=== PATIENT | male | born 1955 | race Caucasian/White ===

== ENCOUNTER → 2018-09-30 07:40 | Outpatient (CLI) | payer OTHER, SELFPAY ==
--- NOTE | 2018-09-30 08:09 | XR_ITS ---
EXAM: XR lumbar spine min 4V HISTORY: ITS.REASON: low back pain ORDERING PHYSICIAN: Byron Steele MD PATIENT AGE: 63 years COMPARISON: None FINDINGS: There are mild degenerative changes at the T12-L1 and L1-L2 levels. There are hypertrophic facet changes at L4-5 and L5-S1 levels. There is slightly accentuated lordotic curvature With increased lumbosacral angle at L5-S1 level. The SI joints appear normal. IMPRESSION: Slightly accentuated lumbar lordosis at the lumbosacral level along with mild hypertrophic facet changes lower lumbar spine.
[2018-09-30 09:03] LABS: Basophils % 0.6 % (0.1-2.0); Eosinophils # 0.3 K/mm3 (0.0-0.4); Eosinophils % 3.5 % (0.1-12.0); Hematocrit 49.8 % (42.0-52.0); Hemoglobin 16.1 g/dL (14.1-18.0); Lymphocytes # 1.8 K/mm3 (0.7-4.5); Lymphocytes % 24.4 % (10-50); Mean Corpuscular HGB Conc 32.3 g/dL (31.8-35.4); Mean Corpuscular Hemoglobin 30.4 pg (27.0-31.2); Mean Platelet Volume 7.7 fl (7.4-10.4); Monocytes # 0.4 K/mm3 (0.1-1.0); Monocytes % 5.7 % (1.7-9.3); Neutrophils # 4.9 K/mm3 (1.8-7.8); Neutrophils % 65.8 % (37.0-80.0); Platelet Count 197 K/mm3 (142-424); White Blood Count 7.4 K/mm3 (4.8-10.8)
[2018-09-30 11:25] LABS: Erythrocyte Sedimentation Rate 6 mm/hr (0-20)
[2018-09-30 13:24] LABS: Hemoglobin A1C 5.9 % (0.0-7.0)
[2018-09-30 14:16] LABS: Alanine Aminotransferase 29 U/L (12-78); Albumin Level 4.1 gm/dL (3.4-5.0); Albumin/Globulin Ratio 1.3 (1.1-1.8); Alkaline Phosphatase 75 U/L (46-116); Anion Gap 14.5 mEq/L (5-15); Aspartate Amino Transferase 10 U/L (15-37); Bilirubin,Total 0.4 mg/dL (0.2-1.0); Blood Urea Nitrogen 19 mg/dL (7-18); Calcium 9.7 mg/dL (8.5-10.1); Carbon Dioxide 27 mmol/L (21.0-32.0); Chloride 103 mmol/L (98-107); Chol/HDL Ratio 3.3 (1-3.5); Cholesterol 173 mg/dL (140-200); Creatinine,Serum 1.12 mg/dL (0.70-1.30); Estimated Glomerular Filt Rate 66 ml/min (>60); GFR (African American) 80 ML/MIN (>60); Globulin 3.2 gm/dl (1.3-3.2); Glucose 106 mg/dL (74-106); HDL Cholesterol 52 mg/dL (27-67); LDL Cholesterol 112 mg/dL (0-130); Potassium 4.5 mmoL/L (3.5-5.1); Prostate Specific Ag Screen 0.7 ng/mL (0.0-4.0); Sodium 140 mmol/L (136-145); Thyroid Stimulating Hormone 3.72 uIU/ml (0.358-3.740); Total Protein,Serum 7.3 gm/dL (6.4-8.2); Triglycerides 47 mg/dL (30-200); Uric Acid 6.1 mg/dL (2.6-7.2); VLDL Cholesterol 9 mg/dL (0-40)
[2018-10-02 08:39] LABS: RA Latex Turbid. <10.0 IU/mL (0.0-13.9)
[2018-10-03 07:21] LABS: Antinuclear Antibodies, IFA Negative (.)
== END ==
PROVIDERS: PCP Family Medicine; Visit Provider Family Medicine
DX: M54.5 Low back pain (principal); R73.9 Hyperglycemia, unspecified; Z12.5 Encounter for screening for malignant neoplasm of prostate
CPT/HCPCS: 36415; 72110; 80053; 80061; 83036; 84443; 84550; 85025; 85651; 86038; 86431; G0103

== ENCOUNTER → 2018-12-05 15:55 | Outpatient (CLI) | payer OTHER, SELFPAY ==
--- NOTE | 2018-12-05 16:01 | MR_ITS ---
MR lumbar spine wo con, MR 3-d myelogram/MRCP HISTORY: Low back pain, left-sided low back pain ITS.REASON: LOW BACK PAIN, LUMBAR DDD, LUMBAR FACET ARTHROPATHY ORDERING PHYSICIAN: Byron Steele MD PATIENT AGE: 63 years Comparison: 09/30/2018 TECHNIQUE: Standard multiplanar multiecho sequences are performed without contrast. 3-D MIP and myelographic images are also rendered and reviewed FINDINGS: There is normal alignment. The spinal cord ends at the L1-L2 level. T11-T12: Unremarkable. T12-L1: Mild degenerative disc disease with mild disc desiccation and a small Schmorl's node along the inferior endplate of T12 posteriorly. L1-L2: Degenerative disc disease with endplate irregularity along the inferior aspect of L1 with small Schmorl's nodes. There is some bone marrow edema within the lower one half of the L1 vertebral body which could be discogenic in nature. There is minimal bulging disc with mild facet and ligamentum flavum hypertrophy. There is mild bilateral foraminal narrowing slightly greater on the left. The endplate irregularity as developed since the radiograph of 09/30/2018 L2-L3: Minimal bulging disc. L3-L4: Minimal bulging disc with mild facet and ligamentous hypertrophy L4-L5: There is a broad-based bulging disc which is eccentric centrally and toward the left along with moderate facet and ligamentum flavum hypertrophy. This is causing canal stenosis and moderate to severe bilateral lateral recess and foraminal narrowing greater on the left. L5-S1: There is mild degenerative disc disease with mild bulging disc with mild bilateral foraminal narrowing from facet hypertrophic change. Schmorl's node is present along the superior endplate of S1 anteriorly IMPRESSION: 1. Mild multilevel lumbar spondylosis with mild degenerative disc disease and bulging disc along with facet and ligamentum hypertrophy with bilateral lateral recess and foraminal narrowing. See above for detailed description at each level. 2. Degenerative disc disease at L1-L2 with endplate irregularity along the inferior aspect of L1 with small Schmorl's nodes. There is some bone marrow edema within the lower one half of the L1 vertebral body which could be discogenic in nature. There is minimal bulging disc with mild facet and ligamentum flavum hypertrophy. There is mild bilateral foraminal narrowing slightly greater on the left. The endplate irregularity as developed since the radiograph of 09/30/2018 3. There is a broad-based bulging disc at L4-5 which is eccentric centrally and toward the left along with moderate facet and ligamentum flavum hypertrophy. This is causing canal stenosis and moderate to severe bilateral lateral recess and foraminal narrowing greater on the left
== END ==
PROVIDERS: PCP Family Medicine; Visit Provider Family Medicine
DX: M54.5 Low back pain (principal); M51.36 Other intervertebral disc degeneration, lumbar region; M47.816 Spondylosis without myelopathy or radiculopathy, lumbar region
CPT/HCPCS: 72148; 76376

== ENCOUNTER → 2018-12-18 10:19 | Outpatient (POV) | payer OTHER, SELFPAY ==
[2018-12-18 10:32] VITALS: BP 162/98; PULSE 78; RESP 18; O2SAT 98
--- NOTE | 2018-12-18 11:36 | HMH.PMCON ---
Assessment and Plan (1) Degenerative disc disease, lumbar Current visit: Yes Status: Chronic Category: Medical Code(s): M51.36 - Other intervertebral disc degeneration, lumbar region (2) Lumbar radiculopathy Current visit: Yes Status: Chronic Category: Medical Code(s): M54.16 - Radiculopathy, lumbar region - Assessment and plan all Dx Assessment and Plan for all problems:: We will schedule an L4-L5 lumbar epidural steroid injection for the patient I do believe it would be beneficial given his symptomology. Patient is failed conservative therapies. I will follow-up with the patient after his injection and reassess his symptoms at that time. He is been instructed to call the office if he has any issues prior to his next appointment. Dr. Chen has reviewed this note and agrees with this plan of care. This note was dictated using voice recognition software and may contain errors or omissions HPI - Data of Consult Consult date: 12/18/18 Requesting Physician: Yaneth Aquino APRN Primary Care Provider: Byron Steele MD Family Provider: Byron Steele MD - Consult Narrative Reason for consult: Back pain History of present illness: Mr. Harman is a 63 year old male who presents today to discuss his low back pain. Patient has had back pain for many years. Patient states all activity increases it while rest and lying flat decreases it. Patient is now having some left leg involvement. He rates his pain a 5 out of 10. He states that throughout the day it gets worse. He does have an abnormal MRI. Patient denied discussed injective therapy. He is interested in this he is continuing a home stretching program. He is not on any anticoagulation therapy. He has failed over 6 months of conservative therapy including anti-inflammatories and home stretching programs. CC: Yaneth Aquino APRN [facility] History I have reviewed the patient's past medical history: Yes Medical History: Denies:: Diabetes Mellitus Type 1, Diabetes Mellitus Type 2, Internal Pacemaker, Lung Disease, Seizures Other Surgeries: Yes: Colonoscopy. No: Pacemaker - *Social History Smoking Status: Never smoker Alcohol Intake: never *Occupational Status:: employed Housing: house Household Members: spouse *Travel in the last 8 weeks: None - Psychiatric History Expresses thoughts of harming self/others: None Suicide Plan Description: No Plan Family Hx:: No significant family history Review of Systems - Review of Systems ROS General: no recent weight change, no fever, no sleep disturbances Respiratory: no cough, no shortness of air, no recurring pulmonary infections Cardiovascular/Peripheral Vascular: No chest pain, No palpitations, no edema, no shortness of breath. Gastrointestinal: no incontinence, normal bowel movements reported Genitourinary: no incontinence Musculoskeletal: Back pain, left leg pain Psychiatric: normal mood/ affect Neurological: [denies weakness in extremities], [denies balance issues] Meds Home Medications Medication Instructions Recorded Confirmed Type No Known Home Medications 10/30/18 10/30/18 History Allergies Allergy/AdvReac Type Severity Reaction Status Date / Time No Known Allergies Allergy Verified 10/30/18 10:20 Objective Vital signs: Pulse Resp BP Pulse Ox 78 18 162/98 H 98 12/18/18 10:32 12/18/18 10:32 12/18/18 10:32 12/18/18 10:32 Narrative: Physical Exam General: Alert and oriented x3, no acute distress, pleasant and cooperative, [on room air] Lungs: Resps E/U, Symmetrical chest expansion, Eyes: PERRL Musculoskeletal: Flexion and extension of lumbar spine somewhat guarded secondary to pain, deep tendon reflexes normal, strength in upper and lower extremities [5/5], slightly antalgic gait noted, straight leg raise test positive at 30 degrees on the left side Neurological: speech clear, 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
--- NOTE | 2018-12-18 11:39 | P.CONS_ITS ---
Assessment and Plan (1) Degenerative disc disease, lumbar Current visit: Yes Status: Chronic Category: Medical Code(s): M51.36 - Other intervertebral disc degeneration, lumbar region (2) Lumbar radiculopathy Current visit: Yes Status: Chronic Category: Medical Code(s): M54.16 - Radiculopathy, lumbar region - Assessment and plan all Dx Assessment and Plan for all problems:: We will schedule an L4-L5 lumbar epidural steroid injection for the patient I do believe it would be beneficial given his symptomology. Patient is failed conservative therapies. I will follow-up with the patient after his injection and reassess his symptoms at that time. He is been instructed to call the o ffice if he has any issues prior to his next appointment. Dr. Chen has reviewed this note and agrees with this plan of care. This note was dictated using voice recognition software and may contain errors or omissions HPI - Data of Consult Consult date: 12/18/18 Requesting Physician: Yaneth Aquino APRN Primary Care Provider: Byron Steele MD Family Provider: Byron Steele MD - Consult Narrative Reason for consult: Back pain History of present illness: Mr. Harman is a 63 year old male who presents today to discuss his low back pain. Patient has had back pain for many years. Patient states all activity increases it while rest and lying flat decreases it. Patient is now having some left leg involvement. He rates his pain a 5 out of 10. He states that throughout the day it gets worse. He does have an abnormal MRI. Patient denied discussed injective therapy. He is interested in this he is continuing a home stretching program. He is not on any anticoagulation therapy. He has failed over 6 months of conservative therapy including anti-inflammatories and home stretching programs. CC: Yaneth Aquino APRN [facility] History I have reviewed the patient's past medical history: Yes Medical History: Denies:: Diabetes Mellitus Type 1, Diabetes Mellitus Type 2, Internal Pacemaker, Lung Disease, Seizures Other Surgeries: Yes: Colonoscopy. No: Pacemaker - *Social History Smoking Status: Never smoker Alcohol Intake: never *Occupational Status:: employed Housing: house Household Members: spouse *Travel in the last 8 weeks: None - Psychiatric History Expresses thoughts of harming self/others: None Suicide Plan Description: No Plan Family Hx:: No significant family history Review of Systems - Review of Systems ROS General: no recent weight change, no fever, no sleep disturbances Respiratory: no cough, no shortness of air, no recurring pulmonary infections Cardiovascular/Peripheral Vascular: No chest pain, No palpitations, no edema, no shortness of breath. Gastrointestinal: no incontinence, normal bowel movements reported Genitourinary: no incontinence Musculoskeletal: Back pain, left leg pain Psychiatric: normal mood/ affect Neurological: [denies weakness in extremities], [denies balance issues] Meds Home Medications Medication Instructions Recorded Confirmed Type No Known Home Medications 10/30/18 10/30/18 History Allergies Allergy/AdvReac Type Severity Reaction Status Date / Time No Known Allergies Allergy Verified 10/30/18 10:20 Objective Vital signs: Pulse Resp BP Pulse Ox
== END ==
PROVIDERS: PCP Family Medicine; Visit Provider Clinical Nurse Specialist Family Health
DX: M51.16 Intervertebral disc disorders with radiculopathy, lumbar region (principal)
CPT/HCPCS: 99202

== ENCOUNTER → 2019-01-09 09:14 | Outpatient (POV) | payer OTHER, SELFPAY ==
[2019-01-09 09:26] VITALS: BP 149/95; PULSE 66; RESP 18; O2SAT 98; BMI 25.7
--- NOTE | 2019-01-16 12:58 | HMH.PAINSOAP ---
[facility] Pain Management SOAP Note Subjective:: Patient is a pleasant 63-year-old white male who presents today for follow-up after epidural steroid injection. Patient did not get any real relief with this injection. Patient states most of his pain is when he standing. Patient finds himself having to sit and lean forward. Patient does have an MRI showing L4-L5 spinal stenosis. Patient and I discussed potentially a mild or vertiflex procedure. I will have Dr. Chen review his MRI. ROS General: no recent weight change, no fever, no sleep disturbances Respiratory: no cough, no shortness of air, no recurring pulmonary infections Cardiovascular/Peripheral Vascular: No chest pain, No palpitations, no edema, no shortness of breath. Gastrointestinal: no incontinence, normal bowel movements reported Genitourinary: no incontinence Musculoskeletal: Back pain, leg pain Psychiatric: normal mood/ affect, [denies depression], [denies anxiety] Neurological: [denies weakness in extremities], [denies balance issues] Objective:: Physical Exam General: Alert and oriented x3, no acute distress, pleasant and cooperative, [on room air] Lungs: Resps E/U, Symmetrical chest expansion, Eyes: PERRL Musculoskeletal: Flexion and extension of lumbar spine somewhat guarded secondary to pain, deep tendon reflexes normal, strength in upper and lower extremities [5/5], normal gait noted Neurological: speech clear, delivery rn equal, no gross sensory deficits Assessment:: Degenerative disc disease lumbar spine with lumbar spinal stenosis with neurogenic claudication Plan:: I will have Dr. Chen review his MRI we will have him follow-up for discussion in regards to what procedure we will move forward with. Dr. Chen has reviewed this note and agrees with this plan of care. This note was dictated using voice recognition software and may contain errors or omissions
== END ==
PROVIDERS: PCP Family Medicine; Visit Provider Clinical Nurse Specialist Family Health
DX: M48.062 Spinal stenosis, lumbar region with neurogenic claudication (principal)
CPT/HCPCS: 99212

== ENCOUNTER → 2019-01-16 15:06 | Outpatient (POV) | payer OTHER, SELFPAY ==
[2019-01-16 15:31] VITALS: BP 125/79; PULSE 84; RESP 18; O2SAT 94; BMI 26.4
--- NOTE | 2019-01-16 16:13 | P.CONS_ITS ---
[facility] Pain Management SOAP Note Subjective:: Patient is a pleasant 63-year-old white male who presents today to discuss plan of care. Patient had an epidural injection with not much relief. Patient does have L4-L5 spinal stenosis with foraminal narrowing. Patient and I discussed a vertiflex procedure. Patient is going to consider this. Patient has pain when standing which is alleviated by leaning forward. Patient has pain down his legs during that time significantly worse in the left side. He rates his pain today a 5 out of 10. ROS General: no recent weight change, no fever, no sleep disturbances Respiratory: no cough, no shortness of air, no recurring pulmonary infections Cardiovascular/Peripheral Vascular: No chest pain, No palpitations, no edema, no shortness of breath. Gastrointestinal: no incontinence, normal bowel movements reported Genitourinary: no incontinence Musculoskeletal: Back pain, leg pain Psychiatric: normal mood/ affect, Neurological: [denies weakness in extremities], [denies balance issues] Objective:: Physical Exam General: Alert and oriented x3, no acute distress, pleasant and cooperative, [on room air] Lungs: Resps E/U, Symmetrical chest expansion, Eyes: PERRL Musculoskeletal: Flexion and extension of lumbar spine somewhat guarded secondary to pain, deep tendon reflexes normal, strength in upper and lower extremities [5/5], normal gait noted Neurological: speech clear, supervisor laboratory 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 Patient has had epidurals with no relief. Patient is tried and failed anti-inflammatories. Patient continues a home stretching program. He is not on any anticoagulation. Dr. Chen has reviewed this note and agrees with this plan of care. This note was dictated using voice recognition software and may contain errors or omissions
== END ==
PROVIDERS: PCP Family Medicine; Visit Provider Clinical Nurse Specialist Family Health
DX: M48.062 Spinal stenosis, lumbar region with neurogenic claudication (principal); M51.16 Intervertebral disc disorders with radiculopathy, lumbar region
CPT/HCPCS: 99212

== ENCOUNTER → 2019-05-08 08:38 | Outpatient (POV) | payer OTHER, SELFPAY ==
[2019-05-08 08:50] VITALS: BP 155/104; PULSE 82; RESP 18; O2SAT 98; BMI 26.4
--- NOTE | 2019-05-08 09:38 | HMH.PAINSOAP ---
[facility] Pain Management SOAP Note Subjective:: Patient is a pleasant 63-year-old white male who presents today for follow-up. Patient had epidural injections with no relief. Patient has pain especially on with standing for extended periods of time. He finds himself leaning forward to alleviate pressure. He has L4-L5 spinal stenosis with foraminal narrowing. We discussed the vertical flex procedure is interested in this. Patient rates pain a 2 out of 10 when he is sitting. Patient has pain down his legs during times of standing significantly worse on the left side. He is not on any anticoagulation therapy. He is continuing a home stretching routine. ROS General: no recent weight change, no fever, no sleep disturbances Respiratory: no cough, no shortness of air, no recurring pulmonary infections Cardiovascular/Peripheral Vascular: No chest pain, No palpitations, no edema, no shortness of breath. Gastrointestinal: no incontinence, normal bowel movements reported Genitourinary: no incontinence Musculoskeletal: Lumbar back pain, leg pain Psychiatric: normal mood/ affect Neurological: [denies weakness in extremities], [denies balance issues] Objective:: Physical Exam General: Alert and oriented x3, no acute distress, pleasant and cooperative, [on room air] Lungs: Resps E/U, Symmetrical chest expansion, Eyes: PERRL Musculoskeletal: Flexion and extension of lumbar spine somewhat guarded secondary to pain, deep tendon reflexes normal, strength in upper and lower extremities [5/5], [abnormal gait noted] Neurological: speech clear, 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 Plan:: We will send the patient for flexion and extension x-rays to see if he is avert a flex candidate. We will plan on L3-L4 L4-L5 for to flex implant. Follow-up with the patient after reassess his symptoms at that time. He has been instructed to call the office if he has any issues prior to his next appointment. Dr. Chen has reviewed this note and agrees with this plan of care. This note was dictated using voice recognition software and may contain errors or omissions [facility] History I have reviewed the patient's past medical history: Yes Medical History: Denies:: Cancer, Diabetes Mellitus Type 1, Diabetes Mellitus Type 2, Internal Pacemaker, Lung Disease, MRSA, Seizures *Have you ever received a pneumonia vaccine?: No *Have you received a flu vaccine this season?: No Other Medical History: Denies: Blood Transfusion Reaction Other Surgeries: Yes: Colonoscopy. No: Pacemaker Amputation: No - *Social History Smoking Status: Light tobacco smoker Tobacco Type: cigars # Packs/Day (cigarettes): 1 Alcohol Intake: never *Occupational Status:: other Housing: house Household Members: spouse *Travel in the last 8 weeks: None Family Hx:: No significant family history
--- NOTE | 2019-05-08 09:43 | P.CONS_ITS ---
[facility] Pain Management SOAP Note Subjective:: Patient is a pleasant 63-year-old white male who presents today for follow-up. Patient had epidural injections with no relief. Patient has pain especially on with standing for extended periods of time. He finds himself leaning forward to alleviate pressure. He has L4-L5 spinal stenosis with foraminal narrowing. We discussed the vertical flex procedure is interested in this. Patient rates pain a 2 out of 10 when he is sitting. Patient has pain down his legs during times of standing significantly worse on the left side. He is not on any anticoagulation therapy. He is continuing a home stretching routine. ROS General: no recent weight change, no fever, no sleep disturbances Respiratory: no cough, no shortness of air, no recurring pulmonary infections Cardiovascular/Peripheral Vascular: No chest pain, No palpitations, no edema, no shortness of breath. Gastrointestinal: no incontinence, normal bowel movements reported Genitourinary: no incontinence Musculoskeletal: Lumbar back pain, leg pain Psychiatric: normal mood/ affect Neurological: [denies weakness in extremities], [denies balance issues] Objective:: Physical Exam General: Alert and oriented x3, no acute distress, pleasant and cooperative, [on room air] Lungs: Resps E/U, Symmetrical chest expansion, Eyes: PERRL Musculoskeletal: Flexion and extension of lumbar spine somewhat guarded secondary to pain, deep tendon reflexes normal, strength in upper and lower extremities [5/5], [abnormal gait noted] Neurological: speech clear, release engineer 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 Plan:: We will send the patient for flexion and extension x-rays to see if he is avert a flex candidate. We will plan on L3-L4 L4-L5 for to flex implant. Follow-up with the patient after reassess his symptoms at that time. He has been instructed to call the office if he has any issues prior to his next appointment. Dr. Chen has reviewed this note and agrees with this plan of care. This note was dictated using voice recognition software and may contain errors or omissions [facility] History I have reviewed the patient's past medical history: Yes Medical History: Denies:: Cancer, Diabetes Mellitus Type 1, Diabetes Mellitus Type 2, Internal Pacemaker, Lung Disease, MRSA, Seizures *Have you ever received a pneumonia vaccine?: No *Have you received a flu vaccine this season?: No Other Medical History: Denies: Blood Transfusion Reaction Other Surgeries: Yes: Colonoscopy. No: Pacemaker Amputation: No - *Social History Smoking Status: Light tobacco smoker Tobacco Type: cigars # Packs/Day (cigarettes): 1 Alcohol Intake: never *Occupational Status:: other Housing: house Household Members: spouse *Travel in the last 8 weeks: None Family Hx:: No significant family history
== END ==
PROVIDERS: PCP Family Medicine; Visit Provider Clinical Nurse Specialist Family Health
DX: M48.062 Spinal stenosis, lumbar region with neurogenic claudication (principal)
CPT/HCPCS: 99212

== ENCOUNTER → 2019-05-19 08:17 | Outpatient (CLI) | payer OTHER, SELFPAY ==
--- NOTE | 2019-05-19 08:30 | XR_ITS ---
PROCEDURE: XR ANKLE LT MIN 3V CLINICAL INDICATION: ACUTE LEFT ANKLE PAIN Left ankle pain and swelling COMPARISON: None FINDINGS: There is mild soft tissue swelling overlying the medial malleolar region. There are several small areas of calcification overlying the medial malleolus and 1 at the tip of the medial malleolus. These may reflect sequela from prior trauma. No acute fracture or dislocation. No lytic changes apparent. IMPRESSION: Soft tissue swelling with calcification at the medial malleolar region and at the tip of the medial malleolus which may be due to prior trauma. Dictated by: Roberto Carlos Mclaughlin MD 05/19/2019 09:48 Electronically signed by Roberto Carlos Mclaughlin MD in [place] 05/19/2019 09:48
--- NOTE | 2019-05-19 08:30 | XR_ITS ---
PROCEDURE: XR LUMBAR SPINE BENDING ONLY CLINICAL INDICATION: back pain , seated flexion and extension COMPARISON: [id number] XR lumbar spine min 4V from 09/30/2018 FINDINGS: Flexion and extension views are obtained. There is approximately 2 mm anterolisthesis of L4 on L5 which does not significantly changed.. In the extension position, and there is 3 mm retrolisthesis of L3 on L4 and 5 mm retrolisthesis of L1 on L2. Degenerative disc disease is present at T12-L1 and L1-L2. No fracture or dislocation. IMPRESSION: Mild retrolisthesis of L3 on L4 of 3 mm and L1-L2 5 mm with extension Dictated by: Roberto Carlos Mclaughlin MD 05/19/2019 10:16 Electronically signed by Roberto Carlos Mclaughlin MD in [place] 05/19/2019 10:16
[2019-05-19 09:09] LABS: Basophils # 0.1 K/mm3 (0-0.2); Basophils % 0.6 % (0.1-2.0); Eosinophils # 0.4 K/mm3 (0.0-0.4); Eosinophils % 4.8 % (0.1-12.0); Hematocrit 50.3 % (42.0-52.0); Hemoglobin 15.6 g/dL (14.1-18.0); Lymphocytes # 1.6 K/mm3 (0.7-4.5); Lymphocytes % 20.3 % (10-50); Mean Corpuscular Hemoglobin 30.1 pg (27.0-31.2); Mean Corpuscular Volume 97.2 fl (80-94); Mean Platelet Volume 8.3 fl (7.4-10.4); Monocytes # 0.5 K/mm3 (0.1-1.0); Monocytes % 6.3 % (1.7-9.3); Neutrophils # 5.5 K/mm3 (1.8-7.8); Platelet Count 252 K/mm3 (142-424); Red Blood Count 5.18 M/mm3 (4.60-6.20); Red Cell Distribution Width 13.3 % (11.5-17.5); White Blood Count 8.1 K/mm3 (4.8-10.8)
[2019-05-19 10:59] LABS: Hemoglobin A1C 5.9 % (0.0-7.0)
[2019-05-19 11:03] LABS: Alanine Aminotransferase 23 U/L (12-78); Albumin Level 4.3 gm/dL (3.4-5.0); Albumin/Globulin Ratio 1.2 (1.1-1.8); Alkaline Phosphatase 69 U/L (46-116); Anion Gap 13.1 mEq/L (5-15); Aspartate Amino Transferase 16 U/L (15-37); Bilirubin,Total 0.7 mg/dL (0.2-1.0); Blood Urea Nitrogen 15 mg/dL (7-18); Calcium 9.5 mg/dL (8.5-10.1); Carbon Dioxide 29 mmol/L (21.0-32.0); Chloride 103 mmol/L (98-107); Cholesterol 187 mg/dL (140-200); Creatinine,Serum 1.09 mg/dL (0.70-1.30); Estimated Glomerular Filt Rate 68 ml/min (>60); GFR (African American) 83 ML/MIN (>60); Globulin 3.5 gm/dl (1.3-3.2); Glucose 106 mg/dL (74-106); HDL Cholesterol 62 mg/dL (27-67); LDL Cholesterol 112 mg/dL (0-130); Potassium 4.1 mmoL/L (3.5-5.1); Sodium 141 mmol/L (136-145); Total Protein,Serum 7.8 gm/dL (6.4-8.2); Triglycerides 67 mg/dL (30-200); VLDL Cholesterol 13 mg/dL (0-40)
[2019-05-19 11:11] LABS: C-Reactive Protein < 0.2 mg/dL (0.0-0.9)
[2019-05-19 11:31] LABS: Erythrocyte Sedimentation Rate 7 mm/hr (0-20)
[2019-05-22 07:08] LABS: RA Latex Turbid. <10.0 IU/mL (0.0-13.9)
[2019-05-24 06:09] LABS: Antinuclear Antibodies, IFA Negative (.)
== END ==
PROVIDERS: PCP Family Medicine; Referring Provider Clinical Nurse Specialist Family Health; Visit Provider Family Medicine
DX: M25.572 Pain in left ankle and joints of left foot (principal); M54.5 Low back pain; R73.9 Hyperglycemia, unspecified; R25.1 Tremor, unspecified
CPT/HCPCS: 36415; 72120; 73610; 80053; 80061; 83036; 84443; 84550; 85025; 85651; 86038; 86140; 86431

== ENCOUNTER → 2019-10-25 16:00 | Outpatient (CLI) | payer OTHER, SELFPAY ==
--- NOTE | 2019-10-25 16:03 | MR_ITS ---
PROCEDURE: MR LUMBAR SPINE WO CON CLINICAL INDICATION: LUMBAGO WITH SCIATICA Low back pain with sciatica, left-sided low back pain radiating into the leg with left leg numbness COMPARISON: SPLUMBWO MR lumbar spine wo con from 12/05/2018 TECHNIQUE: Standard multiplanar multiecho sequences are performed without contrast. 3-D MIP and myelographic images are also rendered and reviewed FINDINGS: Spinal cord ends at the L1 level. T12-L1: Degenerate disc disease. L1-L2: Degenerate disc disease with endplate irregularity involving the inferior endplate L1. Minimal bulging disc along with mild facet ligamentum hypertrophy. L2-L3: Mild concentric bulging disc. T1 and T2 hyperintensity is noted involving the L2 vertebral body laterally unchanged consistent with a small lipoma or hemangioma. There is facet ligamentum hypertrophy at this level with bilateral lateral recess and foraminal narrowing. L3-L4: Mild concentric bulging disc along with facet ligamentum hypertrophy with mild bilateral foraminal narrowing. L4-5: Degenerate disc disease with bulging disc which is eccentric toward the left with moderate facet ligamentum hypertrophy with moderate to severe canal stenosis, severe bilateral lateral recess narrowing, and moderate bilateral foraminal narrowing. L5-S1: Bulging disc with facet ligamentum hypertrophy No extruded herniated disc is evident and there has been no significant change compared to the previous exam. IMPRESSION: Multilevel lumbar spondylosis with degenerative disc disease with bulging disc along with facet ligamentum hypertrophy with varying levels of lateral recess and foraminal narrowing. There is moderate to severe canal stenosis at L4-5. Overall no significant change compared to the previous exam. No extruded herniated disc is evident. Please see above for detailed description at each level Dictated by: Roberto Carlos Mclaughlin MD 10/26/2019 11:03 Electronically signed by Roberto Carlos Mclaughlin MD in [place] 10/26/2019 11:03
== END ==
PROVIDERS: PCP Family Medicine; Visit Provider Family Medicine
DX: M54.42 Lumbago with sciatica, left side (principal); M48.061 Spinal stenosis, lumbar region without neurogenic claudication; M51.26 Other intervertebral disc displacement, lumbar region; M51.36 Other intervertebral disc degeneration, lumbar region; M47.816 Spondylosis without myelopathy or radiculopathy, lumbar region
CPT/HCPCS: 72148; 76376

== ENCOUNTER → 2020-03-05 15:55 | Outpatient (POV) | payer OTHER, SELFPAY | PROVIDERS: PCP Family Medicine | DX: Z00.00 Encounter for general adult medical examination without abnormal findings (principal) ==

== ENCOUNTER 2020-05-08 08:00 | Outpatient (RCR) | payer OTHER, SELFPAY ==
--- NOTE | 2020-01-30 08:54 | HMH.PTOPEV ---
PT Outpatient Evaluation Rehab PT Outpatient Evaluation Start: 01/30/20 08:04 Freq: Status: Active Protocol: Document 01/30/20 08:40 LENY (Rec: 01/30/20 08:54 PHORNE [id number]) Electronically Signed By Armin Mayfield, PT 01/30/20 08:40 Outpatient Therapy Subjective History Subjective History Pt is 64 yowm who presents with ~ 1 yr hx of generalized weakness, gait difficulty, and worsening balance. He reports being diagnosed with Parkinson's disease ~ 2 mos ago. He reports initially having frequent severe pain and was being worked up for lumbar spine pathology, but since he began medication for his Parkinson's disease the pain has subsided. He reports difficulty with initiating movements and ambulation. He reports mild tremors mostly in his legs and feels all of his symptoms are worse later in the day. PMH: none significant . Chief Complaint Stiff,Weakness,Decreased Coordination Symptoms Relieved By Prescription Meds Symptoms Aggravated By Physical Activity Prior Functional Limitations None Current Functional Limitations Recreation Activity,Walking, Balance Symptom Description Intermittent Level of pain today (0-10) 0 Balance Eval Gait/Posture Asssessment General Gait Observation Wide Based Gait,Shuffling Step Assistive Devices None / NA Hip Observation in Gait Stance Inadequate Extension Ankle/Foot Observation in Gait Swing Decreased Foot Clearance Ankle/Foot Observation in Gait Stance Early Heel Off Timed Up and Go Test 3. Is the Timed Up and Go Test result < yes 12 seconds? Rhomberg Feet Together/Eyes open/Stable Surface pass Feet Together/Eyes Closed/Stable Surface pass Feet Together/Eyes open/Unstable Surface pass Feet Together/Eyes Closed/Unstable fail Surface Dynamic Gait Index Test Protocol Gait Level Surface Normal Query Text: Instructions: Walk at your normal speed from here to the next leoncoi (20'). Grading: Leoncio the lowest category that applies. Change in Gait Speed Mild Impairment Query Text: Instructions: Begin walking at your normal pace (for 5'), when I tell you go
--- NOTE | 2020-03-03 10:47 | HMH.RHREAS ---
Rehab Reassessment Rehab OP Re-assessment Start: 03/03/20 10:41 Freq: Status: Active Protocol: Document 03/03/20 10:43 LENY (Rec: 03/03/20 10:47 LENY [id number]) Electronically Signed By Armin Mayfield, PT 03/03/20 10:43 Rehab Re-assessment Subjective Subjective Pt reports he feels he is walking better, but notices tremors more when he is tired. Objective Objective Notes Gait: less shuffling step with decreased stride width. increased toe off during late stance phase bilateral. Assessment Progress Assessment Progressing as Expected Assessment Notes Pt improving gait pattern well , endurance remains lower than normal. balance also improving. Patient goals met ST,2,3,4,5,6 Goals Not Met LT,2,3,4,5,6 Revised Goals none Plan Plan Continue per initial POC. Frequency of Therapy 2 x/wk Duration of therapy 8 wks Time and Billing Re-Eval Time 15 Re-Eval Billing Units 1 PHYSICIAN CERTIFICATION: I certify the specified therapy services for Leoncio Harman are required, authorized, and reviewed every 30 days.
--- NOTE | 2020-04-07 15:52 | HMH.RHREAS ---
Rehab Reassessment Rehab OP Re-assessment Start: 03/03/20 10:41 Freq: Status: Active Protocol: Document 04/07/20 15:50 LENY (Rec: 04/07/20 15:52 LENY [id number]) Electronically Signed By Armin Mayfield, PT 04/07/20 15:50 Rehab Re-assessment Subjective Subjective Pt reports he feels much better overall, but some things are still problematic. Objective Objective Notes DIALLO balance score: 49/56 Gait pattern improved with increased stride length B. Assessment Progress Assessment Progressing as Expected Assessment Notes Continues to improve with ambulation and endurance to all activity, upper/lower trunk dissociation needs to improve. Patient goals met ST,2,3,4,5,6 Goals Not Met LT,2,3,4,5,6 Revised Goals none Plan Plan Continue per initial POC. Frequency of Therapy 2 x/wk Duration of therapy 8 wks Time and Billing Re-Eval Time 15 Re-Eval Billing Units 1 PHYSICIAN CERTIFICATION: I certify the specified therapy services for Leoncio Wisam Harman are required, authorized, and reviewed every 30 days.
== END 2020-05-08 08:05 | disposition home or self-care (01) ==
LOC: PT 08:00
PROVIDERS: PCP Family Medicine; Visit Provider Family Medicine
DX: G20 Parkinson's disease (principal)
CPT/HCPCS: 97110; 97112; 97163; 97164; 97530

== ENCOUNTER 2020-08-01 08:30 | Outpatient (RCR) | payer OTHER, SELFPAY ==
--- NOTE | 2020-06-20 09:19 | HMH.PTOPEV ---
PT Outpatient Evaluation Rehab PT Outpatient Evaluation Start: 06/20/20 09:05 Freq: Status: Active Protocol: Document 06/20/20 09:06 LENY (Rec: 06/20/20 09:18 PHOMOUSTAPHA [id number]) Electronically Signed By Armin Mayfield, PT 06/20/20 09:06 Outpatient Therapy Subjective History Subjective History Pt is 64 yowm who presents with hx of Parkinson's disease with feelsings of general weakness and poor gait. Pt states, I feel like I stumble more and I shuffle my feet when I walk. Pt reports no c/ o pain, but does express feeling of generally decreased endurance to activity. He reports no significant PMH. He does reports increased L LE tremors recently. Chief Complaint Gives out/Unstable,Weakness Symptom Type Other Symptoms Relieved By Rest/Positioning Symptoms Aggravated By Physical Activity Prior Functional Limitations None Current Functional Limitations Recreation Activity,Walking, Balance Symptom Description Constant but Variable Level of pain today (0-10) 0 Pain scale - at its worst (0-10) 0 Balance Eval Subjective Hx of Complaint Comment HKS= mild impairment, FNF= mild impairment Current Functional Limitations Comment LEFS score 57/80 = 71.3%/100% LE function. Gait/Posture Asssessment General Gait Observation Shuffling Step Assistive Devices None / NA Level of Transfer Assist Independent Ankle/Foot Observation in Gait Swing Decreased Foot Clearance Body Alignment Posture Rigid Dynamic Gait Index Test Protocol Gait Level Surface Normal Query Text: Instructions: Walk at your normal speed from here to the next yoli (20'). Grading: Yoli the lowest category that applies. Change in Gait Speed Normal Query Text: Instructions: Begin walking at your normal pace (for 5'), when I tell you go , walk as fast as you can (for 5'). When I tell you slow , walk as slowly as you can (for 5'). Grading: Yoli the lowest category that applies. Gait with Horizontal Head Turns Mild Impairment Query Text: Instructions: Begin walking at your normal pace. When I tell you to look right , keep walking straight, but turn you head to the right. Keep looking to the right
== END 2020-08-01 08:35 | disposition home or self-care (01) ==
LOC: PT 08:30
PROVIDERS: PCP Family Medicine; Visit Provider Family Medicine
DX: G20 Parkinson's disease; G24.9 Dystonia, unspecified; R26.89 Other abnormalities of gait and mobility
CPT/HCPCS: 97110; 97112; 97163; 97530

== ENCOUNTER → 2021-03-11 14:22 | Outpatient (POV) | payer MEDICARE, SELFPAY | DX: Z00.00 Encounter for general adult medical examination without abnormal findings (principal) ==

== ENCOUNTER → 2021-11-21 07:55 | Outpatient (CLI) | payer MEDICARE, SELFPAY ==
--- NOTE | 2021-11-21 08:14 | XR_ITS ---
PROCEDURE INFORMATION: Exam: XR Right Hip Exam date and time: 11/21/2021 8:15 AM Age: 66 years old Clinical indication: Hip pain; Right hip; Additional info: Right hip pain TECHNIQUE: Imaging protocol: XR Right hip. Views: 2 or 3 views hip with pelvis when performed. COMPARISON: MR LUMBAR SPINE WO CON 10/25/2019 4:16 PM FINDINGS: Bones/joints: Unremarkable. No acute fracture or dislocation. Soft tissues: Unremarkable. IMPRESSION: No acute findings.
== END ==
PROVIDERS: PCP Family Medicine; Visit Provider Family Medicine
DX: M25.551 Pain in right hip (principal)
CPT/HCPCS: 73502

== ENCOUNTER → 2022-07-19 08:02 | Outpatient (CLI) | payer MEDICARE, SELFPAY ==
--- NOTE | 2022-07-19 08:16 | XR_ITS ---
FINAL REPORT CLINICAL HISTORY: COUGH x 2 weeks FINDINGS: 2 views of the chest were obtained . The heart is normal in size. The mediastinum is within normal limits. There are coarse linear densities at the lung bases bilaterally consistent with atelectasis and probable resolving pneumonia. There is no effusion or pneumothorax. Osseous structures are unremarkable. IMPRESSION: Coarse linear densities at the lung bases consistent with atelectasis and probable resolving pneumonia. Reviewed, Interpreted and Dictated by Zari Daniels MD Transcribed by Nicole Cazares Authenticated and [facility]
== END ==
PROVIDERS: PCP Family Medicine; Visit Provider Family Medicine
DX: R05.9 Cough, unspecified (principal)
CPT/HCPCS: 71046

== ENCOUNTER → 2023-03-15 08:43 | Outpatient (CLI) | payer MEDICARE, SELFPAY ==
--- NOTE | 2023-03-15 08:49 | CA_ITS ---
APPROVED REPORT EXAM: Comprehensive 2D, Doppler, and color-flow Echocardiogram Building Pressure Washer: Renata Suggs RT(R) Ht: 6 ft 1 in Wt: 240lbs BSA: 2.33 BP: 106/79 mmHg Indications: Parkinson's disease, edema, smoker, SOB 2D Dimensions LVOT 2.08 cm (M/F) 1.5-2.5 LVEF (Estrada's) 57.80 % M: 52 - 72 LV Volume 118.00 mL M: 62 - 150 LV Volume Index 50.64 mL/m2 M: 34 - 74 LA Volume 38.20 mL LA Volume Index 16.39 mL/m2 (M/F) 16-34 M-Mode Dimensions RVDd 2.93 cm (0.9-2.6) LA Diam 4.36 cm (1.9-4.0) LVDd 5.26 cm (3.5-5.7) Ao Diam 2.95 cm (2.0-3.7) LVDs 3.53 cm (3.5-5.7) IVSd 0.80 cm (0.6-1.1) PWd 0.72 cm (0.6-1.1) EF (Teich) 61.00% FS 32.90% EDV (Teich) 133.00 mL ESV (Teich) 51.90 mL LV Diastology E Decel Time 187.00 (160-240 msec) E/A Ratio 0.8 MED E' 6.60 (< 7 cm/sec) E'/MED E' Ratio 10.21 (>14) LAT E' 9.60 (<10 cm/sec) E/LAT E' Ratio 7.02 (>14) Mitral Valve MV E Max Brian. 67.00 (40-130 cm/s) MV A Velocity 86.00 (40-130 cm/s) E/A Ratio 0.78 MV Decel. Time 187.00 (160-240 ms) MV PHT 55.00 ms Left Ventricle The left ventricle is normal size. There is normal left ventricular systolic function. LVEF is 55% There is normal left ventricular wall thickness. The left ventricular diastolic function is normal. Right Ventricle The right ventricle is normal size and function There is mild increase in RV wall thickness Atria The left atrium size is normal. The right atrium size is normal. There is no Doppler evidence of atrial septal defect Aortic Valve The aortic valve opens well. The aortic valve is normal in structure. Aortic valve is trileaflet. No aortic regurgitation is present. Mitral Valve The mitral valve is normal in structure. There is no mitral valve regurgitation noted. Tricuspid Valve The tricuspid valve is normal in structure. Trace tricuspid regurgitation. RVSP is normal. Pulmonic Valve The pulmonary valve is normal in structure. Trace pulmonic regurgitation is present. Great Vessels The aortic root is normal in size. The ascending aorta is normal in size. Pericardium There is no pericardial effusion. Other Information Study Quality: Adequate Conclusion Normal biventricular systolic function. No significant valvular disease. No prior study to compare. Electronically signed by : Sadaf Hartman, 03/15/2023 12:22:43
== END ==
LOC: RT 08:45
PROVIDERS: PCP Family Medicine; Visit Provider Family Medicine
DX: R06.02 Shortness of breath; R60.0 Localized edema
CPT/HCPCS: 93306

== ENCOUNTER 2023-04-28 08:00 | Outpatient (RCR) | payer MEDICARE, SELFPAY ==
--- NOTE | 2022-11-10 14:57 | HMH.PTOPWND ---
Rehab Outpt Wound Evaluation Rehab OP Wound Evaluation Start: 11/10/22 14:31 Freq: Status: Active Protocol: Document 11/10/22 14:31 LENY (Rec: 11/10/22 14:57 PHORDERREK [id number]) E-signed By Armin Mayfield, PT Subjective/History History History This is the initial PT eval for Leoncio Harman 67 yowm who presents with c/o B LE edema increased x ~ 3-6 mos. He reports edema is significantly increased throughout the day with dependent positioning, but he has difficulty propping his legs due to stiffness related to his parkinson's disease. He reports any time he lays for very long his low back becomes painful and his general stiffness is increased . He reports this is especially bad first thing in the morning. He has hx of B LE laser vein ablation in the past. Subjective Subjective Pt reports pain is 8/10 at worst, especially first thing in the morning. He reports increased walking and moving during the day relieve his pain and stiffness. Currently 1+ pitting edema noted to B lower legs, especially at the ankle. He has no c/o palpation tenderness at this time. Lymphedema Eval Classification of Lymphedema Secondary Lymphedema Yes Stemmer's sign Stemmer's Sign yes Stage of Lymphedema Lymphedema stages Stage I (Pitting edema, reduces w/ elevation, no fibrosis) Skin Changes Dry Skin Yes Redness Yes Brittle Uneven Nails Yes Other Changes Yes Pain Scale Pain Scale (0-10) 8 Affected Extremities Areas Affected by Lymphedema/Edema Right Lower Extremity,Left Lower Extremity Manual Lymphatic Drainage Treatment Area MLD Treatment Area Right Lower Extremity,Left Lower Extremity Wound Problems/Impairments Impairments Problems/Impairmments Impaired Endurance,Impaired Gait Pattern,Impaired Walking,
--- NOTE | 2022-12-08 16:28 | HMH.RHREAS ---
Rehab Reassessment Rehab OP Re-assessment Start: 12/08/22 16:23 Freq: Status: Active Protocol: Document 12/08/22 16:23 LENY (Rec: 12/08/22 16:28 PHORDERREK [id number]) E-signed By Armin Mayfield, PT Rehab Re-assessment Subjective Subjective Pt reports pain 12/29 this date . Unfortunately while on vacation ~2 wks ago he contracted cellulitis of his R LE and has significant wound area remaining on the medial R ankle. Objective Objective Notes R ankle wound: L= 9.3 cm, W= 5 .8 cm, D= 0.1 cm. Dry, flaky skin and minimal slough remain in the wound bed at this time . Edema: 1+ pitting edema noted to B lower legs. Assessment Progress Assessment Slower Than Expected Assessment Notes Pt has shown improvement in LE pain. However, he has shown little decrease in his pitting edema at this point and new onset wound to the R LE as noted above. He continues to require skilled intervention to return to prior level of function. Patient goals met ST,3,[address] LT,2,3,4,5,6 Revised Goals none Plan Plan Continue per initial POC. Frequency of Therapy 2 x/wk Duration of therapy 4 wks Time and Billing Re-Eval Time 16 Re-Eval Billing Units 1 PHYSICIAN CERTIFICATION: I certify the specified therapy services for Leoncio Harman are required, authorized, and reviewed every 30 days.
--- NOTE | 2023-01-10 11:59 | HMH.RHREAS ---
Rehab Reassessment Rehab OP Re-assessment Start: 12/08/22 16:23 Freq: Status: Active Protocol: Document 01/10/23 11:55 RENETTAVenusDERREK (Rec: 01/10/23 11:59 LENY [id number]) E-signed By Armin Mayfield, PT Rehab Re-assessment Subjective Subjective Pt reports he feels much closer to baseline now. It doesn't hurt aat all, but it is still kind of itchy. Objective Objective Notes R ankle wound: L= 1.2 cm, W= 2 .1 cm, D= 0.1 cm. Wound bed very healthy, full granulation tissue with increased epithelialization. Edema: 1+ pitting edema noted to R lower leg. Circumferential measurements: R LE 252.9 cm total. Assessment Progress Assessment Progressing as Expected Assessment Notes Pt has shown significant overall improvement in R ankle wound total area. He continues to have increased difficulty with ambulation due to increased swelling and feelings of heaviness in the legs when he walks. He contnues to need skilled intervention to return to prior level of function with all ADLs. Patient goals met ST,2,3,4 Goals Not Met LT,2,3,4,5,6 Revised Goals none Plan Plan Continue per initial POC. Frequency of Therapy 1 x/wk Duration of therapy 4 wks Time and Billing Re-Eval Time 14 Re-Eval Billing Units 0 PHYSICIAN CERTIFICATION: I certify the specified therapy services for Leoncio Harman are required, authorized, and reviewed every 30 days.
--- NOTE | 2023-03-29 11:31 | HMH.RHREAS ---
Rehab Reassessment Rehab OP Re-assessment Start: 12/08/22 16:23 Freq: Status: Active Protocol: Document 03/29/23 11:24 RENETTAVenusDERREK (Rec: 03/29/23 11:31 PHORDERREK [id number]) E-signed By Armin Mayfield, PT Rehab Re-assessment Subjective Subjective Pt reports, My leg feels a whole lot better than it did when we started. Objective Objective Notes R ankle wound: Fully epithelialized at this time. Edema: 1+ pitting edema noted to R lower leg. Circumferential measurements: R LE 258.9 cm total which is + 16.9 cm total since initial eval. Assessment Progress Assessment Slower Than Expected Assessment Notes Pt has shown increased R LE edema progressiveley since his intial evaluation, but there could be some medication side- effects that worsen this condition. He does continue to improve his functional ambulation ability with less feelings of heaviness in the R LE and his previous wound appears to be fuilly healed at this time. He continues to need skilled intervention to return to prior level of function. Patient goals met ST,2,3,4 Goals Not Met LT,2,3,4,5,6 Revised Goals none Plan Plan Continue per initial POC. Frequency of Therapy 1 x/wk Duration of therapy 4 wks Time and Billing Re-Eval Time 13 Re-Eval Billing Units 1 PHYSICIAN CERTIFICATION: I certify the specified therapy services for Leoncio Harman are required, authorized, and reviewed every 30 days.
== END 2023-04-28 08:05 | disposition home or self-care (01) ==
LOC: PT 08:00
PROVIDERS: PCP Family Medicine; Visit Provider Family Medicine
DX: R60.0 Localized edema (principal)
CPT/HCPCS: 97140; 97163; 97164; 97760

== ENCOUNTER → 2023-06-10 10:30 | Outpatient (CLI) | payer MEDICARE, SELFPAY ==
--- NOTE | 2023-06-10 10:35 | XR_ITS ---
FINAL REPORT CLINICAL HISTORY: LT ANKLE PAIN, NO KNOWN INJURY, SWELLING FINDINGS: Left ankle Three views were obtained. There is no acute fracture or dislocation. There are mild degenerative changes. There is chronic calcification inferior to the medial malleolus. Small plantar calcaneal spur is identified. There is soft tissue swelling. IMPRESSION: Degenerative and chronic appearing findings Reviewed, Interpreted and Dictated by Jayson Castaneda III, MD Transcribed by Angie Spear Authenticated and [facility]
== END ==
PROVIDERS: PCP Family Medicine; Visit Provider Family Medicine
DX: M25.572 Pain in left ankle and joints of left foot (principal)
CPT/HCPCS: 73610

== ENCOUNTER 2023-08-09 19:01 | Emergency (ER) | payer MEDICARE, SELFPAY ==
--- OUTSIDE RECORDS SUMMARY | 2023-08-09 19:09 | XMS_ITS ---
Author Name Unknown Address [address] [place] [address] Phone Organization [facility] Address [address] [place] [address] Phone Care Team Providers Care Admissions Assistant Name Role Phone Brenna GONZALEZ, Jayson Booth [ ] Conditions or Problems Problem Name Problem Code Onset Date Status Entry Date Provider Comment Standard Description Annotate Leukocytosis 111661055 (SNOMED CT) 12/02 Inactive 12/02 Jayson Ceja MD Leukocytosis Venous stasis 13209848 (SNOMED CT) 12/02 Inactive 12/02 Jayson Ceja MD Venous stasis Medications Medication Instructions Start Date Stop Date Generic Name NDC Provider MUCINEX MAXIMUM STRENGTH 1200 MG [id number] qd guaifenesin 10050097006 [facility] PREGABALIN 75 MG CAPS three times daily pregabalin [id number] [facility] PRAMIPEXOLE DIHYDROCHLORIDE 1 MG TABS three times daily pramipexole [id number] [facility] ESOMEPRAZOLE MAGNESIUM 40 MG CPDR qd esomeprazole magnesium [id number] [facility] Medications Administered No information available. Allergies, Adverse Reactions, Alerts No information available. Results Date Name Value Unit
--- OUTSIDE RECORDS SUMMARY | 2023-08-09 19:09 | XMS_ITS | Clinical Summary ---
Author Name Unknown Address [address] [place] [address] Phone Organization [facility] Address [address] [place] [id number] Phone Care Team Providers Care Location Manager Name Role Phone Jayson Ceja MD [ ] Conditions or Problems Problem Name Problem Code Onset Date Status Entry Date Provider Comment Standard Description Annotate Strep pyogenes infection B95.4 (ICD-10-CM ) 12/01 Active 12/01 Yari L Other streptococcus as the cause of diseases classified elsewhere Chronic venous stasis disease 02038084 (SNOMED CT) 12/02 Active 12/02 Yari L Stasis dermatitis Neutrophilic leukemoid reaction D72.823 (ICD-10-CM ) 12/02 Active 12/02 Yari L Leukemoid reaction Smoking cessation counseling 403055530 (SNOMED CT) 12/07 Active 12/07 Carolee Cari Procedure carried out on subject Other obesity due to excess calories 089180373 (SNOMED CT) 12/07 Active 12/07
--- OUTSIDE RECORDS SUMMARY | 2023-08-09 19:09 | XMS_ITS ---
Author Name Unknown Address [address] [place] [address] [address] [place] [address] Phone Organization [facility] Address [address] [place] [address] Phone Care Team Providers Care Sampler Radioactive Waste Name Role Phone Brenna GONZALEZ, Jayson Granados Unavailable [ ] Conditions or Problems No information available. Medications Medication Instructions Start Date Stop Date Generic Name [facility] Provider HIBICLENS 4 % LIQD Apply 1 as directed to skin once a day 8 chlorhexidine gluconate [id number] Jayson Ceja MD MUPIROCIN 2 % OINT Apply 1 as directed to affected area twice a day Apply to each nostril twice a day. Once in the morning and once in the evening for 5 days 8 mupirocin [id number] Jayson Ceja MD Medications Administered No information available. Allergies, Adverse Reactions, Alerts No information available. Results Date Name Value Unit Range Flag Description Office Visit: Office Visit:r wayne 7 SMOK STATUS Light tobacco smoker Tobacco smoking status MEDS REVIEW Done Documenta tion of current medications (procedure) Plan of Care No information available. Procedures No information available. Vital Signs Date Name Value Unit Description BMI (Body Mass Index) 33.31 kg/m2 Bod y Mass Index (Ratio) Body Temperature 97.4 [degF] temperat ure E&M BP Diastolic 90 mm[Hg] blood pressu re, diastolic
--- OUTSIDE RECORDS SUMMARY | 2023-08-09 19:09 | XMS_ITS ---
Author Name Unknown Address [address] [place] [address] Phone Organization [facility] Address [address] [place] [address] Phone Care Team Providers Care Hosiery Bagger Name Role Phone Brenna GONZALEZ, Jayson Granados Unavailable [phone] [ ] Conditions or Problems No information available. Medications No information available. Medications Administered No information available. Allergies, Adverse Reactions, Alerts No information available. Results Date Name Value Unit Range Flag Description Office Visit: 7 MEDS REVIEW Done Documenta tion of current medications (procedure) SMOK STATUS Light tobacco smoker Tobacco smoking status Plan of Care Type Date Detail Pending order Continue IV anti biotics Pending order PIV/Butterfly Procedures No information available. Vital Signs Date Name Value Unit Description BMI (Body Mass Index) 32.55 kg/m2 Bod y Mass Index (Ratio) Body Temperature 97.3 [degF] temperat ure E&M BP Diastolic 70 mm[Hg] blood pressu re, diastolic BP Systolic 125 mm[Hg] blood pressur e, systolic Heart Rate 76 /min pulse rate Height 72 [in_us] height E&M Respiratory Rate 16 /min respirat ory rate E&M Weight Measured 240 [lb_av] weight E& M Immunizations No information available. Advance Directives No information available.
--- OUTSIDE RECORDS SUMMARY | 2023-08-09 19:09 | XMS_ITS ---
Author Name Unknown Address [address] [place] [address] Phone Organization [facility] Address [address] [place] [address] Phone Care Team Providers Care Superintendent Construction Name Role Phone Brenna GONZALEZ, Jayson Granados Unavailable [ ] Conditions or Problems No information available. Medications No information available. Medications Administered No information available. Allergies, Adverse Reactions, Alerts No information available. Results Date Name Value Unit Range Flag Description Office Visit: 8 MEDS REVIEW Done Documenta tion of current medications (procedure) SMOK STATUS Light tobacco smoker Tobacco smoking status Plan of Care No information available. Procedures No information available. Vital Signs Date Name Value Unit Description BMI (Body Mass Index) 32.82 kg/m2 Bod y Mass Index (Ratio) Body Temperature 95.6 [degF] temperat ure E&M BP Diastolic 74 mm[Hg] blood pressu re, diastolic BP Systolic 118 mm[Hg] blood pressur e, systolic Heart Rate 88 /min pulse rate Height 72 [in_us] height E&M Respiratory Rate 16 /min respirat ory rate E&M Weight Measured 242.0 [lb_av] weight E& M Immunizations No information available. Advance Directives No information available.
--- OUTSIDE RECORDS SUMMARY | 2023-08-09 19:09 | XMS_ITS ---
Author Name Unknown Address [address] [place] [address] [address] [place] [address] Phone Organization [facility] Address [address] [place] [address] Phone Care Team Providers Care Office Correspondent Name Role Phone Brenna GONZALEZ, Jayson Granados Unavailable [ ] Conditions or Problems No information available. Medications No information available. Medications Administered No information available. Allergies, Adverse Reactions, Alerts No information available. Results Date Name Value Unit Range Flag Description Office Visit: Office Visit:r wayne 12 SMOK STATUS Light tobacco smoker Tobacco smoking status MEDS REVIEW Done Documenta tion of current medications (procedure) Plan of Care Type Date Detail Pending order Discontinue IV a ntibiotics Pending order New Oral Antibio tic Procedures No information available. Vital Signs Date Name Value Unit Description BMI (Body Mass Index) 33.52 kg/m2 Bod y Mass Index (Ratio) Body Temperature 97.8 [degF] temperat ure E&M BP Diastolic 88 mm[Hg] blood pressu re, diastolic BP Systolic 145 mm[Hg] blood pressur e, systolic Heart Rate 84 /min pulse rate Respiratory Rate 16 /min respirat ory rate E&M Weight Measured 247.2 [lb_av] weight E& M Immunizations No information available. Advance Directives No information available.
--- OUTSIDE RECORDS SUMMARY | 2023-08-09 19:09 | XMS_ITS ---
Author Name Unknown Address [address] [place] [address] Phone Organization [facility] Address [address] [place] [address] Phone Care Team Providers Care Syruper Name Role Phone Brenna GONZALEZ, Jayson Booth [phone] [ ] Conditions or Problems No information available. Medications Medication Instructions Start Date Stop Date Generic Name NDC Provider CEPHALEXIN 500 MG CAPS by mouth every eight hours cephalexin [id number] Jayson Ceja MD CEPHALEXIN 500 MG CAPS Take 1 capsule by mouth four times a day 0 cephalexin [id number] Jayson Ceja MD Medications Administered No information available. Allergies, Adverse Reactions, Alerts No information available. Results Date Name Value Unit Range Flag Description Office Visit: rm 9 MEDS REVIEW Done Documenta tion of current medications (procedure) SMOK STATUS Light tobacco smoker Tobacco smoking status Plan of Care Type Date Detail Pending order Discontinue IV a ntibiotics Pending order New Oral Antibio tic Procedures No information available. Vital Signs Date Name Value Unit Description BMI (Body Mass Index) 32.41 kg/m2 Bod y Mass Index (Ratio) Body Temperature 97.5 [degF] temperat ure E&M BP Diastolic 78 mm
--- OUTSIDE RECORDS SUMMARY | 2023-08-09 19:09 | XMS_ITS ---
Author Name Unknown Address [address] [place] [address] Phone Organization [facility] Address [address] [place] [address] Phone Care Team Providers Care Table Worker Name Role Phone Brenna GONZALEZ, Jayson Granados Unavailable [ ] Conditions or Problems No information available. Medications No information available. Medications Administered No information available. Allergies, Adverse Reactions, Alerts No information available. Results Date Name Value Unit Range Flag Description Office Visit: rm 6 SMOK STATUS Light tobacco smoker Tobacco smoking status MEDS REVIEW Done Documenta tion of current medications (procedure) Plan of Care No information available. Procedures No information available. Vital Signs Date Name Value Unit Description BMI (Body Mass Index) 32.87 kg/m2 Bod y Mass Index (Ratio) Body Temperature 97.6 [degF] temperat ure E&M BP Diastolic 72 mm[Hg] blood pressu re, diastolic BP Systolic 104 mm[Hg] blood pressur e, systolic Heart Rate 90 /min pulse rate Height 72 [in_us] height E&M Respiratory Rate 16 /min respirat ory rate E&M Weight Measured 242.4 [lb_av] weight E& M Immunizations No information available. Advance Directives No information available.
[2023-08-09 19:30] VITALS: BP 138/85; PULSE 84; RESP 18; O2SAT 96; BMI 33.2
--- NOTE | 2023-08-09 20:23 | EXP.UTC ---
Discharge Plan Disposition Patient Disposition: Home, Self-Care Condition: Good Prescriptions Prescriptions: New bacitracin zinc-polymyxin B [Poly Bacitracin (zinc)] 500-10,000 unit/gram ointment 1 applic topical Q12H Qty: 14.2 0RF No Action pramipexole 1 mg tablet 1 mg PO TID methocarbamol 750 mg tablet 750 mg PO QID carbidopa-levodopa 25-100 mg tablet 1 tab PO DAILY meloxicam 15 mg tablet 15 mg PO DAILY esomeprazole magnesium 40 mg capsule,delayed release(DR/EC) 40 mg PO DAILY dexamethasone 4 mg tablet 4 mg PO DAILY cyclobenzaprine 5 mg tablet 5 mg PO DAILY apomorphine [APOKYN] 10 mg/mL cartridge 30 ml SQ MONTHLY Referrals Follow up/Referrals: Byron Steele MD [Primary Care Provider] - See instructions Clinical Impressions Clinical Impression: Laceration of left foot Qualifiers: Encounter type: initial encounter Qualified Code(s): S91.312A - Laceration without foreign body, left foot, initial encounter Instructions Patient Instructions: How to Care for a Laceration After Repair, DI for Laceration Repair -- Simple Discharge ED Provider: Yari Plaza [facility] General Stated complaint: AO08/09@1800 Lt foot lac Mode of Arrival: Ambulatory Source of Information: Patient Limitations: No Limitations Time Seen by Provider: 08/09/23 19:36 Description of Symptoms (Recalled from Triage Doc. by RN): laceration on top of left foot HEENT Symptoms (Recalled from RN notes): No Resp Symptoms (Recalled from RN notes): No Skin Symptoms (Recalled from RN notes): Yes MS Symptoms (Recalled from RN notes): No Functional Status (Recalled from RN notes): n/a History of Present Illness Provider Complaint: pt reports that he put his foot under a shelf and cut the top of his left foot. Related Data Home Medications Medication Instructions Recorded Confirmed pramipexole 1 mg tablet 1 mg PO TID 07/08/20 08/09/23 apomorphine 10 mg/mL subcutaneous 30 ml SQ MONTHLY 08/09/23 08/09/23 cartridge (APOKYN) carbidopa 25 mg-levodopa 100 mg 1 tab PO DAILY 08/09/23 08/09/23 tablet cyclobenzaprine 5 mg tablet 5 mg PO DAILY 08/09/23 08/09/23 dexamethasone 4 mg tablet 4 mg PO DAILY 08/09/23 08/09/23 esomeprazole magnesium 40 mg 40 mg PO DAILY 08/09/23 08/09/23 capsule,delayed release meloxicam 15 mg tablet 15 mg PO DAILY 08/09/23 08/09/23 methocarbamol 750 mg tablet 750 mg PO QID 08/09/23 08/09/23 Previous Rx's Medication Instructions Recorded bacitracin zinc 500 unit-polymyxin 1 applic topical Q12H #14.2 grams 08/09/23 B 10,000 unit/gram topical ointment (Poly Bacitracin (zinc)) Allergies Allergy/AdvReac Type Severity Reaction Status Date / Time No Known Allergies Allergy Verified 08/09/23 20:22 Worker's Comp Is this a Worker's Comp case?: No [facility] Disclaimer: The information contained in this section may have been updated after the patient was seen, as this information can be updated by other users. Social History Smoking Status: Current some day smoker tobacco type: cigars second hand exposure: No alcohol intake: never current occupational status: employed and other Travel in the last 8 weeks: None household members: spouse housing: house current occupation: [employer] current occupational exposures/hazards: No caffeine: Yes ROS Obtained: Yes All systems reviewed & no additional complaints except as documented Constitutional Constitutional: Reports system reviewed and no additional complaints, except as documented Eyes Eyes: Reports system reviewed and no additional complaints, except as documented ENT Ears, Nose, Mouth, and Throat: Reports system reviewed and no additional complaints, except as documented Cardiovascular Cardiovascular: Reports system reviewed and no additional complaints, except as documented Respiratory Respiratory: Reports system review
[2023-08-09 20:40] VITALS: BP 138/85; PULSE 84; RESP 18; TEMP 36.9; O2SAT 96
== END 2023-08-09 20:40 | disposition home or self-care (01) ==
PROVIDERS: Emergency Provider Nurse Practitioner Family; PCP Family Medicine
DX: S91.312A Laceration without foreign body, left foot, initial encounter (principal); F17.290 Nicotine dependence, other tobacco product, uncomplicated; W26.8XXA Contact with other sharp object(s), not elsewhere classified, initial encounter
CPT/HCPCS: 12001; 90471; 90715; 99204; 99213; G0463

== ENCOUNTER 2024-01-05 08:00 | Outpatient (RCR) | payer MEDICARE, SELFPAY | END 2024-01-05 09:15 | disposition home or self-care (01) | LOC: PT 08:00 | PROVIDERS: PCP Family Medicine; Visit Provider Physician Assistant | DX: M54.16 Radiculopathy, lumbar region (principal); M53.86 Other specified dorsopathies, lumbar region; M48.062 Spinal stenosis, lumbar region with neurogenic claudication | CPT/HCPCS: 97010; 97012; 97014; 97110; 97112; 97163; 97164; 97530; G0283 ==

== ENCOUNTER 2024-06-21 08:00 | Outpatient (RCR) | payer MEDICARE, SELFPAY | END 2024-06-21 23:59 | disposition home or self-care (01) | LOC: PT 08:00 | PROVIDERS: Visit Provider Physician Assistant | DX: M54.16 Radiculopathy, lumbar region (principal) | CPT/HCPCS: 97110; 97112; 97163; 97164; 97530 ==

== ENCOUNTER 2024-08-09 08:00 | Outpatient (RCR) | payer MEDICARE, SELFPAY ==
--- NOTE | 2024-06-26 09:16 | HMH.PTOPEV ---
PT Outpatient Evaluation Rehab PT Outpatient Evaluation Start: 06/26/24 08:50 Freq: Status: Active Protocol: Document 06/26/24 08:51 LAINA (Rec: 06/26/24 09:16 LAINA [id number]) E-signed By Lucas Boucher, PT Outpatient Therapy Subjective History Subjective History Patient is a 68 year old male presenting to outpatient PT with reports of chronic poor balance, BLE weakness and decreased endurance. Symptoms secondary to Parkinson's Disease. Patient diagnosed approx 4 years ago. Most recently patient was being seen in PT S/P LS fusion sx approx 3 months ago. Patient continues to experience intermittent LS radicular symptoms. No other comorbidities to report. New diagnosis of cancer in past 12 No months? Chief Complaint Pain,Stiff,Gives out/Unstable, Paresthesia,Weakness Symptom Type Ache Symptoms Relieved By Rest/Positioning Symptoms Aggravated By Standing,Physical Activity, Walking Prior Functional Limitations Lifting,Housework,Standing, Squatting,Recreation Activity, Walking,Balance Current Functional Limitations Lifting,Housework,Standing, Squatting,Recreation Activity, Walking,Balance Symptom Description Constant but Variable Level of pain today (0-10) 2 Pain scale - at its best (0-10) 6 Pain scale - at its worst (0-10) 1 Balance Eval Subjective Hx of Complaint Comment Difficulty with standing, ambulation and balance. Prior Functional Limitations Prior Functional Placer Level Difficulty with standing, ambulation and balance. Current Functional Limitations Comment Difficulty with standing, ambulation and balance. Hx of Falls Hx Falls Yes Number in last 6 months 10 Gait/Posture Asssessment General Gait Observation Shuffling Step Assistive Devices None / NA Level of Transfer Assist Independent [facility] Feet Together/Eyes open/Stable Surface pass Feet Together/Eyes Closed/Stable Surface pass Feet Together/Eyes open/Unstable Surface fail Feet Together/Eyes Closed/Unstable fail Surface Dynamic Gait Index Test Protocol Gait Level Surface Moderate Impairement Query Text: Instructions: Walk at your normal speed from here to the next yoli (20'). Grading: Yoli the lowest category that applies. Change in Gait Speed Moderate Impairment Query Text: Instructions: Begin walking at your normal pace (for 5'), when I tell you go , walk as fast as you can (for 5'). When I tell you slow , walk as slowly as you can (for 5'). Grading: Yoli the lowest category that applies. Gait with Horizontal Head Turns Mild Impairment Query Text: Instructions: Begin walking at your normal pace. When I tell you to look right , keep walking straight, but turn you head to the right. Keep looking to the right unit I tell you look left , then keep walking straight and turn your head to the left. Keep your head to the left until I tell you look straight , then keep walking straight, but return you head to the center. Grading: Yoli the lowest category that applies. Gait with Vertical Head Turns Moderate Impairment Query Text: Instructions: Begin walking at your normal pace. When I tell you to look up , keep walking staight, but tip your head up. Keep looking up until I tell you to look down , then keep walking straight and tip your head down. Keep your head down until I tell you look straight , then keep walking straight, but return your head to the center. Grading: Yoli the lowest category that applies. Gait and Pivot Turn Mild Impairment Query Text: Instructions: Begin walking at your normal pace. When I tell you turn and stop , turn as quickly as you can to face the opposite direction and stop. Grading: Yoli the lowest category that applies. Step Over Obstacle Moderate Impairment Query Text: Instructions: Begin walking at your normal speed. When you come to the shoebox, step over it, not around it and keep walking. Grading: Yoli the lowest category that applies. Step Around Obstacles Mild Impairment Query Text: Instructions: Begin walking at normal speed. When you come to the first cone (about 6' away), walk around the right side of it. When you come to the second cone (6' past first cone), walk around it to the left. Grading: Yoli the lowest category that applies. Steps Mild Impairment Query Text: Instructions: Walk up these stairs as you would at home. At the top, turn around and walk down. Grading: Yoli the lowest category that applies. 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 Number of Weeks 4-6 Increase Ability to Walk Yes: 45 min without difficulty Increase Ability to Stand Yes: Improve Ability For Household Care Yes Increase DGI Score Yes: <10 Decrease Subjective C/O Pain Yes: 08/31 Outpatient Therapy Plan of Care Treatment Plan May Include Therapeutic Exercise Including Home Yes Exercise Program Manual Therapy Techniques Yes Neuromuscular Re-education Yes Therapeutic Activities to Return to Yes Previous Functional/Work Level Gait Training Yes ADL/Self Care Education Yes Dry Needling Yes Thermal Modalities Yes Electrical Stimulation Yes Ultrasound/Phonophoresis Yes Iontophoresis Yes Massage Yes Eval/Re-Eval Yes Frequency Times per week 2-3 Duration Number of Weeks 4-6 Addendums This patient is a candidate for social No or vocational rehab? Patient/Guardian verbally acknowledges Yes understanding of treatment program and consents to further treatment? Patient/Guardian verbally acknowledges Yes understanding of diagnosis, prognosis and goals for treatment? Eval Complexity PT Charges 72481 - Moderate Complexity Shoulder/Elbow Eval Shoulder Objective Measurements Elbow Objective Measurements PHYSICIAN CERTIFICATION: I certify the specified therapy services for Yoli Harman are required, authorized, and reviewed every 30 days.
--- NOTE | 2024-07-24 08:56 | HMH.RHREAS ---
Rehab Reassessment Rehab OP Re-assessment Start: 06/26/24 08:50 Freq: Status: Active Protocol: Document 07/24/24 08:05 LAINA (Rec: 07/24/24 08:56 LAINA [id number]) E-signed By Lucas Boucher, PT Dynamic Gait Index Test Protocol Gait Level Surface Normal Query Text: Instructions: Walk at your normal speed from here to the next yoli (20'). Grading: Yoli the lowest category that applies. Change in Gait Speed Mild Impairment Query Text: Instructions: Begin walking at your normal pace (for 5'), when I tell you go , walk as fast as you can (for 5'). When I tell you slow , walk as slowly as you can (for 5'). Grading: Yoli the lowest category that applies. Gait with Horizontal Head Turns Mild Impairment Query Text: Instructions: Begin walking at your normal pace. When I tell you to look right , keep walking straight, but turn you head to the right. Keep looking to the right unit I tell you look left , then keep walking straight and turn your head to the left. Keep your head to the left until I tell you look straight , then keep walking straight, but return you head to the center. Grading: Yoli the lowest category that applies. Gait with Vertical Head Turns Mild Impairment Query Text: Instructions: Begin walking at your normal pace. When I tell you to look up , keep walking staight, but tip your head up. Keep looking up until I tell you to look down , then keep walking straight and tip your head down. Keep your head down until I tell you look straight , then keep walking straight, but return your head to the center. Grading: Yoli the lowest category that applies. Gait and Pivot Turn Normal Query Text: Instructions: Begin walking at your normal pace. When I tell you turn and stop , turn as quickly as you can to face the opposite direction and stop. Grading: Yoli the lowest category that applies. Step Over Obstacle Mild Impairment Query Text: Instructions: Begin walking at your normal speed. When you come to the shoebox, step over it, not around it and keep walking. Grading: Yoli the lowest category that applies. Step Around Obstacles Normal Query Text: Instructions: Begin walking at normal speed. When you come to the first cone (about 6' away), walk around the right side of it. When you come to the second cone (6' past first cone), walk around it to the left. Grading: Yoli the lowest category that applies. Steps Mild Impairment Query Text: Instructions: Walk up these stairs as you would at home. At the top, turn around and walk down. Grading: Yoli the lowest category that applies. Scoring Dynamic Gait Index Score 19 Rehab Re-assessment Subjective Subjective Patient reports 20% improvement in balance since start of care for balance. Patient reports 3 falls from tripping and losing balance since start of care for balance. Objective Objective Notes BLE AROM: WNL BLE MMT: WNL Neuro: WNL SLS: R 4 sec; L 2 sec Assessment Progress Assessment Slower Than Expected Assessment Notes Patient continues to be a significant fall risk. He continues to demonstrate Parkinsonian/shuffle step gait . Patient would benefit from continuing with skilled PT interventions in order to address balance issues resulting in increased fall risk. Patient continuing with manual BLE stretching with driver trainer. Patient goals met STG 2 Goals Not Met STG 1, LTG's Revised Goals NA Plan Plan Continue with current POC. Frequency of Therapy 2x/week Duration of therapy 4 weeks Time and Billing Re-Eval Time 14 Re-Eval Billing Units 1 Charge for PT reassessment? Yes PHYSICIAN CERTIFICATION: I certify the specified therapy services for Yoli Harman are required, authorized, and reviewed every 30 days.
== END 2024-08-09 23:59 | disposition home or self-care (01) ==
LOC: PT 08:00
PROVIDERS: Visit Provider Family Medicine
DX: Z74.09 Other reduced mobility (principal)
CPT/HCPCS: 97110; 97112; 97163; 97164; 97530

== ENCOUNTER 2024-09-20 08:00 | Outpatient (RCR) | payer MEDICARE, SELFPAY ==
--- NOTE | 2024-09-04 09:37 | HMH.RHREAS ---
Rehab Reassessment Rehab OP Re-assessment Start: 09/04/24 09:08 Freq: Status: Active Protocol: Document 09/04/24 09:08 LAINA (Rec: 09/04/24 09:36 LAINA [id number]) E-signed By Lucas Boucher, PT Dynamic Gait Index Test Protocol Gait Level Surface Normal Query Text: Instructions: Walk at your normal speed from here to the next yoli (20'). Grading: Yoli the lowest category that applies. Change in Gait Speed Mild Impairment Query Text: Instructions: Begin walking at your normal pace (for 5'), when I tell you go , walk as fast as you can (for 5'). When I tell you slow , walk as slowly as you can (for 5'). Grading: Yoli the lowest category that applies. Gait with Horizontal Head Turns Moderate Impairment Query Text: Instructions: Begin walking at your normal pace. When I tell you to look right , keep walking straight, but turn you head to the right. Keep looking to the right unit I tell you look left , then keep walking straight and turn your head to the left. Keep your head to the left until I tell you look straight , then keep walking straight, but return you head to the center. Grading: Yoli the lowest category that applies. Gait with Vertical Head Turns Mild Impairment Query Text: Instructions: Begin walking at your normal pace. When I tell you to look up , keep walking staight, but tip your head up. Keep looking up until I tell you to look down , then keep walking straight and tip your head down. Keep your head down until I tell you look straight , then keep walking straight, but return your head to the center. Grading: Yoli the lowest category that applies. Gait and Pivot Turn Mild Impairment Query Text: Instructions: Begin walking at your normal pace. When I tell you turn and stop , turn as quickly as you can to face the opposite direction and stop. Grading: Yoli the lowest category that applies. Step Over Obstacle Mild Impairment Query Text: Instructions: Begin walking at your normal speed. When you come to the shoebox, step over it, not around it and keep walking. Grading: Yoli the lowest category that applies. Step Around Obstacles Normal Query Text: Instructions: Begin walking at normal speed. When you come to the first cone (about 6' away), walk around the right side of it. When you come to the second cone (6' past first cone), walk around it to the left. Grading: Yoli the lowest category that applies. Steps Mild Impairment Query Text: Instructions: Walk up these stairs as you would at home. At the top, turn around and walk down. Grading: Yoli the lowest category that applies. Scoring Dynamic Gait Index Score 17 Rehab Re-assessment Subjective Subjective Patient reports 60% improvement since start of care. I still have good and bad days. I've gone from falling 4 times a week to around 1 time a week. Objective Objective Notes BLE MMT: WNL BLE AROM: WNL Neuro: sensation WNL; shuffling step gait noted Pain: BLE/LS 08/31 Assessment Progress Assessment Progressing as Expected Assessment Notes Patient would benefit from continuing with skilled PT interventions in order to improve functional limitations with all standing and ambulatory activities. Discussed possible DC to wellness care. Persistent balance issues noted. Patient continuing with manual stretching by fitness coach. Patient goals met STG's Goals Not Met LTG's Revised Goals NA Plan Plan Continue with current POC. Frequency of Therapy 2x/week Duration of therapy 4 weeks Time and Billing Re-Eval Time 14 Re-Eval Billing Units 1 Charge for PT reassessment? Yes PHYSICIAN CERTIFICATION: I certify the specified therapy services for Yoli Wisam Ghazal are required, authorized, and reviewed every 30 days.
== END 2024-09-20 23:59 | disposition home or self-care (01) ==
LOC: PT 08:00
PROVIDERS: Visit Provider Family Medicine
DX: Z74.09 Other reduced mobility (principal)
CPT/HCPCS: 97112; 97164; 97530; 97535

== ENCOUNTER 2024-10-09 08:00 | Outpatient (RCR) | payer MEDICARE, SELFPAY | END 2024-10-09 23:59 | disposition home or self-care (01) | LOC: PT 08:00 | PROVIDERS: Visit Provider Family Medicine | DX: Z74.09 Other reduced mobility (principal) | CPT/HCPCS: 97110; 97112; 97530 ==

== ENCOUNTER 2025-03-04 08:48 | Outpatient (CLI) | payer MEDICARE, SELFPAY ==
--- OUTSIDE RECORDS SUMMARY | 2024-12-19 20:00 | XMS_ITS | CCD ---
Author Name Sara LIVESTOCK BUYERKatrin Address [address] [facility] [facility] [address] [place] [address] Phone Organization [facility] Phone Care Team Providers Care Utility Lineman Name Role Phone Office, [place] Primary Care Provider Unavaila ble Unavailable Chronic Care Management Unavaila ble Summary Purpose DataExchange Insurance Providers Payer name Policy type / Coverage type Covered libertarian ID Effective Begin Date Effective End Date [employer] [facility] [id number] Unknown Unknown Family History Family History data not found Problems Condition Codes Effective Dates Condition St atus Patient not seen ICD-10: UXZ.01 ICD-9: UXZ.01 12/20/2024 Active Degeneration of lumbar or lumbosacral intervertebral disc ICD-10: M51.379 03/06/2020 Active 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 0 Active Lumbar radiculopathy ICD-10: M54.16 05/30/2023 Activ e Neurogenic claudication ICD-10: R29.818 02/17/2024 A ctive OAB (overactive bladder) ICD-10: N32.81 11/16/2024 A ctive Parkinson disease ICD-10: G20.A1 01/09/2020 Active S/P lumbar fusion ICD-10: Z98.1 05/31/2024 Active 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 4 No Stop Date Active pramipexole (MIRAPEX) 1 MG tablet RxNorm: 708860 Take 1 tablet by mouth 3 (Three) Times a Day. 4 No Stop Date Active carbidopa-levodop a (SINEMET) 25-100 MG per tablet RxNorm: 540815 TAKE 2 TABLETS AT 6AM, 11AM, 4PM, 10PM 4 No Stop Date Active Medication Administered No Medication Administered data Reason For Visit No Reason For Visit data Encounters Encounter Performer Location Location Address Codes Date () No answer/Patient not seen Diagnosis: Patient not seen[ICD10: UXZ.01] Katrin Ruiz [place] Office [address] [place] [address] CPT-4: 75253 12/20/2024 Plan of Care Planned Activity Notes Codes Status Date Patient Education: Patient Medication Summary Completed 12/20/2024 Medical Equipment No Medical Equipment data Advance Directives No Advance Directive data
--- OUTSIDE RECORDS SUMMARY | 2025-01-21 08:48 | XMS_ITS | Encounter Summary ---
Author Organization [facility] Address [facility] [place] [address] Care Team Providers Care Stock Fitter Name Role Phone Unavailable Primary Care Provider Unavailabl e Source Comments This information has been disclosed to you from confidential records protectfrom disclosure by state law. You shall make no further disclosure of thisinformation without the specific, written, and informed release of theindividual to whom it pertains, or as otherwise permitted by law. A generalauthorization for the release of medical or other information is not sufficientfor the purposes of the release of HIV test results or diagnoses. [id number] Health Encounter Details Date Type Department Care Team (Latest Contact Info) Description 01/21/2025 8:48 AM EDT - 01/21/2025 11:59 PM EDT Hospital Encounter [facility] Diagnostic Radiology [address] [place] [address] System, Provider Not In Discharge Disposition: Home or Self Care WITHOUT Home Care Services Social History Tobacco Use Types Packs/Day Years Used Date Smoking Tobacco: Never Assessed Sex and Gender Information Value Date Recorded Sex Assigned at Not on file Legal Sex Male 10:18 AM EDT Gender Identity Not on file Sexual Orientation Not on file documented as of this encounter Plan of Treatment Not on file documented as of this encounter Procedures Procedure Name Priority Date/Time Associated Diagnosis Comments XR COMPARISON IMAGES Routine 01/21/2025 8:48 AM EDT documented in this encounter Results * X-ray Comparison Images (01/21/2025 8:48 AM EDT) Narrative EXTERNAL - 01/21/2025 8:48 AM EDT Images associated with this accession number were presented to us for comparison to an examination performed here. us Provider Not In System IMG DIAGNOSTIC IMAGING OR DERABLES Final Result EXTERNAL documented in this encounter Visit Diagnoses Not on filedocumented in this encounter
--- OUTSIDE RECORDS SUMMARY | 2025-01-21 08:48 | XMS_ITS | Encounter Summary ---
Author Organization [facility] Address [facility] [place] [address] Care Team Providers Care Manager [address] Name Role Phone Unavailable Primary Care Provider [...] release of HIV test results or diagnoses. [id number] Health Encounter Details Date Type Department Care Team (Latest Contact Info) Description 01/21/2025 8:48 AM EDT - 01/21/2025 11:59 PM EDT Hospital Encounter [facility] Diagnostic Radiology [address] [place] [address] System, Provider Not In Discharge [...]
--- OUTSIDE RECORDS SUMMARY | 2025-01-29 13:30 | XMS_ITS | Encounter Summary ---
Author Organization [facility] Address [address] [place] [address] Care Team Providers Care Clinic Manager Name Role Phone Unknown, Attending Provider Primary Care Provide r Unavailable Source Comments This information has been disclosed [...] release of HIV test results or diagnoses. [id number] Reason for Visit * Auth/Cert (Routine) Specialty Diagnoses / Procedures Referred By Nely t Referred To Contact Neurology [facility] Neurology at [address] [place] [address] Phone: tel: fax: Referral ID Status Reason Start Date Expiration Date Visits Re quested Visits Authorized [id number] 1 1 Encounter Details Date Type Department Care Team (Latest Contact Info) Description 01/29/2025 1:30 PM EDT Office Visit [facility] Neurology [address] [facility] [address] [phone] Cody Morton MD [facility] [place] [address] Parkinson's disease with dyskinesia and fluctuating manifestations (CMS-HCC) (Primary Dx) Social History Tobacco Use Types Packs/Day Years Used Date Smoking Tobacco: Never Assessed Sex and Gender Information Value Date Recorded Sex Assigned at Not on file Legal Sex Male 10:18 AM EDT Gender Identity Not on file Sexual Orientation Not on file documented as of this encounter Last Filed Vital Signs Vital Sign Reading Time Taken Comments Blood Pressure 123/69 01/29/2025 12:46 PM EDT Pulse 88 01/29/2025 12:46 PM EDT Temperature - - Respiratory Rate - - Oxygen Saturation 92% 01/29/2025 12:46 PM EDT Inhaled Oxygen Concentration 92% 01/29/2025 1 2:46 PM EDT Weight 99.9 kg (220 lb 4.8 oz) 01/29/2025 12:46 PM EDT Height 210.8 cm (6' 11 ) 01/29/2025 12:46 PM EDT Body Mass Index 22.48 01/29/2025 12:46 PM EDT documented in this encounter Patient Instructions * Patient Instructions* Yanira Browning MD - 01/29/2025 1:30 PM EDT - We will start the process of requesting for Onapgo pump - Increase sinemet 25/100mg from 2 to 3 tablets four times per day - Continue opicapone - Continue pramipexole 1mg TID. It will be discontinued after the start of the pump. - RTC in [address] Morton. He will communicate during this time through Otonomyhart or phone. documented in this encounter Progress Notes * Cody Morton MD - 01/29/2025 1:30 PM EDT Images from the original note were not included. Subjective: Patient ID: Leoncio Harman is a 69 y.o. male. Movement Disorders HPI Patient seen in consultation at the request of: Dr. Steele Handedness: Right Chief Complaint: PD Patient accompanied by and additional history obtained from: (Daniella) Age at onset of symptoms: 62 Duration of symptoms: 7 years He started having having left leg tremors 7 years ago, and then affected his walking. He falls weekly because his torso bends forward and he cannot stop himself and also sometimes his feet get stuck to the floor. He thinks that his memory is ok, however, his thinks that is a bit affected. He has visual hallucinations with a girl in the couch, he is sometimes not aware of them. He denies mood problems although he is on escitalopram. He sleeps very little and wakes up quite often in the middle of the night. He does stretches 2 a week and he runs on the treadmill and the elliptical. He refers anosmia, but denies constipation and dream enactment. He goes to the urologist due to urinary incontinence. He reports he feels lightheadedness when standing. He sees double once in a while. He reports having problems with gambling and when he tried to decrease pramipexole he could not move. He tried to wean him off slowly unsuccessfully. He starts having dyskinesia around 12pm and they get worse in the evening. He says that he has freezing of gait more in the morning. He denies having any more tremor. The sinemet improves the freezing of gait and the dyskinesia a bit as well, although he does not experience much benefit in the evening. The apokyn injection improved his dyskinesia and gait problems. PD Quality Metrics Falls (Review Each Visit): present once a week Depression (Review Annually): present on escitalopram Anxiety (Review Annually): denies Cognitive Impairment (Review Annually): present Insomnia/Sleep Disturbance (Review Annually): present Other Symptoms Urinary Incontinence: present Dream Enactment Behavior: denies Anosmia: present Constipation: denies Hypophonia: present Hypomimia: present Micrographia: present Med Side Effects Lightheadedness: present Fainting: denies Hallucinations: present Impulse Control Disorder: present gambling Imaging MRI Brain With & Without Contrast (03/12/2023 19:03)-Moderate typical age- related changes are noted as above, including mild volume loss, without distinct lobar predilection. There is otherwise no evidence of acute infarct, hemorrhage, mass or abnormal enhancement. MRI Lumbar Spine Without Contrast (03/12/2023 19:01) -Grade 1 anterolisthesis of L4 on L5. Disc base narrowing at L1-L2 and L2-L3. No retroperitoneal mass or adenopathy. The conus medullaris terminates at the L1 vertebral body level. Degenerative endplate changes at L1-L2.. No abnormal enhancement is appreciated. Current medication: C/L 25/100 2 tabs qid (5.30am, 10am, 2pm, 5-6pm) and extra dose of 2 if needed. He goes to bed at 10pm and wakes up at 5am. Mirapex 1mg TID Opicapone 50mg at bedtime Past medication Apokyn PRN it worked very well. Amantadine, it worsened freezing of the gait. Histories: PMH: Parkinson disease, RLS, Acid reflux , Arthritis 2014, Cervical disc disorder 2019, Chronic pain disorder Years ago, Degeneration of lumbar or lumbosacral intervertebral disc 03/06/2020, Erectiledysfunction 2022, Low back pain 2014, Sciatica associated with disorder of lumbar spine 04/19/2023,Spinal stenosis Years ago, Urinary incontinence Aug 2024 PSH: BLEPHAROPLASTY Bilateral, COLONOSCOPY, LUMBAR LAMINECTOMY Right 05/11/2023, LUMBAR LAMINECTOMYWITH FUSION N/A 03/06/2024 Family history: Alzheimer's disease Father, Stroke Mother, Parkinsonism paternal Cousin Social history: finished high school, 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 He has 2 healthy children. Toxin exposure: car toxin exposure Substance history: he smokes 1 cigar per day, and one bourbon per weekend. Social History Socioeconomic History Marital status: Patient Refused Spouse name: Not on file Number of children: Not on file Years of education: Not on file Highest education level: Not on file Occupational History Not on file Tobacco Use Smoking status: Not on file Smokeless tobacco: Not on file Substance and Sexual Activity Alcohol use: Not on file Drug use: Not on file Sexual activity: Not on file Other Topics Concern Not on file Social History Narrative Not on file Social Drivers of Health Financial Resource Strain: Low Risk (03/07/2024) Received from [facility] Overall Financial Resource Strain (CARDIA) Difficulty of Paying Living Expenses: Not hard at all Food Insecurity: No Food Insecurity (03/07/2024) Received from [facility] Hunger Vital Sign Worried About Running Out of Food in the Last Year: Never true Ran Out of Food in the Last Year: Never true Transportation Needs: No Transportation Needs (03/07/2024) Received from [facility] PRAPARE - Transportation In the past 12 months, has lack of transportation kept you from medical appointments or from getting medications?: No In the past 12 months, has lack of transportation kept you from meetings, work, or from getting things needed for daily living?: No Physical Activity: Sufficiently Active (03/07/2024) Received from [facility] Exercise Vital Sign Days of Exercise per Week: 5 days Minutes of Exercise per Session: 30 min Stress: No Stress Concern Present (03/07/2024) Received from [facility] [employer] - Occupational Stress Questionnaire Feeling of Stress : Not at all Social Connections: Not At Risk (03/07/2024) Received from [facility] Family and Community Support If for any reason you need help with day-to-day activities such as bathing, preparing meals, shopping, managing finances, etc., do you get the help you need?: I don't need any help How often do you feel lonely or isolated from those around you?: Never Intimate Partner Violence: Not At Risk (03/07/2024) Received from [facility] Abuse Screen Feels Unsafe at Home or Work/School: no Feels Threatened by Someone: no Does Anyone Try to Keep You From Having Contact with Others or Doing Things Outside Your Home?: no Physical Signs of Abuse Present: no Housing Stability: Not At Risk (03/07/2024) Received from [facility] Housing Stability Current Living Arrangements: home Potentially Unsafe Housing Conditions: none Review of Systems Refer to [facility] for review of systems documentation. See scanned patient data form for additional ROS information. ROS was otherwise non-contributory. Allergies: Patient has no known drug allergies or adverse reactions. Medications: Encounter Medications[1] Objective: Vitals: 01/29/25 1246 BP: 123/69 BP Location: Left upper arm Patient Position: Sitting BP Cuff Size: Regular Pulse: 88 SpO2: 92% Weight: 220 lb 4.8 oz (99.9 kg) Height: 6' 11 (2.108 m) Physical Exam Eyes: General: Lids are normal. Extraocular Movements: EOM normal. No nystagmus. Pupils: Pupils are equal, round, and reactive to light. Neurological: Deep Tendon Reflexes: Reflex Scores: Tricep reflexes are 1+ on the right side and 1+ on the left side. Bicep reflexes are 1+ on the right side and 1+ on the left side. Patellar reflexes are 1+ on the right side and 1+ on the left side. Neurological Exam Mental Status Awake, alert and oriented to person, place and time. Cranial Nerves CN III, IV, : Extraocular movements intact bilaterally. No nystagmus. Normal saccades. Normal smooth pursuit. Normal lids and orbits bilaterally. Pupils equal round and reactive to light bilaterally. CN V: Facial sensation is normal. CN VII: Full and symmetric facial movement. CN VIII: Hearing is normal. CN IX, X: Palate elevates symmetrically. Normal gag reflex. CN XI: Shoulder shrug strength is normal. CN XII: Tongue midline without atrophy or fasciculations. Motor Normal muscle bulk throughout. Strength is 5/5 in all four extremities except as noted. Sensory Light touch abnormality: Decreased touch in the feet. Vibration is normal in upper and lower extremities. Reflexes Right Left Biceps 1+ 1+ Triceps 1+ 1+ Patellar 1+ 1+ Coordination Right: Cvkfdd-qa-bvbn normal.Left: Safvwx-qz-zzro normal. Gait Casual gait: Narrow stance. Reduced stride length. Shuffling gait. Reduced right arm swing. Reducedleft arm swing. Tandem gait abnormality: Abnormal pull test. MDS UPDRS part 3 - Motor Examination General 3.1 Speech: 2 3.2 Facial Expression: 1 Rigidity 3.3a Rigidity- Neck: 1 3.3b Rigidity right upper: 1 3.3c Rigidity left upper: 0 3.3d Rigidity right lower: 0 3.3e Rigidity left lower: 0 Coordination 3.4a Finger tapping, right : 0 3.4b Finger tapping, left: 1 3.5a Hand movement, right: 0 3.5b Hand movement, left: 2 3.6a Pronation-supination of right hand: 0 3.6b Pronation-supination of left hand: 2 3.7a Toe tapping, right : 0 3.7b Toe Tapping, left: 2 3.8a Leg agility, right: 1 3.8b Leg agility, left: 2 Posture and Gait 3.9 Arising from chair : 0 3.10 Gait: 2 3.11 Freezing of gait: 0 3.12 Postural Stability: 2 3.13 Posture: 1 3.14 Body bradykinesia: 1 Tremor 3.15a Postural tremor, right hand: 0 3.15b Postural Tremor, left hand: 0 3.16a Kinetic Tremor of right hand: 0 3.16b Kinetic tremor of left hand: 0 3.17e Lip/jaw rest tremor: 0 3.17a RUE Rest Tremor Amplitude: 0 3.17b LUE Rest Tremor Amplitude: 0 3.17c RLE Rest Tremor Amplitude: 0 3.17d LLE Rest Tremor Amplitude: 0 3.17e Constancy of Rest tremor: 0 DYSKINESIA IMPACT ON PART III RATINGS Were dyskinesias (chorea or dystonia) present during examination?: Yes If yes, did these movements interfere with your ratings?: Yes MDS UPDRS 3 Total: 21 MoCA 01/29/2025: Media Information Assessment: 1. Parkinson's disease with dyskinesia and fluctuating manifestations ([facility]) 7-year progression of asymmetric tremor (L), bradykinesia, and rigidity with levodopa-related diphasic dyskinesia and OFF-related freezing of gait supports the diagnosis of idiopathic Parkinson's disease (PD). There are associated mild cognitive impairment (MoCA, ), hallucinations, and impulsive gambling likely related to pramipexole use. Amantadine worsened gait freezing. He has responded very well to Apokyn as rescue therapy. Plan: - We will start the process of requesting he be tested for apomorphine infusion (Onapgo pump) - Increase sinemet 25/100mg from 2 to 3 tablets four times per day - Discontinue opicapone - Continue pramipexole 1mg TID. It will be discontinued after the start of the pump. - Continue with exercise - Stay hydrated, 8 glasses of water per day - RTC in [address] Morton. He will communicate during this time through Otonomyhart or phone. Yanira Browning Movement Disorder Fellow/ PGY 5 [facility] 01/29/2025 I saw and examined this patient on 01/29/2025. I performed arellano/critical portions of the history and physical examination along with Dr. Horton. The note above has been written by Dr. Horton but edited as needed by me. I discussed with Dr. Horton and with the patient and agree with the findingsand plan as documented in the note. Cody Morton MD, MSc [1] Outpatient Encounter Medications as of 01/29/2025 Medication Sig Dispense Refill carbidopa-levodopa ER (SINEMET CR) 25-100 mg per tablet Take 2 tablets by mouth 4 times a day. escitalopram oxalate (LEXAPRO) 10 MG tablet Take 1 tablet (10 mg total) by mouth daily. esomeprazole (NEXIUM) 40 MG capsule Take 1 capsule (40 mg total) by mouth every morning before breakfast. opicapone (ONGENTYS) 50 mg Cap Take 50 mg by mouth at bedtime. pramipexole (MIRAPEX) 1 MG tablet Take 1 tablet (1 mg total) by mouth 3 times a day. vibegron (GEMTESA) 75 mg Tab Take 1 tablet (75 mg total) by mouth daily. No facility-administered encounter medications on file as of 01/29/2025. documented in this encounter Plan of Treatment Not on file documented as of this encounter Visit Diagnoses Diagnosis Parkinson's disease with dyskinesia and fluctuating manifestations (CMS-HCC)- Primary documented in this encounter Care Teams Clinic Manager Relationship Specialty Start Date End Date Unknown, Attending Provider PCP - General 01/24/25 documented as of this encounter
--- OUTSIDE RECORDS SUMMARY | 2025-02-26 07:30 | XMS_ITS ---
Author Organization [facility] Address [address] [place] [id number] Care Team Providers Care Floor Waxer Name Role Phone Byron Steele Primary Care Provider [phone] Allergies No Known Allergies Results Component Value Reference Range Notes P-Culture Body Fluid (Not ye t reviewed by provider) Interpretation: Performing Lab: Notes/Report: Test performed by [facility] [address] [place], [place] [address] , [address], [place] [address] Felix Schwartz MD, Transmission System Operator CLIA: [id number] Specimen Source Fluid - Olecranon bursa Culture Body Fluid See Below Final Rep ort : No growth P-Culture, Miscellaneous Aer obic w/Gram Stain (Not yet reviewed by provider) Interpretation: Performing Lab: Notes/Report: Test performed by [facility] [address] [place] [address] , [address], [place] [address] Felix Schwartz MD, Transmission System Operator CLIA: [id number] Specimen Source Fluid - Olecranon bursa Gram Stain See Below Few Polymorphonuclear leukocytes No organisms seen Culture, Miscellaneous Aerobic w/Gram Stain See Below Preliminary Report : No growth, reincubate Final Report : No growth P-Cell Count and Differentia l, Body Fluid (Not yet reviewed by provider) Interpretation: Performing Lab: Notes/Report: Test performed by [facility] [address] [place], [place] [address] , [address], [place] [address] Felix Schwartz MD, Transmission System Operator CLIA: [id number] Fluid Type Synovial Fluid Color Dane Fluid Appearance Hazy Fluid Red Blood Cell (RBC) Count 48184 Total Nucleated Cell Count (WBC) 254 Synovial [...] Fluid Synovial Lining Cells 0 Fluid Specific [place] 1.032 Crystals Fluid Not Present Uric Acid, Body Fluid (Not y et reviewed by provider) Interpretation: Performing Lab: Notes/Report: Uric Acid, Body Fluid 6.0 INTERPRETIVE INFORMATION: Uric Acid, Body Fluid For information on body fluid reference ranges and/or interpretive guidance visit [email or web address] ds/ This test was developed and its performance characteristics determined by [employer]. It has not been cleared or approved by the US Food and Drug Administration. This test was performed in a CLIA certified laboratory and is intended for clinical purposes. Performed By: [facility] [address] [place] [address] Transmission System Operator: Dutch Recinos MD, PhD CLIA Number: [id number] INTERPRETIVE INFORMATION: Uric Acid, Body Fluid For information on body fluid reference ranges and/or interpretive guidance visit [email or web address] ds/ This test was developed and its performance characteristics determined by [employer]. It has not been cleared or approved by the US Food and Drug Administration. This test was performed in a CLIA certified laboratory and is intended for clinical purposes. Performed By: [facility] [address] [place] [address] Transmission System Operator: Dutch Recinos MD, PhD CLIA Number: [id number] Uric Acid Fluid Source Joint fluid Olecr anon bursa Uric Acid, Body Fluid 6.0 INTERPRETIVE INFORMATION: Uric Acid, Body Fluid For information on body fluid reference ranges and/or interpretive guidance visit http://[email or web address] ds/ This test was developed and its performance characteristics determined by [employer]. It has not been cleared or approved by the US Food and Drug Administration. This test was performed in a CLIA certified laboratory and is intended for clinical purposes. Performed By: [facility] [address] [place] [address] Transmission System Operator: Dutch Recinos MD, PhD CLIA Number: [id number] INTERPRETIVE INFORMATION: Uric Acid, Body Fluid For information on body fluid reference ranges and/or interpretive guidance visit [email or web address] ds/ This test was developed and its performance characteristics determined by [employer]. It has not been cleared or approved by the US Food and Drug Administration. This test was performed in a CLIA certified laboratory and is intended for clinical purposes. Performed By: [facility] [address] [place] [address] Transmission System Operator: Dutch Recinos MD, PhD CLIA Number: [id number] REASON FOR VISIT elbow Medications Medication SIG [...] 02/26/2025 Encounters Encounter Location Date Provider Diagnosis [facility] [address] [place], [place] [phone] 02/26/2025 Byron Kapaa Olecranon bursitis o f right elbow M70.21 Assessments Encounter Date Diagnosis (ICD Code) Assessment Notes Treatment Notes Treatment Clinical Notes Section Notes 02/26/2025 Olecranon bursitis of right elbow (ICD-10 - M70.21) Plan Of Treatment Pending Test Test Name Order Date P-Culture Body Fluid 02/26/2025 P-Culture, Miscellaneous Aerobic w/Gram Stain 02/26/2025 P-Cell Count and Differential, Body Flui d 02/26/2025 P-Uric Fluid Analysis 02/26/2025 P-Fluid Cell Count 02/26/2025 Uric Acid, Body Fluid 02/26/2025 Next Appt Details Follow Up: via [...] Notes * Leoncio ANDRADEDOB:1955 (69 yo M)Acc No.[id number]:02/26/2025 Progress Notes Patient: Leoncio LIVINGSTON Provider: Helen Steele M.D. :1955 A ge:69 Y S ex:Male Date:02/26/2025 Address:[address] [place] [address] [id number] Subjective: * Chief Complaints: * 1 . [...] Source Fluid - Olecranon bursa - * Procedures: P rocedure-other: Aspiration of Olecranon Bursa C onsent signed, Betadine prep, 1 % lidocaine local anesthesia, bursa aspirated with # 21 guage needle, 9 mL's of clear blood tinged fluid drawn from the bursa, pressure dressing applied, fluid sent for analysis. * Labs: * L ab: P-Cell Count and Differential, Body Fluid (Collection Date & Time - 02/26/2025 11:27 AM) Value Reference Range C rystals Fluid Not Present - * F luid Appearance Hazy - * F luid Color Dane - * F luid Eos 0 - % * F luid Lymphs 61 - % * F luid Mesothelial Cell 0 - % * F luid Monocytes 20 - % * F luid RBC 87791 - cu/mm * F luid Specific [place] 1.032 - * F luid Unidentified Cells 0 - % * F luid Type Synovial - * T otal Nucleated Cell Count (WBC) 254 - cu/mm * F luid Macrophage 0 - % * F luid Neutrophils 19 - % * F luid Synovial Lining Cells 0 - % * [facility], IT support 02/28/2025 10:40:05 : This order was created by the Interface. ?Lab: Uric Acid, Body Fluid (Collection Date & Time - 02/26/2025 11:27 AM)* Value Reference Range U jacqueline Acid, Body Fluid 6.0 - mg/dL * U jacqueline Acid Fluid Source Joint fluid - * [facility], IT support 02/28/2025 10:40:06 : This order was created by the Interface. ?Lab: P-Culture, Miscellaneous Aerobic w/Gram Stain (Collection Date & Time - 02/26/2025 11:27 AM)* Value Reference Range C ulture, Miscellaneous Aerobic w/Gram Stain See Below - * S pecimen Source Fluid - Olecranon bursa - * G shelby Stain See Below - * [facility], IT support 03/03/2025 03:15:05 : This order was created by the Interface. * Procedure Codes: 2 0605 DRAIN/INJECT BURSA,HEEL, WRIST, ELBOW ANKLE, OLECRANON BURSA, G2211 Complex e/m visit add on * Follow Up: v ia phone to report progress and test results * Images: Billing Information: * Visit Code: * Procedure Codes: 09377 DRAIN/INJECT BURSA,HEEL, WRIST, ELBOW ANKLE, OLECRANON BURSA. G2211 Complex e/m visit add on. * Electronic signature of Franci Steele MD on 03/04/2025 at 08:55 AM EDT Sign off status: Pending * Provider: Helen Steele M.D. Date: 02/26/2025 Generated for Zoey singh/Carlota/Raphael on: 03/04/2025 08:55 AM EDT History and Physical Notes * [...]
--- NOTE | 2025-03-04 08:53 | XR_ITS ---
FINAL REPORT CLINICAL HISTORY: right elbow pain COMPARISON: None FINDINGS: RIGHT ELBOW 3 views were obtained. There is no acute fracture or dislocation. There is no joint effusion. The joint spaces are intact. There is significant soft tissue swelling overlying the olecranon most commonly associated with bursitis. IMPRESSION: No acute bony abnormality. Probable bursitis. Reviewed, Interpreted and Dictated by Zari Daniels MD Transcribed by Lynn Baez Authenticated and . [facility]
--- OUTSIDE RECORDS SUMMARY | 2025-03-04 08:55 | XMS_ITS | Clinical Summary ---
Author Organization [facility] Address [facility] [place] [address] Care Team Providers Care Operations Logistics Analyst Name Role Phone Unknown, Attending Provider Primary Care Provide r Unavailable Source Comments This information has been disclosed to you from confidential records protectedfrom disclosure by state law. You shall make no further disclosure of thisinformation without the specific, written, and informed release of theindividual to whom it pertains, or as otherwise permitted by law. A generalauthorization for the release of medical or other information is not sufficientfor the purposes of therelease of HIV test results or diagnoses. [id number] Health Allergies No known active allergies Medications esomeprazole (NEXIUM) 40 MG capsule Take 1 capsule (40 mg total) by mouth every morning before breakfast. Active opicapone (ONGENTYS) 50 mg Cap Take 50 mg by mouth at bedtime. Active vibegron (GEMTESA) 75 mg Tab Take 1 tablet (75 mg total) by mouth daily. Active carbidopa-levod opa ER (SINEMET CR) 25-100 mg per tablet Take 3 tablets by mouth 4 times a day. 1080 tablet 3 01/29/2025 Active escitalopram oxalate (LEXAPRO) 10 MG tablet Take 1 tablet (10 mg total) by mouth daily. 90 tablet 3 01/29/2025 Active pramipexole (MIRAPEX) 1 MG tablet Take 1 tablet (1 mg total) by mouth 3 times a day. 180 tablet 5 01/29/2025 Active Encounters Date Type Department Care Team Description 02/28/2025 Telephone [facility] Neurology at [facility] [place] [address] [facility] [address] [place] [address] Cierra Wang RN 02/19/2025 Telephone [facility] Neurology at [facility] [address] [place] [phone] Cody Morton MD Medical Management (Plan of Care Inquiry/Question ) 02/19/2025 Telephone [facility] Neurology at [facility] [address] [place] [phone] Cody Morton MD 01/29/2025 1:30 PM EDT Office Visit [facility] Neurology at [facility] [address] [place] [phone] Cody Morton MD Parkinson's disease with dyskinesia and fluctuating manifestations ([facility]) (Primary Dx) 01/21/2025 8:48 AM EDT - 01/21/2025 11:59 PM EDT Hospital Encounter [facility] Diagnostic Radiology [address] [place] [phone] System, Provider Not In Discharge Disposition: Home or Self Care WITHOUT Home Care Services 01/21/2025 8:48 AM EDT - 01/21/2025 11:59 PM EDT Hospital Encounter [facility] Diagnostic Radiology [address] [place] [phone] System, Provider Not In Discharge Disposition: Home or Self Care WITHOUT Home Care Services 01/18/2025 Telephone [facility] Neurology at [facility] [address] [facility] [address] [place] [phone] Rina Rocha MA Appointment 12/26/2024 Chart Note [facility] Neurology at [facility] [address] [facility] [address] [place] [phone] Rina Rocha MA from Last 3 Months Social History Tobacco Use Types Packs/Day Years Used Date Smoking Tobacco: Never Assessed Sex and Gender Information Value Date Recorded Sex Assigned at Not on file Legal Sex Male 10:18 AM EDT Gender Identity Not on file Sexual Orientation Not on file Last Filed Vital Signs Vital Sign Reading [...] Mass Index 22.48 01/29/2025 12:46 PM EDT Plan of Treatment Health Maintenance Due Date Last Done Comments Abnormal Colonoscopy Follow Up 1955 Hepatitis C Screening (MyChart) 1955 Alcohol Misuse Screening 1973 Depression Screening 1973 Cologuard (FIT-DNA) 2000 Colonoscopy 2000 Colorectal Cancer Screening (MyChart) 2000 Stool Testing (gFOBT) 2000 Immunization: Zoster (1 of 2) 2005 Immunization: COVID-19 ( season) 2024 08/09/2021, 10/29/2020 Immunization: Influenza (MyC andrews) (#1) 2025 09/02/2023, 06/24/2015, 10/23/2012 Immunization: RSV (Adult) (1 - 1-dose 75+ series) 2030 Immunization: DTaP/Tdap/Td ( 3 - Td or Tdap) 08/09/2033 08/09/2023, 10/23/2012 Immunization: Pneumococcal Completed 09/02/2023 Procedures Procedure Name Priority Date/Time Associated Diagnosis Comments XR COMPARISON IMAGES Routine 01/21/2025 8:48 AM EDT XR COMPARISON IMAGES Routine 01/21/2025 8:48 AM EDT from Last 3 Months Results * X-ray Comparison Images (01/21/2025 8:48 AM EDT) Only the most recent of2 resultswithin the time period is included. Narrative EXTERNAL - 01/21/2025 8:48 AM EDT Images associated with this accession number were presented to us for comparison to an examination performed here. us Provider Not In System IMG DIAGNOSTIC IMAGING OR DERABLES Final Result EXTERNAL from Last 3 Months Insurance [facility] [place] [address] [employer] Care Teams Operations Logistics Analyst Relationship Specialty Start Date End Date Unknown, Attending Provider PCP - General 01/24/25
--- OUTSIDE RECORDS SUMMARY | 2025-03-04 08:55 | XMS_ITS | Encounter Summary ---
Author Organization [facility] Address [facility] [place] [address] Care Team Providers Care Day Haul Or Farm Charter Bus Driver Name Role Phone Unknown, Attending Provider Primary [...] release of HIV test results or diagnoses. [id number] Health Encounter Details Date Type Department Care Team (Late st Contact Info) Description 02/19/2025 Telephone [facility] Neurology at [facility] Neuroscience [place] [address] [facility] [address] [place] [address] Cody Morton MD [address] [facility] [place] [address] Social History Tobacco Use Types Packs/Day Years Used Date Smoking Tobacco: Never Assessed Sex and Gender Information Value Date Recorded Sex Assigned at Not on file Legal Sex Male 10:18 AM EDT Gender Identity Not on file Sexual Orientation Not on file documented as of this encounter Plan of Treatment Not on file documented as of this encounter Visit Diagnoses Not on filedocumented in this encounter Care Teams Day [employer] Charter Bus Driver Relationship Specialty Start Date End Date Unknown, Attending Provider PCP - General 01/24/25 documented as of this encounter
--- OUTSIDE RECORDS SUMMARY | 2025-03-04 08:55 | XMS_ITS | Data Portability ---
Author Organization [facility] Address [address] [facility] [address] [place] [address] Care Team Providers Care Rural Health Consultant Name Role Phone ROXANNE VARGAS Referring Provider [phone] FANI N[place] Bone Char Puller Assessment Encounter Date Assessment Date Assessment LastModified by Organization Details LastModified Time 05/05/2023 05/05/2023 All signs and symptoms of Parkinson's disease, walking is good today, however when he gets anxious or nervous symptoms may get worse. His low back pain is a separate issue, I have agreed with surgery to help improve his chronic low back pain. Usually Parkinson's is not associated with pain. I have recommended considering Appecon injections to see if this may not help with the freezing episodes I have also recommended adding in selegiline for its possible protective effect. Other possibilities would be using entacapone to help prolong the effect of Parkinson's but we are seeing side effects including hallucinations. Patient at this time does not feel that they are a big problem but certainly we will need to watch for this. In the meantime I recommended starting melatonin to see if this helps with REM behavior disorder should this not be beneficial would consider clonazepam at bedtime. Due to my departure patient would like to follow-up with his usual neurologist at [facility]. [email or web address] Not available 05/05/2023 11:04:42 Plan of Treatment Reminders Order Date Submit Date Provider Last Modified By Organization Details Last Modified Time Details Appointments NEW PATIENT 2024 10:30A M JANELLE PAINTER PA-C Not available Not available Not available Lab None recorded. Referral orthopedi c surgeon referral - bursal cyst on the right elbow 2024 025 RALPH Handley MD, [address] [place], [address], 03/01/2025 09:42:22 Procedures None recorded. Surgeries None recorded. Imaging None recorded. Medication Orders mupirocin 2 % topical ointment 2024 025 [facility], [address] [place] [address], [facility] [address], [address], 09/26/2024 12:30:00 APOKYN 10 mg/mL subcutane ous cartridge 2022 023 [facility], [address] [place] [address], [id number], 05/05/2023 11:11:27 selegilin e 5 mg tablet 2022 023 nobryan [facility], [address] [place] [address], [place] [address], [place], [address], 02/28/2025 15:52:12 Patient TargetsNo targets recorded. Patient InstructionsNo instructions recorded. Reason for Referral Orthopedic Surgeon Referral for Cyst of bursa bursal cyst on the right elbow Referring Physician: Fani Nation, Dermatology, Encounter Date: 02/28/2025 Results Created Date Observation Date Name Description Value Unit Range Abnormal Flag Note LastModifiedBy Organization Detail LastModifiedTime 05/05/2003/12/2023 MRI, brain , w/wo contr ast No observ ation record ed. BARCODE Not Available 2022 13:44:38 05/05/20 23 03/12/2023 MRI, lumba r spine , w/o contr ast No observ ation record ed. BARCODE Not Available 2022 13:46:33 05/05/20 23 01/29/2020 MRI, brain , w/wo contr ast No observ ation record ed. BARCODE Not Available 2022 13:47:57 05/05/20 23 01/08/2020 MRI, thora cic spine , w/o contr ast No observ ation record ed. BARCODE Not Available 2022 13:49:06 Result Notes None recorded. Procedures Surgical History Date Name Laterality Status Provider Name and Address Organization Details Recorded Time 5 DAK - Cryo AK completed Alessandra Marcusll [facility] 09/26/2024 09:26:11 3 procedure on eyelid completed Peyton Devine [facility] 05/05/2023 10:11:14 Imaging Results None recorded. Procedure Notes None recorded. Medical Equipment None Reported. Allergies No known drug allergies Medications Name Sig Start Date Stop Date Status Note LastModified by Organization Details LastModified Time pramipexo le 1 mg tablet Take 1 tablet 3 times a day by oral route. active Not Available Not Available No t Available selegilin e 5 mg tablet Take 1 tablet at bedtime, can increase to twice a day as tolerate d 2022 active dc Not Available Not Available Not Avai lable esomepraz ole magnesium 40 mg capsule,d elayed release Take 1 capsule every day by oral route. active Not Available Not Available No t Available mupirocin 2 % topical ointment APPLY A SMALL AMOUNT TO THE AFFECTED AREA BY TOPICAL ROUTE 2 TIMES PER DAY UNTIL HEALED 2024 active Not Available Not Available Not Avai lable carbidopa 25 mg-levodo pa 100 mg tablet Take 2 tablets 4 times a day by oral route. active Not Available Not Available No t Available APOKYN 10 mg/mL subcutane ous cartridge 0.30 ml injectio n 2-4 times a day as needed 2022 active Not Available Not Available Not Avai lable pregabali n 100 mg capsule Take 1 capsule 3 times a day by oral route. active Not Available Not Available No t Available Vitamin C daily active dec Not Available Not Crissy ilable Not Available meloxicam active dc Not Available Not Crissy ilable Not Available oxybutyni n chloride active dc Not Available Not Available Not Available esomepraz ole magnesium active dc Not Available Not Available No t Available levocetir izine active Not Available Not Available Not Available Probiotic daily active dc Not Available Not Crissy ilable Not Available Men 50 Plus Multivita min daily active dc Not Available Not Available Not Available Kynmobi 10 mg sublingua l film Place by sublingu al route for 20 days. 05/18 completed No longer manufact ured Not Available Not Available Not Available red beet-sour will extract daily active dc Not Available Not Available Not Available Vitals Date Recorded Body height Body mass index (BMI) Body weight Heart rate Oxygen saturation Oxygen saturation in Arterial blood by Pulse oximetry Systolic And Diastolic Provider Name and Address Organization Details Last Updated DateTime 182.88 cm 33.4 kg/m2 716966. 12 g 73 /min 97 % 97 % 140/90 mm[Hg] Peyton Nilson [facility] 10:14:30 Social History Question Answer Notes LastModified by Organizat ion Details LastModified Time Tobacco Smoking Status Current Every Day Smoker 1 cigar per day Peyton Devine [facility] 05/05/2023 10:10:49 Sunscreen Use? Yes Informatio n not available 02/28/2025 Tanning Bed Use No Informati on not available 02/28/2025 What Was The Date Of Your Most Recent Tobacco Screening? 02/28/2025 Information not available 02/28/2025 What Is Your Relationship Status? Information not available 05/05/2023 Sex: Male Functional Status Question Answer Note LastModified by Organizat ion Details LastModified Time What is your level of alcohol consumption? Occasional Information not available 02/28/2025 Are you currently employed? No retired Information not available 05/05/2023 Mental Status None recorded. Family History Relationship Description Onset Age of this Age Resolved Age Notes LastModified by Organization Details LastModified Time Unspecified Relation Parkinson's disease stoler1 Not available 2022 10:10:06 Medical History Condition Response Parkinson's Disease Y Past Encounters Encounter ID Performer Location Encounter Start Date Encounter Closed Date Diagnosis/Indication Diagnosis SNOMED-CT Code Diagnosis ICD10 Code Diagnosis Note [id number] ELOISA HIRSCH MD [facility]UR[facility] [address] [place] [address] 05/05/2023 09:53:49 05/06/2023 13:56:45 Parkinson's disease 72404357 G20 Lumbar radiculopathy 128 157880 M54.16 [id number] MARITZA GUNN [address] [address] 10/03/2023 14:43:43 10/03/2023 15:46:15 Multiple benign melanocytic nevi 759681612 D22.5 D18.01 L82.1 L81.4 The benign nature of keratoses and lentigines was discussed with the patient.Norman n protection with SPF 30 broadspect rum sunscreen and protective gear discussed. Look for physical richie sunscreens with at least SPF 30 containing zinc oxide or titanium dioxide as active ingredient .Recommend monthly self examinatio ns and yearly full skin examinatio n with a dermatolog y provider.R ecommend yearly eye exam.Recom mend OTC Vitamin D supplement .Patient instructed to call if any suspicious lesions are noted. Skin tag 496367510 L91.8 Benign.No tx needed at this time. [id number] CHRISSIE MYLES MD [address] [address] 09/26/2024 08:53:19 09/26/2024 10:01:21 Solar lentigo 20969766 L81.4 - Benign appearing, reassuranc e given Multiple b enign melanocytic nevi 532998702 D22.5 - Benign appearing, reassuranc e given - Counseled on importance of daily sun protection and self skin exams/aram toring for ugly duckling lesions Senile angioma 8443295 I 78.1 - Benign appearing, reassuranc e given Seborrheic keratosis 394 722775 L82.1 - Benign appearing, reassuranc e given Lipoma 30267362 D17.0 - Benign appearing, reassuranc e- Continue to monitor- RTC sooner PRN for changes/co ncerns/sym ptomatic etc Actinic keratosis 024606 007 L57.0 -Precancer ous nature discussed -Will TX with LN2 today (see proc note) -FUP if sites persist after TX Abrasion 226188612 T14.8 XXA Patient reports he fell and scraped both knees- Start Mupirocin 2% ointment to BID until healed [id number] MARITZA GUNN [address] [place] [address] 02/28/2025 15:03:26 02/28/2025 16:29:24 Cyst of bursa 206160956 M71.30 The nature of the diagnosis was discussed. This appeared after having a fall.Rec. conservati ve measures while waiting on evaluation with ortho.Rest , ice, compressio n (fold up some gauze and then wrap with merced bandage). Pnt has had drained 2x with PCP. Not aware if fluid drained was tested. Does not appear to be infectious . Most likely due to the trauma from the fall. Referral sent to ortho. Health Concerns Section Related Observation LastModified by Organization Detai ls LastModified Time None Recorded Concern Status LastModified by Organization Details LastModified Time None Recorded Advance Directives Directive None Recorded Payers Insurance Date Sequence Insurance Name Policy Number Policy Vasquez Covered Member ID Vasquez Member ID Guarantor Name 02/28/2025 2 [place]UAN ANTON[place] (MEDICARE SUPPLEMENT) [id number] Leoncio Harman [id number] Leoncio Harman 02/28/2025 1 [employer] - GOLD PLUS (MEDICARE REPLACEMENT/AD VANTAGE - HMO) Leoncio Harman [id number] Leoncio Harman 02/28/2025 1 [place]: JUAN ANTONIO [place] - MEDIBLUE ACCESS (MEDICARE REPLACEMENT REGIONAL PPO) [id number] Leoncio Harman [id number] Leoncio Harman Notes Date Note Type Note Provider Name and Address Organization Details Recorded Time 05/05/2023 text/html 67-year-old gentleman presents today with complaints of Parkinson's disease. He also complains of low back pain with radiation down both legs. Patient has been diagnosed with Parkinson's about 2 years or so ago, he complains of stiffness rigidity and tremor mostly involving his legs. Patient has been on appropriate combination of carbidopa levodopa and Mirapex. Patient feels that his symptoms are under relatively good control but there are some bad days and good days. Some days he feels very well and is able to walk well other days he feels very stiff and feels that there is freezing episodes. Patient also complains of difficulty with halting and doorways or halting in front of patterns on the floor. 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 Patient does have hallucinations, usually relatively benign hallucinations in the evenings. Obligating all this is low back pain, has been diagnosed with significant nerve root involvement at L4-5 bilaterally. ELOISA HIRSCH MD [address] [place], [address], [facility] 05/05/2023 11:11:21 10/03/2023 text/html 1.FBSEannualno hxreports: area of concern2. Per spouse he has a spot on one of his upper legsreports: dark in color MARITZA GUNN [address] [place], [address], [facility] 10/03/2023 20:53:30 09/26/2024 text/html Pt is here for a full body skin exam today.- no hx of skin cancer- Last skin exam was 10/03/2023 with Braye- Spots of concern today: L neck CHRISSIE MYLES MD [address] [place] [address], [address], [facility] 09/26/2024 16:49:15 02/28/2025 text/html spot check location: R elbow duration: 6 weeks report: has had it drained twice and keeps coming back (By PCP) - no hx pt accompanied by MARITZA GUNN [address] [place], [address], [facility] 02/28/2025 17:09:57
--- OUTSIDE RECORDS SUMMARY | 2025-03-04 08:55 | XMS_ITS | Encounter Summary ---
Author Organization [facility] Address [address] [place] [address] Care Team Providers Care Professor Of Architecture Name Role Phone Byron Steele MD Primary Care Provider + [phone] Reason for Visit * Reason Comments Med Refill Encounter Details Date Type Department Care Team ([facility] st Contact Info) Description 07/31/2024 Refill [facility] [address] [facility], [address] [place] [address] Gregory Simpson MD [address] [facility] [address] [place] [address] Social History Tobacco Use Types Packs/Day Years Used Date Smoking Tobacco: Some Days Cigars Smokeless Tobacco: Never Alcohol Use Standard Drinks/Week Comments Never 0 (1 standard drink = 0.6 oz pur e alcohol) Sex and Gender Information Value Date Recorded Sex Assigned at Not on file Legal Sex Male 6:55 PM EDT Gender Identity Not on file Sexual Orientation Not on file documented as of this encounter Miscellaneous Notes * Telephone Encounter - Gregory Simpson MD - 08/01/2024 9:08 AM EST Should have tapered off the drug by now. I have not heard from them since this was discussed in clinic, so I can only assume this to be the case. documented in this encounter Plan of Treatment Not on file documented as of this encounter Visit Diagnoses Not on filedocumented in this encounter Additional Health Concerns Assessment Noted Time A fall risk assessment has been complete d for the patient 03/30/2024 8:04 AM EDT A Body Mass Index follow-up plan has been documented for the patient 03/30/2024 9:32 AM EDT documented as of this encounter Care Teams Professor Of Architecture Relationship Specialty [place] [address] [place] [address] PCP - General 03/30/24 documented as of this encounter
--- OUTSIDE RECORDS SUMMARY | 2025-03-04 08:55 | XMS_ITS | Encounter Summary ---
Author Organization [facility] Address [address] [place] [address] Care Team Providers Care Taproom Attendant Name Role Phone Unknown, Attending Provider Primary [...] release of HIV test results or diagnoses. [id number] Health Encounter Details Date Type Department Care Team (Late st Contact Info) Description 02/28/[address] [facility] Neurology at [facility] [address] [place] [address] [place] [address] Cierra Wang, NISA Social History Tobacco Use Types Packs/Day Years Used Date Smoking Tobacco: Never Assessed Sex and Gender Information Value Date Recorded Sex Assigned at Not on file Legal Sex Male 10:18 AM EDT Gender Identity Not on file Sexual Orientation Not on file documented as of this encounter Miscellaneous Notes * Telephone Encounter - Cierra Wang RN - 02/28/2025 12:33 PM EDT I spoke with patient today to let them know that I spoke to [employer] and they have the approval that I sent them. They are working on the approval. I told them they should be reaching out to him soon. documented in this encounter Plan of Treatment Not on file documented as of this encounter Visit Diagnoses Not on filedocumented in this encounter Care Teams Taproom Attendant Relationship Specialty Start Date End Date Unknown, Attending Provider PCP - General 01/24/25 documented as of this encounter
--- OUTSIDE RECORDS SUMMARY | 2025-03-04 08:55 | XMS_ITS | Encounter Summary ---
Author Organization [facility] Address [address] [place] [address] Care Team Providers Care Rural Route Carrier Name Role Phone Unavailable Primary Care Provider [...] release of HIV test results or diagnoses. [id number] Reason for Visit * Reason Comments Appointment Encounter Details Date Type Department Care Team (Late st Contact Info) Description 01/18/2025 Telephone [facility] Neurology at [address] [place] [address] Rina Rocha MA Appointment Social History Tobacco Use Types Packs/Day Years Used Date Smoking Tobacco: Never Assessed Sex and Gender Information Value Date Recorded Sex Assigned at Not on file Legal Sex Male 10:18 AM EDT Gender Identity Not on file Sexual Orientation Not on file documented as of this encounter Miscellaneous Notes * Telephone Encounter - Rina Rocha MA - 01/18/2025 11:18 AM EDT [facility] will push: MRI Brain with and without contrast 03/12/2023 MRI Brain with and without contrast 01/29/2020 In chart per PACS documented in this encounter Plan of Treatment Not on file documented as of this encounter Visit Diagnoses Not on filedocumented in this encounter
--- OUTSIDE RECORDS SUMMARY | 2025-03-04 08:55 | XMS_ITS | Encounter Summary ---
Author Organization [facility] Address [address] [place] [address] Care Team Providers Care Title Manager Name Role Phone Unknown, Attending Provider [...] release of HIV test results or diagnoses. [id number] Reason for Visit * Reason Comments Medical Management Plan of Care Inquiry /Question Encounter Details Date Type Department Care Team (Late st Contact Info) Description 02/19/2025 Telephone [facility] Neurology at [facility] [address] [facility] [address] [place] [address] Cody Morton MD [address] [facility] [place] [address] Medical Management (Plan of Care Inquiry/Question ) Social History Tobacco Use Types Packs/Day Years Used Date Smoking Tobacco: Never Assessed Sex and Gender Information Value Date Recorded Sex Assigned at Not on file Legal Sex Male 10:18 AM EDT Gender Identity Not on file Sexual Orientation Not on file documented as of this encounter Miscellaneous Notes * Telephone Encounter - Yanira Sehn MD - 02/19/2025 10:54 AM EDT Spoke to Radha. He had peak dose dyskinesia on 3 tab 4 times per day so they decreased it to 2 tab QID. They are still waiting for [employer]ap[employer]. We recommend: - Increase sinemet to 2.5 tab QID - See where the onapgo aproval states right now. - They will take the appointment in August and we will try to work on seeing them when they get the pump. * Telephone Encounter - Kelly Martel MA - 02/19/2025 8:12 AM EDT Pt's Radha is calling to speak with someone about the apomorphine pump the pt was to start. Radha states no one has gotten back to her. Radha states the pt is getting to the point where hecannot walk. Lastly, Radha states the pt is to schedule an appt for August. Pls follow up with Radha. documented in this encounter Plan of Treatment Not on file documented as of this encounter Visit Diagnoses Not on filedocumented in this encounter Care Teams Title Manager Relationship Specialty Start Date End Date Unknown, Attending Provider PCP - General 01/24/25 documented as of this encounter
--- OUTSIDE RECORDS SUMMARY | 2025-03-04 08:56 | XMS_ITS | Patient Health Record ---
Author Organization [facility] Address [address] [facility] [address] [place] [id number] Care Team Providers Care Framing Inspector Name Role Phone Byron Steele Primary Care Provider [phone] Allergies No Known Allergies Results Component Value Reference Range Notes P-Culture Body Fluid (Not ye t reviewed by provider) Interpretation: Performing Lab: Notes/Report: Test performed by [facility] [address] [place], [place] [address] [place] , [address], [place] [address] Felix Schwartz MD, Supervisor [employer] CLIA: [id number] Specimen Source Fluid - Olecranon bursa Culture Body Fluid See Below Final Rep ort : No growth P-Culture, Miscellaneous Aer obic w/Gram Stain (Not yet reviewed by provider) Interpretation: Performing Lab: Notes/Report: Test performed by [facility] [address] [place] [address] , [address], [place] [address] Felix Schwartz MD, Supervisor [employer] CLIA: [id number] Specimen Source Fluid - Olecranon bursa Gram Stain See Below Few Polymorphonuclear leukocytes No organisms seen Culture, Miscellaneous Aerobic w/Gram Stain See Below Preliminary Report : No growth, reincubate Final Report : No growth P-Cell Count and Differentia l, Body Fluid (Not yet reviewed by provider) Interpretation: Performing Lab: Notes/Report: Test performed by [facility] [address] [place], [place] [address] , [address], [place] [address] Felix Schwartz MD, Supervisor [employer] CLIA: [id number] Fluid Type Synovial Fluid Color [place] Fluid Appearance Hazy Fluid Red Blood Cell (RBC) Count 10685 Total Nucleated Cell Count (WBC) 254 Synovial [...] Fluid Synovial Lining Cells 0 Fluid Specific [place] 1.032 Crystals Fluid Not Present Uric Acid, Body Fluid (Not y et reviewed by provider) Interpretation: Performing Lab: Notes/Report: Uric Acid, Body Fluid 6.0 INTERPRETIVE INFORMATION: Uric Acid, Body Fluid For information on body fluid reference ranges and/or interpretive guidance visit [email or web address] [email or web address] [email or web address] This test was developed and its performance characteristics determined by [facility]. It has not been cleared or approved by the [place] Food and Drug Administration. This test was performed in a CLIA certified laboratory and is intended for clinical purposes. Performed By: [facility] [address] [place] [address] Supervisor [employer]: Dutch Recinos MD, PhD CLIA Number: [id number] INTERPRETIVE INFORMATION: Uric Acid, Body Fluid For information on body fluid reference ranges and/or interpretive guidance visit [email or web address] [email or web address] ids/ This test was developed and its performance characteristics determined by [facility]. It has not been cleared or approved by the [place] Food and Drug Administration. This test was performed in a CLIA certified laboratory and is intended for clinical purposes. Performed By: [facility] [address] [place] [address] Supervisor [employer]: Dutch Recinos MD, PhD CLIA Number: [id number] Uric Acid Fluid Source Joint fluid Olecr anon bursa Uric Acid, Body Fluid 6.0 INTERPRETIVE INFORMATION: Uric Acid, Body Fluid For information on body fluid reference ranges and/or interpretive guidance visit [email or web address] ID/bodyflu ids/ This test was developed and its performance characteristics determined by [facility]. It has not been cleared or approved by the US Food and Drug Administration. This test was performed in a CLIA certified laboratory and is intended for clinical purposes. Performed By: [facility] [address] [place] [address] [employer]: Dutch Recinos MD, PhD CLIA Number: [id number] INTERPRETIVE INFORMATION: Uric Acid, Body Fluid For information on body fluid reference ranges and/or interpretive guidance visit [email or web address] ID/bodyflu ids/ This test was developed and its performance characteristics determined by [facility]. It has not been cleared or approved by the US Food and Drug Administration. This test was performed in a CLIA certified laboratory and is intended for clinical purposes. Performed By: [facility] [address] [place] [address] Supervisor [employer]: Dutch Recinos MD, PhD CLIA Number: [id number] P-TSH Reviewed date:09/06/2024 01:39:49 PM Interpretation:Normal Performing Lab: Notes/Report: Test performed by [facility] [address] [place] [address] , [place] [address] Felix Schwartz MD, Supervisor [employer] CLIA: [id number] TSH 3.83 0.43-5.25 mU/L P-Lipid Panel Reviewed date:09/06/2024 01:39:49 PM Interpretation:Normal Performing Lab: Notes/Report: Test performed by [facility] [address] [place] [address] , [place] [address] Felix Schwartz MD, Supervisor [employer] CLIA: [id number] Cholesterol 164 <200 mg/dL Triglycerides 53 <150 [...] Results: 83 Units: mg/dL % Change: - P-T4 Free (thyroxine) Reviewed date:09/06/2024 01:39:49 PM Interpretation:Normal Performing Lab: Notes/Report: Test performed by [facility] [address] [place], [place] [address] , [place] [address] Felix Schwartz MD, Supervisor [employer] CLIA: [id number] Thyroxine Free (free T4) 1.20 0.86-1.76 ng/dL P-Comprehensive Metabolic Pa mike (CMP) Reviewed date:09/06/2024 01:39:49 PM Interpretation:Normal Performing Lab: Notes/Report: Test performed by [facility] [address] [place] [address] , [place] [address] Felix Schwartz MD, Supervisor [employer] CLIA: [id number] Sodium 140 135-145 mmol/L Potassium 4.0 3.5-5.3 [...] 0.3 <0.2-1.2 mg/dL A/G Ratio 1.8 1.1-2.5 CBC Venipuncture (in house) Reviewed date:09/05/2024 03:16:08 [...] - 38 platlet 173 100 - 400 Urinalysis - Inhouse Reviewed date:09/05/2024 03:15:59 PM Interpretation: Performing Lab: Notes/Report: Color/Clarity yellow/clear Leuk Neg Nitrite Pos Urobili 3.2 Protein Neg pH 6.0 Blood Neg Sp. Gr. 1.025 Ketone Trace Bili Neg Gluc Neg Urinalysis - Inhouse Reviewed date:06/13/2024 04:39:19 PM Interpretation:Normal Performing Lab: Notes/Report: Normal Color/Clarity yellow/clear Leuk neg Nitrite neg Urobili 3.2 Protein neg pH 5.5 Blood neg Sp. Gr. 1.025 Ketone trace Bili neg Gluc neg TEN-UTI panel Reviewed date:07/13/2024 04:30:07 PM Interpretation:E. Coli Performing Lab: Notes/Report: E. Coli CBC Fingerstick (in house) Reviewed date:01/11/2025 09:47:41 [...] - 38 plat 167 100 - 400 Urinalysis - Inhouse Reviewed date:07/10/2024 10:31:57 AM Interpretation: Performing Lab: Notes/Report: Color/Clarity yellow/clear Leuk 2+ Nitrite Pos Urobili 3.2 Protein 1+ pH 6.0 Blood Neg Sp. Gr. 1.020 Ketone Trace Bili Neg Gluc Neg Urinalysis - Inhouse Reviewed date:06/04/2024 12:10:51 PM Interpretation: Performing Lab: Notes/Report: Color/Clarity yellow/clear Leuk 1+ Nitrite neg Urobili 3.2 Protein 1+ pH 5.5 Blood neg Sp. Gr. 1.020 Ketone neg Bili neg Gluc neg TEN-UTI panel Reviewed date:06/08/2024 04:08:50 PM Interpretation:sensitive Performing Lab: Notes/Report: sensitive Reason For Referral Reason send to [facility] PT Diagnosis 1 Impaired functional mobility, balance, gait, and endurance (Z74.09) [facility]erring Provider First Name Byron Referring Provider Last Name Cedric Referring Provider [facility] [place] emmanuel Referred Provider Specialty Physical The rapist General Notes Christy Richards 024 10:13:49 AM > faxed to [facility] PT Referral Priority Routine Reason Dr. Morton at [facility], [place] to see visual stylist pnone [phone], [phone] Diagnosis 1 Parkinson's disease with dyskinesia and fluctuating manifestations (G20.B2) [facility] Referring Provider First Name Byron Referring Provider Last Name Cedric Referring Provider [facility] [place] ctrowdy Referred Provider Neurology, . Referred Provider Specialty Neurology General Notes Christy Richards 2024 08:55:21 AM > faxed to [facility] Referral Priority Routine Medications Medication SIG (Take, Route, Frequency, Duration) Notes Start Date End Date Status Esomeprazole Magnesium 40 MG TAKE 1 CAPS ULE BY MOUTH ONCE DAILY Active Wheelchair - 1 large Wheelchair 08/19/2023 Active Triamcinolone Acetonide 0.1 % APPLY TO A FFECTED AREA EVERY 12 HOURS; Duration: 15 Active Tadalafil 20 MG 1 tablet as needed Orally Once a day 03/05/2024 Active oxyBUTYnin Chloride 5 MG 1 tablet Orally Once a day Active Gemtesa 75 MG 1 tablet Orally Once a day Active Pramipexole Dihydrochloride 0.5 MG 1 tab(s) Orally 3 times a day Active Carbidopa-Levodopa 25-100 MG 1 tab(s) or ally 3 times a day; Duration: 30 day(s) Active Rollator Walker - 1 tall Rollator Walk er as directed as directed 08/19/2023 Active Immunizations Vaccine Route Administration Date Status Comme nts xFluzone Intradermal (18-64yrs)-trivalent ID Intradermal 10/23/2012 Administered Tetanus Tdap-Adacel (over 7yrs) IM Intramuscular 10/23/2012 Administered Tetanus Tdap-Adacel (over 7yrs) Unknown 08/09/2023 Administered Prevnar (PCV20) IM Intramuscular 09/02/2023 Administered Fluzone Intradermal Quad private(18-64yrs) ID Intradermal 06/24/2015 Administered Fluzone High Dose (65yr and older) IM Intramuscular 09/02/2023 Administered COVID 19 Moderna Unknown 08/09/2021 Administered COVID 19 Ирина Unknown 10/29/2020 Administered Problems Problem Type SNOMED Code ICD Code Onset Dates Problem Status W/U Status Risk Notes Problem Arthropathy of lumba r facet joint (723850560) Lumbar facet arthropathy (M47.816) Active confirmed Problem Disorder of lumbar disc (960642392) Lumbar disc disease (M51.9) Active confirmed Problem Body mass index 30+ - obesity (821696820) BMI 30.0-30.9,adult (Z68.30) Active confirmed Problem Sciatica (39502571) Lumbago with sciatica, right side (M54.41) Active confirmed Problem Sciatica (38611407) Lumbago with sciatica, left side (M54.42) Active confirmed Problem Degeneration of lumbar intervertebral disc (92955982) Lumbar degenerative disc disease (M51.36) Active confirmed Problem Bronchitis (73013556) Bronchitis (J40) Active c onfirmed Problem Displacement of lumbar intervertebral disc without myelopathy (67778924) Bulging lumbar disc (M51.26) Active confirmed Problem Dermatitis (043261843) Dermatitis (L30.9) Active confirmed Problem Erectile dysfunction (disorder) (390078168) Erectile dysfunction, unspecified erectile dysfunction type (N52.9) Active confirmed Problem Sciatica (97971326) Right sided sciatica (M54.31) Active confirmed Problem Problem with balance (435812829) Balance problems (R26.89) Active confirmed Problem Parkinson's disease (disorder) (49363976) Parkinson disease, symptomatic (G20) Active confirmed Problem Dyskinesia (0771690) Dyskinesia (G24.9) Active confirmed Problem Gastroesophageal reflux disease with esophagitis (disorder) (780247053) Gastroesophageal reflux disease with esophagitis without hemorrhage (K21.00) Active confirmed Problem Swelling of first metatarsophalangeal joint of hallux (794340351) Bunion, left (M21.612) Active confirmed Problem Parkinson's disease with dyskinesia and fluctuating manifestations (G20.B2) Active confirmed Vital Signs Heart Rate 84 /min 02/26/2025 Blood pressure diastolic 70 mm Hg 02/26/2025 Height 71.5 in 02/26/2025 Blood pressure systolic 112 mm Hg 02/26/2025 Weight 216 lbs 02/26/2025 BMI 29.7 kg/m2 02/26/2025 Encounters Encounter Location Date Provider Diagnosis [facility] [address] [place], [place] [id number] 03/05/2024 [place] Right sided sciatica M54.31 ; Lumbar disc disease M51.9 ; Erectile dysfunction, unspecified erectile dysfunction type N52.9 and Bunion, left M21.612 [facility] [address] [place], [place] [id number] 03/28/2024 Byron [place] Chest wall pain R07. 89 [facility] [address] [facility] [address] [place], [place] [id number] 04/02/2024 Byron [place] Actinic keratoses L5 7.0 [facility] [address] [facility] [address] [place] [id number] 06/04/2024 Byron [place] Acute UTI N39.0 [facility] [address] [facility] [address] [place], [place] [id number] 06/11/2024 Byron [place] Urinary frequency R3 5.0 [facility] [address] [facility] [address] [place], [place] [id number] 07/10/2024 Byron [place] Recurrent UTI N39.0 [facility] [address] [place], [place] [id number] 09/05/2024 Byron [place] Urinary frequency R3 5.0 ; Gastroesophageal reflux disease with esophagitis without hemorrhage K21.00 ; Peripheral edema R60.0 ; Elevated TSH R79.89 ; Hyperglycemia R73.9 and Recurrent UTI N39.0 [facility] [address] [facility] [address] [place], [place] [id number] 11/21/2024 Byron [place] Parkinson's disease with dyskinesia and fluctuating manifestations G20.B2 [facility] [address] [facility] [address] [place], [place] [id number] 12/25/2024 Byron [place] Closed dislocation o f left ring finger S63.255A ; Lumbar back pain M54.50 and BMI 30.0-30.9,adult Z68.30 [facility] [address] [facility] [address] [place], [place] [id number] 01/11/2025 Byron [place] Cellulitis of right arm L03.113 and BMI 30.0-30.9,adult Z68.30 [facility] [address] [facility] [address] [place], [place] [id number] 02/12/2025 Byron [place] Olecranon bursitis o f right elbow M70.21 [facility] [address] [facility] [address] [place], [place] [id number] 02/26/2025 Byron [place] Olecranon bursitis o f right elbow M70.21 [facility] [address] [facility] [address] [place], [place] [id number] 06/11/2024 Byron [place] [facility] [address] [facility] [address] [place], [place] [id number] 06/19/2024 Byron [place] Impaired functional mobility, balance, gait, and endurance Z74.09 [facility] [address] [facility] [address] [place], [place] [id number] 08/06/2024 Byron [place] Assessments Encounter Date Diagnosis (ICD Code) Assessment Notes Treatment Notes Treatment Clinical Notes Section Notes 06/11/2024 Urinary frequency (ICD-10 - R35.0) 06/19/2024 Impaired functional mobility, balance, gait, and endurance (ICD-10 - Z74.09) 07/10/2024 Recurrent UTI (ICD-10 - N39.0) 03/05/2024 Right sided sciatica (ICD-10 - M54.31) Patient to have L4-L5 fusion tomorrow, discussed surgery with patient 03/28/2024 Chest wall pain (ICD-10 - R07.89) symptomatic treatment of pain. Return if worsening of pain or developement of new symptoms 04/02/2024 Actinic keratoses (ICD-10 - L57.0) 06/04/2024 Acute UTI (ICD-10 - N39.0) 09/05/2024 Urinary frequency (ICD-10 - R35.0) 09/05/2024 Gastroesophageal reflux disease with esophagitis without hemorrhage (ICD-10 - K21.00) 12/25/2024 Lumbar back pain (ICD-10 - M54.50) 12/25/2024 Closed dislocation of left ring finger (ICD-10 - S63.255A) Patient declines anesthesia, finger dislocation reduced with distal traction. Patient will full ROM and neurovascularly intact after joint dislocation reduced, recommend ice and meliza taping as needed for the next few days. Call with any new symptoms. 01/11/2025 BMI 30.0-30.9,adult (ICD-10 - Z68.30) 01/11/2025 Cellulitis of right arm (ICD-10 - L03.113) 02/12/2025 Olecranon bursitis of right elbow (ICD-10 - M70.21) 02/26/2025 Olecranon bursitis of right elbow (ICD-10 - M70.21) 03/05/2024 Lumbar disc disease (ICD-10 - M51.9) 11/21/2024 Parkinson's disease with dyskinesia and fluctuating manifestations (ICD-10 - G20.B2) Wants to start On[employer] 12/25/2024 BMI 30.0-30.9,adult (ICD-10 - Z68.30) 03/05/2024 Erectile dysfunction, unspecified erectile dysfunction type (ICD-10 - N52.9) 09/05/2024 Peripheral edema (ICD-10 - R60.0) 03/05/2024 Bunion, left (ICD-10 - M21.612) 09/05/2024 Elevated TSH (ICD-10 - R79.89) 09/05/2024 Hyperglycemia (ICD-10 - R73.9) 09/05/2024 Recurrent UTI (ICD-10 - N39.0) Plan Of Treatment Pending Test Test Name Order Date P-Culture Body Fluid 02/26/2025 P-Culture, Miscellaneous Aerobic w/Gram Stain 02/26/2025 P-Cell Count and Differential, Body Flui d 02/26/2025 P-Uric Fluid Analysis 10/05/2022 P-Uric Fluid Analysis 02/26/2025 P-Fluid Cell Count 02/26/2025 Uric Acid, Body Fluid 02/26/2025 Insurance Providers Payer Name Payer Address Payer Phone Subscriber Number Group Number Insured Name Patient Relationship to Insured Coverage Start Date Coverage End Date [employer] [address] [place] [address] [id number] Leoncio Harman Self - patient is the insured Medications Administered Medication Instructions Date of Administration Dosage Notes Depo- Medrol 40 mg/ml 10/30/2018 2 mL Dexamethasone 11/13/2012 4 mg Medical (General) History Medical History History ICD Code Coronary CT angiogram October 2014 Diverticulosis Lumbar Disc Disease, s/p pain management evaluation 2018 Lumbar Facet Arthropathy MRI L-spine, November 2018 Parkinson's Disease, Dx: 2020 Lumbar Spinal Stenosis, s/p laminectomy 2022 Surgical History Surgery Date(Month/Year) Colonoscopy 2006, 10/30/2018 Minimally Invasive Lumbar Laminectomy
--- OUTSIDE RECORDS SUMMARY | 2025-03-04 08:56 | XMS_ITS | Clinical Summary ---
Author Organization [facility] Address [address] [place] [address] Phone Care Team Providers Care Animal Breeder Name Role Phone Day, Nino Unavailable Unavailable Conditions or Problems Problem Name Problem Code Onset Date Status Entry Date Provider Comment Standard Description Annotate Strep pyogenes infection B95.4 (ICD-10-CM ) 12/01 Active 12/01 Yari Ayad Other streptococcus as the cause of diseases classified elsewhere Chronic venous stasis disease 93134501 (SNOMED CT) 12/02 Active 12/02 Yari Ayad Stasis dermatitis Neutrophilic leukemoid reaction D72.823 (ICD-10-CM ) 12/02 Active 12/02 Yari Ayad Leukemoid reaction Smoking cessation counseling 530308561 (SNOMED CT) 12/07 Active 12/07 Carolee Cari Procedure carried out on subject Other obesity due to excess calories 418476946 (SNOMED CT) 12/07 Active 12/07 Carolee Cari Simple obesity Leukocytosis 785154223 (SNOMED CT) 12/02 Inactive 12/02 Jayson Ceja MD Leukocytosis Venous stasis 25982144 (SNOMED CT) 12/02 Inactive 12/02 Jayson Ceja MD Venous stasis Pneumonia 927560810 (SNOMED CT) 12/01 Active 12/01 Shae Edkareen Pneumonia Peripheral venous insufficiency 23488077 (SNOMED CT) 12/01 Active 12/01 Shae Edelen Peripheral venous insufficiency Cellulitis of right lower limb 936957094 (SNOMED CT) 12/01 Active 12/01 Shae Edelen Cellulitis of leg, excluding foot Streptococcus pyogenes infection 943450707 (SNOMED CT) 12/01 Inactive 12/01 Shae Oharakareen Streptococcus pyogenes infection Parkinson's disease 05836513 (SNOMED CT) 12/01 Active 12/01 Shae Oharakareen Parkinson's disease Nicotine dependence 09607787 (SNOMED CT) 12/01 Inactive 12/01 Shae August Nicotine dependence Problem excluded marlys black report: Nicotine dependence 05369134 (SNOMED CT) 12/01 Removed 12/01 Alessandra Christensen Nicotine dependence Medications Medication Instructions Start Date Stop Date Generic Name NDC Provider Hibiclens 4% liquid Apply 1 as directed to skin once a day 05/18 chlorhexidine gluconate 09293409799 Jayson Ceja MD MUPIROCIN 2 % OINT Apply 1 as directed to affected area twice a day Apply to each nostril twice a day. Once in the morning and once in the evening for 5 days mupirocin 93008149652 Jayson Ceja MD CEPHALEXIN 500 MG CAPS Take 1 capsule by mouth four times a day 02/26 cephalexin 99377856442 Jayson Ceja MD CEPHALEXIN 500 MG CAPS 1 capsule by mouth four times a day 5/ cephalexin 53344740328 Jayson Ceja MD rocnuno Rocephin 2G IV Q24hrs / INPAT 12/09 rocnuno Deleon RN CEPHALEXIN 500 MG CAPS by mouth every eight hours 12/09 cephalexin 14905815654 Jayson Ceja MD CEPHALEXIN 500 MG CAPS Take 1 capsule by mouth four times a day 12/16 cephalexin 93031592903 Jayson Ceja MD rocnuno Rocephin 2G IV Q24hrs / INPAT 12/09 rocephin Loar Juanpablo RN MUCINEX MAXIMUM STRENGTH 1200 MG [id number] qd guaifenesin 35275670558 Alessandra Christensen PREGABALIN 75 MG CAPS three times daily pregabalin 36937648821 Alessandra Christensen PRAMIPEXOLE DIHYDROCHLORIDE 1 MG TABS three times daily pramipexole 82025027121 Alessandra Christensen ESOMEPRAZOLE MAGNESIUM 40 MG CPDR qd esomeprazole magnesium 83595844254 Alessandra Christensen Mirapex 1 mg tablet by mouth three times a day pramipexole 90968035442 Tonia Parham CARBIDOPA-LEVODOPA ER 25-100 MG CR-TABS 2 tablet by mouth four times a day carbidopa-levod opa 27151708178 Tonia Parham NEXIUM 40 MG CPDR by mouth once a day esomeprazole magnesium 61701644051 Tonia Parham LYRICA 75 MG CAPS by mouth three times a day pregabalin 33508338738 Tonia Parham LORATADINE 10 MG TABS by mouth once a day loratadine 13369023447 Tonia Parham CEPHALEXIN 500 MG CAPS by mouth every eight hours 12/09 cephalexin 80474794982 Tonia Parham LEVOFLOXACIN 750 MG TABS by mouth once a day levofloxacin 91678498047 Tonia Parham Medications Administered No information available. Allergies, Adverse Reactions, Alerts No information available. Results Date Name Value Unit Range Flag Description Lab Report: CBC WITH AUTO DI FFERENTIAL ZZ-GE-unk 0.0 /100 WBC 0.0-0.2 GE use only - for [employer] import when terms are not otherwise specified IMMATUREGRAN 0.36 10*3/MM3 0.00-0.05 H Immature granulocytes [#/volume] in Blood BASO# 0.08 10*3/mm3 0.00-0.20 Basophils [#/vol ume] in Blood EOS ABSLT 0.25 10*3/uL 0.00-0.40 Eosinophi ls [#/volume] in Blood MONOSCT AUTO 0.54 10*3/uL 0.10-0.90 Monocy julius [#/volume] in Blood by Automated count LYMPHCT AUTO 1.81 10*3/mm3 0.70-3.10 Lymph ocytes [#/volume] in Blood by Automated count ABS NEUTROPH 5.65 10*3/uL 1.70-7.00 Neutro phils [#/volume] in Blood IMM GRANU % 4.1 % 0.0-0.5 H Immature granulocytes/100 leukocytes in Blood % EOS AUTO 2.9 % 0.3-6.2 Eosinophil s/100 leukocytes in Blood by Automated count MONOCYTE % 6.2 % 5.0-12.0 Monocytes /100 leukocytes in Blood by Automated count LYMPHOCY BF 20.8 % 19.6-45.3 lymphoc ytes as percent of body fluid leukocytes NEUTROP BF 65.1 % 42.7-76.0 Neutroph ils/100 leukocytes in Body fluid PLATELETS 282 10*3/mm3 140-450 Platelets [#/volume] in Blood by Automated count RDW_ 16.7 12.3-15.4 H RDW, no uni ts MCHC 31.1 G/DL 31.5-35.7 L MCHC [Mass/ volume] by Automated count MCH 26.2 pg 26.6-33.0 L MCH [Entiti c mass] by Automated count MCV 84.1 fL 79.0-97.0 MCV [Entiti c volume] by Automated count HCT 36.0 % 37.5-51.0 L Hematocrit [Volume Fraction] of Blood by Automated count HGB 11.2 g/dL 13.0-17.7 L Hemoglobin [Mass/volume] in Blood RBC 4.28 10*6/mm3 4.14-5.80 Erythrocyt es [#/volume] in Blood by Automated count WBC 8.69 10*3/mm3 3.40-10.8 0 Leukocytes [#/volume] in Blood by Automated count Lab Report: C-REACTIVE PROTE IN CRP 2.20 mg/dL 0.00-0.50 H C reactive protein [Mass/volume] in Serum or Plasma Lab Report: COMPREHENSIVE ME TABOLIC PANEL ANIONGAP 10.0 mmol/L 5.0-15.0 anion gap, serum BUN/CREAT 15.9 7.0-25.0 Urea nitrogen/Creatinine [Mass Ratio] in Serum or Plasma BILI TOTAL 0.2 mg/dL 0.0-1.2 Bilirubin. total [Mass/volume] in Serum or Plasma ALK PHOS 88 U/L 39-117 Alkaline rosetta sphatase [Enzymatic activity/volume] in Blood SGOT (AST) 16 U/L 1-40 Aspartate aminotransferase [Enzymatic activity/volume] in Serum or Plasma SGPT (ALT) 6 U/L 1-41 Alanine aminotransferase [Enzymatic activity/volume] in Serum or Plasma ALBUMIN 3.5 g/dL 3.5-5.2 Albumin [Mass/volume] in Serum or Plasma PROTEIN, TOT 7.9 g/dL 6.0-8.5 Protein [Mass/volume] in Serum or Plasma CALCIUM 8.7 mg/dL 8.6-10.5 Calcium [Moles/volume] in Serum or Plasma CO2 26.0 mmol/L 22.0-29.0 Carbon diox gerri, total [Moles/volume] in Venous blood CHLORIDE 102 mmol/L 98-107 Chloride [Moles/volume] in Serum or Plasma POTASSIUM 4.3 mmol/L 3.5-5.2 Potassium [Moles/volume] in Serum or Plasma SODIUM 138 mmol/L 136-145 Sodium [Moles/volume] in Serum or Plasma CREATININE 1.07 mg/dL 0.76-1.27 Creatini ne [Mass/volume] in Serum or Plasma BUN 17 mg/dL 8-23 Urea nitrogen [Mass/volume] in Serum or Plasma GLUCOSE SER 100 mg/dL 65-99 H Glucose [Mass/volume] in Serum or Plasma Lab Report: SEDIMENTATION RA TE ESR 95 mm/h 0-20 H Erythrocyte sedimentation rate by Westergren method Lab Report: CBC With Differe ntial/Platelet, Comp. Metabolic Panel (14), ... A/G RATIO 0.8 g/dL Albumin/Lola bulin [Mass Ratio] in Serum or Plasma GLOBULIN 4.4 Globulin [Mass/volume] in Serum BASOPHIL % 0.9 % 0.0-1.5 Basophils/ 100 leukocytes in Blood by Manual count LYMPHS % 20.8 % 19.6-45.3 Lymphocyte s/100 leukocytes in Blood by Automated count PMN % 65.1 % 42.7-76.0 Neutrophils /100 leukocytes in Blood by Automated count RDW 16.7 % 12.3-15.4 H Erythrocyte distribution width [Ratio] by Automated count Office Visit: Office Visit:corrina Land SMOK STATUS Light tobacco smoker Tobacco smoking status MEDS REVIEW Done Documenta tion of current medications (procedure) Plan of Care Type Date Detail Pending order Discontinue IV a ntibiotics Pending order New Oral Antibio tic Pending order New IV antibioti c Pending order PIV/Butterfly Pending order Discontinue IV a ntibiotics Pending order New Oral Antibio tic Pending order Continue IV anti biotics Pending order PIV/Butterfly Pending order Stat Weekly Labs Pending order New IV antibioti c Pending order CMP Pending order CBC w/o Differen tial Procedures Code Procedure Name Date Entry Date CPT- stat weekly Stat Weekly Labs CPT-david New IV antibiotic CPT-96647 CMP CPT-56931 CBC w/o Differential Vital Signs Date Name Value Unit Description BMI (Body Mass Index) 33.31 kg/m2 Bod y Mass Index (Ratio) Body Temperature 97.4 [degF] temperat ure E&M BP Diastolic 90 mm[Hg] blood pressu re, diastolic BP Systolic 142 mm[Hg] blood pressur e, systolic Heart Rate 64 /min pulse rate Height 72 [in_us] height E&M Respiratory Rate 16 /min respirat ory rate E&M Weight Measured 245.6 [lb_av] weight E& M Weight Measured 245.6 [lb_av] weight E& M Immunizations No information available. Advance Directives Directive Description Start Date NO ADVANCED MEDICAL DIRECTIVES 3
--- OUTSIDE RECORDS SUMMARY | 2025-03-04 08:56 | XMS_ITS | Encounter Summary ---
Author Organization [facility] Address [address] [place] [address] Care Team Providers Care Corporate Affairs Manager Name Role Phone Byron Steele MD Primary Care Provider [phone] Reason for Referral * Consultation (Routine) - Closed Specialty Diagnoses / Procedures Referred By Nely van Referred To Contact Neurology Diagnoses Parkinson's disease without fluctuating manifestations, unspecified whether dyskinesia present (CMS/HCC) Coy Munguia APRN [address] [place] [address] Phone: tel: fax: Referral ID Status Reason Start Date Expiration Date V isits Requested Visits Authorized [id number] Closed Specialty Services Required 08/12/2023 02/10/2025 1 1 Encounter Details Date Type Department Care Team (Late st Contact Info) Description 08/12/2023 [facility] [address] [place] [address] Coy Munguia APRN [address] [place] [address] Parkinson's disease without fluctuating manifestations, unspecified whether dyskinesia present (CMS/HCC) (Primary Dx) Social History Tobacco Use Types Packs/Day Years Used Date Smoking Tobacco: Never Assessed Sex and Gender Information Value Date Recorded Sex Assigned at Not on file Legal Sex Male 6:55 PM EDT Gender Identity Not on file Sexual Orientation Not on file documented as of this encounter Plan of Treatment Scheduled Referrals Name Type Priority Associated Diagnoses Orde r Schedule Ambulatory referral to Neurology Outpatient Referral Routine Parkinson's disease without fluctuating manifestations, unspecified whether dyskinesia present (CMS/HCC) Expected: 08/12/2023 (Approximate), Expires: 02/10/2025 documented as of this encounter Visit Diagnoses Diagnosis Parkinson's disease without fluctuating manifestations, unspecified whether dyskinesia present (CMS/[facility])- Primary documented in this encounter Care Teams Corporate Affairs Manager Relationship Specialty Start Date End Date Byron Steele MD [address] [place] [address] PCP - General 03/30/24 documented as of this encounter
--- OUTSIDE RECORDS SUMMARY | 2025-03-04 08:56 | XMS_ITS | Continuity of Care Document ---
Author Organization [facility] CAROLE Miller COCOA Address [address] [place] [address] Care Team Providers Care Financial Services Director Name Role Phone SAMRXOANNE Referring Provider FANI NATION Window Installer Assessment No assessment recorded. Plan of Treatment Reminders Order Date Submit Date Provider Last Modified By Organization Details Last Modified Time Details Appointments NEW PATIENT 2024 10:30A M JANELLE PAINTER PA-C Not available Not available Not available Lab None recorded. Referral orthopedi c surgeon referral - bursal cyst on the right elbow 2024 07 025 RALPH Handley MD, [address] [place], [address], 03/01/2025 09:42:22 Procedures None recorded. Surgeries None recorded. Imaging None recorded. Medication Orders None recorded. Patient TargetsNo targets recorded. Patient InstructionsNo instructions recorded. Reason for Referral Orthopedic Surgeon Referral for Cyst of bursa bursal cyst on the right elbow Referring Physician: Fani Nation, Dermatology, Encounter Date: 02/28/2025 Procedures Surgical History Date Name Laterality Status Provider Name and Address Organization Details Recorded Time 5 DAK - Cryo AK completed Alessandra Jimenez [facility] 09/26/2024 09:26:11 3 procedure on eyelid completed Peyton Devine [facility] 05/05/2023 10:11:14 Imaging Results None recorded. [...] Not Available Not Available Not Available Vitals None Recorded Social History Question Answer Notes LastModified by Organizat ion Details LastModified Time Tobacco Smoking Status Current Every Day Smoker 1 cigar per day LUIS Johnson [facility] 05/05/2023 10:10:49 Sunscreen Use? Yes Informatio [...] SNOMED-CT Code Diagnosis ICD10 Code Diagnosis Note [id number] MARITZA GUNN [address] [address] 02/28/2025 15:03:26 02/28/2025 16:29:24 Cyst of bursa 346853056 M71.30 The nature of the diagnosis was [...] by Organization Details LastModified Time None Recorded Payers Encounter Date Sequence Insurance Name Policy Number Policy Vasquez Covered Member ID Vasquez Member ID Guarantor Name 02/28/2025 1 CATARINO-LUIS: JUAN ANTONIO TORIBIO OF [facility] MEDIWISTER ACCESS (MEDICARE REPLACEMENT [facility]) [id number] Leoncio Harman [id number] Leoncio Harman Notes Date Note Type Note Provider Name and Address Organization Details Recorded Time 02/28/2025 text/html spot check location: R elbow duration: 6 weeks report: has had it drained twice and keeps coming back (By PCP) - no hx pt accompanied by CHRISTO Helen NATION, MARITZA [address] [place], [address], [facility] 02/28/2025 17:09:57
--- OUTSIDE RECORDS SUMMARY | 2025-03-04 08:56 | XMS_ITS | Clinical Summary ---
Author Organization [facility] Address [address] [place] [address] Care Team Providers Care Rock Crusher Operator Name Role Phone Byron Steele MD Primary Care Provider [phone] Allergies No known active allergies Medications esomeprazole (NexIUM) [address] capsule Take 1 capsule (40 mg) by mouth 1 (one) time each day before breakfast. 06/27/2023 Active rOPINIRole (Requip) 2 MG tablet Take 1 tablet (2 mg) by mouth 1 (one) time each day. 03/19/2024 Active oxybutynin XL (Ditropan-XL) 5 MG 24 hr tablet Take 1 tablet (5 mg) by mouth 1 (one) time each day. 02/14/2024 Active escitalopram (Lexapro) 10 MG tablet Take 1 tablet (10 mg) by mouth 1 (one) time each day. 08/12/2023 Active cetirizine (ZyrTEC) 10 MG tablet Take 1 tablet (10 mg) by mouth 1 (one) time each day. Active carbidopa-levod opa (Sinemet) 25-100 MG tablet Take 2.5 tablets by mouth 4 (four) times a day. 900 tablet 3 03/30/2024 Active pramipexole (Mirapex) 1 MG tablet Take 1 tablet (1 mg) by mouth 3 (three) times a day. 270 tablet 1 08/07/2024 Active Encounters Date Type Department Care Team Description 12/13/2024 Orders Only [place] [facility] [address] [place] [id number] Radha Landaverde PA from Last 3 Months Immunizations Immunization Administration Dates Next Due Moderna COVID-19 Vaccine (Gasket Notcher) 12+ years Pneumococcal 20-noy Conj Vaccine 09/02/2023 Tdap 08/09/2023 Family History Medical History Relation Name Comments Dementia Father Parkinson Disease Other Relation Name Status Comments Father Other Social History Tobacco Use Types Packs/Day Years Used Date Smoking Tobacco: Some Days Cigars Smokeless Tobacco: Never Tobacco Cessation:Ready to Q uit: Not Asked; Counseling Given: Not Answered Alcohol Use Standard Drinks/Week Comments Never 0 (1 standard drink = 0.6 oz pur e alcohol) Sex and Gender Information Value Date Recorded Sex Assigned at Not on file Legal Sex Male 6:55 PM EDT Gender Identity Not on file Sexual Orientation Not on file Last Filed Vital Signs Vital Sign Reading Time Taken Comments Blood Pressure 113/76 03/30/2024 8:04 AM EDT Pulse 83 03/30/2024 8:04 AM EDT Temperature - - Respiratory Rate - - Oxygen Saturation 95% 03/30/2024 8:04 AM EDT Inhaled Oxygen Concentration - - Weight 97.8 kg (215 lb 9.8 oz) 03/30/2024 8:04 A M EDT Height 182.9 cm (6') 03/30/2024 8:04 AM EDT Body Mass Index 29.24 03/30/2024 8:04 AM EDT Plan of Treatment Health Maintenance Due Date Last Done Comments [facility]-Depression Screening 1955 [facility]-Infant/Child/Adol SDOH Screenings 1955 [facility]- SDOH Screenings 1973 [facility]-Adult SDOH Screenings 1973 CT Colonography 2000 Colonoscopy 2000 FIT-DNA 2000 FIT 2000 FOBT 2000 Sigmoidoscopy 2000 [facility]-Colorectal Cancer Screening 2000 [facility]-Zoster Vaccines (1 of 2) 2005 [facility]-Abdominal Aortic Aneurys m (AAA) Screening 2020 IVV-ULELA-13 Vaccine ( season) 2024 08/09/2021, 10/29/2020 [facility]-Influenza Vaccine (#1) 2025 [facility]-RSV Vaccine: 60+ Years o r (1 - 1-dose 75+ series) 2030 [facility]-DTaP,Tdap,and Td Vaccine s (2 - Td or Tdap) 08/09/2033 08/09/2023 [facility]-Pneumococcal Vaccine: 50 + Years Completed 09/02/2023 [facility]-Diabetes: Hemoglobin A1C Discontinued 03/01/2024 [facility]-Obesity Intervention Completed 03/30/2024 HPV Vaccines Aged Out No longer eligi ble based on patient's age to complete this topic [facility]-HIB Vaccines Aged Out No longer e ligible based on patient's age to complete this topic [facility]-Hepatitis A Vaccines Aged Out No longer eligible based on patient's age to complete this topic [facility]-IPV Vaccines Aged Out No longer e ligible based on patient's age to complete this topic [facility]-Rotavirus Vaccines Aged Out No lo nger eligible based on patient's age to complete this topic Insurance ANTHEM MEDICARE Care Teams Rock Crusher Operator Relationship Specialty Start Date End Date Byron Steele MD [address] [employer] [employer] [address] [place] [address] PCP - General 03/30/24
--- OUTSIDE RECORDS SUMMARY | 2025-03-04 09:55 | XMS_ITS | CCD ---
Author Name Sara [facility] DELIVERY DRIVERKatrin Address [address] [facility] [facility] [address] [place] [address] Phone Organization [facility] Phone Care Team Providers Care Engine Lathe Set Up Operator Name Role Phone Office, Warrior Primary Care Provider Unavaila ble Unavailable Chronic Care Management Unavaila ble Summary Purpose DataExchange Insurance Providers Payer name Policy type / Coverage type Covered democrat ID Effective Begin Date Effective End Date [employer] [facility] [id number] Unknown Unknown Family History Family History data [...] Instructions esomeprazole (nexIUM) 40 MG capsule RxNorm: 524466 Take 1 Capsule(s) Oral every morning Before Breakfast . 4 No Stop Date Active pramipexole (MIRAPEX) 1 MG tablet RxNorm: 182145 Take 1 tablet by mouth 3 (Three) Times a Day. 4 No Stop Date Active carbidopa-levodop a (SINEMET) 25-100 MG per tablet RxNorm: 566892 TAKE 2 TABLETS AT 6AM, 11AM, 4PM, 10PM No Stop Date Active Medication Administered No Medication Administered data Reason For Visit No Reason For Visit data Encounters Encounter Performer Location Location Address Codes Date () No answer/Patient not seen Diagnosis: Patient not seen[ICD10: UXZ.01] Katrin Ruiz [facility] [address] [place] [address] CPT-4: 42324 12/20/2024 Plan of Care Planned Activity Notes Codes Status Date Appointment: Katrin Ruiz WPtel: [address] [place], [place] [id number] 12/20/2024 Patient Education: Patient Medication Summary Completed 12/20/2024 Medical Equipment No Medical Equipment data Advance Directives No Advance Directive data
== END 2025-03-04 23:59 | disposition home or self-care (01) ==
LOC: RAD 08:49
PROVIDERS: PCP Family Medicine; Visit Provider Physician Assistant
DX: M25.521 Pain in right elbow (principal); M79.89 Other specified soft tissue disorders
CPT/HCPCS: 73080

== ENCOUNTER 2025-03-19 09:39 | Outpatient (CLI) | payer MEDICARE, SELFPAY ==
--- OUTSIDE RECORDS SUMMARY | 2025-01-11 04:45 | XMS_ITS ---
Author Organization [facility] Address [address] [place] [phone] Care Team Providers Care Agile Coach Name Role Phone Byron Steele Primary Care Provider [phone] Allergies No Known Allergies Results Component Value [...] day; Duration: 30 day(s) Active Vital Signs Weight 218.6 lbs 01/11/2025 Blood pressure systolic 110 mm Hg 01/12/20 25 Blood pressure diastolic 66 mm Hg 025 Heart Rate 89 /min 01/11/2025 Height 71.5 in 01/11/2025 BMI 30.06 kg/m2 01/11/2025 Encounters Encounter Location Date Provider Diagnosis [facility] [address] [place] [phone] 01/11/2025 Byron Steele Cellulitis of right arm [...] Notes * Leoncio ANDRADEDOB:1955 (69 yo M)Acc No.[id number]:01/11/2025 Progress Notes Patient: Leoncio LIVINGSTON Provider: Helen Steele M.D. :1955 A ge:69 Y S ex:Male Date:01/11/2025 Address:[address] [place] [address] [address] [id number] Subjective: * Chief Complaints: * 1 . [...] arm - L03.113 (Primary) 2 . B MS 30.0-30.9,adult - Z68.30 Plan: * Treatment: Value [...] G 2211 Complex e/[place], [address] CAPILLARY BLOOD DRAW, 48985 CBC WITH AUTO DIFF, G8752 MOST RECENT SYSTOLIC BP < 140MM HG, G8754 MOST RECENT DIASTOLIC BP < 90MM HG, G8783 BP SCR PRFRM RCMDD DEFIND SCR INTVL * Follow Up: v ia phone to report progress * Images: Billing Information: * Visit Code: 25348 Office Visit, Est Pt., Level 3. * Procedure Codes: G2211 Complex e/[place]. [address] CAPILLARY BLOOD DRAW. 77687 CBC WITH AUTO DIFF. G8752 MOST RECENT SYSTOLIC BP < 140MM HG. G8754 MOST RECENT DIASTOLIC BP < 90MM HG. G8783 BP SCR PRFRM RCMDD DEFIND SCR INTVL. * Electronic signature of Franci Steele MD on 03/19/2025 at 09:43 AM EDT Sign off status: Pending * Provider: Helen Steele M.D. Date: 0 01/11/2025 Generated for Zoey singh/Carlota/Clementitting on: 0 03/19/2025 09:43 AM EDT History and Physical Notes * HPI (History [...]
--- OUTSIDE RECORDS SUMMARY | 2025-01-21 08:48 | XMS_ITS | Encounter Summary ---
Author Organization [facility] Address [facility] [place] [address] Care Team Providers Care Learning Officer Name Role Phone Unavailable Primary Care Provider [...] release of HIV test results or diagnoses. [id number] Health Encounter Details Date Type Department Care Team (Latest Contact Info) Description 01/21/2025 8:48 AM EDT - 01/21/2025 11:59 PM EDT Hospital Encounter [facility] Diagnostic Radiology [address] [place] [address] System, Provider Not In Discharge [...]
--- OUTSIDE RECORDS SUMMARY | 2025-01-21 08:48 | XMS_ITS | Encounter Summary ---
Author Organization [facility] Address [facility] [place] [address] Care Team Providers Care Toy Designer Name Role Phone Unavailable Primary Care Provider [...] release of HIV test results or diagnoses. [id number] Health Encounter Details Date Type Department Care Team (Latest Contact Info) Description 01/21/2025 8:48 AM EDT - 01/21/2025 11:59 PM EDT Hospital Encounter [facility] Diagnostic Radiology [address] [place] [address] System, Provider Not In Discharge [...]
--- OUTSIDE RECORDS SUMMARY | 2025-01-29 13:30 | XMS_ITS | Encounter Summary ---
Author Organization [facility] Address [address] [place] [address] Care Team Providers Care Financial Planning Assistant Name Role Phone Unknown, Attending Provider Primary [...] release of HIV test results or diagnoses. [id number] Reason for Visit * Auth/Cert (Routine) Specialty Diagnoses / Procedures Referred By Nely t Referred To Contact Neurology [facility] Neurology at [address] [place] [address] Phone: tel: fax: Referral ID Status Reason Start Date Expiration Date Visits Re quested Visits Authorized [id number] 1 1 Encounter Details Date Type Department Care Team (Latest Contact Info) Description 01/29/2025 1:30 PM EDT Office Visit [facility] Neurology at [address] [facility] [address] [phone] Cody Morton MD [address] [place] [address] [place] [address] Parkinson's disease with dyskinesia and [...] He will communicate during this time through Smart Hologramshart or phone. 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 He [...] Resource Strain: Low Risk (03/07/2024) Received from [facility] Overall Financial Resource Strain (CARDIA) Difficulty of Paying Living Expenses: Not hard at all Food Insecurity: No Food Insecurity (03/07/2024) Received from [facility] Hunger Vital Sign Worried About Running Out of Food in the Last Year: Never true Ran Out of Food in the Last Year: Never true Transportation Needs: No Transportation Needs (03/07/2024) Received from [facility] PRAPARE - Transportation In the past 12 months, has lack of transportation kept you from medical appointments or from getting medications?: No In the past 12 months, has lack of transportation kept you from meetings, work, or from getting things needed for daily living?: No Physical Activity: Sufficiently Active (03/07/2024) Received from [facility] Exercise Vital Sign Days of Exercise per Week: 5 days Minutes of Exercise per Session: 30 min Stress: No Stress Concern Present (03/07/2024) Received from [facility] [employer] [place] [employer] - Occupational Stress Questionnaire Feeling of Stress : Not at all Social Connections: Not At Risk (03/07/2024) Received from [facility] Family and Community Support If for any reason you need help with day-to-day activities such as bathing, preparing meals, shopping, managing finances, etc., do you get the help you need?: I don't need any help How often do you feel lonely or isolated from those around you?: Never Intimate Partner Violence: Not At Risk (03/07/2024) Received from [facility] Abuse Screen Feels Unsafe at Home or Work/School: no Feels Threatened by Someone: no Does Anyone Try to Keep You From Having Contact with Others or Doing Things Outside Your Home?: no Physical Signs of Abuse Present: no Housing Stability: Not At Risk (03/07/2024) Received from [facility] Housing Stability Current Living Arrangements: home Potentially Unsafe Housing Conditions: none Review of Systems Refer to [facility] for review of systems documentation. See scanned [...] 1+ 1+ Patellar 1+ 1+ Coordination Right: Vbtprj-id-bsdd normal.Left: Yfdzac-xs-aslp normal. Gait Casual gait: Narrow stance. Reduced [...] Parkinson's disease with dyskinesia and fluctuating manifestations ([facility]) 7-year progression of asymmetric tremor [...] He will communicate during this time through Smart Hologramshart or phone. Yanira Browning Movement Disorder Fellow/ PGY 5 [facility] 01/29/2025 I saw and examined this patient [...] Primary documented in this encounter Care Teams Financial Planning Assistant Relationship Specialty Start Date End Date Unknown, Attending Provider PCP - General 01/24/25 documented as of this encounter
--- OUTSIDE RECORDS SUMMARY | 2025-02-11 08:30 | XMS_ITS | Encounter Summary ---
Author Organization [facility] Address [address] [place] [address] Care Team Providers Care Pediatric Social Worker Name Role Phone Byron Steele MD Primary Care Provider [phone] Reason for Visit * Reason Comments Parkinson's Disease Encounter Details Date Type Department Care Team (Late st Contact Info) Description 02/11/2025 8:30 AM EDT Office Visit [facility] [address] [facility] [address] [place] [phone] Coy Munguia, DNP, DEMENTIA PROGRAM DIRECTOR [address] [facility] [address] [place] [address] Parkinson's disease with dyskinesia, unspecified whether manifestations fluctuate (Primary Dx); Dysphagia, unspecified type; Moderate recurrent major depression; Restless legs syndrome (RLS); Mixed stress and urge urinary incontinence Social History Tobacco Use Types Packs/Day Years Used Date Smoking Tobacco: Every Day Cigarettes Cigars Passive Smoke Exposure: Current Smokeless Tobacco: Never Tobacco Cessation:Ready to Q uit: No; Counseling Given: No Alcohol Use Standard Drinks/Week Comments Not Currently 1 (1 standard drink = 0.6 oz pur e alcohol) rarely [facility] Utilities Answer Date Recorded In the past 12 months has e [employer], gas, oil, or water [employer] threatened to shut off services in your home? No 03/07/2024 AUDIT-C Answer Date Recorded Q1: How often do you have a drink containing alcohol? Never 03/07/2024 Q2: How many drinks containi ng alcohol do you have on a typical day when you are drinking? Patient does not drink Q3: How often do you have si x or more drinks on one occasion? Never 03/07/2024 Overall Financial Resource Strain (CARDIA) Answe r Date Recorded How hard is it for you to pa y for the very basics like food, housing, medical care, and heating? Not hard at all 03/07/2024 PHQ-2 Answer Date Recorded Retired PHQ-9: Brief Depression Severity Measure Score 0 08/01/2023 [facility] Occupat ional Health - Occupational Stress Questionnaire Answer Date Recorded Do you feel stress - tense, restless, nervous, or anxious, or unable to sleep at night because your mind is troubled all the time - these days? Not at all 03/07/2024 Exercise Vital Sign Answer Date Recorde d On average, how many days pe r week do you engage in moderate to strenuous exercise (like a brisk walk)? 5 days 03/07/2024 On average, how many minutes do you engage in exercise at this level? 30 min 03/07/2024 Hunger Vital Sign Answer Date Recorded Within the past 12 months, y ou worried that your food would run out before you got the money to buy more. Never true 03/07/20 24 Within the past 12 months, t he food you bought just didn't last and you didn't have money to get more. Never true 03/07/2024 PRAPARE - Transportation Answer Date Re corded In the past 12 months, has l ack of transportation kept you from medical appointments or from getting medications? No 02/19 In the past 12 months, has l ack of transportation kept you from meetings, work, or from getting things needed for daily living? No 03/07/2024 Abuse Screen Answer Date Recorded Feels Unsafe at Home or Work/School no 03/07/2024 Feels Threatened by Someone no 02/19 Does Anyone Try to Keep You From Having Contact with Others or Doing Things Outside Your Home? no 03/07/2024 Physical Signs of Abuse Present no 03/07/2024 Housing Stability Answer Date Recorded Current Living Arrangements home 02/19 Potentially Unsafe Housing Conditions none 03/07/2024 Family and Community Support Answer Billy e Recorded If for any reason you need h elp with day-to-day activities such as bathing, preparing meals, shopping, managing finances, etc., do you get the help you need? I don't need any help 03/07/2024 How often do you feel lonely or isolated from those around you? Never 03/07/2024 Employment Answer Date Recorded Do you want help finding or keeping work or a job? I do not need or want help 03/07/2024 Disabilities Answer Date Recorded Difficulty Concentrating, Remembering or Making Decisions no 03/07/2024 Difficulty Managing Errands Independently no 03/07/2024 Education Answer Date Recorded Do you want help with school or training? For example, starting or completing job training or getting a high school diploma, GED or equivalent No 03/07/2024 Preferred Language Slovenian 03/07/2024 PHQ-2 Answer Date Recorded Retired PHQ-9: Brief Depression Severity Measure Score 0 03/07/2024 Sex and Gender Information Value Date Recorded Sex Assigned at Not on file Legal Sex Male 11:26 AM EDT Gender Identity Not on file Sexual Orientation Not on file Occupation Industry Job Start Date Job End Date Retired [employer] Not on file Not on file Not on file documented as of this encounter Last Filed Vital Signs Vital Sign Reading Time Taken Comments Blood Pressure 128/80 02/11/2025 8:29 AM EDT Pulse 78 02/11/2025 8:29 AM EDT Temperature - - Respiratory Rate - - Oxygen Saturation 98% 02/11/2025 8:29 AM EDT Inhaled Oxygen Concentration - - Weight 96.6 kg (213 lb) 02/11/2025 8:29 AM EDT Height 182.9 cm (6' 0.01 ) 02/11/2025 8:29 AM ED T Body Mass Index 28.88 02/11/2025 8:29 AM EDT documented in this encounter Progress Notes * Coy Munguia, DNP, DEMENTIA PROGRAM DIRECTOR - 02/11/2025 8:30 AM EDT Neuro Office Visit Encounter Date: 02/11/2025 Patient Name: Leoncio Harman : 1955 PCP: Dr Steele Chief Complaint: Chief Complaint Patient presents with Parkinson's Disease History of Present Illness: Leoncio Harman is a 69 y.o. male who is here today in Neurology for PD, dysphagia Last visit 11/09/2024-cont C/L 25/[address] Simpson for eval DBS. Discussed chin tuck to prevent aspiration. Cont lexapro and mirapex. History of Present Illness Interval history Has been to to start process for onapgo pump. Inc C/L 3 tabs qid, cont opicapaone and mirapex 1 mg tid to be discontinued after the pump. Delivers apomorphoine hydrochloride continuous infusion under eskin for treamtne fo motor fluctuations and off time inpeople with progressive PD. Did not tolerate increased dose of C/L. Now taking 2 tabs qid w mirapex. Dr Simpson is out on paternity leave and this appt has been pushed back. Parkinson's Disease Pt feels symptoms are about the same. Taking C/L 25/100 2 tabs qid with mirapex. Still with freezing, frequent falls, hallucinations, dysphagia with water, fatigue, masked facies. He is excited abouthis pump PH Saw Dr Simpson who recommended stopping Mirapex. When he was off of mirapex he could not walk at all. restarted Mirapex. Now he has chorea type of movement most of the time. She is altering his medsand increased requip to 2mg bid which has helped. He has not started back on THC gummies. They are eager to discuss DBS. He did see Dr Bell at [facility] who prescribed Apokyn. It is effective but only for 2 hours and is very expensive. Only using prn. He is walking w a cane at times but tries not to use it. If he concentrates on kicking the cane it prevents freezing. Having freezing of gait if he stands next to something. New symptom of urinary incontinence. Diagnosed with UTI. Will stop oxybutynin and refer to Urology. Sinemet 25/100 2 tabs QID with mirapex. Compliant w meds Slurred speech: no Voice:better Dysphagia: has to be careful with liquids, drooling. Seems to be coughing more with liquids. No recent pneumonia. Gait: slowing. Shuffles in the morning. Using a cane at times.. Does okay on stairs Falls: Has had a few falls. Falling backward Pain/Stiffness: off all meds since spinal surg Dreaming/Hallucinations: he is no longer having hallucinations. Thought the water faucet was a dog.Having disturbing dreams. Mood: stable. Denies depression on Lexapro Fatigue: no fatigue with chewing but does have UE fatigue while working above his head. PH Diagnosed in 2019 with leg tremor. MRI brain 01/29/2020-sm vessel disease. Has been to PT. Left leg tremor. Pain in left flank resolved. Lives with his . Retired. Labs:RF, MG, NMO, MOG, ALTON, Sed rate, vit D, ck SUSHMA, lyme, vit b12, folate Vit E-low alpha. Gamma is nml Hospitalized with cellulitis. Wearing a wrap and compression stockings on RLE. Records requested. Will be having surgery for eye lid droop. MRI Brain With & Without Contrast (03/12/2023 19:03)-Moderate typical age- related changes are noted as above, including mild volume loss, without distinct lobar predilection. There is otherwise no evidence of acute infarct, hemorrhage, mass or abnormal enhancement. Interval history-profound edema. Referred to Cardiology MRI Lumbar Spine Without Contrast (03/12/2023 19:01) -MRI l-spine w severe spinal stenosis-referredto NS. Had spinal injection. RLS Using Requip 2mg bid. Sleeping will with compression devices in his recliner Elevated blood pressure Stable MRI brain fro 2019 reviewed 3 WM lesions. PSH: successful spinal fusion 03/06- w Neurosurg for L4-5 revision laminectomy with lumbar fusion with significant pain relief. Subjective Past Medical History: Past Medical History: Diagnosis Date Acid reflux Arthritis 2015 Benign prostatic hyperplasia 2010 Cervical disc disorder 2019 Chronic pain disorder Years ago Degeneration of lumbar or lumbosacral intervertebral disc 03/06/2020 Difficulty walking Elevated PSA 2010 Erectile dysfunction 2022 Low back pain 2015 Parkinson disease Sciatica associated with disorder of lumbar spine 04/19/2023 Spinal stenosis Years ago Thoracic disc disorder 2015 Urinary incontinence Aug 2024 Urinary tract infection Aug 2024 Past Surgical History: Past Surgical History: Procedure Laterality Date BLEPHAROPLASTY Bilateral COLONOSCOPY LAMINECTOMY Apr 2023 LUMBAR LAMINECTOMY Right 05/11/2023 Procedure: Minimally invasive lumbar laminectomy L4-5; Surgeon: Blaine David MD; Location: [facility]; Service: Neurosurgery; Laterality: Right; LUMBAR LAMINECTOMY WITH FUSION N/A 03/06/2024 Procedure: LUMBAR LAMINECTOMY DISCECTOMY POSTERIOR LUMBAR INTERBODY FUSION REVISION L4-5; Surgeon: Blaine David MD; Location: [facility]; Service: Neurosurgery; Laterality: N/A; Family History: Family History Problem Relation Age of Onset Stroke Mother Alzheimer's disease Father Dementia Father No Known Problems Sister No Known Problems Brother No Known Problems Maternal Aunt No Known Problems Maternal Uncle No Known Problems Paternal Aunt No Known Problems Paternal Uncle No Known Problems Maternal Grandmother No Known Problems Maternal Grandfather No Known Problems Paternal Grandmother No Known Problems Paternal Grandfather No Known Problems Other Parkinsonism Cousin Ataxia Neg Hx Chorea Neg Hx Mental retardation Neg Hx Migraines Neg Hx Multiple sclerosis Neg Hx Neurofibromatosis Neg Hx Neuropathy Neg Hx Seizures Neg Hx Social History: Social History Socioeconomic History Marital status: Tobacco Use Smoking status: Every Day Types: Cigars, Cigarettes Passive exposure: Current Smokeless tobacco: Never Vaping Use Vaping status: Never Used Substance and Sexual Activity Alcohol use: Not Currently Alcohol/week: 1.0 standard drink of alcohol Types: 1 Drinks containing 0.5 oz of alcohol per week Comment: rarely Drug use: Never Sexual activity: Yes Partners: Female control/protection: Tubal ligation Medications: Current Outpatient Medications: carbidopa-levodopa (SINEMET) 25-100 MG per tablet, TAKE 2 TABLETS AT 6AM, 11AM, 4PM, 10PM, Disp: 240 tablet, Rfl: 5 escitalopram (Lexapro) 10 MG tablet, Take 1 tablet by mouth Daily., Disp: 90 tablet, Rfl: 3 esomeprazole (nexIUM) 40 MG capsule, Take 1 capsule by mouth Every Morning Before Breakfast., Disp:90 capsule, Rfl: 3 Gemtesa 75 MG tablet, TAKE 1 TABLET BY MOUTH DAILY., Disp: 30 tablet, Rfl: 1 pramipexole (MIRAPEX) 1 MG tablet, Take 1 tablet by mouth 3 (Three) Times a Day., Disp: , Rfl: Allergies: No Known Allergies PHQ-9 Total Score: STEADI Fall Risk Assessment was completed, and patient is at HIGH risk for falls. Assessment completed on:02/11/2025 Objective Physical Exam: Physical Exam Vitals and nursing note reviewed. Constitutional: General: He is not in acute distress. Appearance: He is well-developed. HENT: Head: Normocephalic and atraumatic. Right Ear: External ear normal. Left Ear: External ear normal. Nose: Nose normal. Eyes: General: No scleral icterus. Right eye: No discharge. Left eye: No discharge. Conjunctiva/sclera: Conjunctivae normal. Cardiovascular: Rate and Rhythm: Normal rate. Pulmonary: Effort: Pulmonary effort is normal. Musculoskeletal: General: No deformity. Cervical back: Neck supple. Skin: General: Skin is warm and dry. Findings: No rash. Neurological: General: No focal deficit present. Mental Status: He is alert and oriented to person, place, and time. Mental status is at baseline. Cranial Nerves: No cranial nerve deficit. Sensory: No sensory deficit. Motor: No weakness or abnormal muscle tone. Coordination: Coordination abnormal. Gait: Gait abnormal. Deep Tendon Reflexes: Reflexes normal. Comments: Stride length is good this am with even arm swing but hyperkinetic in the chair. Psychiatric: Mood and Affect: Mood normal. Behavior: Behavior normal. Thought Content: Thought content normal. Judgment: Judgment normal. Neurological Exam Mental Status Alert. Oriented to person, place, and time. Gait Abnormal gait. Physical Exam Vital Signs: Vitals: 02/11/25 0829 BP: 128/80 Pulse: 78 SpO2: 98% Weight: 96.6 kg (213 lb) Height: 182.9 cm (72.01 ) Body mass index is 28.88 kg/m??. Assessment / Plan Assessment/Plan: Diagnoses and all orders for this visit: 1. Parkinson's disease with dyskinesia, unspecified whether manifestations fluctuate (Primary) Comments: Cont C/L 25/100 2 tabs qid with miriapex 1 mg tid, FU with UC for onapgo pump 2. Dysphagia, unspecified type 3. Moderate recurrent major depression Comments: Cont lexapro 4. Restless legs syndrome (RLS) Comments: Off of requip 5. Mixed stress and urge urinary incontinence Comments: Cont Gemtesa Assessment & Plan Patient Education: Reviewed medications, potential side effects and signs and symptoms to report. Discussed risk versus benefits of treatment plan with patient and/or family- including medications, labs and radiology that may be ordered. Addressed questions and concerns during visit. Patient and/or family verbalized un derstanding and agree with plan. Instructed to call the office with any questions and report to ER with any life-threatening symptoms. Follow Up: Return in about 3 months (around 05/14/2025) for Recheck. During this visit the following were done: Labs Reviewed [] Labs Ordered [] Radiology Reports Reviewed [] Radiology Ordered [] PCP Records Reviewed [] Referring Provider Records Reviewed [x] ER Records Reviewed [] Hospital Records Reviewed [] History Obtained From Family [x] Radiology Images Reviewed [] Other Reviewed [x] Records Requested [] Patient or patient sales development representative verbalized consent for the use of Ambient Listening during the visit with Coy Munguia DNP, APRN for chart documentation. 02/11/2025 08:21 EDT Coy Munguia DNP, APRN documented in this encounter Plan of Treatment Upcoming Encounters Date Type Department Care Team (Late st Contact Info) Description 05/14/2025 8:30 AM EDT Office Visit [facility] [address] [facility] [address] [place] [address] Coy Munguia DNP, APRN [address] [facility] [address] [place] [address] 05/14/2025 11:00 AM EDT Office Visit [facility] UR[facility] [address] [address] Carlie Valiente APRN [address] [facility] [address] [place] [address] [phone] documented as of this encounter Goals Goal Patient Goal Type Associated Problems Recent Progress Patient-Stated? Author Autogenerat ed Goal Care Plan Autogenerated Problem No Kelly Guzman, NISA documented as of this encounter Visit Diagnoses Diagnosis Parkinson's disease with dyskinesia, unspecified whether manifestations fluctuate- Primary Dysphagia, unspecified type Moderate recurrent major depression Major depressive disorder, recurrent episode, moderate Restless legs syndrome (RLS) Mixed stress and urge urinary incontinence Mixed incontinence urge and stress (male)(female) documented in this encounter Additional Health Concerns Active Problems Noted Date Diagnosed Date Autogenerated Problem 01/01/2025 Infection Onset Date Last Indicated Resolved Time 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
--- OUTSIDE RECORDS SUMMARY | 2025-02-11 11:15 | XMS_ITS | Encounter Summary ---
Author Organization [facility] Address [address] [place] [id number] Care Team Providers Care Magnetic Doctor Name Role Phone Byron Steele MD Primary Care Provider [phone] Reason for Visit * Reason Comments Erectile Dysfunction Overactive bladder Cystitis Encounter Details Date Type Department Care Team (Late st Contact Info) Description 02/11/2025 11:15 AM EDT Office Visit [facility] UROLOGY [address] [place] [address] [address] [place] [address] Carlie Valiente APRN [address] [facility] [address] [place] [address] OAB (overactive bladder) (Primary Dx); Erectile dysfunction, [...] Recorded In the past 12 months has [employer], gas, oil, or water company threatened to [...] Brief Depression Severity Measure Score 0 08/01/2023 [facility] - Occupational Stress Questionnaire Answer [...] GED or equivalent No 03/07/2024 Preferred Language Bulgarian 03/07/2024 PHQ-2 Answer Date Recorded Retired PHQ-9: [...] laminectomy L4-5; Surgeon: Blaine David MD; Location: [facility]; Service: Neurosurgery; Laterality: Right; LUMBAR LAMINECTOMY WITH FUSION N/A 03/06/2024 Procedure: LUMBAR LAMINECTOMY DISCECTOMY POSTERIOR LUMBAR INTERBODY FUSION REVISION L4-5; Surgeon: Blaine David MD; Location: [facility]; Service: Neurosurgery; Laterality: N/A; Medications: Current Outpatient [...] and completing patient documentation. Carlie Valiente APRN [facility] U[facility] [place] documented in this encounter Plan of Treatment Upcoming Encounters Date Type Department Care Team (Late st Contact Info) Description 05/14/2025 8:30 AM EDT Office Visit [facility] NEUROLOGY [address] [facility] [address] [place] [phone] Coy Munguia, LEXI, CLEANER OPERATOR [address] [facility] [address] [place] [address] 05/14/2025 11:00 AM EDT Office Visit [facility] UROLOGY [address] [address] Carlie Valiente APRN [address] [facility] [address] [place] [address] documented as of this encounter Goals [...] Color Yellow Yellow, Straw, Dark Yellow, Guillermina [facility] Clarity, UA Clear Clear [facility] Specific [place] 1.025 1.005 - 1.030 [facility] pH, Urine 6.0 5.0 - 8.0 [facility] Leukocytes Negative Negative [facility] Nitrite, UA Negative Negative [facility] Protein, POC Negative Negative mg/dL [facility] Glucose, UA Negative Negative mg/dL [facility] Ketones, UA Trace(A) Negative [facility] Urobilinogen, UA Normal Normal, 0.2 E.U./dL [facility] Bilirubin Small (1+)(A) Negative [facility] Blood, UA Negative Negative [facility] Lot Number [id number] [facility] Expiration Date 05/10/2026 [facility] Urine 02/11/2025 11:5 7 AM EDT Carlie Valiente CLEANER OPERATOR POINT OF CARE TEST ORDERABLES Final Result [facility]
[address] [place] [address], documented in this encounter Visit Diagnoses Diagnosis [...] documented as of this encounter Care Teams Magnetic Doctor Relationship Specialty Start Date End Date Byron Steele MD [address] [place] [address] PCP - General Family Medicine 12/21/19 documented as of this encounter
--- OUTSIDE RECORDS SUMMARY | 2025-02-12 07:15 | XMS_ITS ---
Author Organization [facility] Address [address] [place] [id number] Care Team Providers Care Rides Supervisor Name Role Phone Cedric Byron Primary Care [...] Duration: 7 days 02/12/2025 Active Vital Signs Weight 215 lbs 02/12/2025 Blood pressure systolic 122 mm Hg 02/13/20 25 Blood pressure diastolic 64 mm Hg 025 Heart Rate 91 /min 02/12/2025 Height 71.5 in 02/12/2025 BMI 29.57 kg/m2 02/12/2025 Encounters Encounter Location Date Provider Diagnosis [facility] [address] [place] [phone] 02/12/2025 Byron Steele Olecranon bursitis o f [...] Notes * Leoncio ANDRADEDOB:1955 (69 yo M)Acc No.[id number]:02/12/2025 Progress Notes Patient: Leoncio [place] Provider: Helen Steele M.D. :1955 A ge:69 Y S ex:Male Date:02/12/2025 Address:[address] [place] [address] [id number] Subjective: * Chief Complaints: * 1 . [...] Information: * Visit Code: * Procedure Codes: 83856 DRAIN/INJECT BURSA,HEEL, WRIST, ELBOW ANKLE, OLECRANON BURSA. G2211 Complex e/m visit add on. * Electronic signature of Franci Steele MD on 03/19/2025 at 09:42 AM EDT Sign off status: Pending * Provider: Helen Steele M.D. Date: 0 02/12/2025 Generated for Zoey singh/Carlota/Raphael on: 0 03/19/2025 09:42 AM EDT History and Physical Notes * [...]
--- OUTSIDE RECORDS SUMMARY | 2025-02-26 07:30 | XMS_ITS ---
Author Organization [facility] Address [address] [facility] [address] [place] [id number] Care Team Providers Care On Line Csr Name Role Phone Byron Steele Primary Care Provider [phone] Allergies No Known Allergies Results Component Value Reference Range Notes P-Culture Body Fluid Reviewed date:03/06/2025 12:29:17 PM Interpretation:No growth Performing Lab: Notes/Report: Test performed by [facility] [address] [place], [place] [address] [place] , [address], [place] [address] Felix Schwartz MD, Fraternity Adviser CLIA: [id number] Specimen Source Fluid - Olecranon bursa Culture Body Fluid See Below Final Rep ort : No growth P-Culture, Miscellaneous Aer obic w/Gram Stain Reviewed date:03/06/2025 12:29:18 PM Interpretation:No growth Performing Lab: Notes/Report: Test performed by [facility] [address] [place], [place] [address] [place] , [address], [place] [address] Felix Schwartz MD, Fraternity Adviser CLIA: [id number] Specimen Source Fluid - Olecranon bursa Gram Stain See Below Few Polymorphonuclear leukocytes No organisms seen Culture, Miscellaneous Aerobic w/Gram Stain See Below Preliminary Report : No growth, reincubate Final Report : No growth P-Cell Count and Differentia l, Body Fluid Reviewed date:03/06/2025 12:29:18 PM Interpretation:Normal Performing Lab: Notes/Report: Test performed by [facility] [place] , [place] [address] Felix Schwartz MD, Fraternity Adviser CLIA: [id number] Fluid Type Synovial Fluid Color [place] Fluid Appearance Hazy Fluid Red Blood Cell (RBC) Count 02267 Total Nucleated Cell Count (WBC) 254 Synovial [...] Fluid Synovial Lining Cells 0 Fluid Specific [place] 1.032 Crystals Fluid Not Present Uric Acid, Body Fluid Reviewed date:03/06/2025 12:29:18 PM Interpretation:Normal Performing Lab: Notes/Report: Uric Acid, Body Fluid 6.0 INTERPRETIVE INFORMATION: Uric Acid, Body Fluid For information on body fluid reference ranges and/or interpretive guidance visit http://Oversee/bodyflui ds/ This test was developed and its performance characteristics determined by [facility]. It has not been cleared or approved by the US Food and Drug Administration. This test was performed in a CLIA certified laboratory and is intended for clinical purposes. Performed By: [facility] [address] [place], [place] [id number] Fraternity Adviser: Dutch Recinos MD, PhD CLIA Number: [id number] INTERPRETIVE INFORMATION: Uric Acid, Body Fluid For information on body fluid reference ranges and/or interpretive guidance visit http://Oversee/Enable Holdingsflui ds/ This test was developed and its performance characteristics determined by [facility]. It has not been cleared or approved by the US Food and Drug Administration. This test was performed in a CLIA certified laboratory and is intended for clinical purposes. Performed By: [facility] [address] [place], [place] [id number] Fraternity Adviser: Dutch Recinos MD, PhD CLIA Number: [id number] Uric Acid Fluid Source Joint fluid Olecr anon bursa Uric Acid, Body Fluid 6.0 INTERPRETIVE INFORMATION: Uric Acid, Body Fluid For information on body fluid reference ranges and/or interpretive guidance visit http://Oversee/bodyflui ds/ This test was developed and its performance characteristics determined by [facility]. It has not been cleared or approved by the US Food and Drug Administration. This test was performed in a CLIA certified laboratory and is intended for clinical purposes. Performed By: [facility] [address] [place] [address] Fraternity Adviser: Dutch Recinos MD, PhD CLIA Number: [id number] INTERPRETIVE INFORMATION: Uric Acid, Body Fluid For information on body fluid reference ranges and/or interpretive guidance visit http://Oversee/bodyflui ds/ This test was developed and its performance characteristics determined by [facility]. It has not been cleared or approved by the US Food and Drug Administration. This test was performed in a CLIA certified laboratory and is intended for clinical purposes. Performed By: [facility] [address] [place] [address] Fraternity Adviser: Dutch Recinos MD, PhD CLIA Number: [id number] REASON FOR VISIT elbow Medications Medication SIG [...] 02/26/2025 Encounters Encounter Location Date Provider Diagnosis [facility] [address] [place] [id number] 02/26/2025 Byron Steele Olecranon bursitis o f [...] Notes * Leoncio ANDRADEDOB:1955 (69 yo M)Acc No.[id number]:02/26/2025 Progress Notes Patient: Leoncio LIVINGSTON Provider: Helen Steele M.D. :1955 A ge:69 Y S ex:Male Date:02/26/2025 Address:[address] [place] [address] [id number] Subjective: * Chief Complaints: * 1 . [...] Appearance Hazy - * F luid Color [place] - * F luid Eos 0 - % * F luid Lymphs 61 - % * F luid Mesothelial Cell 0 - % * F luid Monocytes 20 - % * F luid RBC 66888 - cu/mm * F luid Specific [place] 1.032 - * F luid Unidentified Cells 0 - % * F luid Type Synovial - * T otal Nucleated Cell Count (WBC) 254 - cu/mm * F luid Macrophage 0 - % * F luid Neutrophils 19 - % * F luid Synovial Lining Cells 0 - % * [facility], IT support 02/28/2025 10:40:05 : This order was created by the Interface. Mavis Rubio 03/06/2025 12:28:25 PM EDT > Pt informed ?Lab: Uric Acid, Body Fluid (Collection Date & Time - 02/26/2025 11:27 AM) ?Normal* Value Reference Range U jacqueline Acid, Body Fluid 6.0 - mg/dL * U jacqueline Acid Fluid Source Joint fluid - * [facility], IT support 02/28/2025 10:40:06 : This [...] G shelby Stain See Below - * [facility], IT support 03/03/2025 03:15:05 : This order was created by the Interface. Mavis Rubio 03/06/2025 12:28:25 PM EDT > Pt informed * Procedure Codes: 2 0605 DRAIN/INJECT BURSA,HEEL, WRIST, ELBOW ANKLE, OLECRANON BURSA, G2211 Complex e/m visit add on * Follow Up: v ia phone to report progress and test results * Images: Billing Information: * Visit Code: * Procedure Codes: 89090 DRAIN/INJECT BURSA,HEEL, WRIST, ELBOW ANKLE, OLECRANON BURSA. G2211 Complex e/m visit add on. * Electronic signature of Franci Steele MD on 03/19/2025 at 09:42 AM EDT Sign off status: Pending * Provider: Helen Steele M.D. Date: 0 02/26/2025 Generated for Zoey singh/Carlota/Jannaransmitting on: 03/19/2025 09:42 AM EDT History and Physical [...]
--- OUTSIDE RECORDS SUMMARY | 2025-03-15 16:30 | XMS_ITS | Encounter Summary ---
Author Organization [facility] Address [address] [place] [address] Care Team Providers Care Medical Records Specialist Name Role Phone Unknown, Attending Provider Primary [...] release of HIV test results or diagnoses. [id number] Health Encounter Details Date Type Department Care Team (Latest Contact Info) Description 03/15/2025 4:30 PM EDT Office Visit [facility] [address] [facility] [address] [place] [address] Cody Morton MD [address] [facility] [place] [address] Parkinson's disease with dyskinesia and fluctuating manifestations ([facility]-HCC) (Primary Dx) Social History Tobacco Use Types Packs/Day Years Used Date Smoking Tobacco: Never Assessed Sex and Gender Information Value Date Recorded Sex Assigned at Not on file Legal Sex Male 10:18 AM EDT Gender Identity Not on file Sexual Orientation Not on file documented as of this encounter Patient Instructions * Patient Instructions* Yanira Shen MD - 03/15/2025 4:30 PM EDT - Continue with apomorphine infusion pump (Onapgo pump) - Decrease sinemet 25/100mg from 2.5 to 2 tablets four times per day - Continue pramipexole 1mg TID. It will be discontinued in the next visits. - Continue with exercise - Stay hydrated, 8 glasses of water per day - RTC in [address] Morton. He will communicate during this time through [employer] or phone. documented in this encounter Plan of Treatment Not on file documented as of this encounter Visit Diagnoses Diagnosis Parkinson's disease with dyskinesia and fluctuating manifestations (CMS-HCC)- Primary documented in this encounter Care Teams Medical Records Specialist Relationship Specialty Start Date End Date Unknown, Attending Provider PCP - General 01/24/25 documented as of this encounter
--- NOTE | 2025-03-19 09:40 | XR_ITS ---
FINAL REPORT CLINICAL HISTORY: Left knee pain & swelling FINDINGS: AP, lateral and oblique views of the left knee were obtained. There is no prior exam for comparison. There is no acute fracture or dislocation of the left knee. There is mild degenerative joint disease. There is prepatellar soft tissue edema, prepatellar bursitis not excluded. There is no joint effusion. IMPRESSION: No acute osseous abnormality of the left knee. Prepatellar soft tissue edema, bursitis not excluded. Reviewed, Interpreted and Dictated by Shirlene Hicks MD Transcribed by Shannan Culver Authenticated and [facility]
--- OUTSIDE RECORDS SUMMARY | 2025-03-19 09:40 | XMS_ITS | Continuity of Care Document ---
Author Organization [facility]. If a dditional information is needed, contact Health Information Management at [phone] Address [address] [place] [address] Phone Care Team Providers Care Business Ethics Professor Name Role Phone Unavailable Unavailable Unavailable Unavailable Unavailable Unavailable Unavailable Unavailable Unavailable Unavailable Unavailable Unavailable Unavailable Unavailable Unavailable Unavailable Unavailable Unavailable Problems Cellulitis of lower limb Onset:28-Nov-2022 Shahab Briscoe MD Personal history of other diseases of the nervous system and sense organs(Z86.69) Onset:25-Nov-2022 Comments:Onset Date: 20221125 Parkinson's disease Onset:25-Nov-2022 Comments:Onset Date: 20221124 Peripheral vascular disease, unspecified(I73.9) Onset:25-Nov-2022 Comments:Onset Date: 20221124 Pneumonia, unspecified organism(J18.9) Onset:25-Nov-2022 Comments:Onset Date: 20221124 Sepsis, unspecified organism(A41.9) Onset:25-Nov-2022 Comments:Onset Date: 20221124 Varicose veins of unspecifie d lower extremity with ulcer of unspecified site(I83.009) Onset:25-Nov-2022 Comments:Onset Date: 20221124 Acute kidney failure, unspecified(N17.9) Onset:25-Nov-2022 Comments:Onset Date: 20221124 Cellulitis of right ankle Onset:24-Nov-2022 Solitario SALAS Comments:Onset Date: 20221124 Mental Status Cognitive function finding 24-Nov-2022 Allergies and Adverse Reactions No Known Allergies(Allergy) Onset: 24-Nov-2022 Medications cephalexin 500 MG Oral Capsule;500 MILLIGRAM PO Q8HR Start:28-Nov-2022 Comments:500 MG PO Q8HR levoFLOXacin 750 MG Oral Tab let [Levaquin];750 MILLIGRAM PO DAILY Start:28-Nov-2022 Comments:750 MG PO DAILY water 1000 MG/ML Injectable Solution;Provider Administration Instructions:Give over 3-5 min Carlos Cervantes DO Start:25-Nov-2022 Status:Discontinued Comments:Provider Administration Instructions:Give over 3-5 min pregabalin 75 MG Oral Capsul e [Lyrica];75 MILLIGRAM TID Quantity:1 Mesha Gomez MD Start:25-Nov-2022 Status:Discontinued Comments:[id number] carbidopa 25 MG / levodopa 1 00 MG Extended Release Oral Tablet;2 TABLET QID Quantity:2 Mesha Gomez MD Start:25-Nov-2022 Status:Discontinued Comments:[id number] Administration Instructions:DO NOT CRUSH pramipexole dihydrochloride 0.5 MG Oral Tablet [Mirapex];1 MILLIGRAM TID Quantity:2 Mesha Gomez MD Start:25-Nov-2022 Status:Discontinued Comments:[id number] Administration Instructions:MAY BE TAKEN WITH FOOD TO REDUCETHE OCCURRENCE OF NAUSEA Sliding Scale A insulin Protocol_SLIDSCALEA;[id number] anselmo Administration Instructions:1 ORDERSliding Scale A insulin orders if doctor orders , we need to enter the slidingscale insulin orders set SSAI .Ordered by SILVANO MORGAN on 11/24/22 at 2219Sliding Scale A Insul Order 1 ORDER [facility] AC HS (ordered on Quantity:0 Mesha Gomez MD Start:25-Nov-2022 Status:Discontinued Comments:[id number] Administration Instructions:1 ORDERSliding Scale A insulin orders if doctor orders , we need to enter the slidingscale insulin orders set SSAI .Ordered by SILVANO MORGAN on 11/24/22 at 2219Sliding Scale A Insul Order 1 ORDER misc AC HS (ordered on insulin, regular, human 100 UNT/ML Injectable Solution;[id number] Administration Instructions:Follow sliding scale ABS:130-159=2 UNITS; 160-199=4 UNITS; 200-239=5 UNITS;240-279=6 UNITS, 280-319=8 UNITS; 320-359=9 UNITS;360-399=11 UNITS> 500 STAT BS FROM LAB; <or =60 > nz=523 CALL MDNOTIFY MD OF 2 CONSECUTIVE BG GREATER THAN 200 Quantity:0 Mesha Gomez MD Start:25-Nov-2022 Status:Discontinued Comments:[id number] Administration Instructions:Follow sliding scale ABS:130-159=2 UNITS; 160-199=4 UNITS; 200-239=5 UNITS;240-279=6 UNITS, 280-319=8 UNITS; 320-359=9 UNITS;360-399=11 UNITS> 500 STAT BS FROM LAB; <or =60 > lh=330 CALL MDNOTIFY MD OF 2 CONSECUTIVE BG GREATER THAN 200 pantoprazole 40 MG Delayed Release Oral Tablet [Protonix];40 MILLIGRAM 0630 Quantity:1 Mesha Gomez MD Start:25-Nov-2022 Status:Discontinued Comments:Provider Administration Instructions: DO NOT CRUSH , SPLIT, OR CHEW Nexium 40 Mg PO DAILY -> Protonix 40 Mg PO 0630 loratadine 10 MG Oral Tablet ;10 MILLIGRAM PO DAILY Start:25-Nov-2022 Comments:10 MG PO DAILY ondansetron 2 MG/ML Injectab le Solution [Zofran];4 MILLIGRAM Q4H PRN Quantity:1 Mesha Gomez MD Start:24-Nov-2022 Status:Discontinued Comments:[id number] Administration Instructions:ONDANSETRONMAY BE GIVEN OVER 30 SECONDS, BUT OVER 2-5 MINUTES ISPREFERREDFOR NAUSEA/VOMITINGOrdered by SILVANO MORGAN on 11/24/22 at 2219Ondansetron Inj (Zofran Inj) 4 MG IV Q4H PRN nausea and 50 ML glucose 500 MG/ML Pref illed Syringe;50 MILLILITER ASDIR PRN Quantity:1 Mesha Gomez MD Start:24-Nov-2022 Status:Discontinued Comments:[id number] Administration Instructions:Ordered by SILVANO MORGAN on 11/24/22 at 2219Dextrose 50%/Water Syringe (D50W Syringe) 50 ML IV prn PRNhypoglycemia (HYPOGLYCEMIA - BS <60, conscious, with orwithout symptom...) (ordered on 11/24/22 at 2218) acetaminophen 325 MG / HYDROcodone bitartrate 7.5 MG Oral Tablet;1 TABLET Q6H PRN Quantity:1 Mesha Gomez MD Start:24-Nov-2022 Status:Discontinued Comments:[id number] Administration Instructions:LORTAB 7.5/325 MG TABDO NOT USE MORE THAN 4 GM OF ACETAMINOPHENPER 24 HROrdered by SILVANO MORGAN on 11/24/22 at 2218HYDROcodone/APAP 7.5/325 Tab (Lortab 7.5/325 Tab) 1 TAB POQ6H PRN pain scale 5-10 (ordered on 11/24/22 at 2218) glucagon (rDNA) 1 MG Injecti on;1 MILLIGRAM PRN Quantity:1 Mesha Gomez MD Start:24-Nov-2022 Status:Discontinued Comments:[id number] Administration Instructions:Ordered by SILVANO MORGAN on 11/24/22 at 2218Glucagon Inj (Glucagon Inj) 1 MG IM prn PRN hypoglycemia(For severe hypoglycemia < 60mg/dl, unconscious, oraltere...) (ordered on 11/24/22 at 2218) acetaminophen 325 MG Oral Tablet;650 MILLIGRAM Q6H PRN Quantity:2 Mesha Gomez MD Start:24-Nov-2022 Status:Discontinued Comments:[id number] Administration Instructions:Do not exceed more than 4 gm ofacetaminophen per 24 hrs for adults.Please note other products withacetaminophen.Ordered by SILVANO MORGAN on 11/24/22 at cetaminophen Tab (Tylenol Tab) 650MG PO Q6H PRN pain 1 ML hydrALAZINE hydrochlori de 20 MG/ML Injection;10 MILLIGRAM Q6H PRN Quantity:1 Mesha Gomez MD Start:24-Nov-2022 Status:Discontinued Comments:[id number] Administration Instructions:Ordered by SILVANO MORGAN on 11/24/22 at 2218hyDRALazine Inj (Apresoline Inj) 10 MG IV Q6H PRN sbpgreater than 160 (ordered on 11/24/22 at 2219) glucagon (rDNA) 1 MG Injecti on;1 MILLIGRAM ASDIR Quantity:1 Mesha Gomez MD Start:24-Nov-2022 Status:Discontinued Comments:[id number] Administration Instructions:FOR SEVERE HYPOGLYCEMIA < 60MG/DL, UNCONSCIOUS,OR ALTERED MENTAL STATUS; GIVE IV DEXTROSE 50%IF IV LINE AVAILABLE, IF NOT USE GLUCAGON IM;FOLLOW PROTOCOL KCL 10 MEQ/100 ML PIGGYBACK;[id number] Administration Instructions:RENAL FAILURE CREAT >1.8 ORGFR < 30 mL/minUSE 10MEQ KCL/50 ML TO EQUAL DOSESK LEVEL:3.5-3.8= 10 MEQ OVER 1 HR= 1bag3- 3.4 = 20 MEQ OVER 2 HR= 2bags2.6-2.9= 30 MEQ OVER 3 HR= 3bagsK </= 2.5 [facility]FUSION Mesha Gomez MD Start:24-Nov-2022 Status:Discontinued Comments:[id number] Administration Instructions:RENAL FAILURE CREAT >1.8 ORGFR < 30 mL/minUSE 10MEQ KCL/50 ML TO EQUAL DOSESK LEVEL:3.5-3.8= 10 MEQ OVER 1 HR= 1bag3- 3.4 = 20 MEQ OVER 2 HR= 2bags2.6-2.9= 30 MEQ OVER 3 HR= 3bagsK </= 2.5 [facility] HR POST INFUSION 100 ML magnesium sulfate 10 MG/ML Injection;[id number] Administration Instructions:MAGNESIUM 1GM/100ML TO EQUAL DOSE:MG LEVEL:> 1.9= NONE1.4-1.8 = 2 GM OVER 2 HR= 2bags1.3 OR LESS= 4 GM OVER 4 HR= 4bagsCHECK LAB 1 HR POST INFUSION Mesha Gomez MD Start:24-Nov-2022 Status:Discontinued Comments:[id number] Administration Instructions:MAGNESIUM 1GM/100ML TO EQUAL DOSE:MG LEVEL:> 1.9= NONE1.4-1.8 = 2 GM OVER 2 HR= 2bags1.3 OR LESS= 4 GM OVER 4 HR= 4bagsCHECK LAB 1 HR POST INFUSION KCL 10 MEQ/100 ML PIGGYBACK;[id number] Administration Instructions:NORMAL RENAL FUNCTIONUSE 10MEQ KCL/100ML TO EQUAL DOSEK LEVEL:3.5-3.8= 20MEQ KCL OVER 2hr= 2bags3- 3.4 = 40 MEQ KCL OVER 4hr= 4bags2.6-2.9= 60 MEQ KCL OVER 6hr= 6bagsK </= 2.5 NOTIFY [facility] 1 HR POST INFUSION Mesha Gomez MD Start:24-Nov-2022 Status:Discontinued Comments:[id number] Administration Instructions:NORMAL RENAL FUNCTIONUSE 10MEQ KCL/100ML TO EQUAL DOSEK LEVEL:3.5-3.8= 20MEQ KCL OVER 2hr= 2bags3- 3.4 = 40 MEQ KCL OVER 4hr= 4bags2.6-2.9= 60 MEQ KCL OVER 6hr= 6bagsK </= 2.5 NOTIFY [facility] 1 HR POST INFUSION potassium bicarbonate 20 MEQ Effervescent Oral Tablet [Effer-K];[id number] Administration Instructions:Follow protocol scaleDilute each tablet in 3-4 oz of waterDissolve in 3-4 oz of waterNORMAL RENAL FUNCTION-K LEVEL 3.5-3.8= 20 MEQ OF KCL ORAL SOLUTION3- 3.4 = 40 MEQ OF KCL ORAL SOLUTION2.6-2.9= USE IV REPLACEMENT</= 2.5 NOTIFY Quantity:0 Mesha Gomez MD Start:24-Nov-2022 Status:Discontinued Comments:[id number] Administration Instructions:Follow protocol scaleDilute each tablet in 3-4 oz of waterDissolve in 3-4 oz of waterNORMAL RENAL FUNCTION-K LEVEL 3.5-3.8= 20 MEQ OF KCL ORAL SOLUTION3- 3.4 = 40 MEQ OF KCL ORAL SOLUTION2.6-2.9= USE IV REPLACEMENT</= 2.5 NOTIFY calcium gluconate 20 MG/ML Injection;[id number] Administration Instructions:USE 1 gram Calcium in 50ml NSIonized Calcium Level:3.5- 3.7= 2 Grams Ca OVER 1hr=2bags</= 3.4 = 4 Grams Ca OVER 2hr=4bagsCHECK LABS NEXT AM Mesha Gomez MD Start:24-Nov-2022 Status:Discontinued Comments:[id number] Administration Instructions:USE 1 gram Calcium in 50ml NSIonized Calcium Level:3.5- 3.7= 2 Grams Ca OVER 1hr=2bags</= 3.4 = 4 Grams Ca OVER 2hr=4bagsCHECK LABS NEXT AM 15 ML sodium phosphate, diba sic 142 MG/ML / sodium phosphate, monobasic 276 MG/ML Injection;[id number] Administration Instructions:USE 12 mMOLES NAPO4/250 ML = DOSE:PHOSPHOROUS LEVEL:<1 = 24 mMOL AT 62.5 CC/HR= 7qsfn3-3.7= 24 mMOL AT 62.5 CC/HR= 2bags1.8-2.4= 12mMOL AT 62.5 CC/HR= 1bag>/= 2.5= NONECHECK LAB 1 HR POST INFUSION. Mesha Gomez MD Start:24-Nov-2022 Status:Discontinued Comments:[id number] Administration Instructions:USE 12 mMOLES NAPO4/250 ML = DOSE:PHOSPHOROUS LEVEL:<1 = 24 mMOL AT 62.5 CC/HR= 9dwij0-5.7= 24 mMOL AT 62.5 CC/HR= 2bags1.8-2.4= 12mMOL AT 62.5 CC/HR= 1bag>/= 2.5= NONECHECK LAB 1 HR POST INFUSION. potassium bicarbonate 10 MEQ Effervescent Oral Tablet [Effer-K];[id number] Administration Instructions:Follow protocol. Disolve each tab in3-4 oz of waterRENAL FAILURE AND CREAT >1.8 orGFR < 30ml/minK LEVEL:3.5-3.8= 10MEQ KCL ORAL SOLUTION3- 3.4 = 20MEQ KCL ORAL SOLUTION2.6-2.9= USE IV REPLACEMENTK < OR =2.5 NOTIFY Quantity:0 Mesha Gomez MD Start:24-Nov-2022 Status:Discontinued Comments:[id number] Administration Instructions:Follow protocol. Disolve each tab in3-4 oz of waterRENAL FAILURE AND CREAT >1.8 orGFR < 30ml/minK LEVEL:3.5-3.8= 10MEQ KCL ORAL SOLUTION3- 3.4 = 20MEQ KCL ORAL SOLUTION2.6-2.9= USE IV REPLACEMENTK < OR =2.5 CRISTY Taylor;[id number] Administration Instructions:Follow protocolDilute with 6-8 oz waterDILUTE WITH 6-8 OZ WATER: Use only inpt with normal renal function or SCr </= 1.8Phos Level 1.8-2.4= 2 Packets of Neutra-phosPhos Level 1-1.7 = 3 Packets of Neutra-phosReck Lab in next AM after oral dose Quantity:0 Mesha Gomez MD Start:24-Nov-2022 Status:Discontinued Comments:[id number] Administration Instructions:Follow protocolDilute with 6-8 oz waterDILUTE WITH 6-8 OZ WATER: Use only inpt with normal renal function or SCr </= 1.8Phos Level 1.8-2.4= 2 Packets of Neutra-phosPhos Level 1-1.7 = 3 Packets of Neutra-phosReck Lab in next AM after oral dose potassium phosphate 155 MG / sodium phosphate, dibasic 852 MG / sodium phosphate, monobasic 130 MG Oral Tablet [K-Phos Neutral];[id number] Administration Instructions:Follow scaleTake with full glass of waterRenal Failure or SCr > 1.8 Use insteadof Neutra-phos. Take with full glass of waterPhos Level 1.8-2.4= 2 Tabs of K-Phos NeutralPhos Level 1-1.7 = 3 Tabs of K-Phos Neutral Quantity:0 Mesha Gomez MD Start:24-Nov-2022 Status:Discontinued Comments:[id number] Administration Instructions:Follow scaleTake with full glass of waterRenal Failure or SCr > 1.8 Use insteadof Neutra-phos. Take with full glass of waterPhos Level 1.8-2.4= 2 Tabs of K-Phos NeutralPhos Level 1-1.7 = 3 Tabs of K-Phos Neutral electrolyte solution;[id number] Administration Instructions:1 PROTOCOLElectrolyte replacement orders if doctor orders , we need to enter the replacementorders set KMERON .Ordered by SILVANO MORGAN on 11/24/22 at 2219Electrolyte Replace 1 PROTOCOL misc ASDIR (*Pharmacy will Quantity:0 Mesha Gomez MD Start:24-Nov-2022 Status:Discontinued Comments:[id number] Administration Instructions:1 PROTOCOLElectrolyte replacement orders if doctor orders , we need to enter the replacementorders set KMERON .Ordered by SILVANO MORGAN on 11/24/22 at 2219Electrolyte Replace 1 PROTOCOL misc ASDIR (*Pharmacy will acetaminophen 325 MG Oral Tablet;650 MILLIGRAM Q4H PRN Quantity:2 Mesha Gomez MD Start:24-Nov-2022 Status:Discontinued Comments:[id number] Administration Instructions:Do not exceed more than 4 gm ofacetaminophen per 24 hrs for adults.Please note other products withacetaminophen. pramipexole dihydrochloride 1 MG Oral Tablet;1 MILLIGRAM PO TID Start:24-Nov-2022 Comments:1 MG PO TID pregabalin 75 MG Oral Capsul e;75 MILLIGRAM PO TID Start:24-Nov-2022 Comments:75 MG PO TID SINEMET CR 25/100 MG TAB;2 T ABLET PO QID Start:24-Nov-2022 Comments:2 TAB PO QID esomeprazole 40 MG Delayed Release Oral Capsule [NexIUM];40 MILLIGRAM PO DAILY 1700 Start:24-Nov-2022 Comments:40 MG PO DAILY 1700 Social History Smoking Status Occasional tobacco smoker Recorded: 24-Nov-2022
--- OUTSIDE RECORDS SUMMARY | 2025-03-19 09:41 | XMS_ITS | Encounter Summary ---
[facility] Address [address] [place] [id number] Care Team Providers Care Studio Hand Name Role Phone Byron Steele MD Primary Care Provider [phone] Reason for Visit * Reason Comments Med Refill Encounter Details Date Type Department Care Team (Late st Contact Info) Description 02/02/2025 Refill [facility] UROLOGY [address] [facility] [place] [address] Carlie Valiente, ELISE [address] [facility] [address] [place] [address] OAB (overactive bladder) Social History Tobacco Use Types Packs/Day Years Used Date Smoking Tobacco: Every Day Cigarettes Cigars Passive Smoke Exposure: Current Smokeless Tobacco: Never Alcohol Use Standard Drinks/Week Comments Not Currently 1 (1 standard drink = 0.6 oz pur e alcohol) rarely [facility] Utilities Answer Date Recorded In the past 12 months has [employer], gas, oil, or water [employer] threatened to shut off services in your [...] Depression Severity Measure Score 0 08/01/2023 [facility] of Occupat ional Health - Occupational Stress [...] GED or equivalent No 03/07/2024 Preferred Language Senegalese 03/07/2024 PHQ-2 Answer Date Recorded Retired PHQ-9: [...] encounter Miscellaneous Notes * Telephone Encounter - Sheryl Maria MA - 02/04/2025 7:56 AM EDT Rx Refill Note Requested Prescriptions Pending Prescriptions Disp Refills Gemtesa 75 MG tablet [Pharmacy Med Name: GEMTESA 75 MG TABLET] 30 tablet 1 Sig: TAKE 1 TABLET BY MOUTH DAILY. Last office visit with prescribing clinician: 01/10/2025 Last telemedicine visit with prescribing clinician: Visit date not found Next office visit with prescribing clinician: 02/11/2025 Sheryl Maria MA 02/04/25, 07:56 EDT documented in this encounter Plan of Treatment Upcoming Encounters Date Type Department Care Team (Late st Contact Info) Description 05/14/2025 8:30 AM EDT Office Visit [facility] NEUROLOGY [address] [place] [address] Coy Munguia, DNP, TOLL SETTLEMENT CLERK [address] [place] [address] 05/14/2025 11:00 AM EDT Office Visit [facility] UROLOGY [address] [place] [address] Carlie aVliente APRN [address] [facility] [address] [place], [place] [id number] documented as of this encounter Goals Goal Patient Goal Type Associated Problems Recent Progress Patient-Stated? 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
--- OUTSIDE RECORDS SUMMARY | 2025-03-19 09:41 | XMS_ITS | Encounter Summary ---
Author Organization [facility] Address [address] [place] [address] Care Team Providers Care Director Of Solutions Architecture Name Role Phone Byron Steele MD Primary Care Provider [phone] Encounter Details Date Type Department Care Team (Latest Contact Info) Description 02/11/2025 Travel Social History Tobacco Use Types Packs/Day Years Used Date Smoking Tobacco: Every Day Cigarettes Cigars Passive Smoke Exposure: Current Smokeless Tobacco: Never Alcohol Use Standard Drinks/Week Comments Not Currently 1 (1 standard drink = 0.6 oz pur e alcohol) rarely [facility] Utilities Answer Date Recorded In the past 12 months has [employer], gas, oil, or water [employer] threatened to shut off services in your [...] Brief Depression Severity Measure Score 0 08/01/2023 [facility] [place] of Occupat ional Health - Occupational Stress [...] GED or equivalent No 03/07/2024 Preferred Language Romanian 03/07/2024 PHQ-2 Answer Date Recorded Retired PHQ-9: [...] as of this encounter Plan of Treatment Upcoming Encounters Date Type Department Care Team (Late st Contact Info) Description 05/14/2025 8:30 AM EDT Office Visit [facility] NEUROLOGY [address] [facility] [address] [place] [address] Coy Munguia, DNP, [employer] VISITING TEACHER [address] [facility] [address] [place] [address] 05/14/2025 11:00 AM EDT Office Visit [facility] UROLOGY [address] [facility] [address] [place] [address] Carlie Valiente, [employer] VISITING TEACHER [address] [facility] [address] [place] [address] [id number] documented as of this encounter Goals Goal Patient Goal Type Associated Problems Recent Progress Patient-Stated? 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
--- OUTSIDE RECORDS SUMMARY | 2025-03-19 09:41 | XMS_ITS | Data Portability ---
Author Organization [facility] PHYLLIS MillerS TECATE CLOSED Address [address] [place] [address] Care Team Providers Care Vocal Music Teacher Name Role Phone ROXANNE VARGAS Referring Provider [phone] FANI NATION Meter Tester Primary Assessment Encounter Date Assessment Date Assessment LastModified [...] to follow-up with his usual neurologist at [facility]. [email or web address] Not available 05/05/2023 11:04:42 Plan of Treatment Reminders Order Date Submit Date Provider Last Modified By Organization Details Last Modified Time Details Appointments None recorded. Lab None recorded. Referral orthopedic surgeon referral - bursal cyst on the right elbow 2024 025 elaine Handley MD, [address] [place], [address], 13:39:18 Procedures None recorded. Surgeries None recorded. Imaging None recorded. Medication Orders mupirocin 2 % topical ointment 2024 025 [email or web address] [facility], [address] [place] [address], [address], [place], [address], 5 12:30:00 APOKYN 10 mg/mL subcutaneou s cartridge 2022 023 RALPH [facility], [address] [place] [address], [address], [place], [address], 3 11:11:27 selegiline 5 mg tablet 2022 [facility]23 [facility] [address] [place] [address], [address], [place], [address], 15:52:12 Patient TargetsNo targets recorded. Patient InstructionsNo [...] record ed. BARCODE Not Available 2022 13:44:38 05/05/2003/12/2023 MRI, lumba r spine , w/o contr ast No observ ation record ed. BARCODE Not Available 2022 13:46:33 05/05/2001/29/2020 MRI, brain , w/wo contr ast No [...] DAK - Cryo AK completed Alessandra Jimenez [facility] 09/26/2024 09:26:11 3 procedure on eyelid completed Peyton Devine [facility] 05/05/2023 10:11:14 Imaging Results None recorded. Procedure [...] Available meloxicam active dc Not Available Not Crisys ilable Not Available oxybutyni n chloride active [...] and Address Organization Details Last Updated DateTime 3 182.88 cm 33.4 kg/m2 241841. 12 g 73 /min 97 % 97 % 140/90 mm[Hg] Peyton Nilson [facility] 3 10:14:30 Social History Question Answer Notes LastModified by Organizat ion Details LastModified Time Tobacco Smoking Status Current Every Day Smoker 1 cigar per day Peyton Nilson null, [facility] 05/05/2023 10:10:49 Sunscreen Use? Yes Informatio n [...] SNOMED-CT Code Diagnosis ICD10 Code Diagnosis Note [id number] ELOISA HIRSCH MD NEUROLOGY SB CLOSED [address] [place] [address] 05/05/2023 09:53:49 05/06/2023 13:56:45 Parkinson's disease 86596118 G20 Lumbar radiculopathy 128 108900 M54.16 [id number] MARITZA GUNN [place] [address] [place] [address] 10/03/2023 14:43:43 10/03/2023 15:46:15 Multiple benign melanocytic nevi 085791170 D22.5 D18.01 L82.1 L81.4 The benign nature [...] any suspicious lesions are noted. Skin tag [id number] L91.8 Benign.No tx needed at this time. [id number] CHRISSIE MYLES MD [facility] [address] [place] [address] 09/26/2024 08:53:19 09/26/2024 10:01:21 Solar lentigo 78610337 L81.4 - Benign appearing, reassuranc e given Multiple b enign melanocytic nevi 870056954 D22.5 - Benign appearing, reassuranc e given - Counseled on importance of daily sun protection and self skin exams/aram toring for ugly duckling lesions Senile angioma 6642841 I 78.1 - Benign appearing, reassuranc e given Seborrheic keratosis 394 421386 L82.1 - Benign appearing, reassuranc e given Lipoma 53849124 D17.0 - Benign appearing, reassuranc e- Continue to monitor- RTC sooner PRN for changes/co ncerns/sym ptomatic etc Actinic keratosis 136920 007 L57.0 -Precancer ous nature discussed -Will TX with LN2 today (see proc note) -FUP if sites persist after TX Abrasion 708640228 T14.8 XXA Patient reports he fell and scraped both knees- Start Mupirocin 2% ointment to BID until healed [id number] MARITZA GUNN [facility] [address] [place] [address] 02/28/2025 15:03:26 02/28/2025 16:29:24 Cyst of bursa 556058524 M71.30 The nature of the diagnosis was [...] Vasquez Member ID Guarantor Name 02/28/2025 2 [place]MEDIC[place]) [id number] Leoncio Harman [id number] Leoncio Harman 02/28/2025 1 [employer] - GOLD PLUS (MEDICARE REPLACEMENT/AD VANTAGE - HMO) Leoncio Harman [id number] Leoncio Harman 03/05/2025 1 [place] (MEDICARE REPLACEMENT REGIONAL PPO) [id number] Leoncio Harman [id number] Leoncio Harman
--- OUTSIDE RECORDS SUMMARY | 2025-03-19 09:41 | XMS_ITS | Encounter Summary ---
Author Organization [facility] Address [address] [place] [address] Care Team Providers Care Adolescent Specialist Name Role Phone Unavailable Primary Care Provider [...] release of HIV test results or diagnoses. [id number] Reason for Visit * Reason Comments Appointment Encounter Details Date Type Department Care Team (Late st Contact Info) Description 01/18/2025 Telephone Neurology at [address] [place] [address] Rina Rocha MA Appointment Social History [...] Rocha MA - 01/18/2025 11:18 AM EDT [facility] will push: MRI Brain with and without contrast 03/12/2023 MRI Brain with and without contrast 01/29/2020 In chart per PACS documented in this encounter Plan of Treatment Not on file documented as of this encounter Visit Diagnoses Not on filedocumented in this encounter
--- OUTSIDE RECORDS SUMMARY | 2025-03-19 09:41 | XMS_ITS ---
Author Organization Unknown Problems Date Problem Result OnSetDate Icd10 SnomedCode Severity Cu stom 11/21/2024 00:00:00 Parkinson's disease with dyskinesia and fluctuating manifestations G20.B2 [id number] 12/27/2024 00:00:00 BMI 30.0-30.9,adult Z68.30 477677272
--- OUTSIDE RECORDS SUMMARY | 2025-03-19 09:41 | XMS_ITS | Encounter Summary ---
Author Organization [facility] Address [address] [place] [address] Care Team Providers Care Die Presser Name Role Phone Byron Steele MD Primary Care Provider [phone] Encounter Details Date Type Department Care Team (Late st Contact Info) Description 12/10/2024 Results Follow-Up [facility] UROLOGY [address] [facility] [address] [place] [address] Mustapha Madison PA-C [address] [facility] [address] [place] [address] Social History Tobacco Use Types Packs/Day Years Used Date Smoking Tobacco: Some Days Cigarettes Cigars Passive Smoke Exposure: Current Smokeless Tobacco: Never Alcohol Use Standard Drinks/Week Comments Not Currently 1 (1 standard drink = 0.6 oz pur e alcohol) rarely [facility] Utilities Answer Date Recorded In the past 12 months has [employer], gas, oil, or water [employer] threatened to shut off services in your [...] Brief Depression Severity Measure Score 0 08/01/2023 [facility] - Occupational Stress Questionnaire Answer Date Recorded [...] GED or equivalent No 03/07/2024 Preferred Language Cypriot 03/07/2024 PHQ-2 Answer Date Recorded Retired PHQ-9: [...] Description 05/14/2025 8:30 AM EDT Office Visit [facility] NEUROLOGY [address] [facility] [address] [place] [address] Coy Munguia, DNP, CHINESE INSTRUCTOR [address] [facility] [address] [place] [address] 05/14/2025 11:00 AM EDT Office Visit [facility] UROLOGY [address] [place] [address] Carlie Valiente, CHINESE INSTRUCTOR [address] [facility] [address] [place] [address] documented as of this encounter Visit Diagnoses Not on filedocumented in this encounter Additional Health Concerns Infection Onset Date Last Indicated Resolved Time MRSA 05/03/2023 03/01/2024 documented as of this encounter Care Teams Die Presser Relationship Specialty Start Date End Date Byron Steele MD [address] [facility] [address] [place] [address] PCP - General Family Medicine 12/21/19 documented as of this encounter
--- OUTSIDE RECORDS SUMMARY | 2025-03-19 09:41 | XMS_ITS | Clinical Summary ---
Author Organization [facility] Address [address] [place] [address] Phone Care Team Providers Care Correctional Corporal Name Role Phone Day, Nino Unavailable Unavailable Conditions or Problems Problem Name Problem Code Onset Date Status Entry Date Provider Comment Standard Description Annotate Strep pyogenes infection B95.4 (ICD-10-CM ) 12/01 Active 12/01 Yari Ayad Other streptococcus as the cause of diseases classified elsewhere Chronic venous stasis disease 28816950 (SNOMED CT) 12/02 Active 12/02 Yari Ayad Stasis dermatitis Neutrophilic leukemoid reaction D72.823 (ICD-10-CM ) 12/02 Active 12/02 Yari Ayad Leukemoid reaction Smoking cessation counseling 816952712 (SNOMED CT) 12/07 Active 12/07 Carolee Cari Procedure carried out on subject Other obesity due to excess calories 206376931 (SNOMED CT) 12/07 Active 12/07 Carolee Cari Simple obesity Leukocytosis 312344671 (SNOMED CT) 12/02 Inactive 12/02 Jayson Ceja MD Leukocytosis Venous stasis 14203443 (SNOMED CT) 12/02 Inactive 12/02 Jayson Ceja MD Venous stasis Pneumonia 582430222 (SNOMED CT) 12/01 Active 12/01 Shae Edkareen Pneumonia Peripheral venous insufficiency 35684468 (SNOMED CT) 12/01 Active 12/01 Shae Edelen Peripheral venous insufficiency Cellulitis of right lower limb 352534192 (SNOMED CT) 12/01 Active 12/01 Shae Edelen Cellulitis of leg, excluding foot Streptococcus pyogenes infection 149782176 (SNOMED CT) 12/01 Inactive 12/01 Shae Oharakareen Streptococcus pyogenes infection Parkinson's disease 88926458 (SNOMED CT) 12/01 Active 12/01 Shae Oharakareen Parkinson's disease Nicotine dependence 82149020 (SNOMED CT) 12/01 Inactive 12/01 Shae August Nicotine dependence Problem excluded marlys black report: Nicotine dependence 54662104 (SNOMED CT) 12/01 Removed 12/01 Alessandra Christensen Nicotine dependence Medications Medication Instructions Start Date Stop Date Generic Name NDC Provider Hibiclens 4% liquid Apply 1 as directed to skin once a day 05/18 chlorhexidine gluconate 81545904876 Jayson Ceja MD MUPIROCIN 2 % OINT Apply 1 as directed to affected area twice a day Apply to each nostril twice a day. Once in the morning and once in the evening for 5 days mupirocin 20900337060 Jayson Ceja MD CEPHALEXIN 500 MG CAPS Take 1 capsule by mouth four times a day 02/26 cephalexin 38419248870 Jayson Ceja MD CEPHALEXIN 500 MG CAPS 1 capsule by mouth four times a day 5/ cephalexin 71296489194 Jayson Ceja MD rocnuno Rocephin 2G IV Q24hrs / INPAT 12/09 rocnuno Deleon RN CEPHALEXIN 500 MG CAPS by mouth every eight hours 12/09 cephalexin 15779959252 Jayson Ceja MD CEPHALEXIN 500 MG CAPS Take 1 capsule by mouth four times a day 12/16 cephalexin 33382625448 Jayson Ceja MD rocnuno Rocephin 2G IV Q24hrs / INPAT 12/09 rocephin Lora Juanpablo RN MUCINEX MAXIMUM STRENGTH 1200 MG [id number] qd guaifenesin 61051021410 Alessandra Christensen PREGABALIN 75 MG CAPS three times daily pregabalin 85463591601 Alessandra Christensen PRAMIPEXOLE DIHYDROCHLORIDE 1 MG TABS three times daily pramipexole 06286476856 Alessandra Christensen ESOMEPRAZOLE MAGNESIUM 40 MG CPDR qd esomeprazole magnesium 27579690888 Alessandra Christensen Mirapex 1 mg tablet by mouth three times a day pramipexole 85515887568 Tonia Parham CARBIDOPA-LEVODOPA ER 25-100 MG CR-TABS 2 tablet by mouth four times a day carbidopa-levod opa 58203202306 Tonia Parham NEXIUM 40 MG CPDR by mouth once a day esomeprazole magnesium 95165621562 Tonia Parham LYRICA 75 MG CAPS by mouth three times a day pregabalin 78683050814 Tonia Parham LORATADINE 10 MG TABS by mouth once a day loratadine 10705968652 Tonia Parham CEPHALEXIN 500 MG CAPS by mouth every eight hours 12/09 cephalexin 03222061260 Tonia Parham LEVOFLOXACIN 750 MG TABS by mouth once a day levofloxacin 65386337589 Tonia Parham Medications Administered No information available. [...] Stat Weekly Labs CPT-david New IV antibiotic CPT-80860 CMP CPT-59052 CBC w/o Differential Vital Signs Date Name [...]
--- OUTSIDE RECORDS SUMMARY | 2025-03-19 09:42 | XMS_ITS | Clinical Summary ---
Author Organization [facility] Address [address] [place] [address] Care Team Providers Care Building Maintenance Engineer Name Role Phone Unknown, Attending Provider Primary [...] therelease of HIV test results or diagnoses. [id number] Allergies No known active allergies Medications [...] a day. 180 tablet 5 01/29/2025 Active Active Problems Problem Noted Date Diagnosed Date Parkinson's disease with dys kinesia and fluctuating manifestations 03/15/2025 Encounters Date Type Department Care Team Description 03/15/2025 4:30 PM EDT Office Visit [facility] Neurology at [facility] Neuroscience [address] [place] [phone] Cody Morton MD Parkinson's disease with dyskinesia and fluctuating manifestations (CMS-HCC) (Primary Dx) 03/15/[address] [facility] Neurology at [facility] [address] [facility] [address] [place] [address] Cody Morton MD Medical Management (Request to Speak with Office, No Details Provided ); Medication Management 02/28/[address] [facility] Neurology at [facility] [address] [facility] [address] [place] [address] Cierra Wang RN 02/19/[address] [facility] Neurology at [facility] [address] [facility] [address] [place] [address] Cody Morton MD Medical Management (Plan of Care Inquiry/Question ) 02/19/[address] [facility] Neurology at [facility] [address] [facility] [address] [place] [address] Cody Morton MD 01/29/2025 1:30 PM EDT Office Visit [facility] Neurology at [place] [address] [facility] [address] [place] [address] Cody Morton MD Parkinson's disease with dyskinesia and fluctuating manifestations (CMS-HCC) (Primary Dx) 01/21/2025 8:48 AM EDT - 01/21/2025 11:59 PM EDT Hospital Encounter [facility] [address] [place] [address] System, Provider Not In Discharge Disposition: Home or Self Care WITHOUT Home Care Services 01/21/2025 8:48 AM EDT - 01/21/2025 11:59 PM EDT Hospital Encounter [facility] [address] [place] [address] System, Provider Not In Discharge Disposition: Home or Self Care WITHOUT Home Care Services 01/18/[address] [facility] Neurology at [facility] [address] [facility] [address] [place] [address] Rina Rocha MA Appointment 12/26/[address] [facility] Neurology at [facility] [address] [email or web address] [address] [place] [address] Rina Rocha MA from Last 3 Months [...] Result EXTERNAL from Last 3 Months Insurance [place] [employer] Care Teams Building Maintenance Engineer Relationship Specialty Start Date End Date Unknown, Attending Provider PCP - General 01/24/25
--- OUTSIDE RECORDS SUMMARY | 2025-03-19 09:42 | XMS_ITS | Clinical Summary ---
Author Organization [facility] Address [address] [place] [address] Care Team Providers Care Reservation Manager Name Role Phone Byron Steele MD Primary Care Provider [phone] Allergies No known active allergies Medications esomeprazole [...] a day. 270 tablet 1 08/07/2024 Active Immunizations Immunization Administration Dates Next Due Moderna COVID-19 Vaccine (Technical Research Scientist) 12+ years Pneumococcal 20-noy Conj Vaccine 09/02/2023 [...] Date Last Done Comments [facility]-Depression Screening 1955 [facility]-/Child/Adol SDOH Screenings 1955 [facility]- SDOH Screenings 1973 [facility]-Adult SDOH Screenings 1973 CT Colonography 2000 Colonoscopy 2000 FIT-DNA 2000 FIT 2000 FOBT 2000 Sigmoidoscopy 2000 [facility]-Colorectal Cancer Screening 2000 [facility]-Zoster Vaccines (1 of 2) 2005 [facility]-Abdominal Aortic Aneurys m (AAA) Screening 2020 [id number] Vaccine (3 - season) 2024 08/09/2021, 10/29/2020 [facility]-Influenza Vaccine (#1) [...] this topic Insurance [employer] Care Teams Reservation Manager Relationship Specialty Start Date End Date Byron Steele MD [address] [facility] [address] [place] [address] PCP - General 03/30/24
--- OUTSIDE RECORDS SUMMARY | 2025-03-19 09:42 | XMS_ITS | Continuity of Care Document ---
Author Organization [facility] CAROLE Miller [place] Address [address] [facility] [place] [address] Care Team Providers Care Plastic Parts Designer Name Role Phone ROXANNE VARGAS Referring Provider FANI NATION Card Doffer Assessment No assessment recorded. Plan of Treatment Reminders Order Date Submit Date Provider Last Modified By Organization Details Last Modified Time Details Appointments None recorded. Lab None recorded. Referral orthopedic surgeon referral - bursal cyst on the right elbow 2024 025 elaine Handley MD, [address] [place], [address], 13:39:18 Procedures None recorded. Surgeries None recorded. [...] DAK - Cryo AK completed Alessandra Marcusll [facility] 09/26/2024 09:26:11 3 procedure on eyelid completed Peyton Devine [facility] 05/05/2023 10:11:14 Imaging Results None recorded. Procedure [...] Smoker 1 cigar per day LUIS Johnson [facility] 05/05/2023 10:10:49 Sunscreen Use? Yes Informatio n [...] SNOMED-CT Code Diagnosis ICD10 Code Diagnosis Note [id number] MARITZA GUNN [place] [address] [place] [address] 02/28/2025 15:03:26 02/28/2025 16:29:24 Cyst of bursa [id number] M71.30 The nature of the diagnosis was [...] Vasquez Member ID Guarantor Name 02/28/2025 1 [place]MEDICARE REPLACEMENT REGIONAL O) [id number] Yoli Harman [id number] Yoli Harman
--- OUTSIDE RECORDS SUMMARY | 2025-03-19 09:42 | XMS_ITS | Encounter Summary ---
Author Organization [facility] Address [address] [place] [address] Care Team Providers Care Utility Worker Driver Name Role Phone Unknown, Attending Provider [...] release of HIV test results or diagnoses. [id number] Reason for Visit * Reason Comments Medical Management Request to Speak wit Office, No Details Provided Medication Management Encounter Details Date Type Department Care Team (Late st Contact Info) Description 03/15/2025 Telephone [facility] [address] [facility] [address] [place] [address] Cody Morton MD [address] [facility] [place] [address] Medical Management (Request to Speak with Office, No Details Provided ); Medication Management Social History Tobacco Use Types Packs/Day Years Used Date Smoking Tobacco: Never Assessed Sex and Gender Information Value Date Recorded Sex Assigned at Not on file Legal Sex Male 10:18 AM EDT Gender Identity Not on file Sexual Orientation Not on file documented as of this encounter Miscellaneous Notes * Telephone Encounter - Cierra Wang RN - 03/15/2025 9:16 AM EDT I spoke to Jody the [place] Nurse career law clerk. She stated that the patient is doing fantastic and is doing very well is able to walk distance to farm and back to pick corn and tomatoes without symptoms. He gave the nurse a hug because he has been waiting so long to be symptom free. The nurse stated the patient needs a follow up with you either in office or video in two weeks. I didn't know where you wanted me to place this patient. * Telephone Encounter - Ankita Arnold - 03/15/2025 8:37 AM EDT Jody the pts nurse navigator called in wanting to speak with Cierra Wang. Jody did not specify what it was regarding. Requesting a call back . Please advise. [phone] documented in this encounter Plan of Treatment Not on file documented as of this encounter Visit Diagnoses Not on filedocumented in this encounter Care Teams Utility Worker Driver Relationship Specialty Start Date End Date Unknown, Attending Provider PCP - General 01/24/25 documented as of this encounter
--- OUTSIDE RECORDS SUMMARY | 2025-03-19 09:42 | XMS_ITS | Encounter Summary ---
Author Organization [facility] Address [address] [place] [address] Care Team Providers Care Film Editor Name Role Phone Unknown, Attending Provider Primary [...] release of HIV test results or diagnoses. [id number] Reason for Visit * Reason Comments Medical Management Plan of Care Inquiry /Question Encounter Details Date Type Department Care Team (Late st Contact Info) Description 02/19/2025 Telephone [facility] Neurology at [facility] [address] [facility] [address] [place] [address] Cody Morton MD [address] [facility] [place] [address] Medical Management (Plan of Care Inquiry/Question ) Social History Tobacco Use Types Packs/Day Years Used Date Smoking Tobacco: Never Assessed Sex and Gender Information Value Date Recorded Sex Assigned at Not on file Legal Sex Male 10:18 AM EDT Gender Identity Not on file Sexual Orientation Not on file documented as of this encounter Miscellaneous Notes * Telephone Encounter - Yanira Shen MD - 02/19/2025 10:54 AM EDT Spoke [...] on filedocumented in this encounter Care Teams Film Editor Relationship Specialty Start Date End Date Unknown, Attending Provider PCP - General 01/24/25 documented as of this encounter
--- OUTSIDE RECORDS SUMMARY | 2025-03-19 09:42 | XMS_ITS | Encounter Summary ---
Author Organization [facility] Address [address] [place] [address] Care Team Providers Care Roller Coaster Engineer Name Role Phone Byron Steele MD Primary Care Provider [phone] Reason for Visit * Reason Comments Med Refill Encounter Details Date Type Department Care Team ([facility] st Contact Info) Description 07/31/2024 Refill [facility] [address] [facility], [address] [place] [address] Gregory Simpson MD [address] [facility] [address] [place] [address] Social History Tobacco Use Types [...] documented as of this encounter Care Teams Roller Coaster Engineer Relationship Specialty [place] [address] [place] [address] PCP - General 03/30/24 documented as of this encounter
--- OUTSIDE RECORDS SUMMARY | 2025-03-19 09:42 | XMS_ITS | Encounter Summary ---
Author Organization [facility] Address [address] [place] [address] Care Team Providers Care Track Worker Name Role Phone Unknown, Attending Provider Primary [...] release of HIV test results or diagnoses. [id number] Health Encounter Details Date Type Department Care Team (Late st Contact Info) Description 02/28/2025 Telephone [facility] Neurology at [facility] [address] [place] [address] [place] [address] Cierra Wang, NISA Social History Tobacco [...] on filedocumented in this encounter Care Teams Track Worker Relationship Specialty Start Date End Date Unknown, Attending Provider PCP - General 01/24/25 documented as of this encounter
--- OUTSIDE RECORDS SUMMARY | 2025-03-19 09:42 | XMS_ITS | Encounter Summary ---
[facility] Address [address] [place] [id number] Care Team Providers Care Systems Design Engineer Name Role Phone Byron Steele MD Primary Care Provider [phone] Encounter Details Date Type Department Care Team (Late st Contact Info) Description 03/01/[address] [facility] UROLOGY [address] [facility] [address] [place] [address] Carlie Valiente APRN [address] [facility] [address] [place] [address] Social History Tobacco Use Types Packs/Day Years Used Date Smoking Tobacco: Every Day Cigarettes Cigars Passive Smoke Exposure: Current Smokeless Tobacco: Never Alcohol Use Standard Drinks/Week Comments Not Currently 1 (1 standard drink = 0.6 oz pur e alcohol) rarely [facility] Utilities Answer Date Recorded In the past 12 months has [employer], [employer], oil, or water [employer] threatened to shut off services in your [...] Brief Depression Severity Measure Score 0 08/01/2023 [facility] - Occupational Stress Questionnaire Answer [...] GED or equivalent No 03/07/2024 Preferred Language Persian 03/07/2024 PHQ-2 Answer Date Recorded Retired PHQ-9: [...] encounter Miscellaneous Notes * Telephone Encounter - Carlie Valiente APRN - 03/01/2025 9:38 AM EDT Personally spoke with patient's spouse regarding new order of Trimix. Our office will refax order to [facility] pharmacy regarding medication. Patient's spouse will alert questions or concerns. documented in this encounter Plan of Treatment Upcoming Encounters Date Type Department Care Team (Late st Contact Info) Description 05/14/2025 8:30 AM EDT Office Visit [facility] NEUROLOGY [address] [facility] [address] [place] [phone] Coy Munguia, LEXI, LBD TEACHER [address] [facility] [address] [place] [address] 05/14/2025 11:00 AM EDT Office Visit [facility] [address] [facility] [address] [place] [address] Carlie Valiente APRN [address] [facility] [address] [place] [address] documented as of this encounter Goals Goal Patient Goal Type Associated Problems Recent Progress Patient-Stated? Author Autogenerat ed Goal Care Plan Autogenerated Problem No Kelly Guzman, RN documented as of this encounter Visit Diagnoses Not on filedocumented in this encounter Additional Health Concerns Active Problems Noted Date Diagnosed Date Autogenerated Problem 01/01/2025 Infection Onset Date Last Indicated Resolved Time MRSA 05/03/2023 03/01/2024 documented as of this encounter Care Teams Systems Design Engineer Relationship Specialty Start Date End Date Byron Steele MD [address] [facility] [address] [facility] [address] [place] [id number] PCP - General Family Medicine 12/21/19 documented as of this encounter
--- OUTSIDE RECORDS SUMMARY | 2025-03-19 09:42 | XMS_ITS | Encounter Summary ---
Author Organization [facility] Address [address] [place] [address] Care Team Providers Care Roll Panner Name Role Phone Byron Steele MD Primary Care Provider [phone] Reason for Referral * Consultation (Routine) - Closed Specialty Diagnoses / Procedures Referred By Nely van Referred To Contact Neurology Diagnoses Parkinson's disease without fluctuating manifestations, unspecified whether dyskinesia present (CMS/HCC) Coy Munguia APRN [address] [place] [address] Phone: tel: fax: Referral ID Status Reason Start Date Expiration Date V isits Requested Visits Authorized [id number] Closed Specialty Services Required 08/12/2023 02/10/2025 1 1 Encounter Details Date Type Department Care Team (Late st Contact Info) Description 08/12/2023 [facility] [address] [place] [address] Coy Munguia APRN [address] [place] [address] Parkinson's disease without fluctuating manifestations, unspecified whether [...] without fluctuating manifestations, unspecified whether dyskinesia present (CMS/FORMER[facility])- Primary documented in this encounter Care Teams Roll Panner Relationship Specialty Start Date End Date Byron Steele MD [address] [place] [address] PCP - General 03/30/24 documented as of this encounter
--- OUTSIDE RECORDS SUMMARY | 2025-03-19 09:42 | XMS_ITS | Encounter Summary ---
Author Organization [facility] Address [facility] [place] [address] Care Team Providers Care Hoe Runner Name Role Phone Unknown, Attending Provider Primary [...] release of HIV test results or diagnoses. [id number] Health Encounter Details Date Type Department Care Team (Late st Contact Info) Description 02/19/2025 Telephone [facility] Neurology at [facility] [place] [address] [facility] [address] [place] [address] Cody Morton MD [address] [facility] [place] [address] Social History Tobacco Use Types [...] on filedocumented in this encounter Care Teams Hoe Runner Relationship Specialty Start Date End Date Unknown, Attending Provider PCP - General 01/24/25 documented as of this encounter
--- OUTSIDE RECORDS SUMMARY | 2025-03-19 09:43 | XMS_ITS | Clinical Summary ---
Author Organization [facility] y[facility] Address [address] [address] Care Team Providers Care Medical Editor Name Role Phone Byron Steele MD Primary Care Provider [phone] Allergies No known active allergies Medications carbidopa-levodo pa (SINEMET) 25-100 MG per tabletIndication s:Parkinson disease TAKE 2 TABLETS AT 6AM, 11AM, 4PM, 10PM 240 tablet 5 02/14/2024 Active esomeprazole (nexIUM) 40 MG capsuleIndicatio ns:Dysphagia, unspecified type Take 1 capsule by mouth Every Morning Before Breakfast. 90 capsule 3 08/10/2024 Active escitalopram (Lexapro) 10 MG tabletIndication s:Moderate recurrent major depression Take 1 tablet by mouth Daily. 90 tablet 3 08/13/2024 08/13/20 25 Active Gemtesa 75 MG tabletIndication s:OAB (overactive bladder) TAKE 1 TABLET BY MOUTH DAILY. 30 tablet 1 02/04/2025 Active pramipexole (MIRAPEX) 1 MG tablet Take 1 tablet by mouth 3 (Three) Times a Day. 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 04/19/2023 Overview (04/19/2023): Added automatically from request for surgery [id number] Lumbar stenosis with neurogenic claudication Spondylosis of lumbar region without myelopathy or radiculopathy 03/06/2020 Degeneration of lumbar or lumbosacral interverte bral disc 03/06/2020 Ligamentum flavum hypertrophy 03/06/2020 Parkinson disease 01/09/2020 Assessment & Plan (09/02/2021 12:15 PM EST): Change C/L dosage to 7 am 12 and 5 pm Continue Mirapex 1 mg PO TID F/U in 6 months Assessment & Plan (07/08/2021 9:15 AM EST): Continue Mirapex 1 mg PO TID Increase Sinemet to 1 tablet four times daily, 7, 12, 5, and 10. F/U in 8 weeks or sooner if needed Assessment & Plan (03/18/2021 12:54 PM EDT): Patient would like to try to stop the Mirapex due to ineffectiveness. He will take 1 tablet twice daily X 1 week, then 1 tablet nightly X 1 week, then stop. Continue Sinemet one tablet TID. Continue PT F/U in 4 months or sooner if needed Assessment & Plan (09/18/2020 9:09 AM EST): Worsening sx Add sinemet 25/100 one tab TID Continue Mirapex 1 mg QID Assessment & Plan (03/20/2020 8:33 AM EDT): Sx improved on Mirapex 1 mg TID Continue PT Assessment & Plan (01/24/2020 9:04 AM EDT): Sx continue on Mirapex Increase Mirapex 1 mg TID Start PT Assessment & Plan (01/09/2020 11:25 AM EDT): Atypical presentation of left leg tremor and rigidity MRI Brain Start Mirapex Encounters Date Type Department Care Team Description 03/01/2025 Telephone [facility] UROLOGY [address] [facility] [address] [place] [address] Carile Valiente APRN 02/11/2025 11:15 AM EDT Office Visit [facility] UROLOGY [address] [facility] [address] [place] [address] Carlie Valiente APRN OAB (overactive bladder) (Primary Dx); Erectile dysfunction, unspecified erectile dysfunction type; Acute cystitis without hematuria; Mixed stress and urge urinary incontinence 02/11/2025 8:30 AM EDT Office Visit [facility] NEUROLOGY [address] [facility] [address] [place] [phone] Coy Munguia DNP, ELISE Parkinson's disease with dyskinesia, unspecified whether manifestations fluctuate (Primary Dx); Dysphagia, unspecified type; Moderate recurrent major depression; Restless legs syndrome (RLS); Mixed stress and urge urinary incontinence 02/11/2025 Travel 02/02/2025 Refill [facility] UROLOGY [address] [address] Carlie Valiente APRN OAB (overactive bladder) 01/10/2025 9:15 AM EDT Office Visit [facility] UROLOGY [address] [facility] [address] [place] [address] Carlie Valiente APRN Erectile dysfunction, unspecified erectile dysfunction type (Primary Dx) 01/10/2025 Telephone [facility] NEUROLOGY [address] [facility] [address] [place] [address] Coy Munguia DNP VEGETABLE INSPECTOR 01/10/2025 Telephone [facility] NEUROLOGY [address] [facility] [address] [place] [phone] Coy Munguia DNP, VEGETABLE INSPECTOR 01/10/2025 Travel 12/27/2024 1:00 PM EDT Office Visit [facility] [address] [facility] [address] [place] [address] Carlie Valiente APRN Acute cystitis without hematuria (Primary Dx) 12/27/2024 Telephone [facility] NEUROLOG[facility] [address] [facility] [address] [place] [address] Coy Munguia DNP, APRN 12/27/2024 Travel 12/26/2024 Prior Authorization [facility] NEUROLOG[facility] [address] [facility] [address] [place] [address] Coy Munguia DNP, ELISE from Last 3 Months Immunizations Immunization Administration Dates Next Due COVID-19 (MODERNA) Monovalent Original Booster 1 10/10/2020 Pneumococcal Conjugate 20-Valent (PCV20) 024 Tdap 08/09/2023 Family History Medical History Relation Name Comments No Known Problems Brother Parkinsonism Cousin Alzheimer's disease Father Luc Harman Dementia Father Luc Harman No Known Problems Maternal Aunt No Known Problems Maternal Grandfather No Known Problems Maternal Grandmother No Known Problems Maternal Uncle Stroke Mother Yamilet Harman No Known Problems Other No Known Problems Paternal Aunt No Known Problems Paternal Grandfather No Known Problems Paternal Grandmother No Known Problems Paternal Uncle No Known Problems Sister Ataxia Neg Hx [place] Neg Hx Mental retardation Neg Hx Migraines Neg Hx Multiple sclerosis Neg Hx Neurofibromatosis Neg Hx Neuropathy Neg Hx Seizures Neg Hx Relation Name Status Comments Brother Cousin Alive Father Luc [place] Maternal Aunt Maternal Grandfather Maternal Grandmother Maternal Uncle Mother Yamilet Harman Other Paternal Aunt Paternal Grandfather Paternal Grandmother Paternal Uncle Sister Social History Tobacco Use Types Packs/Day Years Used Date Smoking Tobacco: Every Day Cigarettes Cigars Passive Smoke Exposure: Current Smokeless Tobacco: Never Tobacco Cessation:Ready to Q uit: No; Counseling Given: No Alcohol Use Standard Drinks/Week Comments Not Currently 1 (1 standard drink = 0.6 oz pur e alcohol) rarely [facility] Utilities Answer Date Recorded In the past 12 months has [employer], oil, or water company threatened to [...] Brief Depression Severity Measure Score 0 08/01/2023 [facility] - Occupational Stress Questionnaire Answer Date Recorded [...] GED or equivalent No 03/07/2024 Preferred Language Lithuanian 03/07/2024 PHQ-2 Answer Date Recorded Retired PHQ-9: Brief Depression Severity Measure Score 0 03/07/2024 Sex and Gender Information Value Date Recorded Sex Assigned at Not on file Legal Sex Male 11:26 AM EDT Gender Identity Not on file Sexual Orientation Not on file Occupation Industry Job Start Date Job End Date Retired [employer] Not on file Not on file Not on file Last Filed Vital Signs Vital Sign Reading Time Taken Comments Blood Pressure 98/65 02/11/2025 11:21 AM EDT Pulse 89 02/11/2025 11:21 AM EDT Temperature 36.7 C (98 F) 05/31/2024 11:00 AM EDT Respiratory Rate 16 03/07/2024 11:49 AM EDT Oxygen Saturation 95% 02/11/2025 11:21 AM EDT Inhaled Oxygen Concentration - - Weight 96.6 kg (213 lb) 02/11/2025 8:29 AM EDT Height 182.9 cm (6' 0.01 ) 02/11/2025 8:29 AM ED T Body Mass Index 28.88 02/11/2025 8:29 AM EDT Plan of Treatment Upcoming Encounters Date Type Department Care Team (Late st Contact Info) Description 05/14/2025 8:30 AM EDT Office Visit [facility] NEUROLOGY [address] [place] [address] Coy Munguia, DNP, VEGETABLE INSPECTOR [address] [place], [place] [id number] 05/14/2025 11:00 AM EDT Office Visit [facility] UROLOGY [address] [facility] [address] [place] [address] Carlie Valiente, VEGETABLE INSPECTOR [address] [facility] [address] [place], [place] [id number] Health Maintenance Due Date Last Done Comments COLOGUARD 2000 COLON CANCER SCREENING 5 YEA R SIGMOIDOSCOPY 2000 COLONOSCOPY 2000 COLORECTAL CANCER SCREENING 2000 CT COLONOGRAPHY 2000 FECAL OCCULT BLOOD TEST 2000 FIT Testing (1 year) 2000 ZOSTER VACCINE (1 of 2) 2005 ANNUAL WELLNESS VISIT 12/27/2019 HEPATITIS C SCREENING 12/27/2019 AAA SCREEN ONCE 2020 COVID-19 Vaccine ( season) 2024, 10/29/2020 INFLUENZA VACCINE 05/22/2025 09/02/2023, , 10/23/2012 TDAP/TD VACCINES (3 - Td or Tdap) 08/09/2033 023, 10/23/2012 Pneumococcal Vaccine 50+ Completed 09/02/2023 Goals Goal Patient Goal Type Associated Problems Recent Progress Patient-Stated? Author Autogenerat ed Goal Care Plan Autogenerated Problem No Kelly Guzman RN Medical Devices Implanted Type Area Wafer Abrading Machine Tender Device Identifier Shelf Expiration Date Model / Serial / Lot Hemost Abs Surgifoam Sz100 8x12 10mm - [id number] Implanted:Qt y: 1 on 05/11/2023 by Blaine David MD at [facility] Implant Right: Spine Lumbar ETH[employer] DIV OF J AND J 1974 / / 0 Kt Seal Hemos Abs Floseal Matrx Fast/Prep 10ml - [id number] Implanted:Qt y: 1 on 05/11/2023 by Blaine David MD at [facility] Implant Right: Spine Lumbar [facility] [id number] / / [address] Breakoff Solera Ti 4.75 - [id number] Implanted:Qt y: 4 on 03/06/2024 by Blaine David MD at [facility] Implant N/A: Spine Lumbar [employer] [id number] / / Scrw Freda Solera Sextant Mas 6.5x40mm - [id number] Implanted:Qt y: 2 on 03/06/2024 by Blaine David MD at [facility] Implant N/A: Spine Lumbar [employer] [id number] / / Scrw Freda Solera Mas 7.5x35mm - [id number] Implanted:Qt y: 2 on 03/06/2024 by Blaine David MD at [facility] Implant N/A: Spine Lumbar [employer] [id number] / / Yariel Solera Cocr Prebnt 4.18g81wk - [id number] Implanted:Qt y: 2 on 03/06/2024 by Blaine David MD at [facility] Implant N/A: Spine Lumbar [employer] [id number] / / Kt Seal Hemos Abs Floseal Matrx 1.5/Fast/Pre p 5000/Iu 10ml - [id number] Implanted:Qt y: 2 on 03/06/2024 by Bliane David MD at [facility] Implant N/A: Spine Lumbar [facility] [id number] 12/18/2024 [id number] / / [id number] Hemost Abs Surgifoam Sz100 8x12 10mm - [id number] Implanted:Qt y: 1 on 03/06/2024 by Blaine David MD at [facility] Implant N/A: Spine Lumbar ETH[employer] DIV OF J AND J 1973 / / Paste Dbm Leann Pls 10cc - [id number] - [id number] Implanted:Qt y: 1 on 03/06/2024 by Blaine David MD at [facility] Implant N/A: Spine Lumbar [employer] 01/23/2026 [id number] / [id number] / Matrx Plf Dbm Leann 2.5x10cm - [id number] - [id number] Implanted:Qt y: 1 on 03/06/2024 by Blaine David MD at [facility] Implant N/A: Spine Lumbar [employer] 11/13/2026 [id number] / [id number] / Allogrft Dbm Leann Ds Inj Fibr 9cc - [id number] - [id number] Implanted:Qt y: 1 on 03/06/2024 by Blaine David MD at [facility] Implant N/A: Spine Lumbar [employer] 12/07/2025 [id number] / [id number] / Cage Spine Wave/D Lif 6deg 62l29wk - [id number] Implanted:Qt y: 2 on 03/06/2024 by Blaine David MD at [facility] Implant N/A: Spine Lumbar [employer] 09/27/2026 [id number] / / [id number] Kt Seal Hemos Abs Floseal Matrx 1.5/Fast/Pre p 5000/Iu 10ml - [id number] Implanted:Qt y: 1 on 03/06/2024 by Blaine David MD at [facility] Implant N/A: Spine Lumbar [facility] [id number] 11/20/2024 [id number] / / [id number] Procedures Procedure Name Priority Date/Time Associated Diagnosis Comments POCT URINALYSIS DIPSTICK, AUTOMATED Routine 02/11/2025 11:57 AM EDT OAB (overactive bladder) POCT URINALYSIS DIPSTICK, AUTOMATED Routine 12/27/2024 2:00 PM EDT Acute cystitis without hematuria from Last 3 Months Results * (ABNORMAL) POC Urinalysis Dipstick, Automated (02/11/2025 11:57 AM EDT) Only the most recent of2 resultswithin the time period is included. Color Yellow Yellow, Straw, Dark Yellow, Guillermina [facility] Clarity, UA Clear Clear [facility] Specific [place] 1.025 1.005 - 1.030 [facility] pH, Urine 6.0 5.0 - 8.0 [facility] Leukocytes Negative Negative [facility] Nitrite, UA Negative Negative [facility] Protein, POC Negative Negative mg/dL [facility] Glucose, UA Negative Negative mg/dL [facility] Ketones, UA Trace(A) Negative [facility] Urobilinogen, UA Normal Normal, 0.2 E.U./dL [facility] Bilirubin Small (1+)(A) Negative [facility] Blood, UA Negative Negative [facility] Lot Number [id number] [facility] Expiration Date 05/10/2026 [facility] Urine 02/11/2025 11:5 7 AM EDT Carlie Valiente VEGETABLE INSPECTOR POINT OF CARE TEST ORDERABLES Final Result [facility]
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 03/01/2024 Insurance Advance Directives Documents on File Type Date Recorded Patient Project Specialist Expl anation LIVING WILL - SCAN 05/03/2023 1:40 PM dayan ng will 2022 * CPR (Attempt to Resuscitate) (Latest Code Status on File) Date Activated Date Inactivated Comments 03/07/2024 8:22 AM 03/07/2024 6:23 PM Question Answer Comments Code Status (Patient has no pulse and is not breathing): CPR (Attempt to Resuscitate) Medical Interventions (Patie nt has pulse or is breathing): Full Support Care Teams Medical Editor Relationship Specialty Start Date End Date Byron Steele MD [address] [facility] [address] [facility] [address] [place] [address] PCP - General Family Medicine 12/21/19
--- OUTSIDE RECORDS SUMMARY | 2025-03-19 09:43 | XMS_ITS | Patient Health Record ---
Author Organization [facility] Address [address] [place] Jacob [id number] Care Team Providers Care Chore Worker Name Role Phone Byron Steele Primary Care Provider Allergies No Known Allergies Results Component Value Reference Range Notes P-Culture Body Fluid Reviewed date:03/06/2025 12:29:17 PM Interpretation:No growth Performing Lab: Notes/Report: Test performed by [facility] [address] [place] [address] , [address], [place] [address] Felix Schwartz MD, Clinical Applications Specialist CLIA: [id number] Specimen Source Fluid - Olecranon bursa Culture Body Fluid See Below Final Rep ort : No growth P-Culture, Miscellaneous Aer obic w/Gram Stain Reviewed date:03/06/2025 12:29:18 PM Interpretation:No growth Performing Lab: Notes/Report: Test performed by [facility] [address] [place] [address] , [address], [place] [address] Felix Schwartz MD, Clinical Applications Specialist CLIA: [id number] Specimen Source Fluid - Olecranon bursa Gram Stain See Below Few Polymorphonuclear leukocytes No organisms seen Culture, Miscellaneous Aerobic w/Gram Stain See Below Preliminary Report : No growth, reincubate Final Report : No growth P-Cell Count and Differentia l, Body Fluid Reviewed date:03/06/2025 12:29:18 PM Interpretation:Normal Performing Lab: Notes/Report: Test performed by [facility] [address] [place], [place] [address] [place] , [address], [place] [address] Felix Schwartz MD, Clinical Applications Specialist CLIA: [id number] Fluid Type Synovial Fluid Color [place] Fluid Appearance Hazy Fluid Red Blood Cell (RBC) Count 57789 Total Nucleated Cell Count (WBC) 254 Synovial [...] Fluid Synovial Lining Cells 0 Fluid Specific Thornton 1.032 Crystals Fluid Not Present Uric Acid, Body Fluid Reviewed date:03/06/2025 12:29:18 PM Interpretation:Normal Performing Lab: Notes/Report: Uric Acid, Body Fluid 6.0 INTERPRETIVE INFORMATION: Uric Acid, Body Fluid For information on body fluid reference ranges and/or interpretive guidance visit [email or web address] This test was developed and its performance characteristics determined by [facility]. It has not been cleared or approved by the [place] Food and Drug Administration. This test was performed in a CLIA certified laboratory and is intended for clinical purposes. Performed By: [facility] [address] [place] [address] Clinical Applications Specialist: Dutch Recinos MD, PhD CLIA Number: [id number] INTERPRETIVE INFORMATION: Uric Acid, Body Fluid For information on body fluid reference ranges and/or interpretive guidance visit [email or web address] This test was developed and its performance characteristics determined by [facility]. It has not been cleared or approved by the [place] Food and Drug Administration. This test was performed in a CLIA certified laboratory and is intended for clinical purposes. Performed By: [facility] [address] [place], [place] [id number] Clinical Applications Specialist: Dutch Recinos MD, PhD CLIA Number: [id number] Uric Acid Fluid Source Joint fluid Olecr anon bursa Uric Acid, Body Fluid 6.0 INTERPRETIVE INFORMATION: Uric Acid, Body Fluid For information on body fluid reference ranges and/or interpretive guidance visit [email or web address] This test was developed and its performance characteristics determined by [facility]. It has not been cleared or approved by the [place] Food and Drug Administration. This test was performed in a CLIA certified laboratory and is intended for clinical purposes. Performed By: [facility] [address] [place] [address] Clinical Applications Specialist: Dutch Recinos MD, PhD CLIA Number: [id number] INTERPRETIVE INFORMATION: Uric Acid, Body Fluid For information on body fluid reference ranges and/or interpretive guidance visit [email or web address] This test was developed and its performance characteristics determined by [facility]. It has not been cleared or approved by the US Food and Drug Administration. This test was performed in a CLIA certified laboratory and is intended for clinical purposes. Performed By: [facility] [address] [place] [address] Clinical Applications Specialist: Dutch Recinos MD, PhD CLIA Number: [id number] CBC Fingerstick (in house) Reviewed date:01/11/2025 09:47:41 [...] Interpretation:E. Coli Performing Lab: Notes/Report: E. Coli TEN-UTI panel Reviewed date:06/08/2024 04:08:50 PM Interpretation:sensitive Performing Lab: Notes/Report: sensitive Urinalysis - Inhouse Reviewed date:06/04/2024 12:10:51 PM Interpretation: Performing Lab: Notes/Report: Color/Clarity yellow/clear Leuk 1+ Nitrite neg Urobili 3.2 Protein 1+ pH 5.5 Blood neg Sp. Gr. 1.020 Ketone neg Bili neg Gluc neg Urinalysis - Inhouse Reviewed date:09/05/2024 03:15:59 PM [...] Interpretation:Normal Performing Lab: Notes/Report: Test performed by [facility] [place] [address] [place] [address] , [address], [place] [address] Felix Schwartz MD, Clinical Applications Specialist CLIA: [id number] Sodium 140 135-145 mmol/L Potassium 4.0 3.5-5.3 [...] Interpretation:Normal Performing Lab: Notes/Report: Test performed by [facility] [address] [place] [address] [place] [address] Felix Schwartz MD, Clinical Applications Specialist CLIA: [id number] Thyroxine Free (free T4) 1.20 0.86-1.76 ng/dL P-Lipid Panel Reviewed date:09/06/2024 01:39:49 PM Interpretation:Normal Performing Lab: Notes/Report: Test performed by [facility] [address] [place] [address] Felix Schwartz MD, Clinical Applications Specialist CLIA: [id number] Cholesterol 164 <200 mg/dL Triglycerides 53 <150 [...] Interpretation:Normal Performing Lab: Notes/Report: Test performed by [facility] [address] [facility] , [address], [place] [address] Felix Schwartz MD, Clinical Applications Specialist CLIA: [id number] TSH 3.83 0.43-5.25 mU/L Reason For Referral Reason send to [facility] PT Diagnosis 1 Impaired functional mobility, balance, gait, and endurance (Z74.09) [facility] Referring Provider First Name Byron Referring Provider Last Name Henrico Referring Provider [facility] Referred Provider Specialty Physical The rapist General Notes Christy Richards 024 10:13:49 AM > faxed to [facility] PT Referral [facility] [place] [facility] professor pnone [phone], [phone] Diagnosis 1 Parkinson's disease with dyskinesia and fluctuating manifestations (G20.B2) [facility] Referring Provider First Name Byron Referring Provider Last Name Hen[place] Referring Provider [facility] Referred Provider Neurology, . Referred Provider Specialty Neurology General Notes Christy Richards 2024 08:55:21 AM > faxed to [facility] Referral Priority Routine Medications Medication SIG [...] Problem Arthropathy of lumba r facet joint (119838714) Lumbar facet arthropathy (M47.816) Active confirmed Problem Disorder of lumbar disc (481629124) Lumbar disc disease (M51.9) Active confirmed Problem Body mass index 30+ - obesity (248949301) BMI 30.0-30.9,adult (Z68.30) Active confirmed Problem Sciatica (23621139) Lumbago with sciatica, right side (M54.41) Active confirmed Problem Sciatica (83631868) Lumbago with sciatica, left side (M54.42) Active confirmed Problem Degeneration of lumbar intervertebral disc (57310736) Lumbar degenerative disc disease (M51.36) Active confirmed Problem Bronchitis (72104164) Bronchitis (J40) Active c onfirmed Problem Displacement of lumbar intervertebral disc without myelopathy (27892652) Bulging lumbar disc (M51.26) Active confirmed Problem Dermatitis (144574730) Dermatitis (L30.9) Active confirmed Problem Erectile dysfunction (disorder) (120576284) Erectile dysfunction, unspecified erectile dysfunction type (N52.9) Active confirmed Problem Sciatica (86600846) Right sided sciatica (M54.31) Active confirmed Problem Problem with balance (070780685) Balance problems (R26.89) Active confirmed Problem Parkinson's disease (disorder) (41221688) Parkinson disease, symptomatic (G20) Active confirmed Problem Dyskinesia (0416420) Dyskinesia (G24.9) Active confirmed Problem Gastroesophageal reflux disease with esophagitis (disorder) (526519960) Gastroesophageal reflux disease with esophagitis without hemorrhage (K21.00) Active confirmed Problem Swelling of first metatarsophalangeal joint of hallux (709732178) Bunion, left (M21.612) Active confirmed Problem Parkinson's disease with dyskinesia and fluctuating manifestations (G20.B2) Active confirmed Vital Signs Heart Rate 84 /min 02/26/2025 Blood pressure diastolic 70 mm Hg 02/26/2025 Height 71.5 in 02/26/2025 Blood pressure systolic 112 mm Hg 02/26/2025 Weight 216 lbs 02/26/2025 BMI 29.7 kg/m2 02/26/2025 Encounters Encounter Location Date Provider Diagnosis [facility] [address] [facility] [address] [place], [place] [id number] 03/28/2024 Byron Henrico Chest wall pain R07. 89 [facility] [address] [place], [place] [id number] 04/02/2024 Byron [place] Actinic keratoses L5 7.0 [facility] [address] [place], [place] [id number] 06/04/2024 Byron Henrico Acute UTI N39.0 [facility] [address] [place] [id number] 06/11/2024 Byron Henrico Urinary frequency R3 5.0 [facility] [address] [place], [place] [id number] 07/10/2024 Byron Hen[place] Recurrent UTI N39.0 [facility] [address] [place] [id number] 09/05/2024 Byron Henrico Urinary frequency R3 5.0 ; Gastroesophageal reflux disease with esophagitis without hemorrhage K21.00 ; Peripheral edema R60.0 ; Elevated TSH R79.89 ; Hyperglycemia R73.9 and Recurrent UTI N39.0 [facility] [address] [place], [place] [id number] 11/21/2024 Byron Henrico Parkinson's disease with dyskinesia and fluctuating manifestations G20.B2 [facility] [address] [place], [place] [id number] 12/25/2024 Byron [place] Closed dislocation o f left ring finger S63.255A ; Lumbar back pain M54.50 and BMI 30.0-30.9,adult Z68.30 [facility] [address] [place], [place] [id number] 01/11/2025 Byron [place] Cellulitis of right arm L03.113 and BMI 30.0-30.9,adult Z68.30 [facility] [address] [place], [place] [id number] 02/12/2025 Byron Hen[place] Olecranon bursitis o f right elbow M70.21 [facility] [address] [place] [id number] 02/26/2025 Byron [place] Olecranon bursitis o f right elbow M70.21 [facility] [address] [place] [id number] 06/11/2024 Byron Henrico [facility] [address] [place] [id number] 06/19/2024 Byron [place] Impaired functional mobility, balance, gait, and endurance Z74.09 [facility] [address] [place], [place] [id number] 08/06/2024 Byron Henrico Assessments Encounter Date Diagnosis (ICD Code) Assessment Notes Treatment Notes Treatment Clinical Notes Section Notes 06/11/2024 Urinary frequency (ICD-10 - R35.0) 11/21/2024 Parkinson's disease with dyskinesia and fluctuating manifestations (ICD-10 - G20.B2) Wants to start Onapgo 06/19/2024 Impaired functional mobility, balance, gait, and endurance (ICD-10 - Z74.09) 07/10/2024 Recurrent UTI (ICD-10 - N39.0) 12/25/2024 Lumbar back pain (ICD-10 - M54.50) 12/25/2024 Closed dislocation of left ring finger (ICD-10 - S63.255A) Patient declines anesthesia, finger dislocation reduced with distal traction. Patient will full ROM and neurovascularly intact after joint dislocation reduced, recommend ice and meliza taping as needed for the next few days. Call with any new symptoms. 02/12/2025 Olecranon bursitis of right elbow (ICD-10 - M70.21) 02/26/2025 Olecranon bursitis of right elbow (ICD-10 - M70.21) 01/11/2025 BMI 30.0-30.9,adult (ICD-10 - Z68.30) 01/11/2025 Cellulitis of right arm (ICD-10 - L03.113) 03/28/2024 Chest wall pain (ICD-10 - R07.89) symptomatic treatment of pain. Return if worsening of pain or developement of new symptoms 04/02/2024 Actinic keratoses (ICD-10 - L57.0) 06/04/2024 Acute UTI (ICD-10 - N39.0) 09/05/2024 Urinary frequency (ICD-10 - R35.0) 09/05/2024 Gastroesophageal reflux disease with esophagitis without hemorrhage (ICD-10 - K21.00) 09/05/2024 Peripheral edema (ICD-10 - R60.0) 12/25/2024 BMI 30.0-30.9,adult (ICD-10 - Z68.30) 09/05/2024 Elevated TSH (ICD-10 - R79.89) 09/05/2024 Hyperglycemia (ICD-10 - R73.9) 09/05/2024 Recurrent UTI (ICD-10 - N39.0) Plan Of Treatment Pending Test Test Name Order Date P-Uric Fluid Analysis 10/05/2022 P-Uric Fluid Analysis 02/26/2025 P-Fluid Cell Count 02/26/2025 Insurance Providers Payer Name Payer Address Payer Phone Subscriber Number Group Number Insured Name Patient Relationship to Insured Coverage Start Date Coverage End Date [employer] [address] [place] [address] [id number] Leoncio Harman Self - patient is the insured Medications Administered Medication Instructions Date of Administration Dosage Notes Depo- Medrol 40 mg/ml 10/30/2018 2 mL Dexamethasone 11/13/2012 4 mg Medical (General) History Medical History History ICD Code Coronary CT angiogram October 2014 Diverticulosis Lumbar Disc Disease, s/p pain management evaluation 2018 Lumbar Facet Arthropathy MRI L-spine, November 2018 Parkinson's Disease, Dx: 2019 Lumbar Spinal Stenosis, s/p laminectomy 2022 Surgical History Surgery Date(Month/Year) Colonoscopy 2005, 10/30/2018 Minimally Invasive Lumbar Laminectomy
--- OUTSIDE RECORDS SUMMARY | 2025-03-19 10:41 | XMS_ITS | CCD ---
Author Name Sara LACEWORKERKatrin Address [address] [facility] [address] [facility] [address] [place] [address] Phone Organization [facility] Phone Care Team Providers Care Metaphysics Teacher Name Role Phone Office, [place] Primary Care Provider Unavaila ble Unavailable Chronic Care Management Unavaila ble Summary Purpose DataExchange Insurance Providers Payer name Policy type / Coverage type Covered libertarian ID Effective Begin Date Effective End Date [employer] [facility] [id number] Unknown Unknown Family History Family History data [...] Instructions esomeprazole (nexIUM) 40 MG capsule RxNorm: 821882 Take 1 Capsule(s) Oral every morning Before Breakfast . 4 No Stop Date Active pramipexole (MIRAPEX) 1 MG tablet RxNorm: 979558 Take 1 tablet by mouth 3 (Three) Times a Day. 4 No Stop Date Active carbidopa-levodop a (SINEMET) 25-100 MG per tablet RxNorm: 115311 TAKE 2 TABLETS AT 6AM, 11AM, 4PM, 10PM No Stop Date Active Medication Administered No Medication Administered data Reason For Visit No Reason For Visit data Encounters Encounter Performer Location Location Address Codes Date () No answer/Patient not seen Diagnosis: Patient not seen[ICD10: UXZ.01] Katrin Ruiz [place] Office [address] [place] [address] CPT-4: 58906 12/20/2024 Plan of Care Planned Activity Notes Codes Status Date Appointment: Katrin Ruiz WPtel: [address] [place], [place] [id number] 12/20/2024 Patient Education: Patient Medication Summary Completed 12/20/2024 Medical Equipment No Medical Equipment data Advance Directives No Advance Directive data
--- OUTSIDE RECORDS SUMMARY | 2025-03-19 10:41 | XMS_ITS | CCD ---
Author Name Sara FINANCIAL ADMINISTRATIVE ASSISTANTKatrin Address [address] [facility] [address] [facility] [address] [place] [address] Phone Organization [facility] Phone Care Team Providers Care Door Patcher Name Role Phone Office, [place] Primary Care Provider Unavaila ble Unavailable Chronic Care Management Unavaila ble Summary Purpose DataExchange Insurance Providers Payer name Policy type / Coverage type Covered constitution party ID Effective Begin Date Effective End Date [employer] [facility] [id number] Unknown Unknown Family History Family History data [...] Instructions esomeprazole (nexIUM) 40 MG capsule RxNorm: 185201 Take 1 Capsule(s) Oral every morning Before Breakfast . 4 No Stop Date Active pramipexole (MIRAPEX) 1 MG tablet RxNorm: 652158 Take 1 tablet by mouth 3 (Three) Times a Day. 4 No Stop Date Active carbidopa-levodop a (SINEMET) 25-100 MG per tablet RxNorm: 517942 TAKE 2 TABLETS AT 6AM, 11AM, 4PM, 10PM No Stop Date Active Medication Administered No Medication Administered data Reason For Visit No Reason For Visit data Encounters Encounter Performer Location Location Address Codes Date () No answer/Patient not seen Diagnosis: Patient not seen[ICD10: UXZ.01] Katrin Ruiz [place] Office [address] [place] [address] CPT-4: 26828 12/20/2024 Plan of Care Planned Activity Notes Codes Status Date Appointment: Katrin Ruiz WPtel: [address] [place], [place] [id number] 12/20/2024 Patient Education: Patient Medication Summary Completed 12/20/2024 Medical Equipment No Medical Equipment data Advance Directives No Advance Directive data
== END 2025-03-19 23:59 | disposition home or self-care (01) ==
LOC: RAD 09:40
PROVIDERS: PCP Family Medicine; Visit Provider Physician Assistant
DX: M17.12 Unilateral primary osteoarthritis, left knee (principal)
CPT/HCPCS: 73562

== ENCOUNTER 2025-03-22 12:30 | Outpatient (CLI) | payer MEDICARE, SELFPAY ==
--- OUTSIDE RECORDS SUMMARY | 2025-01-11 04:45 | XMS_ITS ---
Author Organization [facility] Address [address] [place] [phone] Care Team Providers Care Marine Fitter Name Role Phone Byron Steele Primary Care [address] [place] [phone] 01/11/2025 Byron Steele Cellulitis of right arm [...] Notes * Leoncio ANDRADEDOB:1955 (69 yo M)Acc No.[id number]:01/11/2025 Progress Notes Patient: Leoncio LIVINGSTON Provider: Helen Steele M.D. :1955 A ge:69 Y S ex:Male Date:01/11/2025 Address:[address] [place] [address] [id number] Subjective: * Chief Complaints: * 1 . [...] arm - L03.113 (Primary) 2 . B ID 30.0-30.9,adult - Z68.30 Plan: * Treatment: Value [...] G 2211 Complex e/[place], [address] CAPILLARY BLOOD DRAW, 80994 CBC WITH AUTO DIFF, G8752 MOST RECENT SYSTOLIC BP < 140MM HG, G8754 MOST RECENT DIASTOLIC BP < 90MM HG, G8783 BP SCR PRFRM RCMDD DEFIND SCR INTVL * Follow Up: v ia phone to report progress * Images: Billing Information: * Visit Code: 90268 Office Visit, Est Pt., Level 3. * Procedure Codes: G2211 Complex e/[place]. [address] CAPILLARY BLOOD DRAW. 64399 CBC WITH AUTO DIFF. G8752 MOST RECENT SYSTOLIC BP < 140MM HG. G8754 MOST RECENT DIASTOLIC BP < 90MM HG. G8783 BP SCR PRFRM RCMDD DEFIND SCR INTVL. * Electronic signature of Franci Steele MD on 03/22/2025 at 12:35 PM EDT Sign off status: Pending * Provider: Helen Steele M.D. Date: 0 01/11/2025 Generated for Zoey singh/Carlota/Clementitting on: 0 03/22/2025 12:35 PM EDT History and Physical Notes * HPI [...]
--- OUTSIDE RECORDS SUMMARY | 2025-01-21 08:48 | XMS_ITS | Encounter Summary ---
Author Organization [facility] Address [facility] [place] [address] Care Team Providers Care Counter Tacker Name Role Phone Unavailable Primary Care Provider [...] release of HIV test results or diagnoses. [id number] Health Encounter Details Date Type Department Care Team (Latest Contact Info) Description 01/21/2025 8:48 AM EDT - 01/21/2025 11:59 PM EDT Hospital Encounter [facility] Diagnostic Radiology [address] [place] [address] System, Provider Not In Discharge [...]
--- OUTSIDE RECORDS SUMMARY | 2025-01-21 08:48 | XMS_ITS | Encounter Summary ---
Author Organization [facility] Address [facility] [place] [address] Care Team Providers Care Credit Risk Associate Name Role Phone Unavailable Primary Care Provider [...] release of HIV test results or diagnoses. [id number] Health Encounter Details Date Type Department Care Team (Latest Contact Info) Description 01/21/2025 8:48 AM EDT - 01/21/2025 11:59 PM EDT Hospital Encounter [facility] Diagnostic Radiology [address] [place] [address] System, Provider Not In Discharge [...]
--- OUTSIDE RECORDS SUMMARY | 2025-01-29 13:30 | XMS_ITS | Encounter Summary ---
Author Organization [facility] Address [address] [place] [address] Care Team Providers Care E Commerce Retailer Name Role Phone Unknown, Attending Provider Primary [...] release of HIV test results or diagnoses. [id number] Reason for Visit * Auth/Cert (Routine) Specialty Diagnoses / Procedures Referred By Nely t Referred To Contact Neurology [facility] Neurology at [address] [place] [address] Phone: tel: fax: Referral ID Status Reason Start Date Expiration Date Visits Re quested Visits Authorized [id number] 1 1 Encounter Details Date Type Department Care Team (Latest Contact Info) Description 01/29/2025 1:30 PM EDT Office Visit [facility] Neurology at [address] [facility] [address] [phone] Cody Morton MD [address] [place] [address] [place] [address] Parkinson's disease with dyskinesia and [...] He will communicate during this time through SaleMovehart or phone. 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 He [...] Resource Strain: Low Risk (03/07/2024) Received from [facility] Overall Financial Resource Strain (CARDIA) Difficulty of Paying Living Expenses: Not hard at all Food Insecurity: No Food Insecurity (03/07/2024) Received from [facility] Hunger Vital Sign Worried About Running Out of Food in the Last Year: Never true Ran Out of Food in the Last Year: Never true Transportation Needs: No Transportation Needs (03/07/2024) Received from [facility] PRAPARE - Transportation In the past 12 months, has lack of transportation kept you from medical appointments or from getting medications?: No In the past 12 months, has lack of transportation kept you from meetings, work, or from getting things needed for daily living?: No Physical Activity: Sufficiently Active (03/07/2024) Received from [facility] Exercise Vital Sign Days of Exercise per Week: 5 days Minutes of Exercise per Session: 30 min Stress: No Stress Concern Present (03/07/2024) Received from [facility] [employer] Occupational Health - Occupational Stress Questionnaire Feeling of Stress : Not at all Social Connections: Not At Risk (03/07/2024) Received from [facility] Family and Community Support If for any reason you need help with day-to-day activities such as bathing, preparing meals, shopping, managing finances, etc., do you get the help you need?: I don't need any help How often do you feel lonely or isolated from those around you?: Never Intimate Partner Violence: Not At Risk (03/07/2024) Received from [facility] Abuse Screen Feels Unsafe at Home or Work/School: no Feels Threatened by Someone: no Does Anyone Try to Keep You From Having Contact with Others or Doing Things Outside Your Home?: no Physical Signs of Abuse Present: no Housing Stability: Not At Risk (03/07/2024) Received from [facility] Housing Stability Current Living Arrangements: home Potentially Unsafe Housing Conditions: none Review of Systems Refer to [facility] for review of systems documentation. See [...] 1+ 1+ Patellar 1+ 1+ Coordination Right: Rgxthm-cq-sydb normal.Left: Xnrtiv-np-yubm normal. Gait Casual gait: Narrow stance. Reduced [...] Parkinson's disease with dyskinesia and fluctuating manifestations ([facility]) 7-year progression of asymmetric tremor (L), bradykinesia, [...] He will communicate during this time through SaleMovehart or phone. Yanira Browning Movement Disorder Fellow/ PGY 5 [facility] 01/29/2025 I saw and examined this [...] Primary documented in this encounter Care Teams E Commerce Retailer Relationship Specialty Start Date End Date Unknown, Attending Provider PCP - General 01/24/25 documented as of this encounter
--- OUTSIDE RECORDS SUMMARY | 2025-02-11 08:30 | XMS_ITS | Encounter Summary ---
Author Organization [facility] Address [address] [place] [address] Care Team Providers Care Process Pumper Name Role Phone Byron Steele MD Primary Care Provider [phone] Reason for Visit * Reason Comments Parkinson's Disease Encounter Details Date Type Department Care Team (Late st Contact Info) Description 02/11/2025 8:30 AM EDT Office Visit [facility] [address] [facility] [address] [place] [phone] Coy Munguia, DNP, RUBBER GOODS INSPECTOR [address] [facility] [address] [place] [address] Parkinson's disease with dyskinesia, unspecified [...] = 0.6 oz pur e alcohol) rarely [facility] Utilities Answer Date Recorded In the past 12 months has e electric, gas, oil, or water [employer] threatened to shut off services in your [...] Brief Depression Severity Measure Score 0 08/01/2023 [facility] of Occupat ional Health - Occupational Stress [...] GED or equivalent No 03/07/2024 Preferred Language Portuguese 03/07/2024 PHQ-2 Answer Date Recorded Retired PHQ-9: [...] encounter Progress Notes * Coy Munguia, DNP, RUBBER GOODS INSPECTOR - 02/11/2025 8:30 AM EDT Neuro Office [...] [x] Records Requested [] Patient or patient medical billing representative verbalized consent for the use of Ambient Listening during the visit with Coy Munguia DNP, APRN for chart documentation. 02/11/2025 08:21 EDT Coy Munguia DNP, APRN documented in this encounter Plan of Treatment Upcoming Encounters Date Type Department Care Team (Late st Contact Info) Description 05/14/2025 8:30 AM EDT Office Visit [facility] [address] [facility] [address] [place] [address] Coy Munguia DNP, APRN [address] [facility] [address] [place] [address] 05/14/2025 11:00 AM EDT Office Visit [facility] [address] [address] Carlie Valiente APRN [address] [facility] [address] [place] [address] [phone] documented as of this encounter Goals Goal [...] documented as of this encounter Care Teams Process Pumper Relationship Specialty Start Date End Date Byron Steele MD [address] [place] [facility] [address] [facility] [address] [place] [address] PCP - General Family Medicine 12/21/19 documented as of this encounter
--- OUTSIDE RECORDS SUMMARY | 2025-02-11 11:15 | XMS_ITS | Encounter Summary ---
Author Organization [facility] Address [address] [place] [id number] Care Team Providers Care Executive Assistant To General Counsel Name Role Phone Byron Steele MD Primary Care Provider [phone] Reason for Visit * Reason Comments Erectile Dysfunction Overactive bladder Cystitis Encounter Details Date Type Department Care Team (Late st Contact Info) Description 02/11/2025 11:15 AM EDT Office Visit [facility] UROLOGY [address] [place] [address] [address] [place] [address] Carlie Valiente APRN [address] [facility] [address] [place] [address] OAB (overactive bladder) (Primary Dx); Erectile dysfunction, unspecified erectile dysfunction type; Acute cystitis without hematuria; Mixed stress and urge urinary incontinence Social History Tobacco Use Types Packs/Day Years Used Date Smoking Tobacco: Every Day Cigarettes Cigars Passive Smoke Exposure: Current Smokeless Tobacco: Never Alcohol Use Standard Drinks/Week Comments Not Currently 1 (1 standard drink = 0.6 oz pur e alcohol) rarely C Utilities Answer Date Recorded In the past 12 months has [employer], gas, oil, or water company threatened to shut off services in your [...] Brief Depression Severity Measure Score 0 08/01/2023 [facility] - Occupational Stress Questionnaire Answer Date Recorded [...] GED or equivalent No 03/07/2024 Preferred Language Kiswahili 03/07/2024 PHQ-2 Answer Date Recorded Retired PHQ-9: [...] Sign Reading Time Taken Comments Blood Pressure 98/65 02/11/2025 11:21 AM EDT Pulse 89 02/11/2025 11:21 AM EDT Temperature - - Respiratory Rate - - Oxygen Saturation 95% 02/11/2025 11:21 AM EDT Inhaled Oxygen Concentration - - Weight - - Height - - Body Mass Index - - documented in this encounter Progress Notes * Carlie Valiente APRN - 02/11/2025 11:15 AM EDT Images from the original note were not included. LUTS Male Office Visit Patient Name: Leoncio Harman : 1955 Chief Complaint: Lower Urinary Tract Symptoms. Chief Complaint Patient presents with Erectile Dysfunction Overactive bladder Cystitis Referring Provider: No ref. provider found History of Present Illness: Mr. Harman is a 69 y.o. male with history of lower urinary tract symptoms including urinary frequency, urinary urgency, nocturia 2- 3 and intermittent urinary incontinence. Patient presents today for 3-month follow-up regarding the related symptoms while taking Gemtesa. Patient reports significant symptom improvement while taking beta 3 agonist, Gemtesa. He has decreasein urinary frequency, urgency and nocturia with no urinary incontinence. Patient and patient's spouse report they are both very happy with symptom improvement. Patient has refractory erectile dysfunction managed with intracavernosal Trimix injections. Patientreports he is injecting 50 units of Trimix to obtain and maintain erections for intercourse. He andspouse are both curious if there is a stronger concentration they could utilize to decrease amount of units being utilized. Urinalysis today is negative for infection or blood. Subjective Review of System: Review of Systems Genitourinary: Negative. All other systems reviewed and are negative. I have reviewed the ROS documented by my clinical staff, I have updated appropriately and I agree. Carlie Valiente APRN Past Medical History: Past Medical History: Diagnosis Date Acid reflux Arthritis 2014 Benign prostatic hyperplasia 2009 Cervical disc disorder 2019 Chronic pain disorder Years ago Degeneration of lumbar or lumbosacral intervertebral disc 03/06/2020 Difficulty walking Elevated PSA 2009 Erectile dysfunction 2022 Low back pain 2014 Parkinson disease Sciatica associated with disorder of lumbar spine 04/19/2023 Spinal stenosis Years ago Thoracic disc disorder 2014 Urinary incontinence Aug 2024 Urinary tract infection Aug 2024 Past Surgical History: Past Surgical History: Procedure Laterality Date BLEPHAROPLASTY Bilateral COLONOSCOPY LAMINECTOMY Apr 2023 LUMBAR LAMINECTOMY Right 05/11/2023 Procedure: Minimally invasive lumbar laminectomy L4-5; Surgeon: Blaine David MD; Location: [facility]; Service: Neurosurgery; Laterality: Right; LUMBAR LAMINECTOMY WITH FUSION N/A 03/06/2024 Procedure: LUMBAR LAMINECTOMY DISCECTOMY POSTERIOR LUMBAR INTERBODY FUSION REVISION L4-5; Surgeon: Blaine David MD; Location: [facility]; Service: Neurosurgery; Laterality: N/A; Medications: Current Outpatient Medications: carbidopa-levodopa (SINEMET) 25-100 [...] Disp: , Rfl: Allergies: No Known Allergies Social History: Social History Socioeconomic History Marital [...] activity: Yes Partners: Female control/protection: Tubal ligation Family History: Family History Problem Relation Age [...] Hx Neuropathy Neg Hx Seizures Neg Hx IPSS Questionnaire (AUA-7): Over the past month??? 1) Incomplete Emptying How often have you had a sensation of not emptying your bladder? 1 - Less than 1 time in 5 2) Frequency How often have you had to urinate less than every two hours? 2 - Less than half the time 3) Intermittency How often have you found you stopped and started again several times when you urinated? 1 - Less than 1 time in 5 4) Urgency How often have you found it difficult to postpone urination? 2 - Less than half the time 5) Weak Stream How often have you had a weak urinary stream? 2 - Less than half the time 6) Straining How often have you had to push or strain to begin urination? 0 - Not at all 7) Nocturia How many times did you typically get up at night to urinate? 2 - 2 times Total Score: 10 The International Prostate Symptom Score (IPSS) is used to screen, diagnose, track symptoms of benign prostatic hyperplasia (BPH). 0-7 pts (Mild Symptoms) / 8-19 pts (Moderate) / 20-35 (Severe) Quality of life due to urinary symptoms: If you were to spend the rest of your life with your urinary condition the way it is now, how wouldyou feel about that? 2-Mostly Satisfied Urine Leakage (Incontinence) 0-No Leakage Post void residual bladder scan: 0 cc Objective Physical Exam: Vital Signs: Vitals: 02/11/25 1121 BP: 98/65 Pulse: 89 SpO2: 95% There is no height or weight on file to calculate BMI. Physical Exam Vitals and nursing note reviewed. Constitutional: Appearance: Normal appearance. Pulmonary: Effort: Pulmonary effort is normal. Neurological: Mental Status: He is alert and oriented to person, place, and time. Psychiatric: Mood and Affect: Mood normal. Behavior: Behavior normal. Labs: No results found for: PSA Brief Urine Lab Results (Last result in the past 365 days) Color Clarity Blood Leuk Est Nitrite Protein CREAT Urine HCG 02/11/25 1157 Yellow Clear Negative Negative Negative Negative Lab Results Component Value Date GLUCOSE 91 03/01/2024 CALCIUM 8.9 03/01/2024 NA 142 03/01/2024 K 4.5 03/01/2024 CO2 29.0 03/01/2024 CL 107 03/01/2024 BUN 17 03/01/2024 CREATININE 1.13 03/01/2024 BCR 15.0 03/01/2024 ANIONGAP 6.0 03/01/2024 Lab Results Component Value Date WBC 6.31 03/01/2024 HGB 13.1 03/01/2024 HCT 41.6 03/01/2024 MCV 89.1 03/01/2024 PLT 160 03/01/2024 Images: No Images in the past 120 days found.. Measures: Tobacco: Leoncio Harman reports that he has been smoking cigars and cigarettes. He has been exposed to tobacco smoke. He has never used smokeless tobacco. Urine Incontinence: Patient reports that he is not currently experiencing any symptoms of urinary incontinence. Assessment / Plan Assessment: Mr. Harman is a 69 y.o. male who presented today with lower urinary tract symptoms including urinary frequency, urinary urgency, nocturia 2-3 and intermittent urinary incontinence. Patient continues to report significant symptom improvement while taking beta 3 agonist, Gemtesa. He would like to co ntinue medication for symptom management. Patient and patient's spouse are both interested in a stronger concentration of intracavernosal Trimix injections. We discussed decreasing amount of units injecting with stronger concentration. We discussed monitoring for priapism while utilizing injections. If priapism occurs we discussed presenting to the nearest emergency department for treatment. Diagnoses and all orders for this visit: 1. OAB (overactive bladder) (Primary) - POC Urinalysis Dipstick, Automated 2. Erectile dysfunction, unspecified erectile dysfunction type 3. Acute cystitis without hematuria 4. Mixed stress and urge urinary incontinence Follow Up: Return in about 3 months (around 05/14/2025) for Next scheduled follow up. I spent approximately 30 minutes providing clinical care for this patient; including review of patient's chart and provider documentation, face to face time spent with patient in examination room (obtaining history, performing physical exam, discussing diagnosis and management options), placing orders, and completing patient documentation. Carlie Valiente APRN [facility] Urology [place] documented in this encounter Plan of Treatment Upcoming Encounters Date Type Department Care Team (Late st Contact Info) Description 05/14/2025 8:30 AM EDT Office Visit [facility] NEUROLOGY [address] [facility] [address] [place] [phone] Coy Munguia, LEXI, MACHINE BINDING FOLDER [address] [facility] [address] [place] [address] 05/14/2025 11:00 AM EDT Office Visit [facility] UROLOGY [address] [address] Carlie Valiente APRN [address] [facility] [address] [place] [address] documented as of this encounter Goals Goal Patient Goal Type Associated Problems Recent Progress Patient-Stated? Author Autogenerat ed Goal Care Plan Autogenerated Problem No Kelly Guzman, RN documented as of this encounter Procedures Procedure Name Priority Date/Time Associated Diagnosis Comments POCT URINALYSIS DIPSTICK, AUTOMATED Routine 02/11/2025 11:57 AM EDT OAB (overactive bladder) documented in this encounter Results * (ABNORMAL) POC Urinalysis Dipstick, Automated (02/11/2025 11:57 AM EDT) Color Yellow Yellow, Straw, Dark Yellow, Guillermina [facility] Clarity, UA Clear Clear [facility] Specific [place] 1.025 1.005 - 1.030 [facility] pH, Urine 6.0 5.0 - 8.0 [facility] Leukocytes Negative Negative [facility] Nitrite, UA Negative Negative [facility] Protein, POC Negative Negative mg/dL [facility] Glucose, UA Negative Negative mg/dL [facility] Ketones, UA Trace(A) Negative [facility] Urobilinogen, UA Normal Normal, 0.2 E.U./dL [facility] Bilirubin Small (1+)(A) Negative [facility] Blood, UA Negative Negative [facility] Lot Number [id number] [facility] Expiration Date 05/10/2026 [facility] Urine 02/11/2025 11:5 7 AM EDT Carlie Valiente MACHINE BINDING FOLDER POINT OF CARE TEST ORDERABLES Final Result [facility]
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
--- OUTSIDE RECORDS SUMMARY | 2025-02-12 07:15 | XMS_ITS ---
Author Organization [facility] Address [address] [place] [id number] Care Team Providers Care Shipfitter Apprentice Name Role Phone Cedric Byron Primary Care [...] [address] [place] [phone] 02/12/2025 Byron Steele Olecranon bursitis o f [...] Notes * Leoncio ANDRADEDOB:1955 (69 yo M)Acc No.[id number]:02/12/2025 Progress Notes Patient: Leoncio [place] Provider: Helen Steele M.D. :1955 A ge:69 Y S ex:Male Date:02/12/2025 Address:[address] [place] [address] [id number] Subjective: * Chief Complaints: * 1 . [...] Information: * Visit Code: * Procedure Codes: 20675 DRAIN/INJECT BURSA,HEEL, WRIST, ELBOW ANKLE, OLECRANON BURSA. G2211 Complex e/m visit add on. * Electronic signature of Franci Steele MD on 03/22/2025 at 12:34 PM EDT Sign off status: Pending * Provider: Helen Steele M.D. Date: 0 02/12/2025 Generated for Zoey singh/Carlota/Raphael on: 0 03/22/2025 12:34 PM EDT History and Physical Notes * [...]
--- OUTSIDE RECORDS SUMMARY | 2025-02-26 07:30 | XMS_ITS ---
Author Organization [facility] Address [address] [facility] [address] [place] [id number] Care Team Providers Care Rigging Up Worker Name Role Phone Byron Steele Primary Care Provider [phone] Allergies No Known Allergies Results Component Value Reference Range Notes P-Culture Body Fluid Reviewed date:03/06/2025 12:29:17 PM Interpretation:No growth Performing Lab: Notes/Report: Test performed by [facility] [address] [place], [place] [address] [address] , [address], [place] [address] Felix Schwartz MD, Lead Pharmacy Technician CLIA: [id number] Specimen Source Fluid - Olecranon bursa Culture Body Fluid See Below Final Rep ort : No growth P-Culture, Miscellaneous Aer obic w/Gram Stain Reviewed date:03/06/2025 12:29:18 PM Interpretation:No growth Performing Lab: Notes/Report: Test performed by [facility] [address] [place], [place] [address] [address] , [address], [place] [address] Felix Schwartz MD, Lead Pharmacy Technician CLIA: [id number] Specimen Source Fluid - Olecranon bursa Gram Stain See Below Few Polymorphonuclear leukocytes No organisms seen Culture, Miscellaneous Aerobic w/Gram Stain See Below Preliminary Report : No growth, reincubate Final Report : No growth P-Cell Count and Differentia l, Body Fluid Reviewed date:03/06/2025 12:29:18 PM Interpretation:Normal Performing Lab: Notes/Report: Test performed by [facility] [address] , [place] [address] Felix Schwartz MD, Lead Pharmacy Technician CLIA: [id number] Fluid Type Synovial Fluid Color [place] Fluid Appearance Hazy Fluid Red Blood Cell (RBC) Count 97571 Total Nucleated Cell Count (WBC) 254 Synovial [...] Fluid Synovial Lining Cells 0 Fluid Specific Mcdonald 1.032 Crystals Fluid Not Present Uric Acid, Body Fluid Reviewed date:03/06/2025 12:29:18 PM Interpretation:Normal Performing Lab: Notes/Report: Uric Acid, Body Fluid 6.0 INTERPRETIVE INFORMATION: Uric Acid, Body Fluid For information on body fluid reference ranges and/or interpretive guidance visit [email or web address]/bodyflui ds/ This test was developed and its performance characteristics determined by [facility]. It has not been cleared or approved by the US Food and Drug Administration. This test was performed in a CLIA certified laboratory and is intended for clinical purposes. Performed By: [facility] [address] [place], [place] [id number] Lead Pharmacy Technician: Dutch Recinos MD, PhD CLIA Number: [id number] INTERPRETIVE INFORMATION: Uric Acid, Body Fluid For information on body fluid reference ranges and/or interpretive guidance visit http://MoSo/Cloakflui ds/ This test was developed and its performance characteristics determined by [facility]. It has not been cleared or approved by the US Food and Drug Administration. This test was performed in a CLIA certified laboratory and is intended for clinical purposes. Performed By: [facility] [address] [place], [place] [id number] Lead Pharmacy Technician: Dutch Recinos MD, PhD CLIA Number: [id number] Uric Acid Fluid Source Joint fluid Olecr anon bursa Uric Acid, Body Fluid 6.0 INTERPRETIVE INFORMATION: Uric Acid, Body Fluid For information on body fluid reference ranges and/or interpretive guidance visit http://MoSo/bodyflui ds/ This test was developed and its performance characteristics determined by [facility]. It has not been cleared or approved by the US Food and Drug Administration. This test was performed in a CLIA certified laboratory and is intended for clinical purposes. Performed By: [facility] [address] [place] [address] Lead Pharmacy Technician: Dutch Recinos MD, PhD CLIA Number: [id number] INTERPRETIVE INFORMATION: Uric Acid, Body Fluid For information on body fluid reference ranges and/or interpretive guidance visit http://MoSo/bodyflui ds/ This test was developed and its performance characteristics determined by [facility]. It has not been cleared or approved by the US Food and Drug Administration. This test was performed in a CLIA certified laboratory and is intended for clinical purposes. Performed By: [facility] [address] [place] [address] Lead Pharmacy Technician: Dutch Recinos MD, PhD CLIA Number: [id number] REASON FOR VISIT elbow Medications Medication SIG [...] Duration: 30 day(s) Active Vital Signs Weight 216 lbs 02/26/2025 Blood pressure systolic 112 mm Hg 02/27/20 25 Blood pressure diastolic 70 mm Hg 025 Heart Rate 84 /min 02/26/2025 Height 71.5 in 02/26/2025 BMI 29.7 kg/m2 02/26/2025 Encounters Encounter Location Date Provider Diagnosis [facility] [address] [place] [id number] 02/26/2025 Byron Steele Olecranon bursitis o f [...] Notes * Leoncio ANDRADEDOB:1955 (69 yo M)Acc No.[id number]:02/26/2025 Progress Notes Patient: Leoncio LIVINGSTON Provider: Helen Steele M.D. :1955 A ge:69 Y S ex:Male Date:02/26/2025 Address:[address] [place] [address] [place] Subjective: * Chief Complaints: * 1 . [...] Appearance Hazy - * F luid Color [place] - * F luid Eos 0 - % * F luid Lymphs 61 - % * F luid Mesothelial Cell 0 - % * F luid Monocytes 20 - % * F luid RBC 09765 - cu/mm * F luid Specific Mcdonald 1.032 - * F luid Unidentified Cells 0 - % * F luid Type Synovial - * T otal Nucleated Cell Count (WBC) 254 - cu/mm * F luid Macrophage 0 - % * F luid Neutrophils 19 - % * F luid Synovial Lining Cells 0 - % * [facility], IT support 02/28/2025 10:40:05 : This order was created by the Interface. Mavis Rubio 03/06/2025 12:28:25 PM EDT > Pt informed ?Lab: Uric Acid, Body Fluid (Collection Date & Time - 02/26/2025 11:27 AM) ?Normal* Value Reference Range U jacqueline Acid, Body Fluid 6.0 - mg/dL * U jacqueline Acid Fluid Source Joint fluid - * [facility], IT support 02/28/2025 10:40:06 : This order [...] G shelby Stain See Below - * [facility], IT support 03/03/2025 03:15:05 : This order was created by the Interface. Mavis Rubio 03/06/2025 12:28:25 PM EDT > Pt informed * Procedure Codes: 2 0605 DRAIN/INJECT BURSA,HEEL, WRIST, ELBOW ANKLE, OLECRANON BURSA, G2211 Complex e/m visit add on * Follow Up: v ia phone to report progress and test results * Images: Billing Information: * Visit Code: * Procedure Codes: 89715 DRAIN/INJECT BURSA,HEEL, WRIST, ELBOW ANKLE, OLECRANON BURSA. G2211 Complex e/m visit add on. * Electronic signature of Franci Steele MD on 03/22/2025 at 12:33 PM EDT Sign off status: Pending * Provider: Helen Steele M.D. Date: 0 02/26/2025 Generated for Zoey singh/Carlota/eTransmitting on: 0 03/22/2025 12:33 PM EDT History and Physical Notes * [...]
--- OUTSIDE RECORDS SUMMARY | 2025-03-15 16:30 | XMS_ITS | Encounter Summary ---
Author Organization [facility] Address [address] [place] [address] Care Team Providers Care Position Classification Specialist Name Role Phone Unknown, Attending Provider [...] release of HIV test results or diagnoses. [id number] Health Encounter Details Date Type Department Care Team (Latest Contact Info) Description 03/15/2025 4:30 PM EDT Office Visit [facility] [address] [place] [address] Cody Morton MD [address] [facility] [place] [address] Parkinson's disease with dyskinesia and fluctuating manifestations ([facility]-HCC) (Primary Dx) Social History Tobacco Use [...] He will communicate during this time through [employer] or phone. documented in this encounter Plan of Treatment Not on file documented as of this encounter Visit Diagnoses Diagnosis Parkinson's disease with dyskinesia and fluctuating manifestations (CMS-HCC)- Primary documented in this encounter Care Teams Position Classification Specialist Relationship Specialty Start Date End Date Unknown, Attending Provider PCP - General 01/24/25 documented as of this encounter
--- OUTSIDE RECORDS SUMMARY | 2025-03-22 12:33 | XMS_ITS | Clinical Summary ---
Author Organization [facility] Address [address] [place] [address] Phone Care Team Providers Care Picked Edge Sewing Machine Operator Name Role Phone Day, Nino Unavailable Unavailable Conditions or Problems Problem Name Problem Code Onset Date Status Entry Date Provider Comment Standard Description Annotate Strep pyogenes infection B95.4 (ICD-10-CM ) 12/01 Active 12/01 Yari Ayad Other streptococcus as the cause of diseases classified elsewhere Chronic venous stasis disease 06650015 (SNOMED CT) 12/02 Active 12/02 Yari Ayad Stasis dermatitis Neutrophilic leukemoid reaction D72.823 (ICD-10-CM ) 12/02 Active 12/02 Yari Ayad Leukemoid reaction Smoking cessation counseling 171190283 (SNOMED CT) 12/07 Active 12/07 Carolee Cari Procedure carried out on subject Other obesity due to excess calories 643155284 (SNOMED CT) 12/07 Active 12/07 Carolee Cari Simple obesity Leukocytosis 305174906 (SNOMED CT) 12/02 Inactive 12/02 Jayson Ceja MD Leukocytosis Venous stasis 99987121 (SNOMED CT) 12/02 Inactive 12/02 Jayson Ceja MD Venous stasis Pneumonia 592936334 (SNOMED CT) 12/01 Active 12/01 Shae Edkareen Pneumonia Peripheral venous insufficiency 67123134 (SNOMED CT) 12/01 Active 12/01 Shae Edelen Peripheral venous insufficiency Cellulitis of right lower limb 437375058 (SNOMED CT) 12/01 Active 12/01 Shae Edelen Cellulitis of leg, excluding foot Streptococcus pyogenes infection 291774971 (SNOMED CT) 12/01 Inactive 12/01 Shae Oharakareen Streptococcus pyogenes infection Parkinson's disease 40664294 (SNOMED CT) 12/01 Active 12/01 Shae Oharakareen Parkinson's disease Nicotine dependence 97693846 (SNOMED CT) 12/01 Inactive 12/01 Shae August Nicotine dependence Problem excluded marlys black report: Nicotine dependence 76239780 (SNOMED CT) 12/01 Removed 12/01 Alessandra Christensen Nicotine dependence Medications Medication Instructions Start Date Stop Date Generic Name NDC Provider Hibiclens 4% liquid Apply 1 as directed to skin once a day 05/18 chlorhexidine gluconate 46632693509 Jayson Ceja MD MUPIROCIN 2 % OINT Apply 1 as directed to affected area twice a day Apply to each nostril twice a day. Once in the morning and once in the evening for 5 days mupirocin 61553868676 Jayson Ceja MD CEPHALEXIN 500 MG CAPS Take 1 capsule by mouth four times a day 02/26 cephalexin 90661169735 Jayson Ceja MD CEPHALEXIN 500 MG CAPS 1 capsule by mouth four times a day 5/ cephalexin 52423976899 Jayson Ceja MD rocnuno Rocephin 2G IV Q24hrs / INPAT 12/09 rocnuno Deleon RN CEPHALEXIN 500 MG CAPS by mouth every eight hours 12/09 cephalexin 43336937808 Jayson Ceja MD CEPHALEXIN 500 MG CAPS Take 1 capsule by mouth four times a day 12/16 cephalexin 68982722641 Jayson Ceja MD rocnuno Rocephin 2G IV Q24hrs / INPAT 12/09 rocephin Lora Juanpablo RN MUCINEX MAXIMUM STRENGTH 1200 MG [id number] qd guaifenesin 24419278810 Alessandra Christensen PREGABALIN 75 MG CAPS three times daily pregabalin 60483042971 Alessandra Christensen PRAMIPEXOLE DIHYDROCHLORIDE 1 MG TABS three times daily pramipexole 07604079289 Alessandra Christensen ESOMEPRAZOLE MAGNESIUM 40 MG CPDR qd esomeprazole magnesium 18335926207 Alessandra Christensen Mirapex 1 mg tablet by mouth three times a day pramipexole 97011098938 Tonia Parham CARBIDOPA-LEVODOPA ER 25-100 MG CR-TABS 2 tablet by mouth four times a day carbidopa-levod opa 36755392295 Tonia Parham NEXIUM 40 MG CPDR by mouth once a day esomeprazole magnesium 98265758849 Tonia Parham LYRICA 75 MG CAPS by mouth three times a day pregabalin 70639614136 Tonia Parham LORATADINE 10 MG TABS by mouth once a day loratadine 63398332993 Tonia Parham CEPHALEXIN 500 MG CAPS by mouth every eight hours 12/09 cephalexin 60107462895 Tonia Parham LEVOFLOXACIN 750 MG TABS by mouth once a day levofloxacin 79034151088 Tonia Parham Medications Administered No information available. [...] Stat Weekly Labs CPT-david New IV antibiotic CPT-23070 CMP CPT-95941 CBC w/o Differential Vital Signs Date Name [...]
--- OUTSIDE RECORDS SUMMARY | 2025-03-22 12:33 | XMS_ITS | Encounter Summary ---
Author Organization [facility] Address [address] [place] [address] Care Team Providers Care V Belt Inspector Name Role Phone Unavailable Primary Care Provider [...] release of HIV test results or diagnoses. [id number] Reason for Visit * Reason Comments Appointment Encounter Details Date Type Department Care Team (Late st Contact Info) Description 01/18/2025 Telephone [facility] Neurology at [address] [place] [phone] Rina Rocha MA Appointment Social History [...] Rocha MA - 01/18/2025 11:18 AM EDT [facility] will push: MRI Brain with and without contrast 03/12/2023 MRI Brain with and without contrast 01/29/2020 In chart per PACS documented in this encounter Plan of Treatment Not on file documented as of this encounter Visit Diagnoses Not on filedocumented in this encounter
--- OUTSIDE RECORDS SUMMARY | 2025-03-22 12:34 | XMS_ITS | Encounter Summary ---
Author Organization [facility] Address [address] [place] [address] Care Team Providers Care Starch Factory Laborer Name Role Phone Byron Steele MD Primary Care Provider + [phone] Reason for Visit * Reason Comments Med Refill Encounter Details Date Type Department Care Team ([facility] st Contact Info) Description 07/31/2024 Refill [facility] [address] [facility], [address] [place] [address] Gregory Simpson MD [address] [facility] [address] [place] [address] Social History Tobacco Use Types [...] documented as of this encounter Care Teams Starch Factory Laborer Relationship Specialty [place] [address] [place] [address] PCP - General 03/30/24 documented as of this encounter
--- OUTSIDE RECORDS SUMMARY | 2025-03-22 12:34 | XMS_ITS | Clinical Summary ---
Author Organization [facility] Address [address] [place] [address] Care Team Providers Care Annual Giving Officer Name Role Phone Byron Steele MD Primary Care Provider [phone] Allergies No known active allergies Medications esomeprazole [...] Administration Dates Next Due Moderna COVID-19 Vaccine (Director Of Casino) 12+ years Pneumococcal 20-noy Conj Vaccine 09/02/2023 [...] UKY-Abdominal Aortic Aneurys m (AAA) Screening 2020 [id number] Vaccine (3 - season) 2024 08/09/2021, 10/29/2020 [...] this topic Insurance ANTHEM MEDICARE Care Teams Annual Giving Officer Relationship Specialty Start Date End Date Byron Steele MD [address] [facility] [address] [place] [address] PCP - General 03/30/24
--- OUTSIDE RECORDS SUMMARY | 2025-03-22 12:34 | XMS_ITS | Encounter Summary ---
[facility] Organization [facility] Address [address] [place] [address] Care Team Providers Care Sock Lining Stitcher Name Role Phone Byron Steele MD Primary Care Provider [phone] Encounter Details Date Type Department Care Team (Late st Contact Info) Description 12/10/2024 Results Follow-Up [facility] UROLOGY [address] [facility] [address] [place] [address] Mustapha Madison PA-C [address] [facility] [address] [place] [address] Social History Tobacco Use Types Packs/Day Years Used Date Smoking Tobacco: Some Days Cigarettes Cigars Passive Smoke Exposure: Current Smokeless Tobacco: Never Alcohol Use Standard Drinks/Week Comments Not Currently 1 (1 standard drink = 0.6 oz pur e alcohol) rarely [facility] Utilities Answer Date Recorded In the past 12 months has [employer], gas, oil, or water [employer] threatened to shut off services in your [...] Brief Depression Severity Measure Score 0 08/01/2023 [facility] - Occupational Stress Questionnaire Answer Date [...] GED or equivalent No 03/07/2024 Preferred Language Syriac 03/07/2024 PHQ-2 Answer Date Recorded Retired PHQ-9: [...] Description 05/14/2025 8:30 AM EDT Office Visit [facility] [address] [facility] [address] [place] [address] Coy Munguia, DNP, DAY CARE WORKER [address] 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
--- OUTSIDE RECORDS SUMMARY | 2025-03-22 12:34 | XMS_ITS | Encounter Summary ---
Author Organization [facility] Address [address] [place] [address] Care Team Providers Care Ice Scraper Name Role Phone Byron Steele MD Primary Care Provider [phone] Encounter Details Date Type Department Care Team (Latest Contact Info) Description 02/11/2025 Travel Social History Tobacco Use Types Packs/Day Years Used Date Smoking Tobacco: Every Day Cigarettes Cigars Passive Smoke Exposure: Current Smokeless Tobacco: Never Alcohol Use Standard Drinks/Week Comments Not Currently 1 (1 standard drink = 0.6 oz pur e alcohol) rarely [facility] Utilities Answer Date Recorded In the past 12 months has [employer], gas, oil, or water [employer] threatened to shut off services in your [...] Brief Depression Severity Measure Score 0 08/01/2023 [facility] - Occupational Stress [...] GED or equivalent No 03/07/2024 Preferred Language Macedonian 03/07/2024 PHQ-2 Answer Date Recorded Retired PHQ-9: [...] Description 05/14/2025 8:30 AM EDT Office Visit [facility] NEUR[facility] [address] [facility] [address] [place] [address] Coy Munguia, DNP, BEAUTY DIRECTOR [address] [facility] [address] [place] [address] 05/14/2025 11:00 AM EDT Office Visit [facility] [address] [facility] [address] [place] [address] Carlie Valiente, BEAUTY DIRECTOR 1760 [facility] [address] [place] [id number] documented as of this encounter Goals Goal [...] documented as of this encounter Care Teams Ice Scraper Relationship Specialty Start Date End Date Byron Steele MD [address] [place] [address] PCP - General Family Medicine 12/21/19 documented as of this encounter
--- OUTSIDE RECORDS SUMMARY | 2025-03-22 12:34 | XMS_ITS | Encounter Summary ---
[facility] Organization [facility] Address [address] [place] [id number] Care Team Providers Care Straightener And Aligner Name Role Phone Byron Steele MD Primary Care Provider [phone] Encounter Details Date Type Department Care Team (Late st Contact Info) Description 03/01/2025 Telephone [facility] [address]60 [facility] [address] [place] [address] Carlie Valiente APRN 1760 [facility] [address] [place] [address] Social History Tobacco Use Types Packs/Day Years Used Date Smoking Tobacco: Every Day Cigarettes Cigars Passive Smoke Exposure: Current Smokeless Tobacco: Never Alcohol Use Standard Drinks/Week Comments Not Currently 1 (1 standard drink = 0.6 oz pur e alcohol) rarely [facility] Utilities Answer Date Recorded In the past 12 months has [employer], [employer], oil, or water [employer] threatened to shut off services in your [...] Measure Score 0 08/01/2023 [facility] - Occupational Stress Questionnaire Answer [...] GED or equivalent No 03/07/2024 Preferred Language Panamanian 03/07/2024 PHQ-2 Answer Date Recorded Retired PHQ-9: [...] [employer]. Our office will refax order to [facility] pharmacy regarding medication. Patient's spouse will alert questions or concerns. documented in this encounter Plan of Treatment Upcoming Encounters Date Type Department Care Team (Late st Contact Info) Description 05/14/2025 8:30 AM EDT Office Visit [facility] [address] [facility] 201 [place] [address] Coy Munguia, LEXI, ACID MIXER [address] [facility] [address] [place] [address] 05/14/2025 11:00 AM EDT Office Visit [facility] 1760 [facility] 502 [place] [address] Carlie Valiente APRN 1760 [facility] [address] [place] [address] documented as of this encounter Goals Goal [...] documented as of this encounter Care Teams Straightener And Aligner Relationship Specialty Start Date End Date Byron Steele MD 1210 [facility] [address] [facility] [address] [place] [id number] PCP - General Family Medicine 12/21/19 documented as of this encounter
--- OUTSIDE RECORDS SUMMARY | 2025-03-22 12:34 | XMS_ITS | Encounter Summary ---
Author Organization [facility] Address [address] [place] [address] Care Team Providers Care Software Developer Mid Level Name Role Phone Unknown, Attending Provider Primary [...] release of HIV test results or diagnoses. [id number] Reason for Visit * Reason Comments Medical Management Plan of Care Inquiry /Question Encounter Details Date Type Department Care Team (Late st Contact Info) Description 02/19/2025 Telephone [facility] Neurology at [facility] [address] [facility] [address] [place] [address] Cody Morton MD 5049 [facility] [place] [address] Medical Management (Plan of Care [...] on filedocumented in this encounter Care Teams Software Developer Mid Level Relationship Specialty Start Date End Date Unknown, Attending Provider PCP - General 01/24/25 documented as of this encounter
--- OUTSIDE RECORDS SUMMARY | 2025-03-22 12:34 | XMS_ITS | Encounter Summary ---
Author Organization [facility] Address [address] [place] [address] Care Team Providers Care Compressor Operator Portable Name Role Phone Unknown, Attending Provider Primary [...] release of HIV test results or diagnoses. [id number] Reason for Visit * Reason Comments Medical Management Request to Speak wit Office, No Details Provided Medication Management Encounter Details Date Type Department Care Team (Late st Contact Info) Description 03/15/2025 Telephone [facility] Neurology at [facility] 3273 [facility] [address]00 [place] [address] Cody Morton MD [address] [facility] [place] [address] Medical Management (Request to Speak [...] I spoke to Jody the [place] Nurse care clinician. She stated that the patient is doing [...] Requesting a call back . Please advise. [phone] documented in this encounter Plan of Treatment Not on file documented as of this encounter Visit Diagnoses Not on filedocumented in this encounter Care Teams Compressor Operator Portable Relationship Specialty Start Date End Date Unknown, Attending Provider PCP - General 01/24/25 documented as of this encounter
--- OUTSIDE RECORDS SUMMARY | 2025-03-22 12:34 | XMS_ITS | Encounter Summary ---
Author Organization [facility] Address [facility] [place] [address] Care Team Providers Care Metallurgy Teacher Name Role Phone Unknown, Attending Provider Primary [...] release of HIV test results or diagnoses. [id number] Health Encounter Details Date Type Department Care Team (Late st Contact Info) Description 02/19/2025 Telephone [facility] Neurology at [facility] [place] 0[address] [facility] [address] [place] [address] Cody Morton MD 3[address] [facility] [place] [address] Social History Tobacco Use Types [...] on filedocumented in this encounter Care Teams Metallurgy Teacher Relationship Specialty Start Date End Date Unknown, Attending Provider PCP - General 01/24/25 documented as of this encounter
--- OUTSIDE RECORDS SUMMARY | 2025-03-22 12:34 | XMS_ITS | Clinical Summary ---
Author Organization [facility] Address [address] [place] [address] Care Team Providers Care Slate Cutter Name Role Phone Unknown, Attending Provider Primary [...] therelease of HIV test results or diagnoses. 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 [address] [place] [address] Cierra Wang RN 02/19/2025 Telephone [facility] Neurology at [facility] [address] [facility] [address] [place] [address] Cody Morton MD Medical Management (Plan of Care Inquiry/Question ) 02/19/2025 Telephone [facility] Neurology at [facility] [address] [facility] [address] [place] [address] Cody Morton MD 01/29/2025 1:30 PM EDT Office Visit [facility] Neurology at [place] [address] 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 Diagnostic Radiology [address] [place] [address] System, Provider Not In Discharge Disposition: Home or Self Care WITHOUT Home Care Services 01/21/2025 8:48 AM EDT - 01/21/2025 11:59 PM EDT Hospital Encounter [facility] Diagnostic Radiology [address] [place] [address] System, Provider Not In Discharge Disposition: Home or Self Care WITHOUT Home Care Services 01/18/2025 Telephone [facility] Neurology at [facility] [address] [facility] [address] [place] [phone] Rina Rocha MA Appointment 12/26/2024 Chart Note [facility] Neurology at [facility] [address] [facility] [address] [place] [address] Rina Rocha MA from Last 3 Months [...] Result EXTERNAL from Last 3 Months Insurance [employer] [facility] Care Address: [facility] [address] [place] [address] Care Teams Slate Cutter Relationship Specialty Start Date End Date Unknown, Attending Provider PCP - General 01/24/25
--- OUTSIDE RECORDS SUMMARY | 2025-03-22 12:34 | XMS_ITS | Encounter Summary ---
Author Organization [facility] Address [address] [place] [address] Care Team Providers Care Court Bailiff Or Sheriff Name Role Phone Byron Steele MD Primary Care Provider [phone] Reason for Referral * Consultation (Routine) - Closed Specialty Diagnoses / Procedures Referred By Nely van Referred To Contact Neurology Diagnoses Parkinson's disease without fluctuating manifestations, unspecified whether dyskinesia present (CMS/HCC) Coy Munguia APRN [address] [place] [address] Phone: tel: fax: Referral ID Status Reason Start Date Expiration Date V isits Requested Visits Authorized [id number] Closed Specialty Services Required 08/12/2023 02/10/2025 1 1 Encounter Details Date Type Department Care Team (Late st Contact Info) Description 08/12/2023 Community [facility] [address] [place] [address] Coy Munguia APRN [address] [place] [address] Parkinson's disease without fluctuating manifestations, unspecified whether [...] dyskinesia present (CMS/[facility])- Primary documented in this encounter Care Teams Court Bailiff Or Sheriff Relationship Specialty Start Date End Date Byron Steele MD [address] [place] [address] PCP - General 03/30/24 documented as of this encounter
--- OUTSIDE RECORDS SUMMARY | 2025-03-22 12:34 | XMS_ITS | Encounter Summary ---
Author Organization [facility] Address [address] [place] [address] Care Team Providers Care Engineer Of System Development Name Role Phone Unknown, Attending Provider Primary [...] release of HIV test results or diagnoses. [id number] Health Encounter Details Date Type Department Care Team (Late st Contact Info) Description 02/28/2025 Telephone [facility] Neurology at [facility] [address] [place] [address] [place] [address] Cierra Wang, NISA Social History Tobacco [...] on filedocumented in this encounter Care Teams Engineer Of System Development Relationship Specialty Start Date End Date Unknown, Attending Provider PCP - General 01/24/25 documented as of this encounter
--- OUTSIDE RECORDS SUMMARY | 2025-03-22 12:34 | XMS_ITS | Encounter Summary ---
Author Organization [facility] Address [address] [place] [id number] Care Team Providers Care Shot Packer Name Role Phone Byron Steele MD Primary Care Provider [phone] Reason for Visit * Reason Comments Med Refill Encounter Details Date Type Department Care Team (Late st Contact Info) Description 02/02/[address] [facility] UROLOGY [address] [facility] [address] [place] [address] Carlie Valiente, ELISE [address] [facility] [address] [place] [address] OAB (overactive bladder) Social History Tobacco Use Types Packs/Day Years Used Date Smoking Tobacco: Every Day Cigarettes Cigars Passive Smoke Exposure: Current Smokeless Tobacco: Never Alcohol Use Standard Drinks/Week Comments Not Currently 1 (1 standard drink = 0.6 oz pur e alcohol) rarely [facility] Utilities Answer Date Recorded In the past 12 months has [employer], gas, oil, or water [employer] threatened to shut off services in your [...] Score 0 08/01/2023 [facility] of Occupat ional Health - Occupational Stress [...] GED or equivalent No 03/07/2024 Preferred Language Guatemalan 03/07/2024 PHQ-2 Answer Date Recorded Retired PHQ-9: [...] AM EDT Office Visit [facility] NE[facility] [address] [place] [address] Coy Munguia, DNP, CAREER AND TRANSITION TEACHER [address] [place] [address] 05/14/2025 11:00 AM EDT Office Visit [facility] [address] [facility] [address] [place] [address] Carlie Valiente APRN [address] [facility] [address] [place], [place] [phone] documented as of this encounter Goals Goal [...] documented as of this encounter Care Teams Shot Packer Relationship Specialty Start Date End Date Byron Steele MD 1210 [facility] [address] [place] [address] PCP - General Family Medicine 12/21/19 documented as of this encounter
--- OUTSIDE RECORDS SUMMARY | 2025-03-22 12:36 | XMS_ITS | Patient Health Record ---
Author Organization [facility] Address [address] [place] [id number] Care Team Providers Care Fire Captain Marine Name Role Phone Byron Steele Primary Care Provider Allergies No Known Allergies Results Component Value Reference Range Notes P-Culture Body Fluid Reviewed date:03/06/2025 12:29:17 PM Interpretation:No growth Performing Lab: Notes/Report: Test performed by [facility] [address] [place] [address] , [address], [place] [address] Felix Schwartz MD, Rn Hospice CLIA: [id number] Specimen Source Fluid - Olecranon bursa Culture Body Fluid See Below Final Rep ort : No growth P-Culture, Miscellaneous Aer obic w/Gram Stain Reviewed date:03/06/2025 12:29:18 PM Interpretation:No growth Performing Lab: Notes/Report: Test performed by [facility] [address] [place] [address] , [address], [place] [address] Felix Schwartz MD, Rn Hospice CLIA: [id number] Specimen Source Fluid - Olecranon bursa Gram Stain See Below Few Polymorphonuclear leukocytes No organisms seen Culture, Miscellaneous Aerobic w/Gram Stain See Below Preliminary Report : No growth, reincubate Final Report : No growth P-Cell Count and Differentia l, Body Fluid Reviewed date:03/06/2025 12:29:18 PM Interpretation:Normal Performing Lab: Notes/Report: Test performed by [facility] [address] [place], [place] [address] [place] , [address], [place] [address] Felix Schwartz MD, Rn Hospice CLIA: [id number] Fluid Type Synovial Fluid Color Starke Fluid Appearance Hazy Fluid Red Blood Cell (RBC) Count 08807 Total Nucleated Cell Count (WBC) 254 Synovial [...] Fluid Synovial Lining Cells 0 Fluid Specific [place] 1.032 Crystals Fluid Not Present Uric Acid, Body Fluid Reviewed date:03/06/2025 12:29:18 PM Interpretation:Normal Performing Lab: Notes/Report: Uric Acid, Body Fluid 6.0 INTERPRETIVE INFORMATION: Uric Acid, Body Fluid For information on body fluid reference ranges and/or interpretive guidance visit [email or web address] This test was developed and its performance characteristics determined by [facility]. It has not been cleared or approved by the [place] Food and Drug Administration. This test was performed in a CLIA certified laboratory and is intended for clinical purposes. Performed By: [facility] [address] [place] [address] Rn Hospice: Dutch Recinos MD, PhD CLIA Number: [id number] INTERPRETIVE INFORMATION: Uric Acid, Body Fluid For information on body fluid reference ranges and/or interpretive guidance visit [email or web address] This test was developed and its performance characteristics determined by [facility]. It has not been cleared or approved by the [place] Food and Drug Administration. This test was performed in a CLIA certified laboratory and is intended for clinical purposes. Performed By: [facility] [address] [place], [place] [id number] Rn Hospice: Dutch Recinos MD, PhD CLIA Number: [id number] Uric Acid Fluid Source Joint fluid Olecr anon bursa Uric Acid, Body Fluid 6.0 INTERPRETIVE INFORMATION: Uric Acid, Body Fluid For information on body fluid reference ranges and/or interpretive guidance visit [email or web address] [email or web address] This test was developed and its performance characteristics determined by [facility]. It has not been cleared or approved by the [place] Food and Drug Administration. This test was performed in a CLIA certified laboratory and is intended for clinical purposes. Performed By: [facility] [address] [place] [address] Rn Hospice: Dutch Recinos MD, PhD CLIA Number: [id number] INTERPRETIVE INFORMATION: Uric Acid, Body Fluid For information on body fluid reference ranges and/or interpretive guidance visit [email or web address] [email or web address] This test was developed and its performance characteristics determined by [facility]. It has not been cleared or approved by the US Food and Drug Administration. This test was performed in a CLIA certified laboratory and is intended for clinical purposes. Performed By: [facility] [address] [place] [address] Rn Hospice: Dutch Recinos MD, PhD CLIA Number: [id number] Urinalysis - Inhouse Reviewed date:06/04/2024 12:10:51 PM Interpretation: Performing Lab: Notes/Report: Color/Clarity yellow/clear Leuk 1+ Nitrite neg Urobili 3.2 Protein 1+ pH 5.5 Blood neg Sp. Gr. 1.020 Ketone neg Bili neg Gluc neg TEN-UTI panel Reviewed date:06/08/2024 04:08:50 PM Interpretation:sensitive Performing Lab: Notes/Report: sensitive Urinalysis - Inhouse Reviewed date:06/13/2024 04:39:19 PM Interpretation:Normal Performing Lab: Notes/Report: Normal Color/Clarity yellow/clear Leuk neg Nitrite neg Urobili 3.2 Protein neg pH 5.5 Blood neg Sp. Gr. 1.025 Ketone trace Bili neg Gluc neg Urinalysis - Inhouse Reviewed date:07/10/2024 10:31:57 AM Interpretation: Performing Lab: Notes/Report: Color/Clarity yellow/clear Leuk 2+ Nitrite Pos Urobili 3.2 Protein 1+ pH 6.0 Blood Neg Sp. Gr. 1.020 Ketone Trace Bili Neg Gluc Neg TEN-UTI panel Reviewed date:07/13/2024 04:30:07 PM Interpretation:E. Coli Performing Lab: Notes/Report: E. Coli Urinalysis - Inhouse Reviewed date:09/05/2024 03:15:59 PM [...] Interpretation:Normal Performing Lab: Notes/Report: Test performed by [facility] [address] [place] [address] , [address], [place] [address] Felix Schwartz MD, Rn Hospice CLIA: [id number] Sodium 140 135-145 mmol/L Potassium 4.0 3.5-5.3 [...] Interpretation:Normal Performing Lab: Notes/Report: Test performed by [facility] [address] [place], [place] [address] [place] , [address], [place] [address] Felix Schwartz MD, Rn Hospice CLIA: [id number] Thyroxine Free (free T4) 1.20 0.86-1.76 ng/dL P-Lipid Panel Reviewed date:09/06/2024 01:39:49 PM Interpretation:Normal Performing Lab: Notes/Report: Test performed by [facility] [address] [place] [address] Kir[address]ajan C, [place] [address] Felix Schwartz MD, Rn Hospice CLIA: [id number] Cholesterol 164 <200 mg/dL Triglycerides 53 <150 [...] Interpretation:Normal Performing Lab: Notes/Report: Test performed by [facility] , [address], [place] [address] Felix Schwartz MD, Rn Hospice PHOEBEIA: [id number] TSH 3.83 0.43-5.25 mU/L CBC Fingerstick (in house) Reviewed date:01/11/2025 09:47:41 [...] - 38 plat 167 100 - 400 Reason For Referral Reason send to [facility] PT Diagnosis 1 Impaired functional mobility, balance, gait, and endurance (Z74.09) [facility]erring Provider First Name Byron Referring Provider Last Name Effie Referring Provider [facility] Referred Provider Specialty Physical The rapist General Notes Christy Rihcards 024 10:13:49 AM > faxed to [facility] PT Referral Priority Routine [facility] [place] to see ui developer designer pnone [phone], [phone] Diagnosis 1 Parkinson's disease with dyskinesia and fluctuating manifestations (G20.B2) [facility] Referring Provider First Name Byron Referring Provider Last Name Cedric Referring Provider [facility] Referred Provider Neurology, . Referred Provider Specialty Neurology General Notes Christy Richards 2024 08:55:21 AM > faxed to [facility] Referral Priority Routine Medications Medication SIG [...] Vaccine Route Administration Date Status Comme nts COVID 19 Ирина Unknown 10/29/2020 Administered COVID 19 Moderna Unknown 08/09/2021 Administered Fluzone High Dose (65yr and older) IM Intramuscular 09/02/2023 Administered Fluzone Intradermal Quad private(18-64yrs) ID Intradermal 06/24/2015 Administered Prevnar (PCV20) IM Intramuscular 09/02/2023 Administered Tetanus Tdap-Adacel (over 7yrs) IM Intramuscular 10/23/2012 Administered Tetanus Tdap-Adacel (over 7yrs) Unknown 08/09/2023 Administered xFluzone Intradermal (18-64yrs)-trivalent ID Intradermal 10/23/2012 Administered Problems Problem Type SNOMED Code ICD Code Onset Dates Problem Status W/U Status Risk Notes Problem Arthropathy of lumba r facet joint (615296331) Lumbar facet arthropathy (M47.816) Active confirmed Problem Disorder of lumbar disc (078445895) Lumbar disc disease (M51.9) Active confirmed Problem Body mass index 30+ - obesity (970520233) BMI 30.0-30.9,adult (Z68.30) Active confirmed Problem Sciatica (66381391) Lumbago with sciatica, right side (M54.41) Active confirmed Problem Sciatica (71487961) Lumbago with sciatica, left side (M54.42) Active confirmed Problem Degeneration of lumbar intervertebral disc (72442051) Lumbar degenerative disc disease (M51.36) Active confirmed Problem Bronchitis (30313576) Bronchitis (J40) Active c onfirmed Problem Displacement of lumbar intervertebral disc without myelopathy (42666123) Bulging lumbar disc (M51.26) Active confirmed Problem Dermatitis (077759615) Dermatitis (L30.9) Active confirmed Problem Erectile dysfunction (disorder) (051683694) Erectile dysfunction, unspecified erectile dysfunction type (N52.9) Active confirmed Problem Sciatica (93299393) Right sided sciatica (M54.31) Active confirmed Problem Problem with balance (274476729) Balance problems (R26.89) Active confirmed Problem Parkinson's disease (disorder) (86621566) Parkinson disease, symptomatic (G20) Active confirmed Problem Dyskinesia (6022519) Dyskinesia (G24.9) Active confirmed Problem Gastroesophageal reflux disease with esophagitis (disorder) (494609366) Gastroesophageal reflux disease with esophagitis without hemorrhage (K21.00) Active confirmed Problem Swelling of first metatarsophalangeal joint of hallux (694372102) Bunion, left (M21.612) Active confirmed Problem Parkinson's disease with dyskinesia and fluctuating manifestations (G20.B2) Active confirmed Vital Signs Heart Rate 84 /min 02/26/2025 Blood pressure diastolic 70 mm Hg 02/26/2025 Height 71.5 in 02/26/2025 Blood pressure systolic 112 mm Hg 02/26/2025 Weight 216 lbs 02/26/2025 BMI 29.7 kg/m2 02/26/2025 Encounters Encounter Location Date Provider Diagnosis [facility] [address] [facility] [address] [place], [place] [id number] 03/28/2024 Byron Effie Chest wall pain R07. 89 [facility] [address] [place], [place] [id number] 04/02/2024 Byron Effie Actinic keratoses L5 7.0 [facility] [address] [place], [place] [id number] 06/04/2024 Byron Effie Acute UTI N39.0 [facility] [address] [place], [place] [id number] 06/11/2024 Byron Effie Urinary frequency R3 5.0 [facility] [address] [place] [id number] 07/10/2024 Byron Effie Recurrent UTI N39.0 [facility] [address] [place] [id number] 09/05/2024 Byron Effie Urinary frequency R3 5.0 ; Gastroesophageal reflux disease with esophagitis without hemorrhage K21.00 ; Peripheral edema R60.0 ; Elevated TSH R79.89 ; Hyperglycemia R73.9 and Recurrent UTI N39.0 [facility] [address] [facility] [address] [place] [id number] 11/21/2024 Byron Effie Parkinson's disease with dyskinesia and fluctuating manifestations G20.B2 [facility] [address] [place], [place] [id number] 12/25/2024 Byron Effie Closed dislocation o f left ring finger S63.255A ; Lumbar back pain M54.50 and BMI 30.0-30.9,adult Z68.30 [facility] [address] [place] [id number] 01/11/2025 Byron Effie Cellulitis of right arm L03.113 and BMI 30.0-30.9,adult Z68.30 [facility] [address] [place], [place] [id number] 02/12/2025 Byron Effie Olecranon bursitis o f right elbow M70.21 [facility] [address] [place] [id number] 02/26/2025 Byron Effie Olecranon bursitis o f right elbow M70.21 [facility] [address] [place] [id number] 06/11/2024 Byron Effie [facility] [address] [place] [id number] 06/19/2024 Byron Effie Impaired functional mobility, balance, gait, and endurance Z74.09 [facility] [address] [place], [place] [id number] 08/06/2024 Byron Effie Assessments Encounter Date Diagnosis (ICD Code) Assessment Notes Treatment Notes Treatment Clinical Notes Section Notes 06/11/2024 Urinary frequency (ICD-10 - R35.0) 06/19/2024 Impaired functional mobility, balance, gait, and endurance (ICD-10 - Z74.09) 07/10/2024 Recurrent UTI (ICD-10 - N39.0) 06/04/2024 Acute UTI (ICD-10 - N39.0) 09/05/2024 Urinary frequency (ICD-10 - R35.0) 01/11/2025 BMI 30.0-30.9,adult (ICD-10 - Z68.30) 01/11/2025 Cellulitis of right arm (ICD-10 - L03.113) 02/12/2025 Olecranon bursitis of right elbow (ICD-10 - M70.21) 02/26/2025 Olecranon bursitis of right elbow (ICD-10 - M70.21) 09/05/2024 Gastroesophageal reflux disease with esophagitis without [...] few days. Call with any new symptoms. 11/21/2024 Parkinson's disease with dyskinesia and fluctuating manifestations (ICD-10 - G20.B2) Wants to start Onapgo 04/02/2024 Actinic keratoses (ICD-10 - L57.0) 03/28/2024 Chest wall pain (ICD-10 - R07.89) symptomatic treatment of pain. Return if worsening of pain or developement of new symptoms 12/25/2024 BMI 30.0-30.9,adult (ICD-10 - Z68.30) 09/05/2024 Peripheral edema (ICD-10 - R60.0) 09/05/2024 [...] End Date [employer] [address] [place] [address] [id number] Leoncio Harman Self - patient is [...]
--- OUTSIDE RECORDS SUMMARY | 2025-03-22 12:36 | XMS_ITS | Clinical Summary ---
Author Organization [facility] Address [address] [place] [address] Care Team Providers Care Art Specialist Name Role Phone Byron Steele MD Primary Care Provider [phone] Allergies No known active allergies Medications carbidopa-levodo [...] (04/19/2023): Added automatically from request for surgery [id number] Lumbar stenosis with neurogenic claudication Spondylosis of [...] Type Department Care Team Description 03/01/2025 Telephone [facility] [address] [facility] [address] [place] [address] Carlie Valiente APRN 02/11/2025 11:15 AM EDT Office Visit [facility] [address] [facility] [address] [place] [address] Carlie Valiente APRN OAB (overactive bladder) (Primary Dx); Erectile dysfunction, unspecified erectile dysfunction type; Acute cystitis without hematuria; Mixed stress and urge urinary incontinence 02/11/2025 8:30 AM EDT Office Visit [facility] [address] [facility] [address] [place] [phone] Coy Munguia DNP, ELISE Parkinson's disease with dyskinesia, unspecified whether manifestations fluctuate (Primary Dx); Dysphagia, unspecified type; Moderate recurrent major depression; Restless legs syndrome (RLS); Mixed stress and urge urinary incontinence 02/11/2025 Travel 02/02/2025 Refill [facility] [address] [address] Carlie Valiente APRN OAB (overactive bladder) 01/10/2025 9:15 AM EDT Office Visit [facility] [address] [facility] [address] [place] [address] Carlie Valiente APRN Erectile dysfunction, unspecified erectile dysfunction type (Primary Dx) 01/10/2025 Telephone [facility] [address] [facility] [address] [place] [address] Coy Munguia DNP TOOLS DEVELOPER 01/10/2025 Telephone [facility] [address] [facility] [address] [place] [phone] Coy Munguia DNP, TOOLS DEVELOPER 01/10/2025 Travel 12/27/2024 1:00 PM EDT Office Visit [facility] [facility] [address] [place] [address] Carlie Valiente APRN Acute cystitis without hematuria (Primary Dx) 12/27/2024 Telephone [facility] [address] [facility] [address] [place] [address] Coy Munguia DNP, APRN 12/27/2024 Travel 12/26/2024 Prior Authorization [facility] [address] [facility] [address] [place] [address] Coy Munguia DNP, ELISE from [...] = 0.6 oz pur e alcohol) rarely [employer] Utilities Answer Date Recorded In the past 12 months has Box gas, oil, or water company threatened to [...] Brief Depression Severity Measure Score 0 08/01/2023 [facility] - Occupational Stress Questionnaire Answer Date [...] GED or equivalent No 03/07/2024 Preferred Language Jamaican 03/07/2024 PHQ-2 Answer Date Recorded Retired PHQ-9: [...] Description 05/14/2025 8:30 AM EDT Office Visit [facility] [address] [place] [address] Coy Munguia, DNP, TOOLS DEVELOPER [address] [place], [place] [id number] 05/14/2025 11:00 AM EDT Office Visit [facility] [address] [facility] [address] [place] [address] Carlie Valiente, TOOLS DEVELOPER [address] [facility] [address] [place], [place] [phone] Health Maintenance Due Date Last Done Comments [...] Guzman RN Medical Devices Implanted Type Area Modeling Analyst Device Identifier Shelf Expiration Date Model / Serial / Lot Hemost Abs Surgifoam Sz100 8x12 10mm - [id number] Implanted:Qt y: 1 on 05/11/2023 by Blaine David MD at [facility] Implant Right: Spine Lumbar ETHICON DIV OF J AND J 1974 / / 0 Kt Seal Hemos Abs Floseal Matrx Fast/Prep 10ml - [id number] Implanted:Qt y: 1 on 05/11/2023 by Blaine David MD at [facility] Implant Right: Spine Lumbar [facility] [id number] / / [address] Breakoff Solera Ti 4.75 - [id number] Implanted:Qt y: 4 on 03/06/2024 by Blaine David MD at [facility] Implant N/A: Spine Lumbar [employer] [id number] / / Scrw Freda Solera Sextant Mas 6.5x40mm - [id number] Implanted:Qt y: 2 on 03/06/2024 by Blaine David MD at [facility] Implant N/A: Spine Lumbar [employer] [id number] / / Scrw Freda Solera Mas 7.5x35mm - [id number] Implanted:Qt y: 2 on 03/06/2024 by Blaine David MD at [facility] Implant N/A: Spine Lumbar [employer] [id number] / / Yariel Solera Cocr Prebnt 4.95n36wf - [id number] Implanted:Qt y: 2 on 03/06/2024 by Blaine David MD at [facility] Implant N/A: Spine Lumbar [employer] [id number] / / Kt Seal Hemos Abs Floseal Matrx 1.5/Fast/Pre p 5000/Iu 10ml - [id number] Implanted:Qt y: 2 on 03/06/2024 by Blaine David MD at [facility] Implant N/A: Spine Lumbar [facility] [id number] 12/18/2024 [id number] / / [id number] Hemost Abs Surgifoam Sz100 8x12 10mm - [id number] Implanted:Qt y: 1 on 03/06/2024 by Blaine David MD at [facility] Implant N/A: Spine Lumbar ETH[employer] DIV [employer] J AND J 1973 / / Paste Dbm Hand Pls 10cc - [id number] - [id number] Implanted:Qt y: 1 on 03/06/2024 by Blaine David MD at [facility] Implant N/A: Spine Lumbar [employer] 01/23/2026 [id number] / [id number] / Matrx Plf Dbm Hand 2.5x10cm - [id number] - [id number] Implanted:Qt y: 1 on 03/06/2024 by Blaine David MD at [facility] Implant N/A: Spine Lumbar [employer] 11/13/2026 [id number] / [id number] / Allogrft Dbm Hand Ds Inj Fibr 9cc - [id number] - [id number] Implanted:Qt y: 1 on 03/06/2024 by Blaine David MD at [facility] Implant N/A: Spine Lumbar [employer] 12/07/2025 [id number] / [id number] / Cage Spine Wave/D Lif 6deg [id number] - [id number] Implanted:Qt y: 2 on 03/06/2024 by Blaine David MD at [facility] Implant N/A: Spine Lumbar [employer] 09/27/2026 [id number] / / [id number] Kt Seal Hemos Abs Floseal Matrx 1.5/Fast/Pre p 5000/Iu 10ml - [id number] Implanted:Qt y: 1 on 03/06/2024 by Blaine David MD at [facility] Implant N/A: Spine Lumbar [facility] [id number] 11/20/2024 [id number] / / [id number] Procedures Procedure Name Priority Date/Time Associated Diagnosis [...] Yellow Yellow, Straw, Dark Yellow, Guillermina [facility] Clarity, UA Clear Clear [facility] Specific Orange 1.025 1.005 - 1.030 [facility] pH, Urine 6.0 5.0 - 8.0 [facility] Leukocytes Negative Negative [facility] Nitrite, UA Negative Negative [facility] Protein, POC Negative Negative mg/dL [facility] Glucose, UA Negative Negative mg/dL [facility] Ketones, UA Trace(A) Negative [facility] Urobilinogen, UA Normal Normal, 0.2 E.U./dL [facility] Bilirubin Small (1+)(A) Negative [facility] Blood, UA Negative Negative [facility] Lot Number [id number] [facility] Expiration Date 05/10/2026 [facility] Urine 02/11/2025 11:5 7 AM EDT Carlie Valiente TOOLS DEVELOPER POINT OF CARE TEST ORDERABLES Final Result [facility]
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
--- NOTE | 2025-03-22 12:50 | ECG_ITS ---
APPROVED REPORT Exam: Resting ECG HR:78 bpm ECG Measurements Heart Rate 78 AXES AL 171 P 28 QRSd 87 QRS -28 QT 363 T 35 QTc 397 Conclusion SINUS RHYTHM BORDERLINE LEFT AXIS DEVIATION [QRS AXIS < -20] BORDERLINE ECG UNCONFIRMED REPORT Electronically signed by : Ravinder Mcginnis MD 03/23/2025 08:47:55
--- NOTE | 2025-03-22 12:59 | XR_ITS ---
FINAL REPORT CLINICAL HISTORY: Pre op elbow surgery current smoker COMPARISON: 07/19/2022 FINDINGS: PA and lateral views of the chest were obtained. The cardiac and mediastinal silhouettes are within normal limits. Emphysema is noted. There is right lower lobe chronic atelectasis or scar. The lungs are otherwise clear. There is no pleural effusion or pneumothorax. No acute osseous abnormality is identified. IMPRESSION: Chronic findings without acute pulmonary process. Reviewed, Interpreted and Dictated by Shirlene Hicks MD Transcribed by Angie Spear Authenticated and [facility][1]
[2025-03-22 13:00] LABS: Hematocrit 36.4 % (42.0-52.0); Hemoglobin 11.9 g/dL (14.1-18.0); Immature Granulocytes % 0.6 %; Mean Corpuscular HGB Conc 32.7 g/dL (31.8-35.4); Mean Corpuscular Hemoglobin 28.5 pg (27.0-31.2); Mean Corpuscular Volume 87.3 fl (80-94); Nucleated Red Blood Cells % 0 %; Platelet Count 189 K/mm3 (142-424); Red Blood Count 4.17 M/mm3 (4.60-6.20); Red Cell Distribution Width-SD 47.8 fL; White Blood Count 6.7 K/mm3 (4.8-10.8)
[2025-03-22 13:21] LABS: Anion Gap 11.1 mEq/L (5-15); Blood Urea Nitrogen 20 mg/dl (9-20); Calcium 9.1 mg/dl (8.4-10.2); Carbon Dioxide 25 mmol/L (22.0-30.0); Chloride 108 mmol/L (98-107); Creatinine,Serum 1.20 mg/dl (0.66-1.25); Estimated Glomerular Filt Rate 60 ml/min (>60); GFR (African American) 73 ML/MIN (>60); Glucose 105 mg/dl (74-100); Potassium 4.1 mmoL/L (3.5-5.1); Sodium 140 mmol/L (136-145)
--- OUTSIDE RECORDS SUMMARY | 2025-03-22 13:33 | XMS_ITS | CCD ---
Author Name Sara STEAM CLEANING MACHINE OPERATORKatrin Address [address] [facility] [address] [facility] [address] [place] [address] Phone Organization [facility] Phone Care Team Providers Care Malt House Operator Name Role Phone Office, [place] Primary Care Provider Unavaila ble Unavailable Chronic Care Management Unavaila ble Summary Purpose DataExchange Insurance Providers Payer name Policy type / Coverage type Covered republican ID Effective Begin Date Effective End Date ELEVANCE BCBS [facility] [id number] Unknown Unknown Family History Family History data [...] Instructions esomeprazole (nexIUM) 40 MG capsule RxNorm: 154787 Take 1 Capsule(s) Oral every morning Before Breakfast . 4 No Stop Date Active pramipexole (MIRAPEX) 1 MG tablet RxNorm: 622496 Take 1 tablet by mouth 3 (Three) Times a Day. 4 No Stop Date Active carbidopa-levodop a (SINEMET) 25-100 MG per tablet RxNorm: 439431 TAKE 2 TABLETS AT 6AM, 11AM, 4PM, 10PM No Stop Date Active Medication Administered No Medication Administered data Reason For Visit No Reason For Visit data Encounters Encounter Performer Location Location Address Codes Date () No answer/Patient not seen Diagnosis: Patient not seen[ICD10: UXZ.01] Katrin Ruiz [place] Office [address] [place] [address] CPT-4: 02758 12/20/2024 Plan of Care Planned Activity Notes Codes Status Date Appointment: Katrin Ruiz WPtel: [address] [place], [place] [id number] 12/20/2024 Patient Education: Patient Medication Summary Completed 12/20/2024 Medical Equipment No Medical Equipment data Advance Directives No Advance Directive data
--- OUTSIDE RECORDS SUMMARY | 2025-03-22 13:35 | XMS_ITS | CCD ---
Author Name Sara WALLET ASSEMBLERKatrin Address [address] [facility] [address] [facility] [address] [place] [address] Phone Organization [facility] Phone Care Team Providers Care Silk Washing Machine Operator Name Role Phone Office, [place] Primary Care Provider Unavaila ble Unavailable Chronic Care Management Unavaila ble Summary Purpose DataExchange Insurance Providers Payer name Policy type / Coverage type Covered constitution party ID Effective Begin Date Effective End Date ELEVANCE BCBS [facility] [id number] Unknown Unknown Family History Family History data [...] Instructions esomeprazole (nexIUM) 40 MG capsule RxNorm: 904969 Take 1 Capsule(s) Oral every morning Before Breakfast . 4 No Stop Date Active pramipexole (MIRAPEX) 1 MG tablet RxNorm: 801171 Take 1 tablet by mouth 3 (Three) Times a Day. 4 No Stop Date Active carbidopa-levodop a (SINEMET) 25-100 MG per tablet RxNorm: 611568 TAKE 2 TABLETS AT 6AM, 11AM, 4PM, 10PM No Stop Date Active Medication Administered No Medication Administered data Reason For Visit No Reason For Visit data Encounters Encounter Performer Location Location Address Codes Date () No answer/Patient not seen Diagnosis: Patient not seen[ICD10: UXZ.01] Katrin Ruiz [place] Office [address] [place] [address] CPT-4: 85443 12/20/2024 Plan of Care Planned Activity Notes Codes Status Date Appointment: Katrin Ruiz WPtel: [address] [place], [place] [id number] [id number] 12/20/2024 Patient Education: Patient Medication Summary Completed 12/20/2024 Medical Equipment No Medical Equipment data Advance Directives No Advance Directive data
== END 2025-03-22 23:59 | disposition home or self-care (01) ==
LOC: PREOP 12:31
PROVIDERS: Physician Assistant; PCP Family Medicine; Visit Provider Orthopaedic Surgery
DX: Z01.810 Encounter for preprocedural cardiovascular examination (principal); Z01.811 Encounter for preprocedural respiratory examination; Z01.812 Encounter for preprocedural laboratory examination; M70.21 Olecranon bursitis, right elbow; F17.200 Nicotine dependence, unspecified, uncomplicated; R91.8 Other nonspecific abnormal finding of lung field; R94.31 Abnormal electrocardiogram [ECG] [EKG]
CPT/HCPCS: 71046; 80048; 85025; 93005

== ENCOUNTER 2025-03-27 07:46 | Day surgery (SDC) | payer MEDICARE, SELFPAY ==
[2025-03-22 13:43] VITALS: BMI 29.1
[2025-03-27] VITALS (10 sets, daily range): BP systolic 134–164; BP diastolic 54–96; PULSE 71–86; RESP 12–17; TEMP 36.2–36.9; O2SAT 92–96
[2025-03-27] MEDS: LACTATED RINGERS 1000ML 1,000 ML 100 ML IV (08:39)
--- NOTE | 2025-03-27 08:45 | EXP.ANES.CKL ---
[facility] Disclaimer: The information contained in this section may have been updated after the patient was seen, as this information can be updated by other users. Medical History Parkinson disease Surgical History History of laminectomy History of back surgery Family History Other Family history of breast cancer Family history of dementia Social History Smoking Status: Current some day smoker tobacco type: cigars second hand exposure: No alcohol intake: never substance use type: denies use current occupational status: employed, retired and other Travel in the last 8 weeks?: Inside the [place] household members: spouse housing: house current occupation: [employer] current occupational exposures/hazards: No caffeine: Yes [facility] Anesthesia Checklist Patient Identification Patient Identification: Arm Band Structural Data Admitted From: Home Planned Operative Procedure/s: Open Excision of Olecranon Bursa Right Elbow Consent for Planned Operative Procedure(s) Verified: Yes Verified Documents: Surgical Consent and History and Physical NPO Status Verified Time NPO: 00:00 Additional verifications Anesthesia Reactions: No Hx Blood Transfusions: No Blood Transfusion Reaction: No Airway Assessment Mallampati Score:: Class II C-Spine Mobility Assessed: Yes TMJ Mobility Assessed: Yes Dentition: Good Dentition Neurological Assessment Level of Consciousness: Awake, Alert and Appropriate Anesthesia Plan Anesthesia Risk discussed: Yes Anesthesia Plan: Verified ASA Class: II Anesthesia Type: General
[2025-03-27] MEDS: BUPIVACAINE 0.25% 30ML VIAL 75 MG (09:28)
--- NOTE | 2025-03-27 10:31 | P.OP_ITS ---
Date of procedure: 03/27/25 Pre-op Diagnosis:: Right olecranon bursitis recurrent Post-op Diagnosis:: Same Procedure performed:: Open excision right olecranon bursa Surgeon:: Ricky Hawthorne DO Home Energy Inspector(s):: Jace TABOR OPTICAL SYSTEMS ENGINEER:: Tony Santiago Anesthesia: GETA Estimated blood loss (mL): 0 Operative findings:: Large scarring and thickening of the olecranon bursa Operative note:: Patient identified preoperatively. Right elbow marked with yes my initials. Transferred operative suite. Placed upon operating bed. General anesthesia administered and airway secured. Right upper extremity prepped and draped normal sterile fashion. Once prepped and draped final operative timeout performed to identify proper patient procedure and extremity. Everyone involved in the case agreed. There is no counter indications beginning. Did receive preoperative antibiotics. Marking pen was used to make planned incision over the olecranon bursa there was a large amount of swelling of the olecranon bursa. Esmarch was used to exsanguinate extremity medic pneumatic tourniquet inflated to 2 to 50 mmHg. Skin knife is used to incise the skin and careful dissection is taken down with scissors to identify the large olecranon bursal sac. Needle was placed into the bursal sac to decompress the olecranon bursa and then careful dissection was taken around the bursal sac to remove the bursa of the elbow. This was done meticulously around the skin edges with hemostasis obtained electrocautery. Irrigation was then performed deep layers closed with Vicryl stitch subcutaneous 2-0 Vicryl 3-0 nylon the skin for closure with a sterile dressing and Kevin bandage. Patient waken anesthesia taken recovery in stable condition. Condition: stable Disposition: PACU Complications:: None apparent
--- NOTE | 2025-03-27 10:40 | EXP.ANES.I ---
[facility] Anesthesia Record Part I Anesthesia Record I Intake, IV Amount: 450 Hydration: Adequate Estimated blood loss (mL): 5 Urine output (mL): 0 Blood Products used (#): none Blood Pressure: 144/90 SaO2: 94 Pulse Rate: 79 Airway Patency: Patent Respiratory Rate: 12 Temperature: 98.4 F Patient is:: Drowsy and Stable Stable to PACU at:: 10:36
--- NOTE | 2025-03-27 14:49 | EXP.ANES.II ---
[facility] Anesthesia Record Part II Anesthesia Record Part II Discharge Time: 11:06 Destination: Surgical Day Care (OP Surgery) PACU nurse assessment reviewed?: Yes Patient Condition:: Good Anesthesia Complications:: None Swallowing reflex intact?: Yes Airway Patency: Patent Cyanosis?: No Blood Pressure: 164/81 SaO2: 94 Respiratory Rate: 12 Pulse Rate: 71 Temperature: 98.4 F Mental Status: Alert & Oriented Pain level:: 0 Nausea and/or vomitting:: None Intake, IV Amount: 0 Hydration: Adequate
== END 2025-03-27 11:36 | disposition home or self-care (01) ==
PROVIDERS: PCP Family Medicine; Visit Provider Orthopaedic Surgery
PROC: (CPT 24105; principal; 2025-03-27 09:15)
DX: M70.21 Olecranon bursitis, right elbow (principal); Z79.899 Other long term (current) drug therapy; Z72.0 Tobacco use
CPT/HCPCS: 24105; 96374; J0665; J0690; J1100; J2003; J2250; J2405; J2704; J3010; J7120

== ENCOUNTER 2025-07-27 17:09 | Outpatient (CLI) | payer MEDICARE, SELFPAY ==
--- OUTSIDE RECORDS SUMMARY | 2024-09-05 09:00 | XMS_ITS ---
Author Organization [facility] Address [address] [place] [id number] Care Team Providers Care Hot Air Furnace Installer Repairer Name Role Phone Byron Steele Primary Care Provider Allergies No Known Allergies Results Component Value Reference Range Notes Urinalysis - Inhouse Reviewed date:09/05/2024 03:15:59 PM Interpretation: Performing Lab: Notes/Report: Color/Clarity yellow/clear Leuk Neg Nitrite Pos Urobili 3.2 Protein Neg pH 6.0 Blood Neg Sp. Gr. 1.025 Ketone Trace Bili Neg Gluc Neg CBC Venipuncture (in house) Reviewed date:09/05/2024 03:16:08 PM Interpretation: Performing Lab: Notes/Report: wbc 7.8 3.5 - 10 lymph 19.9% 15 - 50 mid 5.4% 2 - 15 gran 74.7% 35 - 80 rbc 4.21 3.5 - 5.5 hgb 11.6 11.5 - 16.5 hct 35.5 35 - 55 mcv 84.2 75 - 100 mch 27.6 25 - 35 mchc 32.8 31 - 38 platlet 173 100 - 400 P-Comprehensive Metabolic Pa mike (CMP) Reviewed date:09/06/2024 01:39:49 PM Interpretation:Normal Performing Lab: Notes/Report: Test performed by [facility] [facility] [facility] , [address], [place] [address] Felix Schwartz MD, Plywood Scarfer Tender CLIA: [id number] Sodium 140 135-145 mmol/L Potassium 4.0 3.5-5.3 mmol/L Chloride 103 97-108 mmol/L CO2 27 22-32 mmol/L Glucose 91 65-99 mg/dL BUN 20 8-23 mg/dL Creatinine 0.99 0.70-1.30 mg/dL Calcium 9.1 8.6-10.4 mg/dL eGFR by Creatinine 82 >59 mL/min/1.73m2 Protein 6.9 6.0-8.3 g/dL Albumin 4.4 3.5-5.3 g/dL Alkaline Phosphatase 91 40-129 IU/L ALT (SGPT) 6 <5-55 IU/L AST (SGOT) 17 <5-46 IU/L Bilirubin, Total 0.3 <0.2-1.2 mg/dL A/G Ratio 1.8 1.1-2.5 P-T4 Free (thyroxine) Reviewed date:09/06/2024 01:39:49 PM Interpretation:Normal Performing Lab: Notes/Report: Test performed by [employer] [address] [place] [address] , [address], [place] [address] Felix Schwartz MD, Plywood Scarfer Tender CLIA: [id number] Thyroxine Free (free T4) 1.20 0.86-1.76 ng/dL P-Lipid Panel Reviewed date:09/06/2024 01:39:49 PM Interpretation:Normal Performing Lab: Notes/Report: Test performed by [employer] [address] [place] [address] , [address], [place] [address] Felix Schwartz MD, Plywood Scarfer Tender CLIA: [id number] Cholesterol 164 <200 mg/dL Triglycerides 53 <150 mg/dL HDL Cholesterol 70 >39 mg/dL Cholesterol / HDL Ratio 2.34 0.00-4.99 Ratio Non-HDL Cholesterol 94 <130 mg/dL LDL Cholesterol (Calculation) 83 <130 mg/dL LDL Cholesterol Levels* Less than 100 mg/dL Optimal 100 to 129 mg/dL Near Optimal/ Above Optimal 130 to 159 mg/dL Borderline High 160 to 189 mg/dL High 190 mg/dL and above Very High * Categories as recommended by the 2004 ATPIII guidelines LDL/HDL Ratio 1.2 <3.3 Ratio LDL Cholesterol Patient History Test Date: 09/05/2024 LDL Results: 83 Units: mg/dL % Change: - P-TSH Reviewed date:09/06/2024 01:39:49 PM Interpretation:Normal Performing Lab: Notes/Report: Test performed by [facility], [address] , [place] [address] Felix Schwartz MD, Plywood Scarfer Tender CLIA: [id number] TSH 3.83 0.43-5.25 mU/L REASON FOR VISIT questions about Parkinson's Medications Medication SIG (Take, Route, Frequency, Duration) Notes Start Date End Date Status Esomeprazole Magnesium 40 MG TAKE 1 CAPS ULE BY MOUTH ONCE DAILY Active oxyBUTYnin Chloride 5 MG 1 tablet Orally Once a day Active Pramipexole Dihydrochloride 0.5 MG 1 tab(s) Orally 3 times a day Active Bactrim DS 800-160 MG 1 tablet Orally Tw o times a day; Duration: 30 day(s) 09/05/2024 Active Rollator Walker - 1 tall Rollator Walk er as directed as directed 08/19/2023 Active Wheelchair - 1 large Wheelchair 08/19/2023 Active Tadalafil 20 MG 1 tablet as needed Orally Once a day 03/05/2024 Active Triamcinolone Acetonide 0.1 % APPLY TO A FFECTED AREA EVERY 12 HOURS; Duration: 15 Active Carbidopa-Levodopa 25-100 MG 1 tab(s) or ally 3 times a day; Duration: 30 day(s) Active Vital Signs Blood pressure systolic 132 mm Hg 09/05/19 25 Blood pressure diastolic 80 mm Hg 025 Heart Rate 95 /min 09/05/2024 Height 71.5 in 09/05/2024 Weight 223.2 lbs 09/05/2024 BMI 30.69 kg/m2 09/05/2024 Encounters Encounter Location Date Provider Diagnosis [facility] [address] [place], [place] [phone] 09/05/2024 Byron Steele Urinary frequency R3 5.0 ; Gastroesophageal reflux disease with esophagitis without hemorrhage K21.00 ; Peripheral edema R60.0 ; Elevated TSH R79.89 ; Hyperglycemia R73.9 and Recurrent UTI N39.0 Assessments Encounter Date Diagnosis (ICD Code) Assessment Notes Treatment Notes Treatment Clinical Notes Section Notes 09/05/2024 Urinary frequency (ICD-10 - R35.0) 09/05/2024 Gastroesophageal reflux disease with esophagitis without hemorrhage (ICD-10 - K21.00) 09/05/2024 Peripheral edema (ICD-10 - R60.0) 09/05/2024 Elevated TSH (ICD-10 - R79.89) 09/05/2024 Hyperglycemia (ICD-10 - R73.9) 09/05/2024 Recurrent UTI (ICD-10 - N39.0) Plan Of Treatment Medication Medication Name Sig Start Date Stop Date Notes Esomeprazole Magnesium 40 MG TAKE 1 CAPS ULE BY MOUTH ONCE DAILY oxyBUTYnin Chloride 5 MG 1 tablet Orally Once a day Bactrim DS 800-160 MG 1 tablet Orally Tw o times a day; Duration: 30 day(s) 09/05/2024 Next Appt Details Follow Up: via phone to repo rt test results, Reason: Progress Notes * Leoncio ANDRADEDOB:1955 (69 yo M)Acc No.[id number]:09/05/2024 Progress Notes Patient: Leoncio LIVINGSTON Provider: Helen Steele M.D. :1955 A ge:68 Y S ex:Male Date:09/05/2024 Address:[address] [place] [address] [id number] Subjective: * Chief Complaints: * 1 . questions about Parkinson's. * HPI: H PI: 68 year old male presents with c/o Patient is here today for?Pt here today to discuss some things about Parkinson Disease. Ever since his recent UTI his urinary incontinence has gotten worse, unsure of the cause. * ROS: C ARDIOLOGY: no D izziness. n o C hest pain. D ERMATOLOGY: no R monty. n o H louis. G ASTROENTEROLOGY: no N ausea. n o V omiting. * Medical History: C oronary CT angiogram October 2014, Diverticulosis, Lumbar Disc Disease, s/p pain management evaluation 2018, Lumbar Facet Arthropathy, MRI L-spine, November 2018, Parkinson's Disease, Dx: 2019, Lumbar Spinal Stenosis, s/p laminectomy 2022. * Surgical History: C olonoscopy 2005, 10/30/2018, Minimally Invasive Lumbar Laminectomy 05/11/2023. * Family History: F ather: . M other: alive, A. fib. 1 son(s) , 1 daughter(s) - healthy. . * Social History: C URRENT TOBACCO USE S moking Status: Patient does NOT smoke. C affeine: yes, frequency:coffee. Home smoke detector use: yes. * Medications: T aking oxyBUTYnin Chloride 5 MG Tablet 1 tablet Orally Once a day , Taking Pramipexole Dihydrochloride 0.5 MG Tablet 1 tab(s) Orally 3 times a day , Taking Carbidopa-Levodopa 25-100 MG Tablet 1 tab(s) orally 3 times a day , Taking Rollator Walker - - 1 tall Rollator Walker as directed as directed , Taking Wheelchair - Miscellaneous 1 large Wheelchair , Taking Triamcinolone Acetonide 0.1 % Cream APPLY TO AFFECTED AREA EVERY 12 HOURS , Taking Tadalafil 20 MG Tablet 1 tablet as needed Orally Once a day , Taking Esomeprazole Magnesium 40 MG Capsule Delayed Release TAKE 1 CAPSULE BY MOUTH ONCE DAILY , Discontinued Furosemide 20 MG Tablet 2 tab(s) orally As needed , Discontinued Scopolamine 1 MG/3DAYS Patch 72 Hour 1 patch to skin behind the ear as needed Transdermal , Discontinued Bactrim DS 800-160 MG Tablet 1 tablet Orally Two times a day , Medication List reviewed and reconciled with the patient * Allergies: N .K.D.A. Objective: * Vitals: W t:223.2, Temp:98.0, BP:132/80, HR:95, Nurse:eric, Ht: 71.5, BMI:30.69. * Examination: G eneral Examination: General Appearance: N AD. H eart: R SR. L ungs:?clear to auscultation. N eurologic Exam: t remor at rest and with movement. B ack:? no CVA tenderness. E xtremities: b union deformity on left foot, trace bilateral leg edema. Assessment: * Assessment: 1. U rinary frequency - R35.0 (Primary) 2 . G astroesophageal reflux disease with esophagitis without hemorrhage - K21.00 3 . P eripheral edema - R60.0? 4. E levated TSH - R79.89 5 . H yperglycemia - R73.9 ? 6 . R ecurrent UTI - N39.0 Plan: * Treatment: Value Reference Range C olor/Clarity yellow/clear * L euk Neg * N itrite Pos * U robili 3.2 * P rotein Neg * p H 6.0 * B lood Neg * S p. Gr. 1.025 * K etone Trace * B catrachita Neg * G lisset Neg * Mavis Rubio 09/05/2024 3:00:22 PM > , Provider reviewed results while patient in office. 2.?Gastroesophageal reflux disease with esophagitis without hemorrhage? Continue Esomeprazole Magnesium Capsule Delayed Release, 40 MG, TAKE 1 CAPSULE BY MOUTH ONCE DAILY. ?3.?Peripheral edema?LAB: P-Comprehensive Metabolic Panel (CMP) (Collection Date & Time - 09/05/2024 01:38 PM)?Normal* Value Reference Range A /G Ratio 1.8 1.1-2.5 - * A lbumin 4.4 3.5-5.3 - g/dL * A lkaline Phosphatase 91 40-129 - IU/L * A LT (SGPT) 6 <5-55 - IU/L * A ST (SGOT) 17 <5-46 - IU/L * B ilirubin, Total 0.3 <0.2-1.2 - mg/dL * B UN 20 8-23 - mg/dL * C alcium 9.1 8.6-10.4 - mg/dL * C hloride 103 97-108 - mmol/L * C O2 27 22-32 - mmol/L * C reatinine 0.99 0.70-1.30 - mg/dL * G lucose 91 65-99 - mg/dL * P otassium 4.0 3.5-5.3 - mmol/L * S odium 140 135-145 - mmol/L * P rotein 6.9 6.0-8.3 - g/dL * e GFR by Creatinine 82 >59 - mL/min/1.73m2 * Mavis Rubio 09/06/2024 12:47:4 6 PM > LM for return call MateoDede 09/06/2024 1:39:34 PM > Pt informed ?LAB: CBC Venipuncture (in house) (Collection Date & Time - 09/05/2024)* Value Reference Range w bc 7.8 3.5 - 10 * l ymph 19.9% 15 - 50 * m id 5.4% 2 - 15 * g ran 74.7% 35 - 80 * r bc 4.21 3.5 - 5.5 * h gb 11.6 11.5 - 16.5 * h ct 35.5 35 - 55 * m cv 84.2 75 - 100 * m ch 27.6 25 - 35 * m chc 32.8 31 - 38 * p latlet 173 100 - 400 * Mavis Rubio 09/05/2024 2:59:40 PM > , Provider reviewed results while patient in office. 4.?Elevated TSH?LAB: P-T4 Free (thyroxine) (Collection Date & Time - 09/05/2024 01:38 PM)? Normal* Value Reference Range T hyroxine Free (free T4) 1.20 0.86-1.76 - ng/d L * Mavis Rubio 09/06/2024 12:47:4 6 PM > LM for return call MateoDede 09/06/2024 1:39:34 PM > Pt informed ?LAB: P-TSH (Collection Date & Time - 09/05/2024 01:38 PM)?Normal* Value Reference Range T SH 3.83 0.43-5.25 - mU/L * Mavis Rubio 09/06/2024 12:47:4 6 PM > LM for return call Dede Galindo 09/06/2024 1:39:34 PM > Pt informed 5.?Hyperglycemia?LAB: P-Comprehensive Metabolic Panel (CMP) (Collection Date & Time - 09/05/2024 01:38 PM)?Normal* Value Reference Range A /G Ratio 1.8 1.1-2.5 - * A lbumin 4.4 3.5-5.3 - g/dL * A lkaline Phosphatase 91 40-129 - IU/L * A LT (SGPT) 6 <5-55 - IU/L * A ST (SGOT) 17 <5-46 - IU/L * B ilirubin, Total 0.3 <0.2-1.2 - mg/dL * B UN 20 8-23 - mg/dL * C alcium 9.1 8.6-10.4 - mg/dL * C hloride 103 97-108 - mmol/L * C O2 27 22-32 - mmol/L * C reatinine 0.99 0.70-1.30 - mg/dL * G lucose 91 65-99 - mg/dL * P otassium 4.0 3.5-5.3 - mmol/L * S odium 140 135-145 - mmol/L * P rotein 6.9 6.0-8.3 - g/dL * e GFR by Creatinine 82 >59 - mL/min/1.73m2 * Mavis Rubio 09/06/2024 12:47:4 6 PM > LM for return call Dede Galindo 09/06/2024 1:39:34 PM > Pt informed ?LAB: P-Lipid Panel (Collection Date & Time - 09/05/2024 01:38 PM)?Normal* Value Reference Range C holesterol / HDL Ratio 2.34 0.00-4.99 - Ratio * C holesterol 164 <200 - mg/dL * H DL Cholesterol 70 >39 - mg/dL * L DL Cholesterol (Calculation) 83 <130 - mg/d L * L DL/HDL Ratio 1.2 <3.3 - Ratio * N on-HDL Cholesterol 94 <130 - mg/dL * T riglycerides 53 <150 - mg/dL * Mavis Rubio 09/06/2024 12:47:4 6 PM > LM for return call Dede Galindo 09/06/2024 1:39:34 PM > Pt informed 6.?Recurrent UTI? Start Bactrim DS Tablet, 800-160 MG, 1 tablet, Orally, Two times a day, 30 day(s), 60 Tablet, Refills 0.?? * Procedure Codes: G 2211 Complex e/[place], [address] Urinalysis, no micro, 80013 CBC WITH AUTO DIFF * Follow Up: v ia phone to report test results * Images: Billing Information: * Visit Code: 52365 Office Visit, Est Pt., Level 4. * Procedure Codes: G2211 Complex e/[place]. [address] Urinalysis, no micro. 05234 CBC WITH AUTO DIFF. * Electronic signature of Franci Steele MD on 07/27/2025 at 05:11 PM EST Sign off status: Pending * Provider: Helen Steele M.D. Date: 0 09/05/2024 Generated for Zoey singh/Carlota/Clementitting on: 09/27/2024 05:11 PM EST History and Physical Notes * HPI (History of Present Illness) Category Sub-Category Detail Notes Category Not es HPI Patient is here today for Pt her e today to discuss some things about Parkinson Disease. Ever since his recent UTI his urinary incontinence has gotten worse, unsure of the cause Examination Category Sub-Category Detail Notes Category Not es General Examination Heart: RSR Lungs: clear to auscultatio n Extremities: bunion deformity on left foot, trace bilateral leg edema General Appearance: NAD Neurologic Exam: tremor at rest and w ith movement Back: no CVA tenderness
--- OUTSIDE RECORDS SUMMARY | 2024-11-21 11:00 | XMS_ITS ---
[facility] Address [address] [place] [phone] Care Team Providers Care Event Marketing Intern Name Role Phone Byron Steele Primary Care Provider [phone] Allergies No Known Allergies Reason For Referral Reason Dr. Morton at [facility], [place] to see spindle setter pnone [phone], [phone] Diagnosis 1 Parkinson's disease with dyskinesia and fluctuating manifestations (G20.B2) [facility] Referring Provider First Name Byron Referring Provider Last Name Cedric Referring Provider Speciality Family [facility] ct[facility] Referred Provider Neurology, . Referred Provider Specialty Neurology General Notes Christy Richards 2024 08:55:21 AM > faxed to [facility] Referral Priority Routine REASON FOR VISIT med ckup Medications Medication SIG (Take, Route, Frequency, Duration) Notes Start Date End Date Status Pramipexole Dihydrochloride 0.5 MG 1 tab(s) Orally 3 times a day Active Triamcinolone Acetonide 0.1 % APPLY TO A FFECTED AREA EVERY 12 HOURS; Duration: 15 Active Rollator Walker - 1 tall Rollator Walk er as directed as directed 08/19/2023 Active Wheelchair - 1 large Wheelchair 08/19/2023 Active Carbidopa-Levodopa 25-100 MG 1 tab(s) or ally 3 times a day; Duration: 30 day(s) Active Gemtesa 75 MG 1 tablet Orally Once a day Active oxyBUTYnin Chloride 5 MG 1 tablet Orally Once a day Active Esomeprazole Magnesium 40 MG TAKE 1 CAPS ULE BY MOUTH ONCE DAILY Active Tadalafil 20 MG 1 tablet as needed Orally Once a day 03/05/2024 Active Problems Problem Type SNOMED Code ICD Code Onset Dates Problem Status W/U Status Risk Notes Problem Parkinson's dise ase with dyskinesia and fluctuating manifestations (G20.B2) Active confirmed Vital Signs Blood pressure systolic 140 mm Hg 11/22/19 25 Blood pressure diastolic 84 mm Hg 025 Heart Rate 91 /min 11/21/2024 Height 71.5 in 11/21/2024 Weight 223 lbs 11/21/2024 BMI 30.67 kg/m2 11/21/2024 Encounters Encounter Location Date Provider Diagnosis [facility] [address] [place] [phone] 11/21/2024 Byron Steele Parkinson's disease with dyskinesia and fluctuating manifestations G20.B2 Assessments Encounter Date Diagnosis (ICD Code) Assessment Notes Treatment Notes Treatment Clinical Notes Section Notes 11/21/2024 Parkinson's disease with dyskinesia and fluctuating manifestations (ICD-10 - G20.B2) Wants to start Onapgo Plan Of Treatment Treatment Notes Assessment Notes Parkinson's disease with dys kinesia and fluctuating manifestations Wants to start Onapgo Referrals Referral Date Details 11/21/2024 11/21/2024, Dr. Kira gillis at [place], [place] to see spindle setter pnizzy [phone], [phone] , . Neurology Next Appt Details Follow Up: prn, Reason: Progress Notes * Leoncio ANDRADEDOB:1955 (69 yo M)Acc No.[id number]:11/21/2024 Progress Notes Patient: Leoncio LIVINGSTON Provider: Helen Steele M.D. :1955 A ge:69 Y S ex:Male Date:11/21/2024 Address:[address] [place] [address] [id number] Subjective: * Chief Complaints: * 1 . Med ckup. * HPI: N eurology: 69 year old male presents with c/o tremor h e would like a referral to a Dr. Morton at the [facility]. He would like to start Apomorphine infusions. He has previously used the subcutaneous injections and had success with treatment. * ROS: D ERMATOLOGY: no R monty. n o H louis. G ASTROENTEROLOGY: no N ausea. n o V omiting. U ROLOGY: no D ifficulty urinating. n o B lood in urine. * Medical History: C oronary CT angiogram October 2014, Diverticulosis, Lumbar Disc Disease, s/p pain management evaluation 2018, Lumbar Facet Arthropathy, MRI L-spine, November 2018, Parkinson's Disease, Dx: 2019, Lumbar Spinal Stenosis, s/p laminectomy 2022. * Surgical History: C olonoscopy 2005, 10/30/2018, Minimally Invasive Lumbar Laminectomy 05/11/2023. * Hospitalization/Major Diagno stic Procedure: D enies Past Hospitalization. * Family History: F ather: . M other: alive, A. fib. 1 son(s) , 1 daughter(s) - healthy. . * Social History: C URRENT TOBACCO USE S moking Status: Patient does NOT smoke. C affeine: yes, frequency:coffee. Home smoke detector use: yes. * Medications: T aking Gemtesa 75 MG Tablet 1 tablet Orally Once a [...] needed Orally Once a day , Taking oxyBUTYnin Chloride 5 MG Tablet 1 tablet Orally Once a day , Taking Esomeprazole Magnesium 40 MG Capsule Delayed Release TAKE 1 CAPSULE BY MOUTH ONCE DAILY , Discontinued Bactrim DS 800-160 MG Tablet 1 tablet Orally Two times a day , Medication List reviewed and reconciled with the patient * Allergies: N .K.D.A. Objective: * Vitals: W t: 223, Temp: 97.9, BP: 140/84, HR: 91, Nurse: eric, Ht: 71.5, BMI:30.67. * Examination: G eneral Examination: General Appearance: N AD. N eurologic Exam: t remors and shuffling gate present. Assessment: * Assessment: 1. P arkinson's disease with dyskinesia and fluctuating manifestations - G20.B2 (Primary) ? Plan: * Treatment: * Procedure Codes: G 2211 Complex e/m visit add on, 3077F SYST BP = 140 MM HG6 IT, 3079F DIAST BP 80- 89 MM HG * Follow Up: p rn * Images: Billing Information: * Visit Code: 80192 Office Visit, Est Pt., Level 3. * Procedure Codes: G2211 Complex e/m visit add on. 3077F SYST BP = 140 MM HG6 IT. 3079F DIAST BP 80-89 MM HG. * Electronic signature of Franci Steele MD on 07/27/2025 at 05:12 PM EST Sign off status: Pending * Provider: Helen Steele M.D. Date: 0 11/21/2024 Generated for Zoey singh/Carlota/eTransmitting on: 1 09/27/2024 05:12 PM EST History and Physical Notes * HPI (History of Present Illness) Category Sub-Category Detail Notes Category Not es Neurology tremor he would like a referral to a Dr. Morton at the [facility]. He would like to start Apomorphine infusions. He has previously used the subcutaneous injections and had success with treatment Examination Category Sub-Category Detail Notes Category Not es General Examination General Appearance: NAD Neurologic Exam: tremors and shufflin g gate present Consultation Request Notes Referral Date Referring Provider Referred Provider Not es 11/21/2024 Byron Steele Neurology, . Dr. Morton at [facility], [place] to see spindle setter pnone [phone], [phone]
--- OUTSIDE RECORDS SUMMARY | 2024-12-25 04:30 | XMS_ITS ---
[facility] Organization [facility] Address [address] [id number] Care Team Providers Care Transportation Manager Name Role Phone Byron Steele Primary Care Provider Allergies No Known Allergies REASON FOR VISIT dislocated finger Medications Medication SIG (Take, Route, Frequency, Duration) Notes Start Date End Date Status Esomeprazole Magnesium 40 MG TAKE 1 CAPS ULE BY MOUTH ONCE DAILY Active oxyBUTYnin Chloride 5 MG 1 tablet Orally Once a day Active Pramipexole Dihydrochloride 0.5 MG 1 tab(s) Orally 3 times a day Active Gemtesa 75 MG 1 tablet Orally Once a day Active Carbidopa-Levodopa 25-100 MG 1 tab(s) or ally 3 times a day; Duration: 30 day(s) Active Tadalafil 20 MG 1 tablet as needed Orally Once a day 03/05/2024 Active Triamcinolone Acetonide 0.1 % APPLY TO A FFECTED AREA EVERY 12 HOURS; Duration: 15 Active Wheelchair - 1 large Wheelchair 08/19/2023 Active Rollator Walker - 1 tall Rollator Walk er as directed as directed 08/19/2023 Active Problems Problem Type SNOMED Code ICD Code Onset Dates Problem Status W/U Status Risk Notes Problem Body mass index 30+ - obesity ([id number]) BMI 30.0-30.9,a dult (Z68.30) Active confirmed Vital Signs Blood pressure systolic 140 mm Hg 12/26/19 25 Blood pressure diastolic 82 mm Hg 025 Heart Rate 92 /min 12/25/2024 Height 71.5 in 12/25/2024 Weight 221 lbs 12/25/2024 BMI 30.39 kg/m2 12/25/2024 Encounters Encounter Location Date Provider Diagnosis [facility] [address] [facility] [address] [place] [id number] 12/25/2024 Byron Steele Closed dislocation o f left ring finger S63.255A ; Lumbar back pain M54.50 and BMI 30.0-30.9,adult Z68.30 Assessments Encounter Date Diagnosis (ICD Code) Assessment Notes Treatment Notes Treatment Clinical Notes Section Notes 12/25/2024 Closed dislocation of left ring finger (ICD-10 - S63.255A) Patient declines anesthesia, finger dislocation reduced with distal traction. Patient will full ROM and neurovascularly intact after joint dislocation reduced, recommend ice and meliza taping as needed for the next few days. Call with any new symptoms. 12/25/2024 Lumbar back pain (ICD-10 - M54.50) 12/25/2024 BMI 30.0-30.9,adult (ICD-10 - Z68.30) Plan Of Treatment Treatment Notes Assessment Notes Closed dislocation of left ring finger P atient declines anesthesia, finger dislocation reduced with distal traction. Patient will full ROM and neurovascularly intact after joint dislocation reduced, recommend ice and meliza taping as needed for the next few days. Call with any new symptoms. Next Appt Details Follow Up: via phone to repo rt progress, Reason: Progress Notes * LUPE LeoncioDOB:1955 (69 yo M)Acc No.[id number]:12/25/2024 Progress Notes Patient: Leoncio LIVINGSTON Provider: Helen Steele M.D. :1955 A ge:69 Y S ex:Male Date:12/25/2024 Address:[address] [place] [address] [address] [id number] Subjective: * Chief Complaints: * 1 . Dislocated finger. * HPI: H PI: 69 year old male presents with c/o Patient is here today for?Pt complains of lt ring finger dislocation after falling this morning. * ROS: D ERMATOLOGY: no R monty. [...] 1 CAPSULE BY MOUTH ONCE DAILY , Medication List reviewed and reconciled with the patient * Allergies: N .K.D.A. Objective: * Vitals: W t: 221, Temp: 97.9, BP: 140/82, HR: 92, Nurse: eric, Ht: 71.5, BMI:30.39. * Examination: G eneral Examination: General Appearance: N AD. E xtremities: l eft 4 th digit dislocated at the PIP joint. Assessment: * Assessment: 1. C losed dislocation of left ring finger - S63.255A (Primary) 2 . L umbar back pain - M54.50 3 . B AZ 30.0-30.9,adult - Z68.30 Plan: * Treatment: * Procedure Codes: G 2211 Complex e/m visit add on * Follow Up: v ia phone to report progress * Images: Billing Information: * Visit Code: 11232 Office Visit, Est Pt., Level 3. * Procedure Codes: G2211 Complex e/m visit add on. * Electronic signature of Franci Steele MD on 07/27/2025 at 05:12 PM EST Sign off status: Pending * Provider: Helen Steele M.D. Date: 0 12/25/2024 Generated for Zoey singh/Carlota/Clementitting on: 1 09/27/2024 05:12 PM EST History and Physical Notes * HPI (History of Present Illness) Category Sub-Category Detail Notes Category Not es HPI Patient is here today for Pt [place] ring finger dislocation after falling this morning Examination Category Sub-Category Detail Notes Category Not es General Examination Extremities: left 4 th di git dislocated at the PIP joint General Appearance: NAD
--- OUTSIDE RECORDS SUMMARY | 2025-01-11 03:45 | XMS_ITS ---
Author Organization [facility] Address [address] [id number] Care Team Providers Care Pilot Submersible Name Role Phone Byron Steele Primary Care Provider Allergies No Known Allergies Results Component Value Reference Range Notes CBC Fingerstick (in house) Reviewed date:01/11/2025 09:47:41 AM Interpretation: Performing Lab: Notes/Report: wbc 9.2 3.5 - 10 lym 14.1 15 - 50 mid 5.5 2 - 15 gran 80.4 35 - 80 rbc 4.26 3.5 - 5.5 hgb 12.2 11.5 - 16.5 hct 36.8 35 - 55 mcv 86.2 75 - 100 mch 28.7 25 - 35 mchc 33.2 31 - 38 plat 167 100 - 400 REASON FOR VISIT arm swelling Medications Medication SIG (Take, Route, Frequency, Duration) Notes Start Date End Date Status Wheelchair - 1 large Wheelchair 08/19/2023 Active oxyBUTYnin Chloride 5 MG 1 tablet Orally Once a day Active Esomeprazole Magnesium 40 MG TAKE 1 CAPS ULE BY MOUTH ONCE DAILY Active Triamcinolone Acetonide 0.1 % APPLY TO A FFECTED AREA EVERY 12 HOURS; Duration: 15 Active Tadalafil 20 MG 1 tablet as needed Orally Once a day 03/05/2024 Active Cephalexin 500 MG 1 capsule Orally Two times a day; Duration: 7 days 01/11/2025 Active Gemtesa 75 MG 1 tablet Orally Once a day Active Rollator Walker - 1 tall Rollator Walk er as directed as directed 08/19/2023 Active Pramipexole Dihydrochloride 0.5 MG 1 tab(s) Orally 3 times a day Active Carbidopa-Levodopa 25-100 MG 1 tab(s) or ally 3 times a day; Duration: 30 day(s) Active Vital Signs Blood pressure systolic 110 mm Hg 01/12/20 25 Blood pressure diastolic 66 mm Hg 025 Heart Rate 89 /min 01/11/2025 Height 71.5 in 01/11/2025 Weight 218.6 lbs 01/11/2025 BMI 30.06 kg/m2 01/11/2025 Encounters Encounter Location Date Provider Diagnosis [facility] [address] [place] [id number] 01/11/2025 Byron Steele Cellulitis of right arm L03.113 and BMI 30.0-30.9,adult Z68.30 Assessments Encounter Date Diagnosis (ICD Code) Assessment Notes Treatment Notes Treatment Clinical Notes Section Notes 01/11/2025 Cellulitis of right arm (ICD-10 - L03.113) 01/11/2025 BMI 30.0-30.9,adult (ICD-10 - Z68.30) Plan Of Treatment Medication Medication Name Sig Start Date Stop Date Notes Cephalexin 500 MG 1 capsule Orally Two times a day; Duration: 7 days 01/11/2025 Next Appt Details Follow Up: via phone to repo rt progress, Reason: Progress Notes * Leoncio ANDRADEDOB:1955 (69 yo M)Acc No.[id number]:01/11/2025 Progress Notes Patient: Leoncio LIVINGSTON Provider: Helen Steele M.D. :1955 A ge:69 Y S ex:Male Date:01/11/2025 Address:[address] [place] [address] [address] [id number] Subjective: * Chief Complaints: * 1 . Arm swelling. * HPI: E lbow/Arm: 69 year old male presents with c/o swelling P t is here today for c/o swelling in the rt arm. Pt sts that last he fell, but sts his arm did not start to swell until 3 days ago. * ROS: D ERMATOLOGY: no R monty. [...] N .K.D.A. Objective: * Vitals: W t: 218.6, Temp: 97.9, BP: 110/66, HR: 89, Nurse: brittney, Ht: 71.5, BMI:30.06. * Examination: E lbow/Arm: Elbow: right. I nspection: s ome edema and dull skin redness around the elbow, mostly at the olecranon. P alpation: n o tenderness on radial head or epicondyles. R ninfa of motion: n ormal flexion and extension. Assessment: * Assessment: 1. C ellulitis of right arm - L03.113 (Primary) 2 . B SC 30.0-30.9,adult - Z68.30 Plan: * Treatment: Value Reference Range w bc 9.2 3.5 - 10 * l ym 14.1 15 - 50 * m id 5.5 2 - 15 * g ran 80.4 35 - 80 * r bc 4.26 3.5 - 5.5 * h gb 12.2 11.5 - 16.5 * h ct 36.8 35 - 55 * m cv 86.2 75 - 100 * m ch 28.7 25 - 35 * m chc 33.2 31 - 38 * p lat 167 100 - 400 * Lesli Valencia 01/11/2025 09:2 4:38 AM > Provider reviewed results while patient in office. * Procedure Codes: G 2211 Complex e/[place], [address] CAPILLARY BLOOD DRAW, 20836 CBC WITH AUTO DIFF, G8752 MOST RECENT SYSTOLIC BP < 140MM HG, G8754 MOST RECENT DIASTOLIC BP < 90MM HG, G8783 BP SCR PRFRM RCMDD DEFIND SCR INTVL * Follow Up: v ia phone to report progress * Images: Billing Information: * Visit Code: 28245 Office Visit, Est Pt., Level 3. * Procedure Codes: G2211 Complex e/[place]. [address] CAPILLARY BLOOD DRAW. 08141 CBC WITH AUTO DIFF. G8752 MOST RECENT SYSTOLIC BP < 140MM HG. G8754 MOST RECENT DIASTOLIC BP < 90MM HG. G8783 BP SCR PRFRM RCMDD DEFIND SCR INTVL. * Electronic signature of Franci Steele MD on 07/27/2025 at 05:11 PM EST Sign off status: Pending * Provider: Helen Steele M.D. Date: 0 01/11/2025 Generated for Zoey singh/Carlota/Clementitting on: 09/27/2024 05:11 PM EST History and Physical Notes * HPI (History of Present Illness) Category Sub-Category Detail Notes Category Not es Elbow/Arm swelling Pt is here today for c/o swelling in the rt arm. Pt sts that last he fell, but sts his arm did not start to swell until 3 days ago Examination Category Sub-Category Detail Notes Category Not es Elbow/Arm Palpation: no tenderness on radial head or epicondyles Elbow: right Inspection: some edema and dull skin redness around the elbow, mostly at the olecranon Range of motion: normal flexion and e xtension
--- OUTSIDE RECORDS SUMMARY | 2025-02-12 06:15 | XMS_ITS ---
Author Organization [facility] Address [address] [place] [id number] Care Team Providers Care Printing Mechanist Name Role Phone Cedric Byron Primary Care Provider Allergies No Known Allergies REASON FOR VISIT spot on elbow Medications Medication SIG (Take, Route, Frequency, Duration) Notes Start Date End Date Status Esomeprazole Magnesium 40 MG TAKE 1 CAPS ULE BY MOUTH ONCE DAILY Active Tadalafil 20 MG 1 tablet as needed Orally Once a day 03/05/2024 Active oxyBUTYnin Chloride 5 MG 1 tablet Orally Once a day Active Triamcinolone Acetonide 0.1 % APPLY TO A FFECTED AREA EVERY 12 HOURS; Duration: 15 Active Wheelchair - 1 large Wheelchair 08/19/2023 Active Carbidopa-Levodopa 25-100 MG 1 tab(s) or ally 3 times a day; Duration: 30 day(s) Active Rollator Walker - 1 tall Rollator Walk er as directed as directed 08/19/2023 Active Pramipexole Dihydrochloride 0.5 MG 1 tab(s) Orally 3 times a day Active Gemtesa 75 MG 1 tablet Orally Once a day Active Cephalexin 500 MG 1 capsule Orally harjit ry 12 hrs; Duration: 7 days 02/12/2025 Active Vital Signs Blood pressure systolic 122 mm Hg 02/13/20 25 Blood pressure diastolic 64 mm Hg 025 Heart Rate 91 /min 02/12/2025 Height 71.5 in 02/12/2025 Weight 215 lbs 02/12/2025 BMI 29.57 kg/m2 02/12/2025 Encounters Encounter Location Date Provider Diagnosis [facility] [address] [place] [phone] 02/12/2025 Byron Steele Olecranon bursitis o f right elbow M70.21 Assessments Encounter Date Diagnosis (ICD Code) Assessment Notes Treatment Notes Treatment Clinical Notes Section Notes 02/12/2025 Olecranon bursitis of right elbow (ICD-10 - M70.21) Plan Of Treatment Medication Medication Name Sig Start Date Stop Date Notes Cephalexin 500 MG 1 capsule Orally harjit ry 12 hrs; Duration: 7 days 02/12/2025 Next Appt Details Follow Up: via phone to repo rt progress, Reason: Procedure Notes * Category Sub-Category Detail Notes Procedure-other Aspiration of Olecranon Bursa Co nsent signed, Betadine prep, 1 % lidocaine local anesthesia, bursa aspirated with # 21 guage needle, only minimal purulent fluid just under the surface, 5 mL's of clear straw colored fluid drawn from the bursa, pressure dressing applied Progress Notes * Leoncio ANDRADEDOB:1955 (69 yo M)Acc No.[id number]:02/12/2025 Progress Notes Patient: Leoncio [place] Provider: Helen Steele M.D. :1955 A ge:69 Y S ex:Male Date:02/12/2025 Address:[address] [place] [address] [id number] Subjective: * Chief Complaints: * 1 . Spot on elbow. * HPI: D ermatology: 69 year old male presents with c/o Swelling P t complains of rt elbow swelling. Pt states he had a fall and landed on rt elbow. Pt states swelling has improved but he does still have fluid in elbow. * ROS: C ARDIOLOGY: no D izziness. n o C hest pain. G ASTROENTEROLOGY: no N ausea. n o [...] . * Social History: C URRENT TOBACCO USE: No . C affeine: yes, frequency:coffee. Home smoke detector [...] CAPSULE BY MOUTH ONCE DAILY , Discontinued Cephalexin 500 MG Capsule 1 capsule Orally Two times a day , Medication List reviewed and reconciled with the patient * Allergies: N .K.D.A. Objective: * Vitals: W t: 215, Temp: 000, BP: 122/64, HR: 91, Nurse: ruby/eric, Ht: 71.5, BMI:29.57. * Examination: G eneral Examination: General Appearance: N AD. E xtremities: s welling at the right olecranon., only trace edema and warmth to touch. Assessment: * Assessment: 1. O lecranon bursitis of right elbow - M70.21 (Primary) Plan: * Treatment: * Procedures: P rocedure-other: Aspiration of Olecranon Bursa C onsent signed, Betadine prep, 1 % lidocaine local anesthesia, bursa aspirated with # 21 guage needle, only minimal purulent fluid just under the surface, 5 mL's of clear straw colored fluid drawn from the bursa, pressure dressing applied. * Procedure Codes: 2 0605 DRAIN/INJECT BURSA,HEEL, WRIST, ELBOW ANKLE, OLECRANON BURSA, G2211 Complex e/m visit add on * Follow Up: v ia phone to report progress * Images: Billing Information: * Visit Code: * Procedure Codes: DRAIN/INJECT BURSA,HEEL, WRIST, ELBOW ANKLE, OLECRANON BURSA. G2211 Complex e/m visit add on. * Electronic signature of Franci Steele MD on 07/27/2025 at 05:11 PM EST Sign off status: Pending * Provider: Helen Steele M.D. Date: 0 02/12/2025 Generated for Zoey singh/Carlota/Clementitting on: 1 09/27/2024 05:11 PM EST History and Physical Notes * HPI (History of Present Illness) Category Sub-Category Detail Notes Category Not es Dermatology Swelling Pt complains of rt elbow swelling. Pt states he had a fall and landed on rt elbow. Pt states swelling has improved but he does still have fluid in elbow Examination Category Sub-Category Detail Notes Category Not es General Examination Extremities: swelling at the right olecranon., only trace edema and warmth to touch General Appearance: NAD
--- OUTSIDE RECORDS SUMMARY | 2025-02-26 06:30 | XMS_ITS ---
Author Organization [facility] Address [address] [facility] [address] [place] [id number] Care Team Providers Care Ice Handler Name Role Phone Byron Steele Primary Care Provider Allergies No Known Allergies Results Component Value Reference Range Notes P-Culture Body Fluid Reviewed date:03/06/2025 12:29:17 PM Interpretation:No growth Performing Lab: Notes/Report: CLIA: [id number] Felix Schwartz MD, Barrel Reamer [address] [place] [address] , [address], [place] [address] Test performed by [facility] Specimen Source Fluid - Olecranon bursa Culture Body Fluid See Below Final Rep ort : No growth P-Culture, Miscellaneous Aer obic w/Gram Stain Reviewed date:03/06/2025 12:29:18 PM Interpretation:No growth Performing Lab: Notes/Report: Test performed by [facility] [address] , [address], [place] [address] Felix Schwartz MD, Barrel Reamer CLIA: [id number] Specimen Source Fluid - Olecranon bursa Gram Stain See Below Few Polymorphonuclear leukocytes No organisms seen Culture, Miscellaneous Aerobic w/Gram Stain See Below Preliminary Report : No growth, reincubate Final Report : No growth P-Cell Count and Differentia l, Body Fluid Reviewed date:03/06/2025 12:29:18 PM Interpretation:Normal Performing Lab: Notes/Report: CLIA: [id number] Felix Schwartz MD, Barrel Reamer [address] [facility] , [address], [place] [address] Test performed by [employer], [employer] Fluid Type Synovial Fluid Color [place] Fluid Appearance Hazy Fluid Red Blood Cell (RBC) Count 45089 Total Nucleated Cell Count (WBC) 254 Synovial fluid: < 200 cu/mm Cerebrospinal fluid (CSF): 0-5 cu/mm in adults 0-30 cu/mm in children younger than 1 year of age 0-20 cu/mm in children 1-4 years of age 0-10 cu/mm in children 5 years of age to puberty Fluid Monocytes 20 Fluid Lymphocytes 61 Fluid Eosinophils 0 Fluid Mesothelial Cells 0 Fluid Unidentified Cells 0 Fluid Neutrophils 19 Fluid Macrophages 0 Fluid Synovial Lining Cells 0 Fluid Specific [place] 1.032 Crystals Fluid Not Present Uric Acid, Body Fluid Reviewed date:03/06/2025 12:29:18 PM Interpretation:Normal Performing Lab: Notes/Report: Uric Acid, Body Fluid 6.0 INTERPRETIVE INFORMATION: Uric Acid, Body Fluid For information on body fluid reference ranges and/or interpretive guidance visit [email or web address] ds/ This test was developed and its performance characteristics determined by [employer]. It has not been cleared or approved by the US Food and Drug Administration. This test was performed in a CLIA certified laboratory and is intended for clinical purposes. Performed By: [employer] [facility] [address] [place], [place] [id number] Barrel Reamer: Dutch Recinos MD, PhD CLIA Number: [id number] INTERPRETIVE INFORMATION: Uric Acid, Body Fluid For information on body fluid reference ranges and/or interpretive guidance visit [email or web address] ds/ This test was developed and its performance characteristics determined by [employer]. It has not been cleared or approved by the US Food and Drug Administration. This test was performed in a CLIA certified laboratory and is intended for clinical purposes. Performed By: [employer] [facility] [address] [place], [place] [id number] Barrel Reamer: Dutch Recinos MD, PhD CLIA Number: [id number] Uric Acid Fluid Source Joint fluid Olecr anon bursa Uric Acid, Body Fluid 6.0 INTERPRETIVE INFORMATION: Uric Acid, Body Fluid For information on body fluid reference ranges and/or interpretive guidance visit [email or web address] ds/ This test was developed and its performance characteristics determined by [employer]. It has not been cleared or approved by the US Food and Drug Administration. This test was performed in a CLIA certified laboratory and is intended for clinical purposes. Performed By: [employer] [address] [place] [address] Barrel Reamer: Dutch Recinos MD, PhD CLIA Number: [id number] INTERPRETIVE INFORMATION: Uric Acid, Body Fluid For information on body fluid reference ranges and/or interpretive guidance visit [email or web address] ds/ This test was developed and its performance characteristics determined by [employer]. It has not been cleared or approved by the US Food and Drug Administration. This test was performed in a CLIA certified laboratory and is intended for clinical purposes. Performed By: [employer] [address] [place] [address] Barrel Reamer: Dutch Recinos MD, PhD CLIA Number: [id number] REASON FOR VISIT elbow Medications Medication SIG (Take, Route, Frequency, Duration) Notes Start Date End Date Status Wheelchair - 1 large Wheelchair 08/19/2023 Active Triamcinolone Acetonide 0.1 % APPLY TO A FFECTED AREA EVERY 12 HOURS; Duration: 15 Active Tadalafil 20 MG 1 tablet as needed Orally Once a day 03/05/2024 Active oxyBUTYnin Chloride 5 MG 1 tablet Orally Once a day Active Rollator Walker - 1 tall Rollator Walk er as directed as directed 08/19/2023 Active Esomeprazole Magnesium 40 MG TAKE 1 CAPS ULE BY MOUTH ONCE DAILY Active Gemtesa 75 MG 1 tablet Orally Once a day Active Pramipexole Dihydrochloride 0.5 MG 1 tab(s) Orally 3 times a day Active Carbidopa-Levodopa 25-100 MG 1 tab(s) or ally 3 times a day; Duration: 30 day(s) Active Vital Signs Blood pressure systolic 112 mm Hg 02/27/20 25 Blood pressure diastolic 70 mm Hg 025 Heart Rate 84 /min 02/26/2025 Height 71.5 in 02/26/2025 Weight 216 lbs 02/26/2025 BMI 29.7 kg/m2 02/26/2025 Encounters Encounter Location Date Provider Diagnosis [facility] [address] [place] [id number] 02/26/2025 Byron Steele Olecranon bursitis o f right elbow M70.21 Assessments Encounter Date Diagnosis (ICD Code) Assessment Notes Treatment Notes Treatment Clinical Notes Section Notes 02/26/2025 Olecranon bursitis of right elbow (ICD-10 - M70.21) Plan Of Treatment Pending Test Test Name Order Date P-Uric Fluid Analysis 02/26/2025 P-Fluid Cell Count 02/26/2025 Next Appt Details Follow Up: via phone to repo rt progress and test results, Reason: Procedure Notes * Category Sub-Category Detail Notes Procedure-other Aspiration of Olecranon Bursa Co nsent signed, Betadine prep, 1 % lidocaine local anesthesia, bursa aspirated with # 21 guage needle, 9 mL's of clear blood tinged fluid drawn from the bursa, pressure dressing applied, fluid sent for analysis Progress Notes * Leoncio ANDRADEDOB:1955 (69 yo M)Acc No.[id number]:02/26/2025 Progress Notes Patient: Leoncio LIVINGSTON Provider: Helen Steele M.D. :1955 A ge:69 Y S ex:Male Date:02/26/2025 Address:[address] [place] [address] [id number] Subjective: * Chief Complaints: * 1 . Elbow. * HPI: D ermatology: 69 year old male presents with c/o Swelling P t complains of rt elbow swelling. Pt had elbow drained on 02/12 and states fluid came back the next day. * ROS: C ARDIOLOGY: no D izziness. [...] Cephalexin 500 MG Capsule 1 capsule Orally every 12 hrs , Medication List reviewed and reconciled with the patient * Allergies: N .K.D.A. Objective: * Vitals: W t: 216, Temp: 97.9, BP: 112/70, HR: 84, Nurse: eric, Ht: 71.5, BMI:29.7. * Examination: G eneral Examination: General Appearance: N AD. E xtremities: s welling at the right olecranon., no skin erythema. Assessment: * Assessment: 1. O lecranon bursitis of right elbow - M70.21 (Primary) Plan: * Treatment: Value Reference Range C ulture Body Fluid See Below - * S pecimen Source Fluid - Olecranon bursa - * Mavis Rubio 03/06/2025 12:28: 25 PM EDT > Pt informed * Procedures: P rocedure-other: Aspiration of Olecranon Bursa C onsent signed, Betadine prep, 1 % lidocaine local anesthesia, bursa aspirated with # 21 guage needle, 9 mL's of clear blood tinged fluid drawn from the bursa, pressure dressing applied, fluid sent for analysis. * Labs: * L ab: P-Cell Count and Differential, Body Fluid (Collection Date & Time - 02/26/2025 11:27 AM) N ormal Value Reference Range C rystals Fluid Not Present - * F luid Appearance Hazy - * F luid Color [place] - * F luid Eos 0 - % * F luid Lymphs 61 - % * F luid Mesothelial Cell 0 - % * F luid Monocytes 20 - % * F luid RBC 13665 - cu/mm * F luid Specific [place] 1.032 - * F luid Unidentified Cells 0 - % * F luid Type Synovial - * T otal Nucleated Cell Count (WBC) 254 - cu/mm * F luid Macrophage 0 - % * F luid Neutrophils 19 - % * F luid Synovial Lining Cells 0 - % * [facility], IT support 02/28/2025 10:40:05 : This order was created by the Interface. Mavis uRbio 03/06/2025 12:28:25 PM EDT > Pt informed ?Lab: Uric Acid, Body Fluid (Collection Date & Time - 02/26/2025 11:27 AM) ?Normal* Value Reference Range U jacqueline Acid, Body Fluid 6.0 - mg/dL * U jacqueline Acid Fluid Source Joint fluid - * [facility], IT support 02/28/2025 10:40:06 : This order was created by the Interface. Mavis Rubio 03/06/2025 12:28:25 PM EDT > Pt informed ?Lab: P-Culture, Miscellaneous Aerobic w/Gram Stain (Collection Date & Time - 02/26/2025 11:27 AM)?No growth* Value Reference Range C ulture, Miscellaneous Aerobic w/Gram Stain See Below - * S pecimen Source Fluid - Olecranon bursa - * G shelby Stain See Below - * [facility], IT support 03/03/2025 03:15:05 : This order was created by the Interface. Mavis Rubio 03/06/2025 12:28:25 PM EDT > Pt informed * Procedure Codes: 2 0605 DRAIN/INJECT BURSA,HEEL, WRIST, ELBOW ANKLE, OLECRANON BURSA, G2211 Complex e/m visit add on * Follow Up: v ia phone to report progress and test results * Images: Billing Information: * Visit Code: * Procedure Codes: 48478 DRAIN/INJECT BURSA,HEEL, WRIST, ELBOW ANKLE, OLECRANON BURSA. G2211 Complex e/m visit add on. * Electronic signature of Franci Steele MD on 07/27/2025 at 05:11 PM EST Sign off status: Pending * Provider: Helen Steele M.D. Date: 0 02/26/2025 Generated for Zoey singh/Carlota/Ronniesmitting on: 1 09/27/2024 05:11 PM EST History and Physical Notes * HPI (History of Present Illness) Category Sub-Category Detail Notes Category Not es Dermatology Swelling Pt complains of rt elbow swelling. Pt had elbow drained on 02/12 and states fluid came back the next day Examination Category Sub-Category Detail Notes Category Not es General Examination Extremities: swelling at the right olecranon., no skin erythema General Appearance: NAD
--- OUTSIDE RECORDS SUMMARY | 2025-05-29 05:00 | XMS_ITS ---
[facility] Address [address] [facility] [address] [place] [id number] Care Team Providers Care Livestock Sales Representative Name Role Phone Byron Steele Primary Care Provider Allergies No Known Allergies Results Component Value Reference Range Notes Urinalysis - Inhouse Reviewed date:05/29/2025 12:39:56 PM Interpretation: Performing Lab: Notes/Report: Color/Clarity Yellow/Clear Leuk Neg Nitrite Neg Urobili 3.2 Protein Neg pH 5.5 Blood Neg Sp. Gr. 1.025 Ketone Trace Bili Neg Gluc Neg REASON FOR VISIT wants a referrral & poss UTI Medications Medication SIG (Take, Route, Frequency, Duration) Notes Start Date End Date Status Esomeprazole Magnesium 40 MG TAKE 1 CAPS ULE BY MOUTH ONCE DAILY Active Tamsulosin HCl 0.4 MG 1 capsule Orally O nce a day; Duration: 30 days 05/29/2025 Active Tadalafil 20 MG 1 tablet as needed Orally Once a day 03/05/2024 Active Triamcinolone Acetonide 0.1 % APPLY TO AFFECTED AREA EVERY 12 HOURS; Duration: 15 Active Pramipexole Dihydrochloride 0.5 MG 1 tab(s) Orally 3 times a day Active Gemtesa 75 MG 1 tablet Orally Once a day Active Wheelchair - 1 large Wheelchair 08/19/2023 Active Rollator Walker - 1 tall Rollator Walk er as directed as directed 08/19/2023 Active Carbidopa-Levodopa 25-100 MG 1 tab(s) or ally 3 times a day; Duration: 30 day(s) Active Onapgo 98 MG/20ML as directed Subcutaneous Active Vital Signs Blood pressure systolic 116 mm Hg 05/29/20 25 Blood pressure diastolic 70 mm Hg 025 Heart Rate 84 /min 05/29/2025 Height 71.5 in 05/29/2025 Weight 217.6 lbs 05/29/2025 BMI 29.92 kg/m2 05/29/2025 Encounters Encounter Location Date Provider Diagnosis [facility] [address] [place] [id number] 05/29/2025 Byron Steele Urinary frequency R35.0 Assessments Encounter Date Diagnosis (ICD Code) Assessment Notes Treatment Notes Treatment Clinical Notes Section Notes 05/29/2025 Urinary frequency (ICD-10 - R35.0) Plan Of Treatment Medication Medication Name Sig Start Date Stop Date Notes Tamsulosin HCl 0.4 MG 1 capsule Orally O nce a day; Duration: 30 days 05/29/2025 oxyBUTYnin Chloride 5 MG 1 tablet Orally Once a day Next Appt Details Follow Up: via phone to repo rt progress, Reason: Progress Notes * Leoncio ANDRADEDOB:1955 (69 yo M)Acc No.[id number]:05/29/2025 Progress Notes Patient: Leoncio LIVINGSTON Provider: Helen Steele M.D. :1955 A ge:69 Y S ex:Male Date:05/29/2025 Address:[address] [place] [address] [id number] Subjective: * Chief Complaints: * 1 . wants a referrral & poss UTI. * HPI: M mekhi Reproductive: 69 year old male presents with c/o frequency P t complains of frequent urination that started Tuesday. Pt states he cannot control it . Pt states his started him on an older rx of Amoxicillin 500mg that pt had from Dr. Sanchez. Denies : burning urination. * Medical History: C oronary CT angiogram [...] detector use: yes. * Medications: T aking Onapgo 98 MG/20ML Solution Cartridge as directed Subcutaneous , Taking Gemtesa 75 MG Tablet 1 tablet Orally [...] N .K.D.A. Objective: * Vitals: W t: 217.6, Temp: 97.7, BP: 116/70, HR: 84, Nurse: eric, Ht: 71.5, BMI:29.92. * Examination: G eneral Examination: General Appearance: N AD. H eart: R SR. L ungs:?clear to auscultation. N eurologic Exam: t remor present, stands and moves slowly.? Assessment: * Assessment: 1. U rinary frequency - R35.0 (Primary) Plan: * Treatment: Value Reference Range C olor/Clarity Yellow/Clear * L euk Neg * N itrite Neg * U robili 3.2 * P rotein Neg * p H 5.5 * B lood Neg * S p. Gr. 1.025 * K etone Trace * B catrachita Neg * G lisset Neg * Mavis Rubio 05/29/2025 12:39: 50 PM EDT > Provider reviewed results while patient in office. * Procedure Codes: G 2211 Complex e/[place], [address] Urinalysis, no micro, 3074F SYST BP LT 130 MM HG, 3078F DIAST BP < 80 MM HG * Follow Up: v ia phone to report progress * Images: Billing Information: * Visit Code: 23957 Office Visit, Est Pt., Level 3. * Procedure Codes: G2211 Complex e/[place]. [address] Urinalysis, no micro. 3074F SYST BP LT 130 MM HG. 3078F DIAST BP < 80 MM HG. * Electronic signature of Franci Steele MD on 07/27/2025 at 05:11 PM EST Sign off status: Pending * Provider: Helen Steele M.D. Date: 1 Generated for Zoey singh/Carlota/Clementitting on: 09/27/2024 05:11 PM EST History and Physical Notes * HPI (History of Present Illness) Category Sub-Category Detail Notes Category Not es Male Reproductive burning urination frequency Pt complains of freq uent urination that started Tuesday. Pt states he cannot control it . Pt states his started him on an older rx of Amoxicillin 500mg that pt had from Dr. Sanchez Examination Category Sub-Category Detail Notes Category Not es General Examination Heart: RSR Lungs: clear to auscultatio n General Appearance: NAD Neurologic Exam: tremor present, jareth ds and moves slowly
--- OUTSIDE RECORDS SUMMARY | 2025-07-22 09:45 | XMS_ITS ---
Author Organization [facility] Address [address] [place] [place] [id number] Care Team Providers Care Non Profit Job Titles Name Role Phone Byron Steele Primary Care Provider Allergies No Known Allergies Results Component Value Reference Range Notes CBC Fingerstick (in house) Reviewed date:07/23/2025 09:48:11 AM Interpretation: Performing Lab: Notes/Report: wbc 6.6 3.5 - 10 lym 15.4% 15 - 50 mid 5.3% 2 - 15 gran 79.3% 35 - 80 rbc 4.03 3.5 - 5.5 hgb 11.6 11.5 - 16.5 hct 34.9 35 - 55 mcv 86.6 75 - 100 mch 28.8 25 - 35 mchc 33.3 31 - 38 plat 160 100 - 400 REASON FOR VISIT stomach issues Medications Medication SIG (Take, Route, Frequency, Duration) Notes Start Date End Date Status Tamsulosin HCl 0.4 MG 1 capsule Orally O nce a day; Duration: 90 days Active Esomeprazole Magnesium 40 MG TAKE 1 CAPS ULE BY MOUTH ONCE DAILY Active Tadalafil 20 MG 1 tablet as needed Orally Once a day 03/05/2024 Active Triamcinolone Acetonide 0.1 % APPLY TO AFFECTED AREA EVERY 12 HOURS; Duration: 15 Active Wheelchair - 1 large Wheelchair 08/19/2023 Active Onapgo 98 MG/20ML as directed Subcutaneous Active Rollator Walker - 1 tall Rollator Walk er as directed as directed 08/19/2023 Active Carbidopa-Levodopa 25-100 MG 1 tab(s) or ally 3 times a day; Duration: 30 day(s) Active Pramipexole Dihydrochloride 0.5 MG 1 tab(s) Orally 3 times a day Active Gemtesa 75 MG 1 tablet Orally Once a day Active metroNIDAZOLE 500 MG 1 tablet Orally Thr ee times a day; Duration: 7 days 07/22/2025 Active Vital Signs Blood pressure systolic 120 mm Hg 07/22/20 25 Blood pressure diastolic 72 mm Hg 025 Heart Rate 80 /min 07/22/2025 Height 71.5 in 07/22/2025 Weight 220 lbs 07/22/2025 BMI 30.25 kg/m2 07/22/2025 Encounters Encounter Location Date Provider Diagnosis [facility] [address] [place] [id number] 07/22/2025 Byron Steele Acute diarrhea R19.7 Assessments Encounter Date Diagnosis (ICD Code) Assessment Notes Treatment Notes Treatment Clinical Notes Section Notes 07/22/2025 Acute diarrhea (ICD-10 - R19.7) Plan Of Treatment Medication Medication Name Sig Start Date Stop Date Notes metroNIDAZOLE 500 MG 1 tablet Orally Thr ee times a day; Duration: 7 days 07/22/2025 Next Appt Details Follow Up: via phone to repo rt progress, Reason: Progress Notes * LUPE LeoncioDOB:1955 (69 yo M)Acc No.[id number]:07/22/2025 Progress Notes Patient: Leoncio LIV[place]ST[place] Provider: Helen Steele M.D. :1955 A ge:69 Y S ex:Male Date:07/22/2025 Address:[address] [place] [address] [id number] Subjective: * Chief Complaints: * 1 . Stomach issues. * HPI: G astroenterology: 69 year old male presents with c/o Diarrhea w atery. P t states he has been having diarrhea for a week now and it's not every day . Denies : Abdominal Pain. D enies : Acid Reflux. D enies : Heartburn. D enies : Nausea. D enies : Vomiting. D enies : Fever. * Medical History: C oronary CT angiogram October 2014, Diverticulosis, Lumbar Disc Disease, s/p pain management evaluation 2018, Lumbar Facet Arthropathy, MRI L-spine, November 2018, Parkinson's Disease, Dx: 2019, Lumbar Spinal Stenosis, s/p laminectomy 2022. * Surgical History: C olonoscopy 2006, 10/30/2018, Minimally Invasive Lumbar Laminectomy 05/11/2023. * [...] 1 CAPSULE BY MOUTH ONCE DAILY , Taking Tamsulosin HCl 0.4 MG Capsule 1 capsule Orally Once a day , Medication List reviewed and reconciled with the patient * Allergies: N .K.D.A. Objective: * Vitals: W t: 220, Temp: 97.6, BP: 120/72, HR: 80, Nurse: pe, Ht: 71.5, BMI:30.25. * Examination: G astroenterology: General Appearance: p leasant, NAD. O ral cavity: n ormal. S clera: a nicteric. H eart sounds: r egular, normal S1 S2. L ungs: c lear, no rales or wheezes. A bdomen: B S present, soft, nontender, no guarding or rigidity, no masses felt. Assessment: * Assessment: 1. A cute diarrhea - R19.7 (Primary) Plan: * Treatment: Value Reference Range w bc 6.6 3.5 - 10 * l ym 15.4% 15 - 50 * m id 5.3% 2 - 15 * g ran 79.3% 35 - 80 * r bc 4.03 3.5 - 5.5 * h gb 11.6 11.5 - 16.5 * h ct 34.9 35 - 55 * m cv 86.6 75 - 100 * m ch 28.8 25 - 35 * m chc 33.3 31 - 38 * p lat 160 100 - 400 * Kelli Rubioira 07/22/2025 03:31: 50 PM EST > Provider reviewed results while patient in office. * Procedure Codes: G 2211 Complex e/[place], [address] CAPILLARY BLOOD DRAW, 21977 CBC WITH AUTO DIFF * Follow Up: v ia phone to report progress * Images: Billing Information: * Visit Code: 46863 Office Visit, Est Pt., Level 3. * Procedure Codes: G2211 Complex e/[place]. [address] CAPILLARY BLOOD DRAW. 86342 CBC WITH AUTO DIFF. * Electronic signature of Franci Steele MD on 07/27/2025 at 05:12 PM EST Sign off status: Pending * Provider: Helen Steele M.D. Date: 09/22/2024 Generated for Zoey singh/Carlota/Clementitting on: 09/27/2024 05:12 PM EST History and Physical Notes * HPI (History of Present Illness) Category Sub-Category Detail Notes Category Not es Gastroenterology Fever Vomiting Abdominal Pain Diarrhea watery. Pt states he has been having diarrhea for a week now and it's not every day Nausea Heartburn Acid Reflux Examination Category Sub-Category Detail Notes Category Not es Gastroenterology Oral cavity: normal Sclera: anicteric Heart sounds: regular, normal S1 S 2 Lungs: clear, no rales or w heezes Abdomen: BS present, soft, no ntender, no guarding or rigidity, no masses felt General Appearance: pleasant, NAD
--- OUTSIDE RECORDS SUMMARY | 2025-07-27 04:02 | XMS_ITS ---
Author Organization [facility] Address [address] [facility] [address] [place] [id number] Care Team Providers Care Merchant Police Name Role Phone Byron Steele Primary Care Provider REASON FOR VISIT Message Encounters Encounter Location Date Provider Diagnosis [facility] [address] [place] [phone] 07/27/2025 Byron Steele Diarrhea of presumed infectious origin R19.7 Assessments Encounter Date Diagnosis (ICD Code) Assessment Notes Treatment Notes Treatment Clinical Notes Section Notes 07/27/2025 Diarrhea of presumed infectious origin (ICD-10 - R19.7) Plan Of Treatment Pending Test Test Name Order Date H-DIARRHEA PANEL 07/27/2025 Progress Notes * Leoncio ANDRADEDOB:1955 (69 yo M)Acc No.[id number]:07/27/2025 Patient: Leoncio LIVINGSTON :1955 A ge:69 Y S ex:Male Address:[address] [place] [address] [place] [address] Subjective: * Chief Complaints: * M essage * Medical History: * Surgical History: * Hospitalization/Major Diagno stic Procedure: * Medications: Objective: * Vitals: * Physical Examination: Assessment: * Assessment: 1. D iarrhea of presumed infectious origin - R19.7 (Primary) Plan: * Treatment: * Procedure Codes: * true * Date: Generated for Printi ng/Faxing/eTransmitting on: 1 09/27/2024 05:13 PM EST
--- OUTSIDE RECORDS SUMMARY | 2025-07-27 17:11 | XMS_ITS | Continuity of Care Document ---
Author Organization [facility], ORTHOPEDICS [address] [place] [address] Care Team Providers Care Scientific Publications Editor Name Role Phone ROXANNE VARGAS Referring Provider [phone] [place] Internal Sales Engineer ROCIO MILLER Tap Grinder Assessment Encounter Date Assessment Date Assessment LastModified by Organization Details LastModified Time 06/03/2025 06/03/2025 Explained to patient the surgical procedure(s) first MPJ fusion and possible hallux IPJ fusion, second PIPJ fusion with second metatarsal Donald osteotomy, 3rd and 4th and 5th toe tenotomy's all left foot . Patient has been advised of the appropriate post-operative course. In addition, the patient has been advised to the alternatives of care including continued conservative care as well as surgical options. The patient understands that if surgery is performed there are risks and complications that could occur including but not limited to: hematoma formation, seroma formation, development of DVT or phlebitis, pulmonary embolism, infection, painful scar tissue formation, limited motion, delayed-union, non-union, mal-union, reaction to implanted biomaterials and hardware, over-correction, under-correction, recurrence of deformities, continued pain, and the possibility that future surgery may need to be performed. All questions were answered and absolutely no guarantees were given or implied to the patient. Patients surgical date is to be scheduled. Increased/moderat e complexity due to surgical decision making and planning of forefoot reconstruction and 69-year-old male with Parkinson's, will require multiple joint fusions, greater than 45 minutes spent in total reviewing imaging and clinical exam and surgical decision making and planning with elevated complexity. [email or web address] Not available 06/03/2025 22:05:03 Plan of Treatment Reminders Order Date Submit Date Provider Last Modified By Organization Details Last Modified Time Details Appointments POST OP GLOBAL 2024 08:00A M ROCIO MILLER DPM Not available Not available Not available Lab None recorde d. Referral None recorde d. Procedures None recorde d. Surgeries None recorde d. Imaging XR, foot, 3 or more view 2024 025 [facility] Radiology [address] [place], [address], 06/06/2025 16:35:38 Medication Orders None recorde d. Patient TargetsNo targets recorded. Patient InstructionsNo instructions recorded. Reason for Referral None Reported. Results Created Date Observation Date Name Description Value Unit Range Abnormal Flag Note LastModifiedBy Organization Detail LastModifiedTime 06/06/2006/03/2025 XR, foot, 3 or more view [facility] [address] [place] [address] [phone] Patien t Name: JASON MINA Patiservando t : 956 Patien t Orderi ng Provid er: ASH COURTNEY SACHIN EXAM DATE: 2024 EXAM: XR LT FOOT COMPLE TE CLINIC AL INFORM ATION: Pain IMAGES PROVID ED: Comple te radiog raphic series of the left foot. COMPAR EMILY: None. FINDIN GS: Bone densit y is normal . No osteoa rticul ar abnorm ality is seen. No eviden ce of injury is noted. Pes planus deform ity is noted. Calcif icatio n or detach ed spur is noted involv ing the planta r fascia of the planta r aspect near the calcan eus. Hallux valgus deform ity is noted. Chroni c sublux ation of the distal interp halang eal joint of the first digit is noted. IMPRES HEATHER: Chroni c change s. No acute osseou s findin gs. Interp reted By: Sher Sarkar MD Electr onical ly Signed By: Sher Sarkar MD on 2024 4:30 PM [email or web address] [facility] Radiology [address] [place], [address], 06/25/2025 12:31:25 07/16/2007/08/2025 XR, foot, 3 or more view [facility] [address] [facility] [place] [address] Patiservando t Name: JASON van : 956 Patiservando t Orderi ng Provid er: BENJAM IN SCHNEI SACHIN EXAM DATE: 2024 EXAM: XR LT FOOT COMPLE TE CLINIC AL INFORM ATION: Left foot pain status post surgic al repair IMAGES PROVID ED: Comple te radiog raphic series of the left foot. COMPAR EMILY: 2024 FINDIN GS: There is anatom ic alignm ent status post surgic al repair of the first ray and second ray. The surgic al hardwa re is normal in appear ance. Alignm ent is anatom ic.. No acute osseou s abnorm alitie s. IMPRES HEATHER: Anatom ic alignm ent status post surgic al repair of the left foot. Interp reted By: Felipe houser MD Electr onical ly Signed By: Felipe houser MD on 2024 1:42 PM [email or web address] [facility] Radiology [address] [place], [address], 07/16/2025 14:36:52 Result Notes None recorded. Procedures Surgical History Date Name Laterality Status Provider Name and Address Organization Details Recorded Time 5 Op Note completed ROCIO MILLER, DPLoretta [address] [place], [address], [facility] 06/25/2025 14:02:16 5 operative procedure on foot completed Essence Christie [facility] 07/11/2025 14:30:04 5 DAK - Cryo AK completed Alessandra Jimenez [facility] 09/26/2024 09:26:11 3 procedure on eyelid completed Peyton Nilson [facility] 05/05/2023 10:11:14 Imaging Results None recorded. Procedure Notes None recorded. Medical Equipment None Reported. Allergies No known drug allergies Medications Name Sig Start Date Stop Date Status Note LastModified by Organization Details LastModified Time pramipexo le 1 mg tablet Take 1 tablet 3 times a day by oral route. active Not Available Not Available No t Available aspirin 325 mg tablet Take 1 tablet every day by oral route as directed for 14 days. 07/16 completed Not Available Not Available Not Available cephalexi n 500 mg capsule Take 1 capsule every 6 hours by oral route as directed for 10 days. 07/25 completed Not Available Not Available Not Available selegilin e 5 mg tablet Take [...] Not Available Not Available No t Available ondansetr on 4 mg disintegr ating tablet Place 1 tablet every 8 hours by translin gual route as needed for 7 days, for postoper ative nausea and vomiting . 07/09 completed Not Available Not Available Not Available oxycodone 5 mg tablet Take 1 tablet every 4 hours by oral route as needed for 7 days, for postoper ative pain. 07/09 completed Not Available Not Available Not Available APOKYN 10 mg/mL subcutane ous cartridge [...] height Body mass index (BMI) Body weight Provider Name and Address Organization Details Last Updated DateTime 06/03/2025 182.88 cm 33.4 kg/m2 163125.72 g Dina De La O [facility] 06/03/2025 11:48:16 Social History Question Answer Notes LastModified by Organizat ion Details LastModified Time Tobacco Smoking Status Current Every Day [facility] 10:10:49 Sunscreen Use? Yes Informatio n not available 02/28/2025 Tanning Bed Use No Informati on not available 02/28/2025 What Was The Date Of Your Most Recent Tobacco Screening? 07/11/2025 [email or web address] Information not available 07/11/2025 What Is Your Relationship Status? Information not available 05/05/2023 Has Tobacco Cessation Counseling Been Provided? No [email or web address] Information not available 07/11/2025 Sex: Male Functional Status Question Answer Note LastModified by Organizat ion Details LastModified Time Do you use any illicit or recreational drugs? No [email or web address] Information not available 07/11/2025 Do you or have you ever used any other forms of tobacco or nicotine? No [email or web address] Information not available 07/11/2025 What is your level of alcohol consumption? [...] Diagnosis SNOMED-CT Code Diagnosis ICD10 Code Diagnosis IMO Codes Diagnosis Note [id number] ROCIO MILLER DPM ORTHOPEDI [address] [place] [address] 06/03/2025 11:17:28 06/03/2025 11:55:50 Pain in left foot 8370971841 81456 M79.672 358749 Osteoarthr itis of left foot 4642564942 378224 M19.072 [id number] Patient presents with his to discuss surgical correction of his foot. Patient has been undergoing conservati ve treatment for years and patient is continuing to have balance issues and chronic pain.Adriel allen's severe bunion is now stuck and cannot move causing worsening gait when added onto his Parkinson' s issues.- Discussed with patient that due to the severity of his deformity and arthritis he would require first MPJ fusion and possible hallux IPJ fusion along with procedures to toes 2 through 5. Patient would like to proceed with surgery in hopes of alleviatin g pain and allowing him to be more functional . Hallux noy shandra of left foot 7938202275 M20.12 29933992 Hammer toe 076795149 M20 .42 27557619 Symptomati c parkinsonism 387305787 G20.A1 13249 Health Concerns Section Related Observation LastModified by Organization Detai ls LastModified Time None Recorded Concern Status LastModified by Organization Details LastModified Time None Recorded Payers Encounter Date Sequence Insurance Name Policy Number Policy Vasquez Covered Member ID Vasquez Member ID Guarantor Name 06/03/2025 1 CATARINO-LUIS: JUAN ANTONIO TORIBIO OF [facility] (MEDICARE REPLACEMENT REGIONAL PPO) [id number] Jason Harman [id number] Jason Harman Notes Date Note Type Note Provider Name and Address Organization Details Recorded Time 06/03/2025 text/html 06-03-25: Chief Complaint: Patient Presents to clinic today with Left Foot pain x Year(s) DOI: several years ANGELICA: gradual Patient is Negative for bruising/discolorati onPatient is Negative for rednessPatient is Negative for edema Ambulatory Devices: none Injections: No Physical Therapy: none Medication: None The patient is a 69-year-old male presenting with pain in the left foot and requesting surgical correction. The pain is associated with severe bunion and arthritis, which has been progressively worsening, causing difficulty in finding suitable footwear. Patient also has Parkinson's and the severity of the bunion and arthritis is affecting his balance. The patient has a history of flatfoot, which exacerbates the difficulty in ambulation and contributes to the overall foot discomfort. He has not used any arch supports or orthotic devices to date. The patient has Parkinson's disease, managed with daily continuous infusions which have helped tremendously. He is not diabetic, does not have sleep apnea, and does not take blood thinners. Documentation on this patient encounter was supported using voice-enabled Al technology. The patient consented to recording for the purpose of documenting the encounter. Provider reviewed content of the generated note prior to signature. - Parkinson's disease ROCIO MILLER DPM [address] [place], [address], [facility] 06/03/2025 22:07:34
--- OUTSIDE RECORDS SUMMARY | 2025-07-27 17:12 | XMS_ITS | Clinical Summary ---
Author Organization [facility] Address [address] [place] [address] Phone Care Team Providers Care Funeral Car Chauffeur Name Role Phone Day, Nino Unavailable Unavailable Conditions or Problems Problem Name Problem Code Onset Date Status Entry Date Provider Comment Standard Description Annotate Strep pyogenes infection B95.4 (ICD-10-CM ) 12/01 Active 12/01 Yari Ayad Other streptococcus as the cause of diseases classified elsewhere Chronic venous stasis disease 28260101 (SNOMED CT) 12/02 Active 12/02 Yari Ayad Stasis dermatitis Neutrophilic leukemoid reaction D72.823 (ICD-10-CM ) 12/02 Active 12/02 Yari Ayad Leukemoid reaction Smoking cessation counseling 143223106 (SNOMED CT) 12/07 Active 12/07 Carolee Cari Procedure carried out on subject Other obesity due to excess calories 322939829 (SNOMED CT) 12/07 Active 12/07 Carolee Cari Simple obesity Leukocytosis 305364381 (SNOMED CT) 12/02 Inactive 12/02 Jayson Ceja MD Leukocytosis Venous stasis 24564844 (SNOMED CT) 12/02 Inactive 12/02 Jayson Ceja MD Venous stasis Pneumonia 978411465 (SNOMED CT) 12/01 Active 12/01 Shae Edkareen Pneumonia Peripheral venous insufficiency 68226698 (SNOMED CT) 12/01 Active 12/01 Shae Edelen Peripheral venous insufficiency Cellulitis of right lower limb 554193539 (SNOMED CT) 12/01 Active 12/01 Shae Edelen Cellulitis of leg, excluding foot Streptococcus pyogenes infection 772704242 (SNOMED CT) 12/01 Inactive 12/01 Shae August Streptococcus pyogenes infection Parkinson's disease 98127630 (SNOMED CT) 12/01 Active 12/01 Shae Oharakareen Parkinson's disease Nicotine dependence 95725345 (SNOMED CT) 12/01 Inactive 12/01 Shae August Nicotine dependence Problem excluded fro wayne report: Nicotine dependence 34263778 (SNOMED CT) 12/01 Removed 12/01 Alessandra Christensen Nicotine dependence Medications Medication Instructions Start Date Stop Date Generic Name NDC Provider Hibiclens 4% liquid Apply 1 as directed to skin once a day 05/18 chlorhexidine gluconate 82115056777 Jayson Ceja MD MUPIROCIN 2 % OINT Apply 1 as directed to affected area twice a day Apply to each nostril twice a day. Once in the morning and once in the evening for 5 days mupirocin 85897172627 Jayson Ceja MD CEPHALEXIN 500 MG CAPS Take 1 capsule by mouth four times a day 02/26 cephalexin 90016679877 Jayson Ceja MD CEPHALEXIN 500 MG CAPS 1 capsule by mouth four times a day 5/11 cephalexin 96812826717 Jayson Ceja MD rocnuno Rocephin 2G IV Q24hrs / INPAT 12/09 barrington Wilson RN CEPHALEXIN 500 MG CAPS by mouth every eight hours 12/09 cephalexin 43646339984 Jayson Ceja MD CEPHALEXIN 500 MG CAPS Take 1 capsule by mouth four times a day 12/16 cephalexin 33247557731 Jayson Ceaj MD rocnuno Rocephin 2G IV Q24hrs / INPAT 12/09 barrington Geronimo RN MUCINEX MAXIMUM STRENGTH 1200 MG [id number] qd guaifenesin 42968462654 Alessandra Christensen PREGABALIN 75 MG CAPS three times daily pregabalin 36090230568 Alessandra Christensen PRAMIPEXOLE DIHYDROCHLORIDE 1 MG TABS three times daily pramipexole 03328503081 Alessandra Christensen ESOMEPRAZOLE MAGNESIUM 40 MG CPDR qd esomeprazole magnesium 27828603674 Alessandra Christensen Mirapex 1 mg tablet by mouth three times a day pramipexole 50748372779 Tonia Parham CARBIDOPA-LEVODOPA ER 25-100 MG CR-TABS 2 tablet by mouth four times a day carbidopa-levod opa 90528028432 Tonia Parham NEXIUM 40 MG CPDR by mouth once a day esomeprazole magnesium 47512456409 Tonia Parham LYRICA 75 MG CAPS by mouth three times a day pregabalin 10280539899 Tonia Parham LORATADINE 10 MG TABS by mouth once a day loratadine 67579115087 Tonia Parham CEPHALEXIN 500 MG CAPS by mouth every eight hours 12/09 cephalexin 69488522110 Tonia Parham LEVOFLOXACIN 750 MG TABS by mouth once a day levofloxacin 27594401689 Tonia Parham Medications Administered No information available. [...] Stat Weekly Labs CPT-david New IV antibiotic CPT-44732 CMP CPT-27802 CBC w/o Differential Vital Signs Date Name [...]
--- OUTSIDE RECORDS SUMMARY | 2025-07-27 17:12 | XMS_ITS | Continuity of Care Document ---
Author Organization [facility] Clini [facility], ORTHOPEDICS [address] [place] [address] Care Team Providers Care Ditching Machine Operating Engineer Name Role Phone SAM ROXANNE Referring Provider [phone] [place] Mangle Tender ROCIO MILLER Photo Tube Assembler [phone] Assessment No assessment recorded. Plan of Treatment Reminders Order Date Submit Date Provider Last Modified By Organization Details Last Modified Time Details Appointments POST OP GLOBAL 2024 08:00A M ROCIO MILLER DPM Not available Not available Not available Lab None recorded . Referral None recorded . Procedures None recorded . Surgeries None recorded . Imaging None recorded . Medication Orders cephalex in 500 mg capsule 2024 025 [facility], [facility] [address], [address], 07/25/2025 05:01:59 Patient TargetsNo targets recorded. Patient InstructionsNo instructions recorded. Reason for Referral None Reported. Results Created Date Observation Date Name Description Value Unit Range Abnormal Flag Note LastModifiedBy Organization Detail LastModifiedTime 07/16/2007/08/2025 XR, foot, 3 or more view [facility] [address] [place], [place] [address] Patiservando van Name: JASON van : 956 Patiservando t [...] Felipe houser MD on 2024 1:42 PM [email or web address] [facility] Radiology [address] [place], [address], 07/16/2025 14:36:52 Result Notes None recorded. Procedures Surgical History Date Name Laterality Status Provider Name and Address Organization Details Recorded Time 5 Op Note completed ROCIO MILLER, SENIA [address] [place], [address], [facility] 06/25/2025 14:02:16 5 operative procedure on foot completed Essence Christie [facility] 07/11/2025 14:30:04 5 DAK - Cryo AK completed Alessandra Jimenez [facility] 09/26/2024 09:26:11 3 procedure on eyelid completed Peyton Devine [facility] 05/05/2023 10:11:14 Imaging Results None recorded. [...] and Address Organization Details Last Updated DateTime 07/08/2025 182.88 cm 33.4 kg/m2 618413.72 g Dina De La O [facility] 07/08/2025 10:11:20 Social History Question Answer Notes LastModified by Organizat ion Details LastModified Time Tobacco Smoking Status Current Every Day Smoker 1 cigar per day [email or web address]2023 10:10:49 Sunscreen Use? Yes Informatio n not available 02/28/2025 Tanning Bed Use No Informati on not available 02/28/2025 What Was The Date Of Your Most Recent Tobacco Screening? 07/11/2025 [email or web address] Information not available 07/11/2025 What Is Your Relationship Status? Information not available 05/05/2023 Has Tobacco Cessation Counseling Been Provided? No Information not available 07/11/2025 Sex: Male Functional Status Question Answer Note LastModified by Organizat ion Details LastModified Time Do you use any illicit or recreational drugs? No [email or web address] Information not available 07/11/2025 Do you or have you ever used any other forms of tobacco or nicotine? No [email or web address] Information not available 07/11/2025 What is your [...] ICD10 Code Diagnosis IMO Codes Diagnosis Note [id number] ROCIO MILLER DPM SURGERY SCHEDULE [address] [place] [address] 06/25/2025 07:54:35 06/25/2025 07:55:09 Osteoarthritis of left foot 2680348135 995171 M19.072 64773404 Hallux noy shandra of left foot 5410086190 M20.12 32547550 Hammer toe 349053119 M20 .42 32327904 Pain in left foot 272731 8904 90898 M79.672 618567 Symptomati c parkinsonism 283667821 G20.A1 03549 [id number] ROCIO MILLER DPM ORTHOPEDI [address] [place] [address] 07/08/2025 09:58:05 07/08/2025 11:12:06 Osteoarthritis of left foot 8644282895 796087 M19.072 75617860 Hallux noy shandra of left foot 3699582622 M20.12 82292556 Hammer toe 561203091 M20 .42 34510006 Pain in left foot 944606 1561 64846 M79.672 263320 Symptomati c parkinsonism 213388824 G20.A1 92896 Postoperative visit 1836 52994 Z48.89 95834097 Patient follows up today 2 weeks status post extensive forefoot reconstruc tion with first MPJ and hallux IPJ fusion, second metatarsal Ld osteotomy and PIPJ fusion with pinning. Patient is doing well and pain is controlled . Suture removed today without incident. Can return to normal hygiene with the exception of no soaking the foot.-Due to slightly worse than normal edema and erythema dorsal IPJ incision we elected to proceed with p.o. Keflex prophylact ically to be on the safe side. Patient is to continue nonweightb earing in the boot and do range of motion exercises daily.-Fol low-up in 4 weeks and XOA, will be 6 weeks from surgery, we will plan on pin removal and transition to weightbear ing in the boot at that time. Health Concerns Section Related Observation LastModified by Organization Detai ls LastModified Time None Recorded Concern Status LastModified by Organization Details LastModified Time None Recorded Payers Encounter Date Sequence Insurance Name Policy Number Policy Vasquez Covered Member ID Vasquez Member ID Guarantor Name 07/08/2025 1 BRISSA: JUAN ANTONIO TORIBIO OF [facility] (MEDICARE REPLACEMENT REGIONAL PPO) [id number] Jason Harman [id number] Jason Harman Notes Date Note Type Note Provider Name and Address Organization Details Recorded Time 07/08/2025 text/html 07-08-25: Patient returns 2 Week(s) status post Left1. 1st Metatarsal Phalangeal Joint arthrodesis left foot2. Hammertoe correction with 2nd PIPJ fusion left foot3. 2nd metatarsal ld osteotomy left foot4. IPJ Hallux Fusion left foot5,6,7. Flexor tenotomies 3,4,5 left foot8. Use of Fluoroscopy left foot DOS: 06/25/25 Is currently taking no doses of narcotics daily. Patient Does Not request a refill of pain medication. Ambulatory Assisting Device: wheelchair Physical Therapy: None ROCIO MILLER DPM [address] [place], [address], [facility] 07/08/2025 15:05:12
--- OUTSIDE RECORDS SUMMARY | 2025-07-27 17:12 | XMS_ITS | Data Portability ---
Author Organization [facility] Address [address] [place] [address] Care Team Providers [employer] Teacher Name Role Phone ROXANNE VARGAS Referring Provider FANI NATION Rehab Director ROCIO MILLER Child Care Nurse Assessment Encounter Date Assessment Date Assessment LastModified by Organization Details LastModified Time 06/03/2025 06/03/2025 Explained to patient the surgical procedure(s) first MPJ fusion and possible hallux IPJ fusion, second PIPJ fusion with second metatarsal Ld osteotomy, 3rd and 4th and 5th toe [...] decision making and planning with elevated complexity. [email or web address] Not available 06/03/2025 22:05:03 Plan of Treatment Reminders Order Date Submit Date Provider Last Modified By Organization Details Last Modified Time Details Appointments POST OP GLOBAL 2024 08:00A Loretta MILLER DPM Not available Not available Not available Lab None recorded . Referral orthoped ic surgeon referral - bursal cyst on the right elbow 2024 elaine Handley MD, [address] [place], [address], 03/10/2025 13:39:18 Procedures None recorded . Surgeries None recorded . Imaging XR, foot, 3 or more view 2024 [facility] Radiology [address], [address] [place], [address], 06/06/2025 16:35:38 Medication Orders cephalex in 500 mg capsule 2024 [facility], [address] [place] [address], [address], 07/25/2025 05:01:59 oxycodon e 5 mg tablet 2024 025 [facility], [facility] [address], [address], 07/09/2025 05:01:48 ondanset gordo 4 mg disinteg rating tablet 2024 025 [facility], [facility] [address], [address], 07/09/2025 05:01:48 aspirin 325 mg tablet 2024 025 [facility], [facility] [address], [address], 07/16/2025 05:02:16 Patient TargetsNo targets recorded. Patient InstructionsNo instructions recorded. Reason for Referral Orthopedic Surgeon Referral for Cyst of bursa bursal cyst on the right elbow Referring Physician: Fani Nation, Dermatology, Encounter Date: 02/28/2025 Results Created Date Observation Date Name Description Value Unit Range Abnormal Flag Note LastModifiedBy Organization Detail LastModifiedTime 06/06/2006/03/2025 XR, foot, 3 or more view [facility] [place] [facility] [address] [place] [address] [place] [address] Patiservando t Name: JASON van : [address] Orderi ng Provid er: BENJAM IN SCHNEI [...] Sher Sarkar MD on 2024 4:30 PM [email or web address] [facility] Radiology [address] [place], [address], 06/25/2025 12:31:25 07/16/2007/08/2025 XR, foot, 3 or more view [facility] [address] [facility] [place] [address] Patiservando t Name: JASON van : [address] van Orderi ng Provid er: BENJAM IN SCHNEI [...] Felipe houser MD on 2024 1:42 PM [email or web address] [facility] Radiology [address], [address], 07/16/2025 14:36:52 Result Notes Documentation Provider Name and Address Organization Details Recorded Time Xr, Foot, 3 Or More View : [place] [address] [facility] [place] [id number] Patient Name: JASON HARMAN Patient : 1955 Patient Ordering Provider: ROCIO MILLER EXAM DATE: 06/03/2025 EXAM: XR LT FOOT COMPLETE CLINICAL INFORMATION: Pain IMAGES PROVIDED: Complete radiographic series of the left foot. COMPARISON: None. FINDINGS: Bone density is normal. No osteoarticular abnormality is seen. No evidence of injury is noted. Pes planus deformity is noted. Calcification or detached spur is noted involving the plantar fascia of the plantar aspect near the calcaneus. Hallux valgus deformity is noted. Chronic subluxation of the distal interphalangeal joint of the first digit is noted. IMPRESSION: Chronic changes. No acute osseous findings. Interpreted By: Sher Sarkar MD O MILLER DPLoretta [address] [place], [address], [facility] 06/25/2025 12:31:25 Xr, Foot, 3 Or More View : [place] [address] [facility] [place] [address] Patient Name: JASON HARMAN Patient : 1955 Patient Ordering Provider: ROCIO MILLER EXAM DATE: 07/08/2025 EXAM: XR LT FOOT COMPLETE CLINICAL INFORMATION: Left foot pain status post surgical repair IMAGES PROVIDED: Complete radiographic series of the left foot. COMPARISON: 06/03/2025 FINDINGS: There is anatomic alignment status post surgical repair of the first ray and second ray. The surgical hardware is normal in appearance. Alignment is anatomic.. No acute osseous abnormalities. IMPRESSION: Anatomic alignment status post surgical repair of the left foot. Interpreted By: Felipe Schmidt MD O MILLER DPM [address] [place], [address], [facility] 07/16/2025 14:36:52 Procedures Surgical History Date Name Laterality Status Provider Name and Address Organization Details Recorded Time 5 Op Note completed ROCIO MILLER DPM [address] [place], [address], [facility] 06/25/2025 14:02:16 5 operative procedure on foot completed Essence Christie [facility] 07/11/2025 14:30:04 5 DAK - Cryo AK completed Alessandra Jimenez [facility] 09/26/2024 09:26:11 3 procedure on eyelid completed Peyton Devine [facility] 05/05/2023 10:11:14 Imaging Results None [...] Updated DateTime 06/03/2025 182.88 cm 33.4 kg/m2 007326.72 g Dina De La O [facility] 06/03/2025 11:48:16 Date Recorded Body height Body mass index (BMI) Body weight Provider Name and Address Organization Details Last Updated DateTime 07/08/2025 182.88 cm 33.4 kg/m2 462439.72 g Dina De La O [facility] 07/08/2025 10:11:20 Date Recorded Body height Body mass index (BMI) Body weight Pain severity - 0-10 verbal numeric rating [Score] - Reported Provider Name and Address Organization Details Last Updated DateTime 07/11/2025 182.88 cm 29.2 kg/m2 56354.36 g [address]son [facility] 07/11/2025 14:27:49 Social History Question Answer Notes LastModified by [email or web address] Details LastModified Time Tobacco Smoking Status Current Every Day Smoker 1 [facility] 10:10:49 Sunscreen Use? Yes Informatio n not available 02/28/2025 Tanning Bed Use No Informati on not available 02/28/2025 What Was The Date Of Your Most Recent Tobacco Screening? 07/11/2025 [email or web address] Information not available 07/11/2025 What Is Your Relationship Status? [email or web address] Information not available 05/05/2023 Has Tobacco Cessation Counseling Been Provided? No [email or web address] Information not available 07/11/2025 Sex: Male Functional Status Question Answer Note LastModified by Organizat ion Details LastModified Time Do you use any illicit or recreational drugs? No Information not available 07/11/2025 Do you or have you ever used any other forms of tobacco or nicotine? No [email or web address] Information not available 07/11/2025 What is your level of alcohol consumption? Occasional Information not available 02/28/2025 Are you currently employed? No [email or web address] Information not available 05/05/2023 Mental Status None [...] ICD10 Code Diagnosis IMO Codes Diagnosis Note [id number] ELOISA HIRSCH MD NEUROLOGY [facility] [address] [place] [address] 05/05/2023 09:53:49 05/06/2023 13:56:45 Parkinson's disease 75007153 G20 Lumbar radiculopathy 128 261547 M54.16 [id number] MARITZA GUNN [address] [address] 10/03/2023 14:43:43 10/03/2023 15:46:15 Multiple benign melanocytic nevi 876645434 D22.5 D18.01 L82.1 L81.4 The benign nature [...] any suspicious lesions are noted. Skin tag 369912317 L91.8 Benign.No tx needed at this time. [id number] CHRISSIE MYLES MD [address] [address] 09/26/2024 08:53:19 09/26/2024 10:01:21 Solar lentigo 23046839 L81.4 - Benign appearing, reassuranc e given Multiple b enign melanocytic nevi 159975737 D22.5 - Benign appearing, reassuranc e given - Counseled on importance of daily sun protection and self skin exams/aram toring for ugly duckling lesions Senile angioma 3208071 I 78.1 - Benign appearing, reassuranc e given Seborrheic keratosis 394 410483 L82.1 - Benign appearing, reassuranc e given Lipoma 80093641 D17.0 - Benign appearing, reassuranc e- Continue to monitor- RTC sooner PRN for changes/co ncerns/sym ptomatic etc Actinic keratosis 106892 007 L57.0 -Precancer ous nature discussed -Will TX with LN2 today (see proc note) -FUP if sites persist after TX Abrasion 886619727 T14.8 XXA Patient reports he fell and scraped both knees- Start Mupirocin 2% ointment to BID until healed [id number] MARITZA GUNN [facility] [address] [place] [address] 02/28/2025 15:03:26 02/28/2025 16:29:24 Cyst of bursa 283874010 M71.30 09693 The nature of the diagnosis was discussed. [...] from the fall. Referral sent to ortho. [id number] ROCIO MILLER DPM ORTHOPEDI [address] [place] [address] 06/03/2025 11:17:28 06/03/2025 11:55:50 Pain in left foot 7068530902 39466 M79.672 239669 Osteoarthr itis of left foot 8120030272 061604 M19.072 53536306 Patient presents with his to discuss surgical correction of his foot. Patient has been undergoing conservati ve treatment for years and patient is continuing to have balance issues and chronic pain.Patie nt's severe bunion is now stuck and cannot [...] . Hallux noy shandra of left foot 0203598096 M20.12 28984259 Hammer toe 830433986 M20 .42 80871704 Symptomati c parkinsonism 571260813 G20.A1 77723 [id number] ROCIO MILLER DPM SURGERY SCHEDULE [address] [place] [address] 06/25/2025 07:54:35 06/25/2025 07:55:09 Osteoarthritis of left foot 9138154792 232669 M19.072 44347327 Hallux noy shandra of left foot 0197799644 M20.12 53526105 Hammer toe 379510050 M20 .42 83777033 Pain in left foot 521957 3517 71525 M79.672 368895 Symptomati c parkinsonism 658588921 G20.A1 04838 38320267 ROCIO MILLER DPM ORTHOPEDI CS [address] [place] [address] 07/08/2025 09:58:05 07/08/2025 11:12:06 Osteoarthritis of left foot 0674265874 105682 M19.072 68980887 Hallux noy shandra of left foot 7050742468 M20.12 99258045 Hammer toe 633110963 M20 .42 33310354 Pain in left foot 551178 1823 91606 M79.672 330163 Symptomati c parkinsonism 663492254 G20.A1 38725 Postoperative visit 9070 12276 Z48.89 82954516 Patient follows up today 2 weeks status [...] ing in the boot at that time. [id number] ROCIO MILLER DPM ORTHOPEDI CS [address] [place] [address] 07/11/2025 14:06:28 07/11/2025 14:53:17 Postoperative visit 109329240 Z48.89 86359329 Patient follows up today 2.5 weeks status post extensive forefoot reconstruc tion with first MPJ and hallux IPJ fusion, second metatarsal Ld osteotomy and PIPJ fusion with pinning. Patient is doing well and pain is controlled . Patient and states second pin has loosened after hitting it and came out approximat maru 1-1/2 inches, states that she pushed it back in but is still very unstable.- We went ahead and removed the pin today, patiently is currently on p.o. antibiotic , incision looks healed and much improved. No signs of infection. -Follow-up at previously scheduled 6-week postop appointmen t and XOA, we will plan on transition to full weightbear ing in the boot at that time. Osteoarthr itis of left foot 0928259409 676417 M19.072 60271700 Hallux noy shandra of left foot 6446362032 M20.12 80698169 Hammer toe 650219170 M20 .42 64614475 Pain in left foot 040487 5869 44727 M79.672 938632 Symptomati c parkinsonism 840218781 G20.A1 60095 Health Concerns Section Related Observation LastModified by Organization Detai ls LastModified Time None Recorded Concern Status LastModified by Organization Details LastModified Time None Recorded Advance Directives Directive None Recorded Payers Insurance Date Sequence Insurance Name Policy Number Policy Vasquez Covered Member ID Vasquez Member ID Guarantor Name 02/28/2025 2 [place]UAN AN[place]MEDIC[place]PPLE[place] [id number] Jason Harman [id number] Jason Harman 02/28/2025 1 [employer] - [employer]US (MEDICARE REPLACEMENT/AD VANTAGE - HMO) Jason Harman [id number] Jason Harman 07/11/2025 1 [place] (MEDICARE REPLACEMENT REGIONAL PPO) [id number] Jason Harman [id number] Jason Harman Notes Date Note Type Note Provider Name and Address Organization Details Recorded Time 02/28/2025 text/html ROS as noted in the HPI spot check location: R elbow duration: 6 weeks report: has had it drained twice and keeps coming back (By PCP) - no hx pt accompanied by FANI Cervantes MARITZA NATION [address] [place], [address], [facility] 02/28/2025 17:09:57 06/03/2025 text/html 06-03-25: Chief Complaint: Patient Presents [...] signature. - Parkinson's disease ROCIO MILLER DPM [address] [place], [address], [facility] 06/03/2025 22:07:34 07/08/2025 text/html 07-08-25: Patient returns 2 Week(s) [...] Physical Therapy: None ROCIO MILLER DPM [address] [place], [address], [facility] 07/08/2025 15:05:12 07/11/2025 text/html 07/11/25Patient returns 2 Week(s) status post Left1. 1st [...] Ambulatory Assisting Device: wheelchair Physical Therapy: None 07-08-25: Patient returns 2 Week(s) status post [...] Physical Therapy: None ROCIO MILLER DPM [address] [place], [address], [facility] 07/12/2025 15:45:05
--- OUTSIDE RECORDS SUMMARY | 2025-07-27 17:12 | XMS_ITS | Continuity of Care Document ---
Author Organization [facility], ORTHOPEDICS [address] Address [address] [place] [address] Care Team Providers Care Gr[employer] 9 Through 12 Teacher Name Role Phone ROXANNE VARGAS Referring Provider [phone] MINERVA NATION Base Draw Operator ROCIO MILLER Manager Farm [phone] Assessment No assessment recorded. Plan of Treatment Reminders Order Date Submit Date Provider Last Modified By Organization Details Last Modified Time Details Appointments POST OP GLOBAL 2024 08:00A M ROCIO MILLER DPM Not available Not available Not available Lab None recorde d. Referral None recorde d. Procedures None recorde d. Surgeries None recorde d. Imaging None recorde d. Medication Orders None recorde d. Patient TargetsNo targets recorded. Patient InstructionsNo instructions recorded. Reason for Referral None Reported. Results Created Date Observation Date Name Description Value Unit Range Abnormal Flag Note LastModifiedBy Organization Detail LastModifiedTime 07/16/20 25 07/08/2025 XR, foot, 3 or more view [facility] [address] [address] Patien t Name: JASON Mccauley t : 956 Patien t Orderi ng [...] Felipe houser MD on 2024 1:42 PM [email or web address] [facility] Radiology [address] [place], [address], 07/16/2025 14:36:52 Result Notes None recorded. Procedures Surgical History Date Name Laterality Status Provider Name and Address Organization Details Recorded Time 5 Op Note completed ROCIO MILLER, DPM [address] [place], [address], [facility] 06/25/2025 14:02:16 5 operative procedure on foot completed Essence Christie [facility] 07/11/2025 14:30:04 5 DAK - Cryo AK completed Alessandra Jimenez [facility] 09/26/2024 09:26:11 3 procedure on eyelid completed Peyton Devine [facility] 05/05/2023 10:11:14 Imaging Results None recorded. [...] Available Not Available Not Available red beet-sour wlil extract daily active dc Not Available Not Available Not Available Vitals Date Recorded Body height Body mass index (BMI) Body weight Pain severity - 0-10 verbal numeric rating [Score] - Reported Provider Name and Address Organization Details Last Updated DateTime 07/11/2025 182.88 cm 29.2 kg/m2 28036.36 g 1 Essence Christie [facility] 07/11/2025 14:27:49 Social History Question Answer Notes LastModified by Organizat ion Details LastModified Time Tobacco Smoking Status Current Every Day Smoker 1 cigar per day Peyton Nilson gibbons [facility] 05/05/2023 10:10:49 Sunscreen Use? Yes Informatio n not available 02/28/2025 Tanning Bed Use No Informati on not available 02/28/2025 What Was The Date Of Your Most Recent Tobacco Screening? 07/11/2025 [email or web address] Information not available 07/11/2025 What Is Your Relationship Status? Information not available 05/05/2023 Has Tobacco Cessation Counseling Been Provided? No [email or web address] Information not available 07/11/2025 Sex: Male Functional Status Question Answer Note LastModified by Organizat ion Details LastModified Time Do you use any illicit or recreational drugs? No [email or web address] Information not available 07/11/2025 Do you or have you ever used any other forms of tobacco or nicotine? No [email or web address] Information not available 07/11/2025 What is your [...] ICD10 Code Diagnosis IMO Codes Diagnosis Note [id number] ROCIO MILLER DPM SURGERY SCHEDULE [address] [place] [address] 06/25/2025 07:54:35 06/25/2025 07:55:09 Osteoarthritis of left foot 3707610847 026540 M19.072 26145581 Hallux noy shandra of left foot 1627599726 M20.12 27108790 Hammer toe 744784258 M20 .42 31156861 Pain in left foot 909047 1793 34467 M79.672 831946 Symptomati c parkinsonism 080010917 G20.A1 44018 [id number] ROCIO MILLER DPM ORTHOPEDI [address] [address] 07/08/2025 09:58:05 07/08/2025 11:12:06 Osteoarthritis of left foot 5881653720 085906 M19.072 59764673 Hallux noy shandra of left foot 4403415895 M20.12 34718857 Hammer toe 351252514 M20 .42 70301490 Pain in left foot 547338 8166 19629 M79.672 383651 Symptomati c parkinsonism 565177646 G20.A1 94981 Postoperative visit 8386 93793 Z48.89 53946369 Patient follows up today 2 weeks status [...] ing in the boot at that time. [id number] ROCIO MILLER DPM ORTHOPEDI [address] [address] 07/11/2025 14:06:28 07/11/2025 14:53:17 Postoperative visit 512819235 Z48.89 87509967 Patient follows up today 2.5 weeks status [...] that time. Osteoarthr itis of left foot 2282974723 268936 M19.072 57123485 Hallux noy shandra of left foot 9035097710 M20.12 06490212 Hammer toe 945713476 M20 .42 95978208 Pain in left foot 646119 3470 52904 M79.672 176060 Symptomati c parkinsonism 013002097 G20.A1 03688 Health Concerns Section Related Observation LastModified by Organization Detai ls LastModified Time None Recorded Concern Status LastModified by Organization Details LastModified Time None Recorded Payers Encounter Date Sequence Insurance Name Policy Number Policy Vasquez Covered Member ID Vasquez Member ID Guarantor Name 07/11/2025 1 [place] JUAN ANTON[place] T[place] OF [facility] (MEDICARE REPLACEMENT REGIONAL PPO) [id number] Jason Harman [id number] Jason Harman Notes Date Note Type Note Provider Name and Address Organization Details Recorded Time 07/11/2025 text/html 07/11/25Patient returns 2 Week(s) status [...] Physical Therapy: None ROCIO MILLER DPM [address] [place], [address], [facility] 07/12/2025 15:45:05
--- OUTSIDE RECORDS SUMMARY | 2025-07-27 17:12 | XMS_ITS | Continuity of Care Document ---
Author Organization [facility], SURGERY SCHEDULE Address [address] [place] [address] Care Team Providers Care Creative Art Therapist Name Role Phone ORXANNE VARGAS Referring Provider MINERVA NATION Energy Audit Advisor ROCIO MILLER Altitude Chamber Technician Assessment No assessment recorded. Plan of Treatment Reminders Order Date Submit Date Provider Last Modified By Organization Details Last Modified Time Details Appointments POST OP GLOBAL 2024 08:00A Loretta MILLER DPM Not available Not available Not available Lab None recorded . Referral None recorded . Procedures None recorded . Surgeries None recorded . Imaging None recorded . Medication Orders oxycodon e 5 mg tablet 2024 025 [facility] [address], [address], 07/09/2025 05:01:48 ondanset gordo 4 mg disinteg rating tablet 2024 025 [facility], [address], [address], 07/09/2025 05:01:48 aspirin 325 mg tablet 2024 025 [facility], [facility] [address], [address], 07/16/2025 05:02:16 Patient TargetsNo targets recorded. Patient InstructionsNo instructions recorded. Reason for Referral None Reported. Results Created Date Observation Date Name Description Value Unit Range Abnormal Flag Note LastModifiedBy Organization Detail LastModifiedTime 10/16/20 25 06/03/2025 XR, foot, 3 or more view [place] [facility] [address] [facility] [place] [address] Patien t Name: JASON van : [address] Pat[address] Orderi ng Provid er: BENJAM IN [...] Sher Sarkar MD on 2024 4:30 PM [email or web address] [facility] Radiology [address] [place], [address], 06/25/2025 12:31:25 07/16/20 25 07/08/2025 [facility] [address] [facility] [place] [address] Patien t Name: JASON van : 956 Patiservando [...] Felipe houser MD on 2024 1:42 PM [email or web address] [facility] Radiology [address] [place], [address], 07/16/2025 14:36:52 Result Notes None recorded. Procedures Surgical History Date Name Laterality Status Provider Name and Address Organization Details Recorded Time 5 Op Note completed ROCIO MILLER, DPM [address] [place], [address], [facility] 06/25/2025 14:02:16 5 operative procedure [...] Smoker 1 cigar per day LUIS Johnson [facility] 05/05/2023 10:10:49 Sunscreen Use? Yes Informatio n not available 02/28/2025 Tanning Bed Use No Informati on not available 02/28/2025 What Was The Date Of Your Most Recent Tobacco Screening? 07/11/2025 [email or web address] Information not available 07/11/2025 What Is Your Relationship Status? Information not available 05/05/2023 Has Tobacco Cessation Counseling Been Provided? No Information not available 07/11/2025 Sex: Male Functional Status Question Answer Note LastModified by Organizat ion Details LastModified Time Do you use any illicit or recreational drugs? No [email or web address] Information not available 07/11/2025 Do you or have you ever used any other forms of tobacco or nicotine? No [email or web address] Information not available 07/11/2025 What is your [...] ICD10 Code Diagnosis IMO Codes Diagnosis Note [id number] ROCIO MILLER DPM ORTHOPEDI [address] [place] [address] 06/03/2025 11:17:28 06/03/2025 11:55:50 Pain in left foot 9685195984 42725 M79.672 589526 Osteoarthr itis of left foot 3458493808 526691 M19.072 92425483 Patient presents with his to discuss surgical [...] . Hallux noy shandra of left foot 6952749903 M20.12 41819058 Hammer toe 039244221 M20 .42 89519739 Symptomati c parkinsonism 258165247 G20.A1 19075 [id number] ROCIO MILLER DPM SURGERY SCHEDULE [address] [place] [address] 06/25/2025 07:54:35 06/25/2025 07:55:09 Osteoarthritis of left foot 1250141759 992265 M19.072 51079015 Hallux noy shandra of left foot 9127016955 M20.12 61922732 Hammer toe 160558523 M20 .42 06587744 Pain in left foot 148927 2265 32390 M79.672 645686 Symptomati c parkinsonism 471763159 G20.A1 99333 Health Concerns Section Related Observation LastModified by Organization Detai ls LastModified Time None Recorded Concern Status LastModified by Organization Details LastModified Time None Recorded Payers Encounter Date Sequence Insurance Name Policy Number Policy Vasquez Covered Member ID Vasquez Member ID Guarantor Name 06/25/2025 1 [employer]: JUAN ANTONIO TORIB[employer] OF [facility] (MEDICARE REPLACEMENT REGIONAL PPO) [id number] Jason Harman [id number] Jason Harman
--- OUTSIDE RECORDS SUMMARY | 2025-07-27 17:12 | XMS_ITS | CCD ---
Author Name Sara LADIES' HAT TRIMMERKatrin Address [address] [facility] [address] [facility] [address] [place] [address] Phone Organization [facility] Phone Care Team Providers Care Montessori Program Director Name Role Phone Office, [place] Primary Care Provider Unavaila ble Unavailable Chronic Care Management Unavaila ble Summary Purpose DataExchange Insurance Providers Payer name Policy type / Coverage type Covered green party ID Effective Begin Date Effective End Date [employer] [facility] [id number] Unknown Unknown Family History Family History data [...] Instructions esomeprazole (nexIUM) 40 MG capsule RxNorm: 959301 Take 1 Capsule(s) Oral every morning Before Breakfast . 4 No Stop Date Active pramipexole (MIRAPEX) 1 MG tablet RxNorm: 297891 Take 1 tablet by mouth 3 (Three) Times a Day. 4 No Stop Date Active carbidopa-levodop a (SINEMET) 25-100 MG per tablet RxNorm: 473734 TAKE 2 TABLETS AT 6AM, 11AM, 4PM, 10PM No Stop Date Active Medication Administered No Medication Administered data Reason For Visit No Reason For Visit data Encounters Encounter Performer Location Location Address Codes Date () No answer/Patient not seen Diagnosis: Patient not seen[ICD10: UXZ.01] Katrin Ruiz [place] [facility] [address] [place] [address] CPT-4: 29010 12/20/2024 Plan of Care Planned Activity Notes Codes Status Date Appointment: Katrin Ruiz WPtel: [address] [place], [place] [id number] 12/20/2024 Patient Education: Patient Medication Summary Completed 12/20/2024 Medical Equipment No Medical Equipment data Advance Directives No Advance Directive data
--- OUTSIDE RECORDS SUMMARY | 2025-07-27 17:13 | XMS_ITS | Patient Health Record ---
Author Organization [facility] Address [address] [place] [phone] Care Team Providers Care Sales Record Clerk Name Role Phone Byron Steele Primary Care [...] Interpretation:Normal Performing Lab: Notes/Report: Test performed by [facility], [facility] , [address], [place] [address] Felix Schwartz MD, Blasting Contract Man CLIA: [id number] Sodium 140 135-145 mmol/L Potassium 4.0 3.5-5.3 [...] Interpretation:Normal Performing Lab: Notes/Report: Test performed by [facility] [address] [place] [address] , [place] [address] Felix Schwartz MD, Blasting Contract Man CLIA: [id number] Thyroxine Free (free T4) 1.20 0.86-1.76 ng/dL P-Lipid Panel Reviewed date:09/06/2024 01:39:49 PM Interpretation:Normal Performing Lab: Notes/Report: Test performed by [facility] [address] [place] [address] , [address], [place] [address] Felix Schwartz MD, [employer]asting [employer] Man CLIA: [id number] Cholesterol 164 <200 mg/dL Triglycerides 53 <150 [...] Interpretation:Normal Performing Lab: Notes/Report: Test performed by [facility] [address] [place] [address] , [address], [place] [address] Felix Schwartz MD, [employer]asting Contract Man CLIA: [id number] TSH 3.83 0.43-5.25 mU/L CBC Fingerstick (in [...] - 38 plat 167 100 - 400 P-Culture Body Fluid Reviewed date:03/06/2025 12:29:17 PM Interpretation:No growth Performing Lab: Notes/Report: Test performed by [facility] [address] [place], [place] [address] [place] , [address], [place] [address] Felix Schwartz MD, Blasting Contract Man CLIA: [id number] Specimen Source Fluid - Olecranon bursa Culture Body Fluid See Below Final Rep ort : No growth P-Culture, Miscellaneous Aer obic w/Gram Stain Reviewed date:03/06/2025 12:29:18 PM Interpretation:No growth Performing Lab: Notes/Report: Test performed by [facility] [address] , [address], [place] [address] Felix Schwartz MD, Blasting Contract Man CLIA: [id number] Specimen Source Fluid - Olecranon bursa Gram Stain See Below Few Polymorphonuclear leukocytes No organisms seen Culture, Miscellaneous Aerobic w/Gram Stain See Below Preliminary Report : No growth, reincubate Final Report : No growth P-Cell Count and Differentia l, Body Fluid Reviewed date:03/06/2025 12:29:18 PM Interpretation:Normal Performing Lab: Notes/Report: Test performed by [facility] [address] , [address], [place] [id number] Felix Schwartz MD, Blasting Contract Man CLIA: [id number] Fluid Type Synovial Fluid Color [place] Fluid Appearance Hazy Fluid Red Blood Cell (RBC) Count 46882 Total Nucleated Cell Count (WBC) 254 Synovial [...] Fluid Synovial Lining Cells 0 Fluid Specific [place] 1.032 Crystals Fluid Not Present Uric Acid, Body Fluid Reviewed date:03/06/2025 12:29:18 PM Interpretation:Normal Performing Lab: Notes/Report: Uric Acid, Body Fluid 6.0 INTERPRETIVE INFORMATION: Uric Acid, Body Fluid For information on body fluid reference ranges and/or interpretive guidance visit [email or web address] This test was developed and its performance characteristics determined by [facility]. It has not been cleared or approved by the [place] Food and Drug Administration. This test was performed in a CLIA certified laboratory and is intended for clinical purposes. Performed By: [facility] [address] [place] [address] [employer] Contract Man: Dutch Recinos MD, PhD CLIA Number: [id number] INTERPRETIVE INFORMATION: Uric Acid, Body Fluid For information on body fluid reference ranges and/or interpretive guidance visit [email or web address] This test was developed and its performance characteristics determined by [facility]. It has not been cleared or approved by the [place] Food and Drug Administration. This test was performed in a CLIA certified laboratory and is intended for clinical purposes. Performed By: [facility] [address] [place] [address] Blasting Contract Man: Dutch Recinos MD, PhD CLIA Number: [id number] Uric Acid Fluid Source Joint fluid Olecr anon bursa Uric Acid, Body Fluid 6.0 INTERPRETIVE INFORMATION: Uric Acid, Body Fluid For information on body fluid reference ranges and/or interpretive guidance visit [email or web address] This test was developed and its performance characteristics determined by [facility]. It has not been cleared or approved by the [place] Food and Drug Administration. This test was performed in a CLIA certified laboratory and is intended for clinical purposes. Performed By: [facility] [address] [place] [address] Blasting Contract Man: Dutch Recinos MD, PhD CLIA Number: [id number] INTERPRETIVE INFORMATION: Uric Acid, Body Fluid For information on body fluid reference ranges and/or interpretive guidance visit [email or web address] This test was developed and its performance characteristics determined by [facility]. It has not been cleared or approved by the US Food and Drug Administration. This test was performed in a CLIA certified laboratory and is intended for clinical purposes. Performed By: [facility] [address] [place] [address] Blasting Contract Man: Dutch Recinos MD, PhD CLIA Number: [id number] Urinalysis - Inhouse Reviewed date:05/29/2025 12:39:56 PM Interpretation: Performing Lab: Notes/Report: Color/Clarity Yellow/Clear Leuk Neg Nitrite Neg Urobili 3.2 Protein Neg pH 5.5 Blood Neg Sp. Gr. 1.025 Ketone Trace Bili Neg Gluc Neg CBC Fingerstick (in house) Reviewed date:07/23/2025 09:48:11 [...] - 38 plat 160 100 - 400 Reason For Referral Reason Dr. Morton at [facility], [place] to see cashier general pnone [phone], [phone] Diagnosis 1 Parkinson's disease with dyskinesia and fluctuating manifestations (G20.B2) [facility] Referring Provider First Name Byron Referring Provider Last Name Cedric Referring Provider [facility] Referred Provider Neurology, . Referred Provider Specialty Neurology General Notes Christy Richards 2024 08:55:21 AM > faxed to [facility] Referral Priority Routine Reason Dr. Rubalcava in [facility] Diagnosis 1 Acquired hammer toe (M20.40) [facility] Referring Provider First Name Byron Referring Provider Last Name Cedric Referring Provider [facility] emmanuel Referred Provider PODIATRY, . General Notes Christy Richards 2024 11:05:49 AM > faxed to Dr. Rubalcava at [facility] Referral Priority Routine Medications Medication SIG (Take, Route, Frequency, Duration) Notes Start Date End Date Status Onapgo 98 MG/20ML as directed Subcutaneous Active metroNIDAZOLE 500 MG 1 tablet Or[address] ee times a day; Duration: 7 days 07/22/2025 Active Tamsulosin HCl 0.4 MG 1 capsule [...] 1 tablet Orally Once a day Active Immunizations Vaccine Route Administration Date Status [...] Problem Arthropathy of lumba r facet joint (259967912) Lumbar facet arthropathy (M47.816) Active confirmed Problem Disorder of lumbar disc (294821113) Lumbar disc disease (M51.9) Active confirmed Problem Body mass index 30+ - obesity (750948131) BMI 30.0-30.9,adult (Z68.30) Active confirmed Problem Sciatica (46675524) Lumbago with sciatica, right side (M54.41) Active confirmed Problem Sciatica (68738631) Lumbago with sciatica, left side (M54.42) Active confirmed Problem Degeneration of lumbar intervertebral disc (31367600) Lumbar degenerative disc disease (M51.36) Active confirmed Problem Bronchitis (10466952) Bronchitis (J40) Active c onfirmed Problem Displacement of lumbar intervertebral disc without myelopathy (20315738) Bulging lumbar disc (M51.26) Active confirmed Problem Dermatitis (115803790) Dermatitis (L30.9) Active confirmed Problem Erectile dysfunction (disorder) (880220469) Erectile dysfunction, unspecified erectile dysfunction type (N52.9) Active confirmed Problem Sciatica (95066918) Right sided sciatica (M54.31) Active confirmed Problem Problem with balance (527377614) Balance problems (R26.89) Active confirmed Problem Parkinson's disease (disorder) (59367832) Parkinson disease, symptomatic (G20) Active confirmed Problem Dyskinesia (4221293) Dyskinesia (G24.9) Active confirmed Problem Gastroesophageal reflux disease with esophagitis (disorder) (633749190) Gastroesophageal reflux disease with esophagitis without hemorrhage (K21.00) Active confirmed Problem Swelling of first metatarsophalangeal joint of hallux (578178417) Bunion, left (M21.612) Active confirmed Problem Parkinson's disease with dyskinesia and fluctuating manifestations (G20.B2) Active confirmed Problem Hammer toe (953950836) Acquired hammer toe (M20.40) Active confirmed Vital Signs Heart Rate 80 /min 07/22/2025 Blood pressure diastolic 72 mm Hg 07/22/2025 Height 71.5 in 07/22/2025 Blood pressure systolic 120 mm Hg 07/22/2025 Weight 220 lbs 07/22/2025 BMI 30.25 kg/m2 07/22/2025 Encounters Encounter Location Date Provider Diagnosis [facility] [address] [place], [place] [id number] 09/05/2024 Byron [place] Urinary frequency R3 5.0 ; Gastroesophageal reflux disease with esophagitis without hemorrhage K21.00 ; Peripheral edema R60.0 ; Elevated TSH R79.89 ; Hyperglycemia R73.9 and Recurrent UTI N39.0 [facility] [facility] [facility] [address] [place], [place] [id number] 11/21/2024 Byron [place] Parkinson's disease with dyskinesia and fluctuating manifestations G20.B2 [facility] [address] [place], [place] [id number] 12/25/2024 Byron [place] Closed dislocation o f left ring finger S63.255A ; Lumbar back pain M54.50 and BMI 30.0-30.9,adult Z68.30 [facility] [address] [facility] [address] [place], [place] [id number] 01/11/2025 Byron [place] Cellulitis of right arm L03.113 and BMI 30.0-30.9,adult Z68.30 [facility] [address] [facility] [address] [place], [place] [id number] 02/12/2025 Byron [place] Olecranon bursitis o f right elbow M70.21 [facility] [address] [place], [place] [id number] 02/26/2025 Byron [place] Olecranon bursitis o f right elbow M70.21 [facility] [address] [place], [place] [id number] 05/29/2025 Byron [place] Urinary frequency R3 5.0 [facility] [address] [place], [place] [id number] 07/22/2025 Byron [place] Acute diarrhea R19.7 [facility] [address] [place], [place] [id number] 08/06/2024 [place] [facility] [address] [place], [place] [id number] 05/27/2025 Byron [place] Acquired hammer toe M20.40 [facility] [address] [place], [place] [id number] 06/24/2025 Byron [place] Urinary frequency R3 5.0 [facility] [address] [facility] [address] [place], [place] [id number] 07/27/2025 Byron [place] Diarrhea of presumed infectious origin R19.7 Assessments [...] (ICD-10 - G20.B2) Wants to start Onapgo 07/27/2025 Diarrhea of presumed infectious origin (ICD-10 - R19.7) 05/29/2025 Urinary frequency (ICD-10 - R35.0) 05/27/2025 Acquired hammer toe (ICD-10 - M20.40) 02/26/2025 Olecranon bursitis of right elbow (ICD-10 - M70.21) 02/12/2025 Olecranon bursitis of right elbow (ICD-10 - M70.21) 01/11/2025 BMI 30.0-30.9,adult (ICD-10 - Z68.30) 01/11/2025 Cellulitis of right arm (ICD-10 - L03.113) 07/22/2025 Acute diarrhea (ICD-10 - R19.7) 06/24/2025 Urinary frequency (ICD-10 - R35.0) 12/25/2024 BMI 30.0-30.9,adult (ICD-10 - Z68.30) 09/05/2024 Peripheral edema (ICD-10 - R60.0) 09/05/2024 Elevated TSH (ICD-10 - R79.89) 09/05/2024 Hyperglycemia (ICD-10 - R73.9) 09/05/2024 Recurrent UTI (ICD-10 - N39.0) Plan Of Treatment Pending Test Test Name Order Date H-DIARRHEA PANEL 07/27/2025 P-Uric Fluid Analysis 02/26/2025 P-Uric Fluid Analysis 10/05/2022 P-Fluid Cell Count 02/26/2025 Insurance Providers Payer Name Payer Address Payer Phone Subscriber Number Group Number Insured Name Patient Relationship to Insured Coverage Start Date Coverage End Date [employer] [address] [place] [address] [id number] Leoncio Harman Self - patient is [...]
[2025-07-27 18:28] LABS: Clostridium Difficile A/B, PCR Not Detected (NotDetected); Cyclospora Cayetanesis Not Detected (NotDetected); Salmonella, PCR Not Detected (NotDetected); Shiga-like toxin E coli Not Detected (NotDetected); Shigella Enterovasive E coli Not Detected (NotDetected); Vibrio, PCR Not Detected (NotDetected); Yersinia Entercolitica, PCR Not Detected (NotDetected)
== END 2025-07-27 23:59 | disposition home or self-care (01) ==
PROVIDERS: PCP Family Medicine; Visit Provider Family Medicine
DX: R19.7 Diarrhea, unspecified (principal)
CPT/HCPCS: 87506